=== PATIENT | female | born 1940 | race Caucasian/White ===

== ENCOUNTER 2017-09-21 16:11 | Emergency (ER) | payer MEDICARE, SELFPAY ==
[2017-09-21 16:11] VITALS: BP 158/78; PULSE 92; RESP 18; TEMP 36.8; O2SAT 98; BMI 28.3
[2017-09-21 16:16] VITALS: O2SAT 98
--- NOTE | 2017-09-21 16:16 | EKG12_ITS ---
Test Reason : CP Blood Pressure : / mmHG Vent. Rate : 092 BPM Atrial Rate : 092 BPM P-R Int : 152 ms QRS Dur : 082 ms QT Int : 372 ms P-R-T Axes : 067 071 074 degrees QTc Int : 460 ms Normal sinus rhythm Normal ECG Confirmed by GORDON EMANUEL, PAGE ([id number]), image editor ELYSSA HARDIN ([id number]) on 09/23/2017 3:12:43 PM Referred By: ORLANDO/MATHEUS Confirmed By:PAGE LEYVA MD
--- NOTE | 2017-09-21 16:25 | RAD_ITS ---
STUDY: X-RAY CHEST REASON FOR EXAM: Female, 76 years old. CHEST PAIN TECHNIQUE: Single frontal view of the chest. COMPARISON: September 26, 2016 FINDINGS: Chronic appearing increased interstitial lung markings. There is an elevated right hemidiaphragm. There is no demonstrated pleural abnormality. Normal heart size. Normal mediastinum and dayana. Normal visualized pulmonary arteries. There is atherosclerotic calcification of the aortic arch with tortuosity. There are diffuse degenerative changes of the visualized thoracic spine. There is degenerative osteoarthritis of the bilateral shoulders. There is no demonstrated abnormality of the visualized soft tissue structures of the upper abdomen. RAD/Chest 1 View (Portable) IMPRESSION: There are no acute findings. Electronically Signed: Jared Marina MD at 16:39 EDT , Service support ,
--- NOTE | 2017-09-21 16:46 | ED.VISSUMM ---
- ER Visit Summary Date of Service: 09/21/17 Chief Complaint: Chest pain, nausea, indigestion History of Present Illness: The patient is a 76 F with no significant medical history presents to the emergency department with chest pain for the past week. Patient states she has had constant pain in her midepigastric area. She states it is worse when she eats. She does get mildly nauseated. The patient states that she is in the midst of changing primary care physicians and her omeprazole was not renewed. She has been without it for month. She states that since she has been without it, her symptoms worsened. She states that she has a difficult time sleeping because she gets the pain worse when she lays flat. She denies any shortness of breath. The symptoms are not made worse with exertion. She has no history of coronary vascular disease. Physical Examination: Vital signs reviewed General: Well-nourished, well-developed Head: Normocephalic, atraumatic Eyes: Pupils equal and reactive, extraocular muscles intact Neck, supple, no lymphadenopathy Heart: Regular rate and rhythm Respiratory: No distress, clear bilaterally Abdomen: Soft, nontender, nondistended, no peritoneal signs Back: Nontender Extremities: Nontender, no edema, no cords Skin: Normal color no rash Neuro: Alert and oriented, no focal or lateralizing deficits Test Results: [] Emergency Department Course and Treatment: The patient presents with 1 week of constant burning pain in her mid chest that radiates up into her neck. It is made worse with eating, but has never fully resolved. EKG was obtained which showed no acute ischemic change. Cardiac enzymes are normal. The patient really has no risk factor for coronary vascular disease. With her normal EKG, negative cardiac enzymes, and relief of pain with GI cocktail I do feel that this is more likely GI in nature. Chest x-ray was unremarkable. Screening labs were also unremarkable. On reevaluation the patient is resting comfortably. I am going to resume her omeprazole as she had resolution of symptoms when she was on this before. The patient does have follow-up with primary care in place, but it did licensed professional counselor her that if anything changes, she should return immediately. The patient will be discharged home. Treatment Plan: [] Disposition: Discharge Impression: 1. Atypical chest pain This note was generated with [employer] software. It may contain incorrect words, spelling, and punctuation that were not noted in review of the chart prior to signing ED Disposition - Plan for ED Patient: Chief Complaint: Chest Pain Instructions: ED Chest Pain Atypical Unkn Cause Prescriptions: Omeprazole 40 mg PO DAILY #30 capsule. Referrals: Care Physician,No Primary [NON-STAFF] -
[2017-09-21 17:02] VITALS: BP 136/75; PULSE 79; RESP 14; O2SAT 98
[2017-09-21 17:03] LABS: Absolute Lymphocyte Count 1.35 X10^3/ul (0.83-4.51); Absolute Neutrophil Count 4.5 X10^3/uL (2.0-7.7); Basophil# 0.01 X10^3/uL; Basophil% 0.2 % (0-1); Eosinophil# 0.12 X10^3/uL; Eosinophils% 1.9 % (0-5); Hematocrit 36.7 % (37-47); Hemoglobin 12.6 g/dl (12.0-15.0); Lymphocyte # 1.35 X10^3/ul (4.0); Lymphocyte % 21.3 % (19-41); Mean Corp Hgb Conc 34.3 g/gl (32-36); Mean Corpuscular Hgb 29.5 pg (27.0-32.0); Mean Corpuscular Volume 85.9 fL (81-99); Mean Platelet Vol. 8.8 fl (6.2-12.0); Monocyte# 0.39 X10^3/uL; Monocyte% 6.2 % (0-10); Neutrophil # 4.45 X10^3/uL (2.7-7.7); Neutrophil % 70.2 % (47-70); Platelet Count 369 K/mm3 (150-450); RBC Distribution Width CV 13.1 % (11.6-14.6); RBC Distribution Width SD 40.4 fl (35.1-43.9); Red Blood Count 4.27 M/mm3 (4.2-5.4); White Blood Count 6.3 K/mm3 (4.4-11.0)
[2017-09-21 17:05] LABS: POSITIVE COUNT NO; POSITIVE DIFFERENTIAL NO; POSITIVE MORPHOLOGY NO
[2017-09-21 17:27] LABS: Anion Gap 9 (5-15); BUN 17 mg/dL (7-18); BUN/Creat Ratio 20.1 RATIO (10-20); Calcium,Total 9.2 mg/dL (8.5-10.1); Chloride 106 mmol/L (98-107); Creatinine, Serum 0.85 mg/dL (0.55-1.02); EST Glomerular Filtration Rate 69 mL/min (>60); Est Glom Filt Rate - Afr Amer 84 mL/min (>60); Estimated Creatinine Clearance 41.16 ml/min; Glucose 110 mg/dL (74-106); Lipase 140 U/L (73-393); Potassium 3.7 mmol/L (3.5-5.1); Sodium Level 142 mmol/L (136-145)
[2017-09-21] MEDS: Morphine 4 MG/ML Syringe IV (17:48)
[2017-09-21] MEDS: Ondansetron 4 MG/2 ML Vial IV (17:49)
[2017-09-21 18:30] VITALS: BP 110/89; PULSE 82; RESP 22; O2SAT 100
== END 2017-09-21 18:50 | disposition home or self-care (01) ==
PROVIDERS: Emergency Provider Emergency Medicine
DX: R07.89 Other chest pain (principal); R10.9 Unspecified abdominal pain; R11.0 Nausea; I10 Essential (primary) hypertension; K21.9 Gastro-esophageal reflux disease without esophagitis
CPT/HCPCS: 71045; 80048; 83690; 84484; 85025; 93005; 96374; 96375; 99285; A4216; J2405

== ENCOUNTER 2018-04-12 12:52 | Observation (INO) | payer MEDICARE, SELFPAY ==
[2018-04-12] VITALS (9 sets, daily range): BP systolic 94–148; BP diastolic 62–73; PULSE 70–94; RESP 13–18; TEMP 35.8–36.7; O2SAT 94–97; BMI 31.8; BMI 29.0
--- NOTE | 2018-04-12 13:12 | CT_ITS ---
STUDY: CT BRAIN WITHOUT CONTRAST REASON FOR EXAM: Female, 77 years old. Numbness tingling left face CVA RADIATION DOSAGE (If Supplied By Facility): CTDIvol = ( 44.99 ) mGy, DLP = ( 745.49 ) mGycm TECHNIQUE: Transaxial CT imaging of the brain was performed without administration of intravenous contrast material. Individualized dose optimization techniques were used for this CT. COMPARISON: None. FINDINGS: Normal soft tissue structures. Normal calvarium. There is mild cerebral atrophy with widening of the extra-axial spaces and ventricular dilatation. There are areas of decreased attenuation within the white matter tracts of the supratentorial brain, consistent with microvascular disease changes. Is a focus of low attenuation within the right-sided basal ganglia suggesting old lacunar infarct. Normal brainstem. There is mild cerebellar atrophy. There is no intracranial hemorrhage. There are no findings of an acute ischemic infarction. Normal visualized paranasal sinuses. CT/Brain/Head without Contrast IMPRESSION: Mild atrophy. No visualized evidence of acute hemorrhage infarct or edema. Recommend consideration for follow-up MRI if appropriate. Electronically Signed: Dana Hernandez MD at 14:36 EST Tel , Service support ,
--- NOTE | 2018-04-12 13:12 | EKG12_ITS ---
Test Reason : NUMBNESS Blood Pressure : / mmHG Vent. Rate : 081 BPM Atrial Rate : 081 BPM P-R Int : 162 ms QRS Dur : 084 ms QT Int : 394 ms P-R-T Axes : 058 049 077 degrees QTc Int : 457 ms Normal sinus rhythm Nonspecific ST and T wave abnormality Abnormal ECG Confirmed by GORDON EMANUEL, PAGE ([id number]), editorial manager ELYSSA HARDIN ([id number]) on 04/15/2018 2:35:28 PM Referred By: DOMINGO Confirmed By:PAGE LEYVA MD
--- NOTE | 2018-04-12 13:13 | ED.VISSUMM ---
- ER Visit Summary Date of Service: 04/12/18 Chief Complaint: Left-sided facial tingling History of Present Illness: The patient is a 77 F who has paresthesias on the left side of the face. It started yesterday. She describes paresthesias to the left side of the face. Her daughter noted that when she talked her on the phone that there may be a little bit of a slur. She denies a headache, nausea or vomiting. She also had some indigestion earlier today. She denies a history of stroke or TIA. She was told that she does have some coronary artery disease but has no stents in place. Physical Examination: Vital signs reviewed. HEENT exam unremarkable. Heart is regular rate and rhythm without murmurs. Lungs are clear to auscultation. Abdomen is soft and nontender. Extremities reveal no edema. Skin exam normal. Neurologic exam shows an NIH stroke scale of 2. She does have a slight dysarthria with certain raises. She does admit to paresthesias to the left side of the face. Test Results: EKG is normal sinus rhythm with no ST changes. Laboratory studies reveal nothing remarkable. CAT scan of the head reveals atrophy. Chest x-ray reveals mild vascular congestion. Emergency Department Course and Treatment: I am concerned about the patient's left facial paresthesias as well as her mild dysarthria. I am concerned that she may be having a slight stroke. I feel she requires an MRI. I spoke with hospitalist for admission. Treatment Plan: [] Disposition: Admit Impression: Left facial paresthesias, dysarthria This note was generated with [employer] dictation software. It may contain incorrect words, spelling, and punctuation that were not noted in review of the chart prior to signing ED Disposition - Plan for ED Patient: Chief Complaint: Numb/Ting Referrals: Jeovany Carver MD [Primary Care Provider] -
[2018-04-12 13:23] LABS: Bacteria 0 SEEN /hpf (None Seen); Mucous, Urine 0 SEEN /hpf (<or=2+); Red Blood Cells-Urine 0 SEEN /hpf (0-5)
[2018-04-12 13:29] LABS: Absolute Lymphocyte Count 1.22 X10^3/ul (0.83-4.51); Absolute Neutrophil Count 3.1 X10^3/uL (2.0-7.7); Basophil# 0.01 X10^3/uL; Basophil% 0.2 % (0-1); Eosinophil# 0.16 X10^3/uL; Eosinophils% 3.4 % (0-5); Hematocrit 40.6 % (37-47); Hemoglobin 13.4 g/dl (12.0-15.0); Lymphocyte # 1.22 X10^3/ul (4.0); Lymphocyte % 26.1 % (19-41); Mean Corpuscular Hgb 28.3 pg (27.0-32.0); Mean Corpuscular Volume 85.7 fL (81-99); Mean Platelet Vol. 8.5 fl (6.2-12.0); Monocyte# 0.21 X10^3/uL; Monocyte% 4.5 % (0-10); Neutrophil # 3.06 X10^3/uL (2.7-7.7); Neutrophil % 65.6 % (47-70); POSITIVE COUNT NO; POSITIVE DIFFERENTIAL NO; POSITIVE MORPHOLOGY NO; Platelet Count 303 K/mm3 (150-450); RBC Distribution Width CV 13.6 % (11.6-14.6); RBC Distribution Width SD 42.7 fl (35.1-43.9); Red Blood Count 4.74 M/mm3 (4.2-5.4); White Blood Count 4.7 K/mm3 (4.4-11.0)
[2018-04-12 13:29] LABS: Color, Urine Yellow (Yellow); Glucose, Dipstick Normal (Normal); Ketone-Dipstick Negative (Negative); Leukocyte Esterase-Dipstick 25 /ul (Negative); Nitrite-Dipstick Negative (Negative); Occult Blood-Urine Negative /ul (Negative); Protein-Dipstick Negative (Negative); Urine Bilirubin Dipstick Negative (Negative); Urine Clarity Clear (Clear); Urine Urobilinogen Normal (Normal); Urine pH 6.5 (5.0 - 8.0)
[2018-04-12 13:35] LABS: Squamous Epithelial Cells - UA 0-5 SEEN /hpf (5-10); White Blood Cells 0-5 SEEN /hpf (0-5)
[2018-04-12 13:36] LABS: Partial Thromboplast Time 27.7 Seconds (24.1-36.2); Prothrombin Time (Protime)PT. 13.6 SECONDS (11.7-14.9)
--- NOTE | 2018-04-12 13:37 | RAD_ITS ---
STUDY: X-RAY CHEST REASON FOR EXAM: Female, 77 years old. Neurological changes TECHNIQUE: A single frontal view of the chest was obtained. COMPARISON: September 21, 2017 FINDINGS: Lines and tubes: None. Lungs: Under aerated. No focal airspace opacities. Pleura: No demonstrated abnormality. Mediastinum/dayana: Unremarkable. Cardiovascular: Normal size cardiac silhouette. Indistinct central vessels. Thoracic aorta unremarkable. Soft tissues: Unremarkable. Bones: Mild degenerative changes in spine and shoulders. Upper abdomen: No demonstrated abnormality. RAD/Chest 1 View IMPRESSION: No acute cardiopulmonary abnormalities. Mild vascular congestion. Electronically Signed: Sola Giron MD at 14:44 EST , Service support ,
[2018-04-12 13:45] LABS: Anion Gap 10 (5-15); BUN 9 mg/dL (7-18); BUN/Creat Ratio 9.6 RATIO (10-20); Calcium,Total 8.9 mg/dL (8.5-10.1); Chloride 105 mmol/L (98-107); Creatinine, Serum 0.94 mg/dL (0.55-1.02); EST Glomerular Filtration Rate 61 mL/min (>60); Est Glom Filt Rate - Afr Amer 74 mL/min (>60); Estimated Creatinine Clearance 34.86 ml/min; Glucose 106 mg/dL (74-106); Potassium 3.7 mmol/L (3.5-5.1); Sodium Level 141 mmol/L (136-145)
--- NOTE | 2018-04-12 15:32 | NURSING ---
107 LEFT FACIAL PARENTHESIA, DYSARTHRIA, TIA ASHELFAH
--- NOTE | 2018-04-12 15:44 | HP.PCM_ITS ---
<Jamey Obrien - Last Filed: 04/12/18 15:44> Problem List (1) CVA (cerebral vascular accident) Status: Acute (2) CAD (coronary artery disease) Status: Chronic (3) GERD (gastroesophageal reflux disease) Status: Chronic (4) Herpes Status: Chronic (5) Breast cancer Status: Chronic (6) Fibromyalgia Status: Chronic (7) Depression Status: Chronic (8) HLD (hyperlipidemia) Status: Chronic History of Present Illness Date of Admission: 04/12/18 Chief Complaint: left sided facial numbness The patient is a 77 year old F with pmhx of CAD (no stent), HLD, HTN, GERD, fibromyalgia, breast cancer in remission, depression, who presents to the ER with left sided facial numbness that began yesterday. She was taking the garbage out at about 1330 and suddenly felt the left side of her face go numb, describing it as like novacaine, she felt it in her forehead, cheek, nose, and tongue. She ignored it and went to bed. She woke up and it was still there her boyfriend and daughter encouraged her to go to the ER. She states now it feels like it is somewhat better and that it feels like thick skin. Her daughter thinks that her left lip may be slightly drooping, and that she has developed a slight lisp in her speech. The patient denies weakness or numbness of the extremities, denies ROACH, ataxia. She did feel somewhat LH yesterday. She lives al one, no recent falls. She had a herpes flare up 2 weeks prior. She was also tearful during the interview stating she is just waiting to .[] Past Medical History Past Medical History (Chronic Problems): Chronic Problems CAD (coronary artery disease) (Chronic) GERD (gastroesophageal reflux disease) (Chronic) Herpes (Chronic) Breast cancer (Chronic) Fibromyalgia (Chronic) Depression (Chronic) HLD (hyperlipidemia) (Chronic) Allergies Penicillins [PCN] Adverse Reaction (Verified 04/12/18 12:56) Rash Home Medications: Ambulatory Orders Medication Instructions Recorded Omeprazole [Prilosec] 20 mg PO DAILY 09/26/16 Venlafaxine HCl [Effexor Xr] 37.5 mg PO DAILY 09/26/16 Acyclovir 800 mg PO BID 04/12/18 Atorvastatin Calcium [Lipitor] 20 mg PO QHS 04/12/18 Clopidogrel Bisulfate [Clopidogrel] 75 mg PO DAILY 04/12/18 Cyanocobalamin (Vitamin B-12) 1,000 mcg PO DAILY 04/12/18 [Vitamin B-12] Gluc/Chondr-MSM 7/C/[place] 1 each PO BID 04/12/18 [Eql Glucosam-Chondro Complx Tb] Metoprolol Succinate 12.5 mg PO DAILY 04/12/18 Turmeric 400 mg PO DAILY 04/12/18 Ubidecarenone [Co Q-10] 10 mg PO QHS 04/12/18 Vitamin B Complex [B Complex] 1 each PO QHS 04/12/18 Vitamin E 1 cap PO DAILY 04/12/18 Surgical History: adenoidectomy, tonsillectomy Psychiatric History: Depression 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 Lives: Alone Smoking Status: Never smoker Tobacco Use: Non-smoker Alcohol: None Drugs: None - *Family History Maternal History Items: Heart Disease Paternal History Items: Cancer - prostate Review of Systems Constitutional: Denies: Chills, Fever, Weight Change HEENT: Denies: Head Aches, Sinus Congestion, Sinus Drainage Cardiovascular: Denies: Chest Pain, Palpitations Respiratory: Denies: Cough, Shortness of breath at rest, Sputum production Gastrointestinal: Denies: Abdominal Pain, Nausea, Vomiting Genitourinary: Denies: Dysuria Musculoskeletal: Denies: Joint Pain, Joint Tenderness Skin: Denies: Rash, Wounds Neurological: Reports: Slurred speech, Numbness, Tingling. Denies: Balance problems, Focal weakness, Incoordination Psychiatric: Denies: Anxiety, Depression, Homicidal Ideations, Suicidal Ideations Hematologic/ Lymphatic: Denies: Easy Bruising, Easy Bleeding VTE Information - Inpt Only VTE Present on Admission: No VTE Mechan Device Prophylaxis: None VTE Pharm Prophylaxis ordered?: Yes Patient Problems: Active and Suspected Problems CVA (cerebral vascular accident) (Acute) - Physical Exam General: Alert, Oriented x3, Cooperative HEENT: Atraumatic, PERRLA, EOMI, Normocephalic Neck: Supple, No JVD, Negative Carotid Bruits Lungs: Clear to auscultation, Normal air movement Cardiovascular: Regular rate, No murmurs Abdomen: Bowel Sounds Present, Soft, Non Tender Extremities: No edema, Capillary Refill Less than 3 Seconds Skin: No rashes, No breakdown Musculoskeletal: No Tenderness to Palpation of Joints or Extremities Neurological: Facial Droop - left Psych/Mental Status: Depressed Vital Signs Temp Pulse Resp BP Pulse Ox 96.5 F L 74 13 94/62 97 04/12/18 12:52 04/12/18 15:08 04/12/18 15:08 04/12/18 12:52 04/12/18 15:08 Oxygen Flow Rate (L/min) 2 Oxygen Delivery Method Room Air Weight: 163 lb Body Mass Index (BMI) 31.8 Finger Stick Blood Glucose 106 Laboratory Tests Past 24 Hrs 04/12/18 04/12/18 04/12/18 13:05 13:20 13:20 WBC 4.7 RBC 4.74 Hgb 13.4 Hct 40.6 MCV 85.7 MCH 28.3 MCHC 33.0 RDW 13.6 RDW Differential 42.7 Plt Count 303 MPV 8.5 Immature Gran % (Auto) 0.200 Neut % (Auto) 65.6 Lymph % (Auto) 26.1 [place] % (Auto) 4.5 Eos % (Auto) 3.4 Baso % (Auto) 0.2 Absolute Neuts (auto) 3.1 Absolute Lymphs (auto) 1.22 Total Counted Not Reportable PT 13.6 INR 1.0 APTT 27.7 Sodium Potassium Chloride Carbon Dioxide Anion Gap BUN Creatinine Estim Creat Clear Calc Est GFR (MDRD) Af Amer Est GFR (MDRD) Non-Af BUN/Creatinine Ratio Glucose Calcium Troponin I Urine Color Yellow Urine Clarity Clear Urine pH 6.5 Ur Specific [place] 1.010 Urine Protein Negative Urine Glucose (UA) Normal Urine Ketones Negative Urine Occult Blood Negative Urine Nitrite Negative Urine Bilirubin Negative Urine Urobilinogen Normal Ur Leukocyte Esterase 25 H Urine RBC 0 SEEN Urine WBC 0-5 SEEN Ur Squamous Epith Cells 0-5 SEEN Urine Bacteria 0 SEEN Urine Mucus 0 SEEN 04/12/18 13:20 WBC RBC Hgb Hct MCV MCH MCHC RDW RDW Differential Plt Count MPV Immature Gran % (Auto) Neut % (Auto) Lymph % (Auto) [place] % (Auto) Eos % (Auto) Baso % (Auto) Absolute Neuts (auto) Absolute Lymphs (auto) Total Counted PT INR APTT Sodium 141 Potassium 3.7 Chloride 105 Carbon Dioxide 26.0 Anion Gap 10 BUN 9 Creatinine 0.94 Estim Creat Clear Calc 34.86 Est GFR (MDRD) Af Amer 74 Est GFR (MDRD) Non-Af 61 BUN/Creatinine Ratio 9.6 L Glucose 106 Calcium 8.9 Troponin I < 0.015 Urine Color Urine Clarity Urine pH Ur Specific [place] Urine Protein Urine Glucose (UA) Urine Ketones Urine Occult Blood Urine Nitrite Urine Bilirubin Urine Urobilinogen Ur Leukocyte Esterase Urine RBC Urine WBC Ur Squamous Epith Cells Urine Bacteria Urine Mucus Assessment/Plan All Active Problems CVA (cerebral vascular accident) (Acute) 1. Acute CVA - concern for stroke. CT brain negative. Symptoms marked by sudden onset of left facial numbness forehead to bottom of cheek, left lip droop, possibly slight speech change. No prior stroke. She is already on plavix and statin for CAD, does not take aspirin at all. Check echo, MRI brain, MRA head and neck. Speech, PTOT evals. start baby aspirin. Increase lipitor to 40. Neuro consult. BP low normal, labs unremarkable. 2. CAD - cath in 2017 with no stent placed, 30% blockage. Meds as above 3. HTN - running low, hold metoprolol for permissive htn 4. Depression - very tearful on interview, continue effexor. 5. Herpes - recent outbreak, continue acyclovir. 6. HLD - statin as above 7. GERD - PPI. DVT ppx: lovenox DC planning: PTOT, lives alone This patient was seen by Jamey Obrien PA-C under the supervision of Dr. Courtney. <Mindi Courtney E - Last Filed: 04/12/18 16:46> History of Present Illness The patient is a 77 year old F [] Past Medical History Allergies Penicillins [PCN] Adverse Reaction (Verified 04/12/18 12:56) Rash - Physical Exam Vital Signs Temp Pulse Resp BP Pulse Ox 97.8 F 71 15 128/73 H 95 04/12/18 16:31 04/12/18 16:31 04/12/18 16:31 04/12/18 16:31 04/12/18 16:31 Oxygen Flow Rate (L/min) 2 Oxygen Delivery Method Room Air Weight: 151 lb 3.794 oz Body Mass Index (BMI) 29.0 Finger Stick Blood Glucose 106 Laboratory Tests Past 24 Hrs 04/12/18 04/12/18 04/12/18 13:05 13:20 13:20 WBC 4.7 RBC 4.74 Hgb 13.4 Hct 40.6 MCV 85.7 MCH 28.3 MCHC 33.0 RDW 13.6 RDW Differential 42.7 Plt Count 303 MPV 8.5 Immature Gran % (Auto) 0.200 Neut % (Auto) 65.6 Lymph % (Auto) 26.1 [place] % (Auto) 4.5 Eos % (Auto) 3.4 Baso % (Auto) 0.2 Absolute Neuts (auto) 3.1 Absolute Lymphs (auto) 1.22 Total Counted Not Reportable PT 13.6 INR 1.0 APTT 27.7 Sodium Potassium Chloride Carbon Dioxide Anion Gap BUN Creatinine Estim Creat Clear Calc Est GFR (MDRD) Af Amer Est GFR (MDRD) Non-Af BUN/Creatinine Ratio Glucose Calcium Troponin I Urine Color Yellow Urine Clarity Clear Urine pH 6.5 Ur Specific [place] 1.010 Urine Protein Negative Urine Glucose (UA) Normal Urine Ketones Negative Urine Occult Blood Negative Urine Nitrite Negative Urine Bilirubin Negative Urine Urobilinogen Normal Ur Leukocyte Esterase 25 H Urine RBC 0 SEEN Urine WBC 0-5 SEEN Ur Squamous Epith Cells 0-5 SEEN Urine Bacteria 0 SEEN Urine Mucus 0 SEEN 04/12/18 13:20 WBC RBC Hgb Hct MCV MCH MCHC RDW RDW Differential Plt Count MPV Immature Gran % (Auto) Neut % (Auto) Lymph % (Auto) [place] % (Auto) Eos % (Auto) Baso % (Auto) Absolute Neuts (auto) Absolute Lymphs (auto) Total Counted PT INR APTT Sodium 141 Potassium 3.7 Chloride 105 Carbon Dioxide 26.0 Anion Gap 10 BUN 9 Creatinine 0.94 Estim Creat Clear Calc 34.86 Est GFR (MDRD) Af Amer 74 Est GFR (MDRD) Non-Af 61 BUN/Creatinine Ratio 9.6 L Glucose 106 Calcium 8.9 Troponin I < 0.015 Urine Color Urine Clarity Urine pH Ur Specific [place] Urine Protein Urine Glucose (UA) Urine Ketones Urine Occult Blood Urine Nitrite Urine Bilirubin Urine Urobilinogen Ur Leukocyte Esterase Urine RBC Urine WBC Ur Squamous Epith Cells Urine Bacteria Urine Mucus Assessment/Plan Hospitalist note: I am seeing this patient in conjunction with Jamey Obrien. I independently seen and examined the patient. History and physical, laboratory data and imaging studies reviewed and I agree with above admission workup plan. Patient presented to the ED because of left fascial numbness and tingling that started yesterday, it was involving the left forehead, cheek, nose and tongue. She said it was continuous since yesterday but she tried to ignore it and she went to bed but she woke up with the same symptoms today. Her daughter mentioned that she may be slightly having droop on her left side of her face and has slight lisp on her speech. She denied focal arm or leg weakness. Her vital signs are stable in the ED. Her routine blood work was unremarkable. CT scan brain showed no acute findings. Chest x-ray showed no acute findings. EKG revealed normal sinus rhythm without evidence of cardiac arrhythmias or acute ischemic changes. - Physical Exam General: Alert, Oriented x3, Cooperative, No apparent distress. HEENT: Atraumatic, PERRLA, EOMI. Neck: Supple, No JVD, Negative Carotid Bruits, Trachea Midline, Thyroid Normal. Lungs: Clear to auscultation, Normal air movement, No rhonchi, No wheeze, No rales. Cardiovascular: Regular rate, Regular Rhythm, Normal S1, Normal S2, PMI Normal. Abdomen: Bowel Sounds Present, Soft, Non Tender, Non-Distended, No Hepato- splenomegaly. Extremities: No clubbing, No cyanosis, No edema Skin: No rashes, No breakdown Neurological: Neuro grossly intact Vital Signs are stable. Assessment and plan: #1 left facial anesthesia/questionable facial droop and dysarthria: Concern for acute stroke versus TIA. Initial CT scan brain showed no acute findings. EKG reviewed as above. Plan: Admit to PCU for observation, cardiac monitoring, NIH stroke scale, MRI brain, MRA of the head and neck, 2D echocardiogram, fasting lipid profile, aspirin, Lipitor, continue Plavix, neurology consult. #2 other chronic medical problems: Stable, continue current medications as above. This note was generated with [employer] dictation software. It may contain incorrect words, spelling, and punctuation that were not noted in checking the note before signing. Code Visit OBSV E&M: 28053 Initial observation care L3
[2018-04-12] MEDS: 0.9% Normal Saline 1,000 ML 75 ML IV (17:59)
[2018-04-12] MEDS: Acetaminophen 325 MG Tablet 650 MG PO (21:15)
[2018-04-12] MEDS: Atorvastatin Calcium 80 MG Tablet PO (21:21)
[2018-04-12] MEDS: Acyclovir 800 MG Tablet PO (21:21)
[2018-04-12] MEDS: Venlafaxine XR 37.5 MG Capsule PO (21:27)
[2018-04-13] VITALS (8 sets, daily range): BP systolic 115–144; BP diastolic 52–67; PULSE 64–89; RESP 15–16; TEMP 36.4–37.2; O2SAT 93–95; BMI 29.0
[2018-04-13 06:18] LABS: Cholesterol 134 mg/dL (200); High Density Lipoprotein 37 mg/dL; Triglycerides 216 mg/dL; Very Low Density Lipoprotein 43 mg/dL (5-40)
[2018-04-13] MEDS: Aspirin 81 MG TAB.CHEW PO (08:30)
[2018-04-13] MEDS: Enoxaparin 40 MG/0.4 ML Syringe SC (08:30)
[2018-04-13] MEDS: Pantoprazole Sodium 20 MG Tablet PO (08:31)
[2018-04-13] MEDS: Clopidogrel Bisulfate 75 MG Tablet PO (08:31)
[2018-04-13] MEDS: Metoprolol(XL)Succ 25 MG Tablet 12.5 MG PO (08:31)
[2018-04-13] MEDS: Acyclovir 800 MG Tablet PO (08:31)
--- NOTE | 2018-04-13 11:39 | PCM.CONS.GEN ---
Reason for Consult Date of Consultation: 04/13/18 Reason for Consultation: left facial paresthesias History of Present Illness: saturday two days ago noted left facial paresthesias at about 1pm, describes pins and needs, now slowly improving. denies recent illness, however has had an outbreak of genital herpes recently, but no change in meds and takes acyclovir daily regardless. denies increased stress. admits to insomnia, takes tylenol pm. reports new insomnia, although daughters who are present note she has had ongoing trouble with sleep. Per admit note: The patient is a 77 year old F with pmhx of CAD (no stent), HLD, HTN, GERD, fibromyalgia, breast cancer in remission, depression, who presents to the ER with left sided facial numbness that began yesterday. She was taking the garbage out at about 1330 and suddenly felt the left side of her face go numb, describing it as like novacaine, she felt it in her forehead, cheek, nose, and tongue. She ignored it and went to bed. She woke up and it was still there her boyfriend and daughter encouraged her to go to the ER. She states now it feels like it is somewhat better and that it feels like thick skin. Her daughter thinks that her left lip may be slightly drooping, and that she has developed a slight lisp in her speech. The patient denies weakness or numbness of the extremities, denies ROACH, ataxia. She did feel somewhat LH yesterday. She lives alone, no recent falls. She had a herpes flare up 2 weeks prior. She was also tearful during the interview stating she is just waiting to Past Medical History Past Medical History (Chronic Problems): Chronic Problems CAD (coronary artery disease) (Chronic) GERD (gastroesophageal reflux disease) (Chronic) Herpes (Chronic) Breast cancer (Chronic) Fibromyalgia (Chronic) Depression (Chronic) HLD (hyperlipidemia) (Chronic) Allergies Penicillins [PCN] Adverse Reaction (Verified 04/12/18 12:56) Rash Home Medications: Ambulatory Orders Medication Instructions Recorded Omeprazole [Prilosec] 20 mg PO DAILY 09/26/16 Venlafaxine HCl [Effexor Xr] 37.5 mg PO DAILY 09/26/16 Acyclovir 800 mg PO BID 04/12/18 Atorvastatin Calcium [Lipitor] 20 mg PO QHS 04/12/18 Clopidogrel Bisulfate [Clopidogrel] 75 mg PO DAILY 04/12/18 Cyanocobalamin (Vitamin B-12) 1,000 mcg PO DAILY 04/12/18 [Vitamin B-12] Gluc/Chondr-MSM 7/C/[place] 1 each PO BID 04/12/18 [Eql Glucosam-Chondro Complx Tb] Metoprolol Succinate 12.5 mg PO DAILY 04/12/18 Turmeric 400 mg PO DAILY 04/12/18 Ubidecarenone [Co Q-10] 10 mg PO QHS 04/12/18 Vitamin B Complex [B Complex] 1 each PO QHS 04/12/18 Vitamin E 1 cap PO DAILY 04/12/18 Surgical History: adenoidectomy, tonsillectomy Psychiatric History: Depression 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 Lives: Alone Smoking Status: Never smoker Tobacco Use: Non-smoker Alcohol: None Drugs: None - *Family History Maternal History Items: Heart Disease Paternal History Items: Cancer - prostate Review of Systems Constitutional: Denies: Chills, Fever, Weight Change HEENT: Denies: Head Aches, Sinus Congestion, Sinus Drainage Cardiovascular: Denies: Chest Pain, Palpitations Respiratory: Denies: Cough, Shortness of breath at rest, Sputum production Gastrointestinal: Denies: Abdominal Pain, Nausea, Vomiting Genitourinary: Denies: Dysuria Musculoskeletal: Denies: Joint Pain, Joint Tenderness Skin: Denies: Rash, Wounds Neurological: Reports: Tingling. Denies: Focal weakness, Numbness Psychiatric: Reports: Anxiety, Depression. Denies: Homicidal Ideations, Suicidal Ideations Hematologic/ Lymphatic: Denies: Easy Bruising, Easy Bleeding Patient Problems: Active and Suspected Problems CVA (cerebral vascular accident) (Acute) - Physical Exam General: Alert, Oriented x3, Cooperative, No apparent distress HEENT: PERRLA, EOMI Neurological: Cranial nerves II-XII grossly intact, Deep Tendon Reflexes 2+/4 and Symmetrical, Neuro grossly intact, Motor Exam 5/5 strength throughout, Sensory exam intact to light touch and pain, - - sensory splitting Psych/Mental Status: Normal Affect, Alert and oriented to time, place, person, mood and affect Vital Signs Temp Pulse Resp BP Pulse Ox 37.2 C 87 15 144/52 H 95 04/13/18 08:26 04/13/18 08:31 04/13/18 08:26 04/13/18 08:31 04/13/18 08:26 Oxygen Flow Rate (L/min) 2 Oxygen Delivery Method Room Air Weight: 68.6 kg Body Mass Index (BMI) 29.0 Finger Stick Blood Glucose 106 Intake and Output for Last 24 Hours 04/11/18 04/12/18 04/13/18 23:59 23:59 23:59 Intake Total 973 / 973 676 / 676 Balance 973 / 973 676 / 676 Laboratory Tests Past 24 Hrs 04/12/18 04/12/18 04/12/18 13:05 13:20 13:20 WBC 4.7 RBC 4.74 Hgb 13.4 Hct 40.6 MCV 85.7 MCH 28.3 MCHC 33.0 RDW 13.6 RDW Differential 42.7 Plt Count 303 MPV 8.5 Immature Gran % (Auto) 0.200 Neut % (Auto) 65.6 Lymph % (Auto) 26.1 [place] % (Auto) 4.5 Eos % (Auto) 3.4 Baso % (Auto) 0.2 Absolute Neuts (auto) 3.1 Absolute Lymphs (auto) 1.22 Total Counted Not Reportable PT 13.6 INR 1.0 APTT 27.7 Sodium Potassium Chloride Carbon Dioxide Anion Gap BUN Creatinine Estim Creat Clear Calc Est GFR (MDRD) Af Amer Est GFR (MDRD) Non-Af BUN/Creatinine Ratio Glucose Calcium Troponin I Triglycerides Cholesterol LDL Cholesterol VLDL Cholesterol HDL Cholesterol Urine Color Yellow Urine Clarity Clear Urine pH 6.5 Ur Specific [place] 1.010 Urine Protein Negative Urine Glucose (UA) Normal Urine Ketones Negative Urine Occult Blood Negative Urine Nitrite Negative Urine Bilirubin Negative Urine Urobilinogen Normal Ur Leukocyte Esterase 25 H Urine RBC 0 SEEN Urine WBC 0-5 SEEN Ur Squamous Epith Cells 0-5 SEEN Urine Bacteria 0 SEEN Urine Mucus 0 SEEN 04/12/18 04/12/18 04/13/18 13:20 17:05 05:20 WBC RBC Hgb Hct MCV MCH MCHC RDW RDW Differential Plt Count MPV Immature Gran % (Auto) Neut % (Auto) Lymph % (Auto) [place] % (Auto) Eos % (Auto) Baso % (Auto) Absolute Neuts (auto) Absolute Lymphs (auto) Total Counted PT INR APTT Sodium 141 Potassium 3.7 Chloride 105 Carbon Dioxide 26.0 Anion Gap 10 BUN 9 Creatinine 0.94 Estim Creat Clear Calc 34.86 Est GFR (MDRD) Af Amer 74 Est GFR (MDRD) Non-Af 61 BUN/Creatinine Ratio 9.6 L Glucose 106 Calcium 8.9 Troponin I < 0.015 < 0.015 Triglycerides 216 H Cholesterol 134 LDL Cholesterol 54 VLDL Cholesterol 43 H HDL Cholesterol 37 L Urine Color Urine Clarity Urine pH Ur Specific [place] Urine Protein Urine Glucose (UA) Urine Ketones Urine Occult Blood Urine Nitrite Urine Bilirubin Urine Urobilinogen Ur Leukocyte Esterase Urine RBC Urine WBC Ur Squamous Epith Cells Urine Bacteria Urine Mucus MRI reviewed, no acute Assessment/Plan All Active Problems CVA (cerebral vascular accident) (Acute) normal exam and mri brain, conversion vs tia vs migraine vs viral syndrome continue acyclovir ok to dc rec op f/u with psych
--- NOTE | 2018-04-13 13:45 | DCINST_ITS ---
- Discharge Diagnoses Current Active Problems: Current Active and Chronic Problems CVA (cerebral vascular accident) (Acute) CAD (coronary artery disease) (Chronic) GERD (gastroesophageal reflux disease) (Chronic) Herpes (Chronic) Breast cancer (Chronic) Fibromyalgia (Chronic) Depression (Chronic) HLD (hyperlipidemia) (Chronic) You will use the following diet at home:: Cardiac Your food should be the consistency of: Regular Your liquids should be the consistency of: Regular/Thin Discharge Activity: Return to Normal Activity Allergies/Adverse Reactions: Allergies Penicillins [PCN] Adverse Reaction (Verified 04/12/18 12:56) Rash Medications to take at Discharge Omeprazole [Prilosec] 20 mg PO DAILY 09/26/16 Venlafaxine HCl [Effexor Xr] 37.5 mg PO DAILY 09/26/16 Acyclovir 800 mg PO BID 04/12/18 Clopidogrel Bisulfate [Clopidogrel] 75 mg PO DAILY 04/12/18 Cyanocobalamin (Vitamin B-12) [Vitamin B-12] 1,000 mcg PO DAILY 04/12/18 Gluc/Chondr-MSM 7/C/[place] [Eql Glucosam-Chondro Complx Tb] 1 each PO BID 04/12/18 Metoprolol Succinate 12.5 mg PO DAILY 04/12/18 Turmeric 400 mg PO DAILY 04/12/18 Ubidecarenone [Co Q-10] 10 mg PO QHS 04/12/18 Vitamin B Complex [B Complex] 1 each PO QHS 04/12/18 Vitamin E 1 cap PO DAILY 04/12/18 Aspirin [Aspirin, Baby] 81 mg PO DAILY@0800 tab.chew 04/13/18 Atorvastatin Calcium [Lipitor] 80 mg PO QHS #30 tablet 04/13/18 The following prescriptions were given: Atorvastatin Calcium [Lipitor] 80 mg PO QHS #30 tablet Orders to be completed after discharge: Echo Complete W/ Contrast [ECHO] Time Frame: 2 Days, Location: None Selected Primary Care Physician: Jeovany Carver MD [Primary Care Provider] - Please follow up with your Primary Care Physician in: 1-2 weeks Test Results: Test results from this visit will be discussed in further detail at your follow- up appointment, if applicable. Please Follow Up With: Neurology - Your own, keep prior appointment. When: 1 week Proposed Discharge Date: 04/13/18
--- NOTE | 2018-04-13 13:45 | PCM.DC.SUM ---
<Jamey Obrien - Last Filed: 04/13/18 13:45> Discharge Date and Diagnosis - Problem List Patient Problems: Active and Suspected Problems CVA (cerebral vascular accident) (Acute) Date of Admission: 04/12/18 Date of Discharge: 04/13/18 - Primary Discharge Diagnosis Active and Suspected Problems Transient left sided facial parasthesias, stroke ruled out Depression Herpes outbreak CAD GERD Fibromyalgia HLD HTN Hx Breast cancer - Secondary Discharge Diagnosis Chronic Problems CAD (coronary artery disease) (Chronic) GERD (gastroesophageal reflux disease) (Chronic) Herpes (Chronic) Breast cancer (Chronic) Fibromyalgia (Chronic) Depression (Chronic) HLD (hyperlipidemia) (Chronic) Hospital Course and Treatment Imaging Results: RAD/Chest 1 View IMPRESSION: No acute cardiopulmonary abnormalities. Mild vascular congestion. CT/Brain/Head without Contrast IMPRESSION: Mild atrophy. No visualized evidence of acute hemorrhage infarct or edema. Recommend consideration for follow-up MRI if appropriate. MRI/Brain without Contrast IMPRESSION: No acute intracranial abnormality. MRI/MRA Head ONLY without Contrast IMPRESSION: Unremarkable MRA of the head MRI/MRA Neck WITH and W/O Contrast IMPRESSION: Unremarkable bilateral cervical carotid and vertebral arteries. Consults: [facility] - neuro Operations: None Procedures: None Summary of Care Provided: Hospital course: The patient is a 77 year old F with pmhx of CAD, HTN, HLD, fibromyalgia, depression, GERD, breast cancer in remission, who presented to the ER with c/o left sided facial numbness that began the day prior to admission. She described it as feeling like novacaine in her face including the forehead, left side of nose, cheek, and tongue. Her daughter thought that she may have some slight facial droop and slurred speech. She had no ataxia or focal weakness. She had a recent herpes flare up, and also has been depressed stating she was waiting to . She came to the ER, and was admitted with concern for acute stroke. She was placed on baby aspirin in addition to the plavix she was already on, and statin therapy was maximized. CT brain was negative. Tele was negative overnight. She underwent an MRI brain, MRA head and neck the following day. These were negative for stroke. Neurology evaluated the patient and noted no neurologic symptoms, and that the possible etiologies included TIA, migraine, conversion, or a viral syndrome. Neurology cleared the patient for discharge. The patient has a follow up with her own neurologist in 1 week, which we advised her to keep. She will also need to see her PCP in 1-2 weeks. An outpatient echo was ordered, which will be done on saturday. She was discharged home in stable condition. This patient was seen by Jamey Obrien PA-C under the supervision of Doctor Brandy. [] Patient Problems: Active and Suspected Problems CVA (cerebral vascular accident) (Acute) - Physical Exam General: Alert, Oriented x3, Cooperative HEENT: Atraumatic, PERRLA, EOMI, Normocephalic Neck: Supple, No JVD, Negative Carotid Bruits Lungs: Clear to auscultation, Normal air movement Cardiovascular: Regular rate, No murmurs Abdomen: Bowel Sounds Present, Soft, Non Tender Extremities: No edema, Capillary Refill Less than 3 Seconds Skin: No rashes, No breakdown Musculoskeletal: No Tenderness to Palpation of Joints or Extremities Neurological: Cranial nerves II-XII grossly intact Psych/Mental Status: Normal Affect, Appropriate Vital Signs Temp Pulse Resp BP Pulse Ox 97.8 F 89 15 116/55 L 94 04/13/18 12:22 04/13/18 12:22 04/13/18 12:22 04/13/18 12:22 04/13/18 12:22 Oxygen Flow Rate (L/min) 2 Oxygen Delivery Method Room Air Weight: 151 lb 3.794 oz Body Mass Index (BMI) 29.0 Finger Stick Blood Glucose 106 Intake and Output for Last 24 Hours 04/11/18 04/12/18 04/13/18 23:59 23:59 23:59 Intake Total 973 / 973 1296 / 1296 Balance 973 / 973 1296 / 1296 Laboratory Tests Past 24 Hrs 04/12/18 04/12/18 04/13/18 13:20 17:05 05:20 Sodium 141 Potassium 3.7 Chloride 105 Carbon Dioxide 26.0 Anion Gap 10 BUN 9 Creatinine 0.94 Estim Creat Clear Calc 34.86 Est GFR (MDRD) Af Amer 74 Est GFR (MDRD) Non-Af 61 BUN/Creatinine Ratio 9.6 L Glucose 106 Calcium 8.9 Troponin I < 0.015 < 0.015 Triglycerides 216 H Cholesterol 134 LDL Cholesterol 54 VLDL Cholesterol 43 H HDL Cholesterol 37 L Discharge Diet: Low fat/ Low Cholesterol, 2000 mg Sodium Diet Discharge Activity: Return to Normal Activity Home Medications: Medications to take at Discharge Omeprazole [Prilosec] 20 mg PO DAILY 09/26/16 Venlafaxine HCl [Effexor Xr] 37.5 mg PO DAILY 09/26/16 Acyclovir 800 mg PO BID 04/12/18 Clopidogrel Bisulfate [Clopidogrel] 75 mg PO DAILY 04/12/18 Cyanocobalamin (Vitamin B-12) [Vitamin B-12] 1,000 mcg PO DAILY 04/12/18 Gluc/Chondr-MSM 7/C/[place] [Eql Glucosam-Chondro Complx Tb] 1 each PO BID 04/12/18 Metoprolol Succinate 12.5 mg PO DAILY 04/12/18 Turmeric 400 mg PO DAILY 04/12/18 Ubidecarenone [Co Q-10] 10 mg PO QHS 04/12/18 Vitamin B Complex [B Complex] 1 each PO QHS 04/12/18 Vitamin E 1 cap PO DAILY 04/12/18 Aspirin [Aspirin, Baby] 81 mg PO DAILY@0800 tab.chew 04/13/18 Atorvastatin Calcium [Lipitor] 80 mg PO QHS #30 tablet 04/13/18 Following Prescrptions Were Given to Patient: Atorvastatin Calcium [Lipitor] 80 mg PO QHS #30 tablet Other Amb Orders: Echo Complete W/ Contrast [ECHO] Time Frame: 2 Days, Location: None Selected Primary Care Physician: Jeovany Carver MD [Primary Care Provider] - Please follow up with your Primary Care Physician in: 1-2 weeks Please Follow Up With: Neurology - Your own, keep prior appointment. When: 1 week Disposition: Home Minutes spent on discharge:: 35 Patient Condition:: Stable Medical Necessity - Tobacco Use Smoking Status: Never smoker Tobacco Use: Non-smoker Meaningful Use Info Meaningful Use Diagnoses (Choose all that apply): None applicable <Marisela Nava - Last Filed: 04/13/18 15:41> Discharge Date and Diagnosis - Primary Discharge Diagnosis Active and Suspected Problems CVA (cerebral vascular accident) (Acute) - Secondary Discharge Diagnosis Chronic Problems CAD (coronary artery disease) (Chronic) GERD (gastroesophageal reflux disease) (Chronic) Herpes (Chronic) Breast cancer (Chronic) Fibromyalgia (Chronic) Depression (Chronic) HLD (hyperlipidemia) (Chronic) Hospital Course and Treatment Imaging Results: 04/13/18 16:08 Brain without Contrast [MRI] Urgent MRA Head ONLY without Contrast [MRI] Urgent MRA Neck WITH and W/O Contrast [MRI] Urgent Summary of Care Provided: The patient is a 77 year old F past medical history of CAD, hypertension, hyperlipidemia who comes in with complaints of left-sided facial numbness that started suddenly. She was admitted through the ED and admitted to telemetry bed. No acute events were seen overnight. MRI brain, MRA head and neck were negative for acute stroke. Neurology consulted for patient. Thought it was due to either TIA, migraine,, she all viral syndrome. She will follow up with her neurologist and see her primary care physician in 1-2 weeks. - Physical Exam Vital Signs Temp Pulse Resp BP Pulse Ox 97.8 F 80 15 115/58 L 95 04/13/18 15:12 04/13/18 15:12 04/13/18 15:12 04/13/18 15:12 04/13/18 15:12 Oxygen Flow Rate (L/min) 2 Oxygen Delivery Method Room Air Weight: 68.6 kg Body Mass Index (BMI) 29.0 Finger Stick Blood Glucose 106 Intake and Output for Last 24 Hours 04/11/18 04/12/18 04/13/18 23:59 23:59 23:59 Intake Total 973 / 973 1296 / 1296 Balance 973 / 973 1296 / 1296 Laboratory Tests Past 24 Hrs 04/12/18 04/13/18 17:05 05:20 Troponin I < 0.015 Triglycerides 216 H Cholesterol 134 LDL Cholesterol 54 VLDL Cholesterol 43 H HDL Cholesterol 37 L Code Visit Inpatient E&M: 52718 Subs Hosp L2
--- NOTE | 2018-04-13 13:54 | DS.PCM_ITS ---
<Jamey Obrien - Last Filed: 04/13/18 13:45> Discharge Date and Diagnosis - Problem List Patient Problems: Active and Suspected Problems CVA (cerebral vascular accident) (Acute) Date of Admission: 04/12/18 Date of Discharge: 04/13/18 - Primary Discharge Diagnosis Active and Suspected Problems Transient left sided facial parasthesias, stroke ruled out Depression Herpes outbreak CAD GERD Fibromyalgia HLD HTN Hx Breast cancer - Secondary Discharge Diagnosis Chronic Problems CAD (coronary artery disease) (Chronic) GERD (gastroesophageal reflux disease) (Chronic) Herpes (Chronic) Breast cancer (Chronic) Fibromyalgia (Chronic) Depression (Chronic) HLD (hyperlipidemia) (Chronic) Hospital Course and Treatment Imaging Results: RAD/Chest 1 View IMPRESSION: No acute cardiopulmonary abnormalities. Mild vascular congestion. CT/Brain/Head without Contrast IMPRESSION: Mild atrophy. No visualized evidence of acute hemorrhage infarct or edema. Recommend consideration for follow-up MRI if appropriate. MRI/Brain without Contrast IMPRESSION: No acute intracranial abnormality. MRI/MRA Head ONLY without Contrast IMPRESSION: Unremarkable MRA of the head MRI/MRA Neck WITH and W/O Contrast IMPRESSION: Unremarkable bilateral cervical carotid and vertebral arteries. Consults: [facility] - neuro Operations: None Procedures: None Summary of Care Provided: Hospital course: The patient is a 77 year old F with pmhx of CAD, HTN, HLD, fibromyalgia, depression, GERD, breast cancer in remission, who presented to the ER with c/o left sided facial numbness that began the day prior to admission. She described it as feeling like novacaine in her face including the forehead, left side of nose, cheek, and tongue. Her daughter thought that she may have some slight facial droop and slurred speech. She had no ataxia or focal weakness. She had a recent herpes flare up, and also has been depressed stating she was waiting to . She came to the ER, and was admitted with concern for acute stroke. She was placed on baby aspirin in addition to the plavix she was already on, and statin therapy was maximized. CT brain was negative. Tele was negative overnight. She underwent an MRI brain, MRA head and neck the following day. These were negative for stroke. Neurology evaluated the patient and noted no neurologic symptoms, and that the possible etiologies included TIA, migraine, conversion, or a viral syndrome. Neurology cleared the patient for discharge. The patient has a follow up with her own neurologist in 1 week, which we advised her to keep. She will also need to see her PCP in 1-2 weeks. An outpatient echo was ordered, which will be done on saturday. She was discharged home in stable condition. This patient was seen by Jamey Obrien PA-C under the supervision of Doctor Brandy. [] Patient Problems: Active and Suspected Problems CVA (cerebral vascular accident) (Acute) - Physical Exam General: Alert, Oriented x3, Cooperative HEENT: Atraumatic, PERRLA, EOMI, Normocephalic Neck: Supple, No JVD, Negative Carotid Bruits Lungs: Clear to auscultation, Normal air movement Cardiovascular: Regular rate, No murmurs Abdomen: Bowel Sounds Present, Soft, Non Tender Extremities: No edema, Capillary Refill Less than 3 Seconds Skin: No rashes, No breakdown Musculoskeletal: No Tenderness to Palpation of Joints or Extremities Neurological: Cranial nerves II-XII grossly intact Psych/Mental Status: Normal Affect, Appropriate Vital Signs Temp Pulse Resp BP Pulse Ox 97.8 F 89 15 116/55 L 94 04/13/18 12:22 04/13/18 12:22 04/13/18 12:22 04/13/18 12:22 04/13/18 12:22 Oxygen Flow Rate (L/min) 2 Oxygen Delivery Method Room Air Weight: 151 lb 3.794 oz Body Mass Index (BMI) 29.0 Finger Stick Blood Glucose 106 Intake and Output for Last 24 Hours 04/11/18 04/12/18 04/13/18 23:59 23:59 23:59 Intake Total 973 / 973 1296 / 1296 Balance 973 / 973 1296 / 1296 Laboratory Tests Past 24 Hrs 04/12/18 04/12/18 04/13/18 13:20 17:05 05:20 Sodium 141 Potassium 3.7 Chloride 105 Carbon Dioxide 26.0 Anion Gap 10 BUN 9 Creatinine 0.94 Estim Creat Clear Calc 34.86 Est GFR (MDRD) Af Amer 74 Est GFR (MDRD) Non-Af 61 BUN/Creatinine Ratio 9.6 L Glucose 106 Calcium 8.9 Troponin I < 0.015 < 0.015 Triglycerides 216 H Cholesterol 134 LDL Cholesterol 54 VLDL Cholesterol 43 H HDL Cholesterol 37 L Discharge Diet: Low fat/ Low Cholesterol, 2000 mg Sodium Diet Discharge Activity: Return to Normal Activity Home Medications: Medications to take at Discharge Omeprazole [Prilosec] 20 mg PO DAILY 09/26/16 Venlafaxine HCl [Effexor Xr] 37.5 mg PO DAILY 09/26/16 Acyclovir 800 mg PO BID 04/12/18 Clopidogrel Bisulfate [Clopidogrel] 75 mg PO DAILY 04/12/18 Cyanocobalamin (Vitamin B-12) [Vitamin B-12] 1,000 mcg PO DAILY 04/12/18 Gluc/Chondr-MSM 7/C/[place] [Eql Glucosam-Chondro Complx Tb] 1 each PO BID 04/12/18 Metoprolol Succinate 12.5 mg PO DAILY 04/12/18 Turmeric 400 mg PO DAILY 04/12/18 Ubidecarenone [Co Q-10] 10 mg PO QHS 04/12/18 Vitamin B Complex [B Complex] 1 each PO QHS 04/12/18 Vitamin E 1 cap PO DAILY 04/12/18 Aspirin [Aspirin, Baby] 81 mg PO DAILY@0800 tab.chew 04/13/18 Atorvastatin Calcium [Lipitor] 80 mg PO QHS #30 tablet 04/13/18 Following Prescrptions Were Given to Patient: Atorvastatin Calcium [Lipitor] 80 mg PO QHS #30 tablet Other Amb Orders: Echo Complete W/ Contrast [ECHO] Time Frame: 2 Days, Location: None Selected Primary Care Physician: Jeovany Carver MD [Primary Care Provider] - Please follow up with your Primary Care Physician in: 1-2 weeks Please Follow Up With: Neurology - Your own, keep prior appointment. When: 1 week Disposition: Home Minutes spent on discharge:: 35 Patient Condition:: Stable Medical Necessity - Tobacco Use Smoking Status: Never smoker Tobacco Use: Non-smoker Meaningful Use Info Meaningful Use Diagnoses (Choose all that apply): None applicable <Marisela Nava - Last Filed: 04/13/18 15:41> Discharge Date and Diagnosis - Primary Discharge Diagnosis Active and Suspected Problems CVA (cerebral vascular accident) (Acute) - Secondary Discharge Diagnosis Chronic Problems CAD (coronary artery disease) (Chronic) GERD (gastroesophageal reflux disease) (Chronic) Herpes (Chronic) Breast cancer (Chronic) Fibromyalgia (Chronic) Depression (Chronic) HLD (hyperlipidemia) (Chronic) Hospital Course and Treatment Imaging Results: 04/13/18 16:08 Brain without Contrast [MRI] Urgent MRA Head ONLY without Contrast [MRI] Urgent MRA Neck WITH and W/O Contrast [MRI] Urgent Summary of Care Provided: The patient is a 77 year old F past medical history of CAD, hypertension, hyperlipidemia who comes in with complaints of left-sided facial numbness that started suddenly. She was admitted through the ED and admitted to telemetry bed. No acute events were seen overnight. MRI brain, MRA head and neck were negative for acute stroke. Neurology consulted for patient. Thought it was due to either TIA, migraine,, she all viral syndrome. She will follow up with her neurologist and see her primary care physician in 1-2 weeks. - Physical Exam Vital Signs Temp Pulse Resp BP Pulse Ox 97.8 F 80 15 115/58 L 95 04/13/18 15:12 04/13/18 15:12 04/13/18 15:12 04/13/18 15:12 04/13/18 15:12 Oxygen Flow Rate (L/min) 2 Oxygen Delivery Method Room Air Weight: 68.6 kg Body Mass Index (BMI) 29.0 Finger Stick Blood Glucose 106 Intake and Output for Last 24 Hours 04/11/18 04/12/18 04/13/18 23:59 23:59 23:59 Intake Total 973 / 973 1296 / 1296 Balance 973 / 973 1296 / 1296 Laboratory Tests Past 24 Hrs 04/12/18 04/13/18 17:05 05:20 Troponin I < 0.015 Triglycerides 216 H Cholesterol 134 LDL Cholesterol 54 VLDL Cholesterol 43 H HDL Cholesterol 37 L Code Visit Inpatient E&M: 54631 Subs Hosp L2
--- NOTE | 2018-04-13 16:08 | MRI_ITS ---
STUDY: MRA OF THE HEAD WITHOUT CONTRAST REASON FOR EXAM: Female, 77 years old. LEFT facial numbness and tingling since Thrusday. TECHNIQUE: 3-D tlir-vc-qruyue (TOF) imaging was performed with MIPs. The study was performed unenhanced. COMPARISON: None. FINDINGS: Normal bilateral petrous carotid arteries. Normal right cavernous carotid artery with a normal supraclinoid bifurcation. Normal left cavernous carotid artery with a normal supraclinoid bifurcation. Normal right A1 segments of the anterior cerebral artery. Normal left A1 segments of the anterior cerebral artery. Normal intact anterior communicating artery (ACOM). Normal bilateral A2 segments of the anterior cerebral arteries. Normal right M1 and M2 segments of the middle cerebral arteries, with a normal M1 bifurcation. Normal left M1 and M2 segments of the middle cerebral arteries, with a normal M1 bifurcation. Normal right posterior communicating artery (PCOM). There is a persistent origin of the left posterior cerebral artery with absence of the P1 segment of the left posterior cerebral artery. Normal bilateral vertebral arteries. Normal basilar artery with a normal basilar bifurcation. The visualized bilateral superior cerebellar (SCA) arteries are normal. Normal bilateral posterior cerebral arteries. There is no demonstrated aneurysm of the [place]. There is no major vessel occlusion or hemodynamically significant stenosis. There is no demonstrated abnormality of the visualized brain. MRI/MRA Head ONLY without Contrast IMPRESSION: Unremarkable MRA of the head Electronically Signed: Beatriz Palacio MD at 12:46 EST Tel , Service support ,
--- NOTE | 2018-04-13 16:08 | MRI_ITS ---
STUDY: MRI BRAIN WITHOUT CONTRAST REASON FOR EXAM: Female, 77 years old. LEFT facial numbness and tingling since Thrusday TECHNIQUE: Standardized multiplanar fat and water weighted pulse sequences were obtained. COMPARISON: 04/12/2018 FINDINGS: There is mild cerebral atrophy with widening of the extra-axial spaces and ventricular dilatation. There are a limited number of small white matter hyperintensities, distributed throughout the deep white matter tracts of the cerebral hemispheres, consistent with mild chronic white matter ischemic changes. Normal bilateral basal ganglia. Normal thalami. There is no extra-axial fluid accumulation. Normal flow voids within the major intracranial circulation suggesting patency by spin echo criteria. Normal sella turcica, pituitary gland, infundibular stalk, optic chiasm and hypothalamus. Normal tectal plate and pineal gland. Normal midbrain, yuriy and medulla. Normal cerebellum. Normal basal cisterns. Normal bilateral temporal bones. Normal bilateral internal auditory canals. MRI/Brain without Contrast IMPRESSION: No acute intracranial abnormality. Electronically Signed: Beatriz Palacio MD at 11:31 EST Tel , Service support ,
--- NOTE | 2018-04-13 16:08 | MRI_ITS ---
STUDY: MRA NECK WITHOUT CONTRAST REASON FOR EXAM: Female, 77 years old. LEFT facial numbness and tingling since Thrusday. TECHNIQUE: Source images were obtained, MIPs were performed. The study was performed unenhanced. COMPARISON: None. FINDINGS: RIGHT CAROTID ARTERIES: Antegrade flow within the right common carotid artery (CCA). Antegrade flow within the right carotid bulb. Antegrade flow within the right internal carotid (ICA) artery. Antegrade flow within the visualized cervical portion of the right internal carotid artery. LEFT CAROTID ARTERIES: Antegrade flow within the left common carotid artery (CCA). Antegrade flow within the left common carotid bulb. Antegrade flow within the origin of the left internal carotid (ICA) artery. Antegrade flow within the visualized cervical portion of the left internal carotid artery. VERTEBRAL ARTERIES: There is antegrade flow within the bilateral vertebral arteries with a small left vertebral artery, and a dominant right vertebral artery. MRI/MRA Neck WITH and W/O Contrast IMPRESSION: Unremarkable bilateral cervical carotid and vertebral arteries. Electronically Signed: Beatriz Palacio MD at 12:48 EST Tel , Service support ,
== END 2018-04-13 13:45 | disposition home or self-care (01) ==
LOC: ED 13:26 → PCU 15:34
PROVIDERS: Admitting Provider Hospitalist; Emergency Provider Emergency Medicine; Family Provider Family Medicine; PCP Family Medicine; Visit Provider Internal Medicine
DX: R20.2 Paresthesia of skin (principal); Z79.899 Other long term (current) drug therapy; Z79.02 Long term (current) use of antithrombotics/antiplatelets; R29.702 NIHSS score 2; I25.10 Atherosclerotic heart disease of native coronary artery without angina pectoris; R47.1 Dysarthria and anarthria; K21.9 Gastro-esophageal reflux disease without esophagitis; F32.9 Major depressive disorder, single episode, unspecified; E78.5 Hyperlipidemia, unspecified; M79.7 Fibromyalgia; B00.9 Herpesviral infection, unspecified; Z85.3 Personal history of malignant neoplasm of breast; R29.810 Facial weakness
CPT/HCPCS: 36415; 70450; 70544; 70549; 70551; 71045; 80048; 80061; 81001; 84484; 85025; 85610; 85730; 93005; 96360; 96361; 96372; 99218; 99283; A9585; J7030; A4216; G0378

== ENCOUNTER 2018-12-13 15:01 | Emergency (ER) | payer MEDICARE, SELFPAY ==
[2018-04-13 01:07] VITALS: BMI 29.0
[2018-12-13 15:02] VITALS: BP 148/87; PULSE 79; RESP 16; TEMP 36.6; O2SAT 97; BMI 24.8
--- NOTE | 2018-12-13 15:31 | RAD_ITS ---
STUDY: X-RAY - LEFT WRIST REASON FOR EXAM: Female, 77 years old. Trauma TECHNIQUE: 3 view(s) of the wrist were obtained. COMPARISON: None. FINDINGS: Normal visualized distal radius and ulna. Normal radiocarpal articulation. Normal distal radioulnar articulation. Normal carpal bones. Normal carpal articulations. Normal carpometacarpal articulation of the thumb. Normal second through fifth carpometacarpal articulations. Normal visualized metacarpal bones. The soft tissue structures are unremarkable. RAD/Wrist min 3 Views IMPRESSION: Normal x-ray examination of the wrist. Electronically Signed: Chandan Grande MD at 16:59 EDT , Service support ,
--- NOTE | 2018-12-13 15:34 | ED.VIS.FALL ---
History of Present Illness Chief Complaint: Upper Extremity Injury Informant: Patient Occurred: Today Mechanism/Context: Same level fall Location: left wrist Quality of Pain: Aching Current Severity: Moderate Maximum Severity: Severe Worsened by: moving Relieved by: remaining still, ibuprofen 600mg Associated Symptoms: Loss of function. Negative for: Parasthesias, Weakness, Inability to ambulate, Loss of consciousness, Amnesia Narrative: Patient was shopping for outdoor furniture and she tripped on one, stumbling and eventually falling on the left outstretched hand. Immediate pain in her wrist. She does not think she injured anything else and has been ambulatory since then, drove home first before coming to the ER because of persistent pain after taking ibuprofen. Not hit her head or lose consciousness, no anticoagulation. RHD. - Past Medical History (1) CVA (cerebral vascular accident) Status: Chronic (2) Breast cancer Status: Chronic (3) CAD (coronary artery disease) Status: Chronic (4) Depression Status: Chronic (5) Fibromyalgia Status: Chronic (6) GERD (gastroesophageal reflux disease) Status: Chronic (7) HLD (hyperlipidemia) Status: Chronic Past Medical History - Allergies and Home Meds Allergies/Adverse Reactions: Allergies Penicillins [PCN] Adverse Reaction (Verified 12/13/18 15:10) Rash Primary Care Physician: Jeovany Carver MD [NON-STAFF] - Surgical History: adenoidectomy, tonsillectomy Lives: Alone Smoking Status: Never smoker - Family History Maternal Family History: Reports: Heart Disease Paternal Family History: Reports: Cancer - prostate Review of Systems Eyes: Denies: Visual changes - bilaterally, Diplopia Gastrointestinal: Denies: Nausea, Vomiting Musculoskeletal: Reports: Extremity Pain. Denies: Neck pain, Back pain Skin: Denies: Abrasions, Wounds Neurological: Denies: Headache, Weakness, Numbness Physical Exam Vital Signs/Narrative: Vital Signs Temp Pulse Resp BP Pulse Ox 12/13/18 15:02 97.8 F 79 16 148/87 H 97 Inital Vital Signs reviewed: Yes General: Well nourished, Well developed Head: Normocephalic, Atraumatic Eyes: Perrl, EOMI ENT: TM's clear, No hemotympanum or drainage, No trauma Neck: Nontender, Full ROM Extremeties: Tender in the left distal radius, in the snuffbox but no pain with axial loading of the thumb. No ulnar tenderness. No deformity. Mild distal radial swelling. Mild tenderness in the dorsal proximal left forearm extensor musculature, but no tenderness of the radial head, olecranon, or distal humerus. FROM left elbow and shoulder; limited of left wrist. FROM without pain throughout RUE and BLE. Skin: Normal color, No rash, No Trauma Neurological: Alert, Oriented x3, Cranial nerves II-XII grossly intact, Normal Strength, Normal Sensation, Normal Gait Psychological: Normal affect, Normal Mood Diagnostic/Tx/Re-eval Clinical Impression(s) from Imaging Studies Wrist X-Ray 12/13/18 15:31 IMPRESSION: Normal x-ray examination of the wrist. Electronically Signed: Chandan Grande MD at 16:59 EDT , Service support , Elbow X-Ray 12/13/18 16:30 IMPRESSION: Normal x-ray examination of the elbow. Electronically Signed: Chandan Grande MD at 16:57 EDT , Service support , - Medical Decision Making I met a high suspicion for nondisplaced distal radius fracture, and cannot rule out the possibility of an occult scaphoid fracture. I think there may be a small step-off of the bone at the joint on the lateral view and possibly a longitudinal split on the AP. I will place the patient in a thumb spica Velcro splint and advised that she follow-up with orthopedics for reevaluation after the weekend. She is requesting some if her pain but she is driving home, she will be given a [place] here to take at home when she gets there. ED Disposition - Plan for ED Patient: Disposition: Home or Assisted Living Diagnosis: Traumatic closed nondisplaced fracture of distal end of left radius Instructions: FRACTURE, Wrist [General], FRACTURE, Navicular (wrist), Suspected Referrals: Jeovany Carver MD [NON-STAFF] - Gennaro Segura MD [STAFF PHYSICIAN] - As soon as possible
--- NOTE | 2018-12-13 16:30 | RAD_ITS ---
STUDY: X-RAY - LEFT ELBOW REASON FOR EXAM: Female, 77 years old. Trauma TECHNIQUE: 3 view(s) of the elbow. COMPARISON: None. FINDINGS: Normal visualized humerus, radius and ulna. Normal radiocapitellar and ulnotrochlear articulations. The soft tissue structures are unremarkable. RAD/Elbow min 3 Views IMPRESSION: Normal x-ray examination of the elbow. Electronically Signed: Chandan Grande MD at 16:57 EDT , Service support ,
[2018-12-13] MEDS: Ibuprofen 200 MG Tablet 600 MG PO (17:19)
[2018-12-13 17:29] VITALS: PULSE 84; RESP 16; O2SAT 98
== END 2018-12-13 17:30 | disposition home or self-care (01) ==
PROVIDERS: Emergency Provider Emergency Medicine; Family Provider Internal Medicine; PCP Internal Medicine
DX: S52.502D Unspecified fracture of the lower end of left radius, subsequent encounter for closed fracture with routine healing (principal); W18.09XA Striking against other object with subsequent fall, initial encounter; Y93.89 Activity, other specified; Y92.89 Other specified places as the place of occurrence of the external cause; Y99.9 Unspecified external cause status; E78.5 Hyperlipidemia, unspecified; F32.9 Major depressive disorder, single episode, unspecified; I25.10 Atherosclerotic heart disease of native coronary artery without angina pectoris; K21.9 Gastro-esophageal reflux disease without esophagitis; M79.7 Fibromyalgia; Z85.3 Personal history of malignant neoplasm of breast; Z86.73 Personal history of transient ischemic attack (TIA), and cerebral infarction without residual deficits; Z88.0 Allergy status to penicillin; Z82.49 Family history of ischemic heart disease and other diseases of the circulatory system
CPT/HCPCS: 73080; 73110; 99283

== ENCOUNTER → 2018-12-22 10:50 | Outpatient (CLI) | payer MEDICARE, SELFPAY ==
[2018-12-22 10:46] VITALS: BMI 24.8
--- NOTE | 2018-12-22 10:52 | RAD_ITS ---
STUDY: X-RAY - LEFT WRIST REASON FOR EXAM: Female, 77 years old. Fracture. TECHNIQUE: 3 view(s) of the wrist were obtained. COMPARISON: 12/13/2018. FINDINGS: Normal visualized distal radius and ulna. Normal radiocarpal articulation. Normal distal radioulnar articulation. Normal carpal bones. Normal carpal articulations. Normal carpometacarpal articulation of the thumb. Normal second through fifth carpometacarpal articulations. Normal visualized metacarpal bones. The soft tissue structures are unremarkable. RAD/Wrist min 3 Views IMPRESSION: 1. No suspicious acute fracture or dislocation of the left wrist. 2. No significant interval change when compared to 12/13/2018. Electronically Signed: Bhaskar Bowen MD at 16:08 EDT , Service support ,
== END ==
LOC: HPRAD 10:52
PROVIDERS: Family Provider Internal Medicine; PCP Internal Medicine; Referring Provider Orthopaedic Surgery; Visit Provider Orthopaedic Surgery
DX: M25.532 Pain in left wrist (principal)
CPT/HCPCS: 73110

== ENCOUNTER → 2019-01-19 10:55 | Outpatient (CLI) | payer MEDICARE, SELFPAY ==
[2018-12-22 11:26] VITALS: BMI 24.8
--- NOTE | 2019-01-19 10:56 | RAD_ITS ---
STUDY: X-RAY - LEFT WRIST REASON FOR EXAM: Female, 78 years old. Trauma TECHNIQUE: 3 view(s) of the wrist were obtained. COMPARISON: Previous study of 12/22/2018 FINDINGS: There is presently demonstrated a sclerotic transverse band of the distal radial metaphysis not seen on the previous study and consistent with healing nondisplaced fracture. There mild arthritic changes of the radiocarpal articulation. Normal distal radioulnar articulation. Normal carpal bones. Normal carpal articulations. There are mild degenerative changes of the first metacarpal greater multangular joint. Normal second through fifth carpometacarpal articulations. Normal visualized metacarpal bones. The soft tissue structures are unremarkable. RAD/Wrist min 3 Views IMPRESSION: Transverse sclerotic band of the distal radial metaphysis not seen on the previous study and consistent with healing occult fracture. Degenerative changes as detailed above. Electronically Signed: Chandna Grande MD at 19:52 EST , Service support ,
== END ==
PROVIDERS: Family Provider Internal Medicine; PCP Internal Medicine; Referring Provider Orthopaedic Surgery; Visit Provider Orthopaedic Surgery
DX: S52.502A Unspecified fracture of the lower end of left radius, initial encounter for closed fracture (principal)
CPT/HCPCS: 73110

== ENCOUNTER 2019-01-26 09:25 | Outpatient (RCR) | payer MEDICARE, SELFPAY ==
[2019-01-19 11:00] VITALS: BMI 24.8
--- NOTE | 2019-01-26 14:45 | HP.OTEVAL_ITS ---
Patient's Visit Information ROLANDO FIGUEREDO is a 78 year old F, referred to Occupational Therapy by Teddy Salamanca DO, with a diagnosis of left radial styloid fx. Date of Evaluation: 01/26/19 Occupational Therapist: Angelita Joseph, JANE/Lillian, CHT - Subjective Subjective: This 78 year old female was seen for OT eval following a left wrist fx. Pt is unsure when she fell but reports about 6 weeks ago. Pt states she fell while looking at outdoor furniture- she states she went home and iced her wrist but decided to go to the ER. - ADLs Dressing: Pants, Socks, Shoes Fasteners: Snaps, [place] Eating: Cut food Comments: pt lives alone and mtg her home and meal tasks- currently pt is compensating for limited use of left UE with tasks. - Pain left wrist 4 Pain Intensity Range: 2, 6 - ROM Wrist: right 65/60 left 30/25 Opposition: right 10 left 9 - Strength Developmental Mathematics Professor: right 40# left 20# Lateral Pinch: right 6# left 3# Tripod Pinch: right 8# left 3# - Sensation Sensation Comments: states thumb has pins and needles sensation - Quick DASH-Disab of Arm,Shoulder& Hand Quick DASH Score: 50.0000 - Goals Goal:: Pt will demo a increase in left edi programmer strength by 15# to increase pts ind. with ADLs and IADLS by d/c Goal:: Pt will demo left wrist ROM equal to unaffected allowing pt to return to her ADLS and IADLS at IND. level by d/c Goal:: pt will report pain no greater than 1/10 with use of left UE for ADLS and IADLS by d/c - Rehabilitation General Assessment: Pt arrives 5 weeks post left radial styloid fx demo with limited ROM/strength and pain with [place] of left UE with ADLs and IADLs. Pt would benefit from skilled OT services 1-2x week for 4 weeks to return pt to PLOF. Today pt was ed. in AROM wrist and digit ex to improve pts ROM. pt demo understanding of ex and was given handout. pt agree to POC. Rehabilitation Potential: Good - Anticipated Interventions Anticipated Interventions: A/AAROM/PROM, Strengthening, Triggerpoint Release, Modalities, Orthoses, Joint Protection/Energy Conservation - Visit Plan Frequency: 2-3x /Week Duration: 4 Weeks TEXT: Thank you for the opportunity to evaluate your patient. For Medicare and Medicare HMO plans, please review the plan of care and approve it. It will need to be FAXED BACK to us at [phone] for Medicare purposes. Please let me know if there are questions or concerns regarding this plan of care. Physician Signature: Date:
== END 2019-01-26 19:00 | disposition home or self-care (01) ==
LOC: OT 09:25
PROVIDERS: Family Provider Internal Medicine; PCP Internal Medicine; Referring Provider Orthopaedic Surgery; Visit Provider Orthopaedic Surgery
DX: S52.512D Displaced fracture of left radial styloid process, subsequent encounter for closed fracture with routine healing (principal)
CPT/HCPCS: 97110; 97166

== ENCOUNTER 2020-08-08 12:09 | Emergency (ER) | payer MEDICARE, SELFPAY ==
[2019-01-19 11:00] VITALS: BMI 24.8
[2020-08-08 12:10] VITALS: BP 156/77; PULSE 116; RESP 16; TEMP 36.4; O2SAT 99; BMI 29.7
--- NOTE | 2020-08-08 12:25 | EKG12_ITS ---
Test Reason : DIZZINESS Blood Pressure : / mmHG Vent. Rate : 102 BPM Atrial Rate : 102 BPM P-R Int : 156 ms QRS Dur : 084 ms QT Int : 338 ms P-R-T Axes : 047 070 048 degrees QTc Int : 440 ms Sinus tachycardia Nonspecific T wave abnormality Abnormal ECG Confirmed by YARELI EMANUEL, JERAD ([id number]), photographic editor ASHLEIGH JJ ([id number]) on 08/10/2020 9:38:56 AM Referred By: DOMINGO Confirmed By:JERAD DOWNS MD
--- NOTE | 2020-08-08 12:25 | CT_ITS ---
STUDY: CT BRAIN WITHOUT CONTRAST REASON FOR EXAM: Female, 79 years old. Dizziness RADIATION DOSAGE (If Supplied By Facility): CTDIvol = ( 38.43 ) mGy, DLP = ( 741.51 ) mGycm TECHNIQUE: Transaxial CT imaging of the brain was performed without administration of intravenous contrast material. Individualized dose optimization techniques were used for this CT. COMPARISON: No relevant priors. FINDINGS: Normal soft tissue structures. Normal calvarium. There is mild cerebral atrophy with widening of the extra-axial spaces and ventricular dilatation. Normal white matter tracts of the cerebral hemispheres. Normal basal ganglia and thalami. Normal brainstem. There is mild cerebellar atrophy. There is no intracranial hemorrhage. There are no findings of an acute ischemic infarction. Normal visualized paranasal sinuses. CT/Brain/Head without Contrast IMPRESSION: Chronic involutional changes of the brain. Electronically Signed: Sam Licona MD at 13:50 EDT , Service support ,
--- NOTE | 2020-08-08 12:26 | EX.ED.DYSGE1 ---
HPI History of Present Illness Chief Complaint: Dizziness Informant: patient Narrative Narrative: Patient presents with dizziness. She has had this for 2 weeks. She states that it is not positional in nature. She has had no vomiting or diarrhea. She denies any chest pain or shortness of breath. She states that when it first started she took a extra dose of blood pressure medications in the morning. She has not missed any other doses or taken any extra doses since then but still feels this dizziness. When I tried to describe it further she describes it more of a wobbly. She denies room spinning sensation. She has not had a headache. She denies any falls or trauma. [facility] Medical History (Updated 08/08/20 @ 14:[address] Romulo Drummond MD) CPAP (continuous positive airway pressure) dependence Depression Fibromyalgia GERD (gastroesophageal reflux disease) Herpes Hypertension Migraines Sleep apnea Home Medications omeprazole 20 mg PO DAILY 09/26/16 [History Last Taken 04/12/18 12:00] venlafaxine [Effexor XR] 37.5 mg PO DAILY 09/26/16 [History Last Taken 04/11/18 22:00] acyclovir 800 mg PO BID 04/12/18 [History Last Taken 04/12/18 12:00] clopidogrel 75 mg PO DAILY 04/12/18 [History Last Taken Unknown] coenzyme Q10 [Co Q-10] 10 mg PO QHS 04/12/18 [History Last Taken 04/11/18 22:00] cyanocobalamin (vitamin B-12) 1,000 mcg PO DAILY 04/12/18 [History Last Taken 04/11/18 22:00] grke-wkafoy-fdx#5-N-yvwc-boron [Glucosamine-Chondr (boswellia)] 1 ea PO BID 04/12/18 [History Last Taken 04/12/18 12:00] metoprolol succinate 12.5 mg PO DAILY 04/12/18 [History Last Taken Unknown] turmeric 400 mg PO DAILY 04/12/18 [History Last Taken 04/12/18 12:00] vitamin B complex 1 ea PO QHS 04/12/18 [History Last Taken 04/11/18 22:00] vitamin E 1 cap PO DAILY 04/12/18 [History Last Taken 04/12/18 12:00] aspirin 81 mg PO DAILY@0800 tab.chew 04/13/18 [Rx Last Taken Unknown] atorvastatin 80 mg PO QHS #30 tablet 04/13/18 [Rx Last Taken Unknown] meclizine 25 mg PO 4X/DAY PRN PRN #20 tab 08/08/20 [Rx Last Taken Unknown] Allergy/AdvReac Type Severity Reaction Status Date / Time Penicillins [PCN] AdvReac Rash Verified 08/08/20 12:13 Social History Smoking Status: Never smoker ROS ROS ED Constitutional Constitutional ED: Denies chills or fever(s) Eyes Eyes: Denies blurry vision, change in vision, diplopia or loss of vision ENT ENT ED: Reports other; Denies ear pain, rhinorrhea or sore throat Cardiovascular Cardiovascular: Denies chest pain, palpitations or racing heartbeat Respiratory/Chest Respiratory/Chest: Denies cough, dyspnea, dyspnea on exertion or sputum Gastrointestinal Gastrointestinal: Denies abdominal pain, diarrhea, nausea or vomiting Genitourinary Genitourinary ED: Denies dysuria, hematuria or urinary frequency Musculoskeletal Musculoskeletal: Denies back pain, myalgias or neck pain Integumentary Denies abscess or rash Neurologic Neurologic: Reports other Details: Dizziness Psychiatric Psychiatric: Denies anxiety or depression Endocrine Endocrinology: Denies polydipsia or polyuria Hematologic/Lymphatic Hematologic/Lymphatic: Denies easy bleeding or easy bruising Allergic/Immunologic Allergic/Immunologic ED: Denies urticaria EXAM Physical Exam Const Vital Signs: 08/08/20 12:10 08/08/20 12:35 Temperature 97.6 F L Temperature Source Temporal Pulse Rate 116 H Respiratory Rate 16 Respiratory Effort Normal Non-Labored Respiratory Pattern Normal Blood Pressure 156/77 H Blood Pressure Mean 103 Pulse Ox 99 Oxygen Delivery Method Room Air Positive well nourished and well developed General Appearance ED: well developed and NAD HEENT Reports normocephalic, head/scalp atraumatic and TM's clear normocephalic and atraumatic; Negative for tenderness Tympanic Membrane ED: Yes TM's clear Eyes PERRL and EOMs intact bilaterally General Eye ED: Negative for scleral icterus Neck supple and no JVD Chest Wall palpation of chest normal Chest: Negative for tenderness Resp normal respiratory effort and clear to auscultation bilaterally Effort and Inspection: Negative for respiratory distress Cardio regular rate and regular rhythm; Negative for no murmurs GI soft to palpation, non-tender and non-distended Palpation: soft Back/Spine no CVA tenderness and no thoracic nor lumbar tenderness Cervical Spine: Negative for cervical spine tenderness Extremity normal to inspection General Extremety ED: Negative for tenderness Neuro oriented x3, CN's II-XII intact bilaterally and no sensory deficits noted Neuro Narrative: Her NIH stroke scale equals 0. Sensorium / Orientation: awake and alert Motor Exam: strength 5/5 throughout Psych mental status grossly normal Skin no rashes or lesions noted MDM MDM MDM Narrative Medical decision making narrative: Patient was given IV fluids and meclizine. Laboratory studies show a creatinine of 1.15 but otherwise is unremarkable. CAT scan of the head reveals chronic changes. Upon reevaluation at 1435 the patient is feeling much better. She does not feel dizzy at this time. Patient will be discharged home with Antivert to take. She will increase her hydration and she is when to call her PCP for follow-up Lab Data Labs: Laboratory Results - last 24 hr 08/08/20 08/08/20 13:00 13:00 WBC 5.2 RBC 4.70 Hgb 13.4 Hct 42.0 MCV 89.4 MCH 28.5 MCHC 31.9 L RDW Std Deviation 45.9 H RDW Coeff of Kyree 14.2 Plt Count 415 MPV 9.1 Immature Gran % (Auto) 0.600 Neut % (Auto) 75.7 H Lymph % (Auto) 16.5 L [place] % (Auto) 4.1 Eos % (Auto) 2.5 Baso % (Auto) 0.6 Absolute Neuts (auto) 3.9 Absolute Lymphs (auto) 0.85 Nucleated RBC % 0 Sodium 138 Potassium 4.1 Chloride 105 Carbon Dioxide 28.0 Anion Gap 5 BUN 13 Creatinine 1.15 H Estim Creat Clear Calc 27.56 Est GFR (MDRD) Af Amer 58 L Est GFR (MDRD) Non-Af 48 L BUN/Creatinine Ratio 11.3 Glucose 156 H Calcium 9.6 Radiography Diagnostic Testing: Radiology Impression Brain CT 08/08/20 12:25 IMPRESSION: Chronic involutional changes of the brain. Electronically Signed: Sam Licona MD at 13:50 EDT , Service support , EKG Initial EKG: Comments: Sinus rhythm with rate of 102. No ischemic changes noted. QTc 440, LA 156 Discharge Plan Triage Chief Complaint: Dizziness ED Provider: Romulo Drummond Dx/Rx/DC Orders Clinical Impression: Dizziness Instructions: ED Dizziness, Uncertain Cause Prescriptions: New meclizine [meclizine] 25 MG tablet 25 mg PO 4X/DAY PRN PRN (Reason: Dizziness) Qty: 20 RF: 0 No Action venlafaxine [Effexor XR] 75 MG capsule,extended release 24hr 37.5 mg PO DAILY RF: 0 omeprazole 20 MG capsule 20 mg PO DAILY RF: 0 clopidogrel 75 MG tablet 75 mg PO DAILY RF: 0 acyclovir 800 MG tablet 800 mg PO BID RF: 0 metoprolol succinate 25 MG tablet extended release 24 hr 12.5 mg PO DAILY RF: 0 vitamin E 1,000 UNIT capsule 1 cap PO DAILY RF: 0 coenzyme Q10 [Co Q-10] 10 MG capsule 10 mg PO QHS RF: 0 vitamin B complex 1 EACH tablet 1 ea PO QHS RF: 0 adwf-mkwgak-hdt#9-U-ucyq-boron [Glucosamine-Chondr (boswellia)] 1 EACH tablet 1 ea PO BID RF: 0 cyanocobalamin (vitamin B-12) 1,000 MCG capsule 1,000 mcg PO DAILY RF: 0 turmeric 400 MG capsule 400 mg PO DAILY RF: 0 atorvastatin 80 MG tablet 80 mg PO QHS Qty: 30 RF: 0 aspirin 81 MG tablet,chewable 81 mg PO DAILY@0800 RF: 0 Referrals: Benson,Aristeo [Other] Disposition Disposition: Home, self care
--- NOTE | 2020-08-08 12:26 | ED.RN ---
UPON ARRIVAL TO ER ENTRANCE PT APPEARED AGITATED. ONCE THE PT STATED SHE HAD TAKEN TOO MANY OF HER MEDICATIONS THIS NURSE ASKED QUESTIONS TO FIND OUT WHEN THIS OCCURRED AND PT WAS INITIALLY UNCLEAR AND THEN BECAME MUCH MORE AGITATED AND AGGRESSIVE IN HER ANSWERS BY TALKING VERY LOUDLY AND CLAPPING HER HANDS. THEN PT STATED SHE HAS BEEN DIZZY SINCE SHE TOOK TOO MANY PILLS. AT THIS POINT THIS NURSE STOPPED INQUIRING ABOUT THE SITUATION. ONLY QUESTIONS ASKED WERE THE BASIC TRIAGE QUESTIONS WHICH THE PT RESPONDED STILL YELLING AND AGITATED. DAUGHTER THEN ARRIVED AND PT SIDE AND ASKED PT WHY SHE WAS YELLING. PT DIDN'T RESPOND. DAUGHTER INTERACTED WITH THIS NURSE REGARDING BP AND INFO WAS GIVEN AND EXPLAINED IT WOULD PROBABLY IMPROVE ONCE SHE WAS SETTLED INTO A ROOM. WHILE ASKING PT HER HEIGHT AND WEIGHT PT CONTINUED TO BE SNAPPY AND CUT THIS NURSE OFF. DAUGHTER LOOKED PUZZLED BY THIS BEHAVIOR WELL. I EXPLAINED THAT I FELT PT WAS ANNOYED WITH MY ASKING QUESTIONS. AT THIS TIME THE4 PT STATES THIS NURSE NEEDS A LESSON IN BEDSIDE MANNERS AND DEALING WITH THE GERIATRIC PEOPLE. ATTEMPTED TO APOLOGIZE IF SOMETHING WRONG WAS SAID BUT PT AGAIN CUT THIS NURSE OFF. THE WRISTBAND WAS BEING PLACED PT STATED SHE WANTED THE [employer] AND THIS NURSES NAME. CHARGE NURSE ARRIVED TO TAKE PT BACK TO A ROOM SO IT WAS EXPLAINED THIS WAS THE CHARGE NURSE AND GAVE THEM MY NAME THE PT AMBULATED FROM TRIAGE ROOM SHE STATED THAT THIS NURSE SHOULD GO BACK TO LUNCH. DAUGHTER WAVED HER OFF TO THIS NURSE.
[2020-08-08] MEDS: Meclizine HCl 25 MG Tablet PO (12:37)
[2020-08-08 13:05] LABS: Absolute Lymphocyte Count 0.85 X10^3/uL (0.83-4.51); Absolute Neutrophil Count 3.9 X10^3/uL (2.0-7.7); Basophil# 0.03 X10^3/uL; Basophil% 0.6 % (0-1); Eosinophil# 0.13 X10^3/uL; Eosinophils% 2.5 % (0-5); Hemoglobin 13.4 g/dL (12.0-15.0); Lymphocyte # 0.85 X10^3/ul (0.83-4.51); Lymphocyte % 16.5 % (19-41); Mean Corp Hgb Conc 31.9 g/dL (32-36); Mean Corpuscular Hgb 28.5 pg (27.0-32.0); Mean Corpuscular Volume 89.4 fL (81-99); Mean Platelet Vol. 9.1 fl (6.2-12.0); Monocyte# 0.21 X10^3/uL; Monocyte% 4.1 % (0-10); NRBC Flagged by Analyzer 0 % (0-5); Neutrophil % 75.7 % (47-70); Platelet Count 415 K/mm3 (150-450); RBC Distribution Width CV 14.2 % (11.6-14.6); RBC Distribution Width SD 45.9 fl (35.1-43.9); White Blood Count 5.2 K/mm3 (4.4-11.0)
[2020-08-08 14:15] LABS: Anion Gap 5 (5-15); BUN 13 mg/dL (7-18); BUN/Creat Ratio 11.3 RATIO (10-20); Calcium,Total 9.6 mg/dL (8.5-10.1); Chloride 105 mmol/L (98-107); Creatinine, Serum 1.15 mg/dL (0.55-1.02); EST Glomerular Filtration Rate 48 mL/min (>60); Est Glom Filt Rate - Afr Amer 58 mL/min (>60); Estimated Creatinine Clearance 27.56 ml/min; Glucose 156 mg/dL (74-106); Potassium 4.1 mmol/L (3.5-5.1); Sodium Level 138 mmol/L (136-145)
[2020-08-08 15:03] VITALS: BP 142/81; PULSE 81; RESP 18; O2SAT 98
== END 2020-08-08 15:03 | disposition home or self-care (01) ==
PROVIDERS: Emergency Provider Emergency Medicine
DX: R42 Dizziness and giddiness (principal); F32.9 Major depressive disorder, single episode, unspecified; K21.9 Gastro-esophageal reflux disease without esophagitis; I10 Essential (primary) hypertension
CPT/HCPCS: 70450; 80048; 85025; 93005; 99284

== ENCOUNTER 2022-05-12 02:32 | Emergency (ER) | payer MEDICARE, SELFPAY ==
[2022-05-12 02:33] VITALS: BP 134/74; PULSE 78; RESP 14; TEMP 36.8; O2SAT 99; BMI 28.4
--- NOTE | 2022-05-12 03:33 | EDS_ITS ---
HPI History of Present Illness Chief Complaint: Eye Problem Detail of Chief Complaint: Left eye pain. No visual change. No trauma. Informant: patient and family Onset/Context/Timing Location: Left Eye Onset: Hours Context: Sudden Onset Timing: Intermittent Current Severity: Mild Maximum Severity: Moderate Associated Symptoms Associated Symptoms - Eyes: Pain and Redness; Negative for Burning, Crusting, Drainage, Eyelid swelling, Foreign body sensation, Itching, Matting or Photop hobia History of injury: No Visual correction: None Narrative Narrative: 81-year-old female was sitting at home tonight watching TV when she developed sharp stabbing pain and intermittent to her left eye. This occurred around 8 PM. No trauma. No visual change. No discharge. No prior history. No history of glaucoma. She has had cataract surgery with lens implants bilaterally. She has a history of macular degeneration. She does not wear any type of corrective lenses or glasses. Prior similar symptoms: No Recent Illness/Hospitalization: No PFSH PFSH Medical History CPAP (continuous positive airway pressure) dependence Depression Fibromyalgia GERD (gastroesophageal reflux disease) Herpes Hypertension Migraines Sleep apnea Home Medications omeprazole 20 mg capsule,delayed release 20 mg PO DAILY gerd 09/26/16 [History Last Taken 04/12/18 12:00] venlafaxine 75 mg capsule,extended release 24 hr (Effexor XR) 37.5 mg PO DAILY antidepressant 09/26/16 [History Last Taken 04/11/18 22:00] acyclovir 800 mg tablet 800 mg PO BID herpes 04/12/18 [History Last Taken 04/12/18 12:00] clopidogrel 75 mg tablet 75 mg PO DAILY 04/12/18 [History Last Taken Unknown] coenzyme Q10 10 mg capsule (Co Q-10) 10 mg PO QHS heart 04/12/18 [History Last Taken 04/11/18 22:00] cyanocobalamin (vitamin B-12) 1,000 mcg capsule 1,000 mcg PO DAILY suppliment 04/12/18 [History Last Taken 04/11/18 22:00] glucosamine 750 og-xvvkaxtkl-spi no.7 644 mg-vit B-zrsmrs-oiqpj tablet (Glucosamine-Chondr Cmplx (boswellia)) 1 ea PO BID suppliment 04/12/18 [History Last Taken 04/12/18 12:00] metoprolol succinate 25 mg tablet,extended release 24 hr 12.5 mg PO DAILY blood pressure 04/12/18 [History Last Taken Unknown] turmeric 400 mg capsule 400 mg PO DAILY suppliment 04/12/18 [History Last Taken 04/12/18 12:00] vitamin B complex 1 ea PO QHS suppliment 04/12/18 [History Last Taken 04/11/18 22:00] vitamin E 670 mg (1,000 unit) capsule 1 cap PO DAILY 04/12/18 [History Last Taken 04/12/18 12:00] aspirin 81 mg chewable tablet 81 mg PO DAILY@0800 04/13/18 [Rx Last Taken Unknown] atorvastatin 80 mg tablet 80 mg PO QHS ##30 04/13/18 [Rx Last Taken Unknown] meclizine 25 mg tablet 25 mg PO 4X/DAY PRN PRN Dizziness #20 tabs 08/08/20 [Rx Last Taken Unknown] hydrocodone-acetaminophen 5-325mg 5mg-325mg 1 tab PO Q4H PRN PRN Pain 5 days #14 TABLETS 05/12/22 [Rx Last Taken Unknown] Allergy/AdvReac Type Severity Reaction Status Date / Time Penicillins [PCN] AdvReac Rash Verified 05/12/22 02:36 Social History Smoking Status: Never smoker ROS ROS ED ROS Narrative Denies recent illness. She denies any headache or head pain. Review of Systems ROS Unobtainable: Denies due to encephalopathy Constitutional Constitutional ED: Denies chills or fever(s) Eyes Eyes: Denies blurry vision ENT ENT ED: Denies ear pain, rhinorrhea or sore throat Cardiovascular Cardiovascular: Denies chest pain or palpitations Respiratory/Chest Respiratory/Chest: Denies cough or dyspnea Gastrointestinal Gastrointestinal: Denies abdominal pain Genitourinary Genitourinary ED: Denies dysuria Musculoskeletal Musculoskeletal: Denies arthralgias Integumentary Denies abscess Neurologic Neurologic: Denies headache(s) or paresthesias Psychiatric Psychiatric: Denies anxiety or depression Endocrine Endocrinology: Denies polydipsia Hematologic/Lymphatic Hematologic/Lymphatic: Denies easy bleeding Allergic/Immunologic Allergic/Immunologic ED: Denies mouth swelling or tongue swelling EXAM Physical Exam Narrative Exam Narrative: Well-appearing 81-year-old female. Vital signs are stable afebrile. Blood pressure is 134/74. She does not look septic nor toxic or in distress. She does state intermittently she has shooting pain in her left thigh. HEENT exam pupils round reactive light extra motions are intact. There is no swelling of either the upper or lower lid. There is no periorbital swelling. Left eye is slightly injected. Minimally watering. No discharge. There is no preauricular lymphadenopathy. No facial swelling. No facial droop. No rash. Neck nontender no lymphadenopathy. Lungs clear. Heart regular rhythm. Abdomen soft nontender. Moving all 4 extremities. Neurologically she is awake and alert with no focal motor deficits. Const Vital Signs: 05/12/22 02:33 Temperature 98.2 F Temperature Source Temporal Pulse Rate 78 Respiratory Rate 14 Blood Pressure 134/74 H Blood Pressure Mean 94 Pulse Ox 99 Oxygen Delivery Method Room Air Positive well nourished, well developed and obese; Negative for cachectic, contractures or unkempt General Appearance ED: well developed and NAD; Negative for unkempt, cachectic or contractures Nutritional Appearance: obese; Negative for cachectic HEENT atraumatic; Negative for trauma or tenderness Nose: external nose normal and nares normal Eyes Eyes Narrative: Left eye mildly injected. Mildly watering. No discharge. No swelling. Extraocular motions are intact. Pupils 2 mm and reactive. No facial or periorbital swelling. No lymphadenopathy. Neck no lymphadenopathy, supple and no JVD General: Negative for tenderness Resp normal respiratory effort, no retractions, no use of accessory muscles and clear to auscultation bilaterally Cardio regular rate, regular rhythm, S1 normal heart sound, S2 normal heart sound and no murmurs GI non-tender, non-distended and no masses Auscultation: normoactive bowel sounds Back/Spine no CVA tenderness General Back: Negative for CVA tenderness Extremity normal to inspection General Extremety ED: Negative for edema General Extremity: Negative for edema Neuro oriented x3, CN's II-XII intact bilaterally, moves all extremities and no sensory deficits noted Sensorium / Orientation: alert, oriented to person, oriented to place and oriented to time; Negative for orientation impaired Motor Exam: strength 5/5 throughout Psych Appearance: Negative for unkempt Attitude: No agitated Mood & Affect: Negative for depressed, anxious or tearful Skin no wounds Lesions: no lesions Rashes: no rashes Trauma: Negative for abrasion or laceration MDM MDM MDM Narrative Medical decision making narrative: 81-year-old with left eye pain. Exam grossly is unremarkable other than slightly injected mildly watering. Pupil and extraocular motions are intact. Tetracaine will be applied, slit-lamp exam and Dewey-Pen for intraocular pressure will be obtained. Nurses will get a visual acuity. Clinically at this time I do not see an obvious foreign body or abrasion. I do not see any signs of an obvious infection. Applied tetracaine to her left eye. Did not give her any relief. Her left eye with fluorescein stain. I did a slit-lamp exam. I do not see any signs of a corneal abrasion or foreign body. There is no ulceration. Limited funduscopic exam was done on her nondilated pupil and evidence any obvious abnormalities but it was very limited to what I could see of the retina. Her pain comes and goes its like lightning strikes. Clinically this appears to be trigeminal neuralgia. We did do visual acuity. 20/30 in the right eye. 20/40 in the left eye which is the affected eye. 20/30 bilaterally. I also did a Dewey-Pen exam on the patient and the pressure was only 6 and 10 done twice. No signs of glaucoma. Repeat exam no change. Again no signs of infection, nor foreign body nor abrasion. She will be given [place] for pain. Follow-up with ophthalmology to further evaluate her eye. Clinically I think this is trigeminal neuralgia. She be placed on [place] for pain. An outpatient follow-up with her primary care physician. Discharge Plan Triage Chief Complaint: Eye Problem ED Provider: Toi Hernandez Dx/Rx/DC Orders Clinical Impression: Trigeminal neuralgia Instructions: ED Trigeminal Neuralgia Prescriptions: New hydrocodone-acetaminophen 5-325 mg tablet 1 tab PO Q4H PRN PRN (Reason: Pain) 5 Days Qty: 14 0RF No Action venlafaxine [Effexor XR] 75 MG capsule,extended release 24hr 37.5 mg PO DAILY omeprazole 20 MG capsule 20 mg PO DAILY clopidogrel 75 MG tablet 75 mg PO DAILY acyclovir 800 MG tablet 800 mg PO BID metoprolol succinate 25 MG tablet extended release 24 hr 12.5 mg PO DAILY vitamin E 1,000 UNIT capsule 1 cap PO DAILY coenzyme Q10 [Co Q-10] 10 MG capsule 10 mg PO QHS vitamin B complex 1 EACH tablet 1 ea PO QHS zmhh-wbbkni-pvg#8-X-ghch-boron [Glucosamine-Chondr (boswellia)] 1 EACH tablet 1 ea PO BID cyanocobalamin (vitamin B-12) 1,000 MCG capsule 1,000 mcg PO DAILY turmeric 400 MG capsule 400 mg PO DAILY atorvastatin 80 MG tablet 80 mg PO QHS Qty: 30 0RF aspirin 81 MG tablet,chewable 81 mg PO DAILY@0800 0RF meclizine [meclizine] 25 MG tablet 25 mg PO 4X/DAY PRN PRN (Reason: Dizziness) Qty: 20 0RF Primary Care Provider: Aristeo Knowles Referrals: Aristeo Knowles [Other] Liu Michaels MD [Med Staff - Active Staff] - As soon as possible (Call their office on Saturday. To be seen this week.) Activity Restrictions/Additional Instructions: I believe this is trigeminal neuralgia which is a nerve pain. I do not see an thing obviously wrong with your eye. Your visual acuity is okay. There is no foreign body or abrasion. There is no signs of infection. There is no signs of glaucoma at this time. [place] for pain. Follow-up with the eye doctor on Saturday. Follow-up with your primary care physician this week. Disposition Disposition: Home, Self Care
[2022-05-12] MEDS: Fluorescein 1 MG STRIP 1 STRIP LEFT EYE (03:53)
[2022-05-12] MEDS: Tetracaine 0.5% Ophthalmic Bottle 5 DRP LEFT EYE (03:54)
[2022-05-12 04:33] VITALS: PULSE 81; RESP 15; O2SAT 95
[2022-05-12] MEDS: HYDROcodone Bitartrate/Apap 5/325 Tablet PO (04:37)
[2022-05-12 05:17] VITALS: BP 134/74; PULSE 81; RESP 15; O2SAT 95
== END 2022-05-12 05:17 | disposition home or self-care (01) ==
LOC: ED 04:42
PROVIDERS: Emergency Provider Emergency Medicine; PCP Internal Medicine; Visit Provider Emergency Medicine
DX: G50.0 Trigeminal neuralgia (principal); I10 Essential (primary) hypertension; E66.9 Obesity, unspecified
CPT/HCPCS: 99285

== ENCOUNTER 2022-11-16 09:04 | Inpatient (IN) | payer MEDICARE, SELFPAY ==
[2022-11-16] VITALS (15 sets, daily range): BP systolic 89–134; BP diastolic 50–72; PULSE 83–125; RESP 16–20; TEMP 35.5–37.2; O2SAT 83–98; BMI 27.5; BMI 26.7
--- NOTE | 2022-11-16 | APP_PTH ---
PATIENT: ROLANDO FIGUEREDO LOC: [facility] U#:[id number] AGE/SX: 81/F ROOM: [facility] RE11/17/[address]: Dr. Jay Solares DO : 1940 BED: 1 DIS: 11/20/2022 SPEC #: [id number] RECD: 11/16/22 21:37 STATUS: [facility] #: [id number] VÍCTOR: 11/16/22 00:[address]: Baltazar Gray DEPT: SURGICAL PATHOLOGY RECD BY: Jared Lopez ENTERED: 11/20/22 09:54 SP TYPE: APPENDIX OTHR DR: MD Dr. Jay Ortega DO Dr. Nicholas F Kotsonis, MD Dr. Victor Velasquez, MD Tissues: Appendix, NOS Procedures: Surgery Specimen Level III Comments: @ Ordering doctor for SUIII edited from to @ by JUAN RAMON at 11/20/22 1445 @ Submitting doctor edited from to @ by KORINAOD at 11/20/22 1445 HEADER OPERATION: Laparoscopic appendectomy PRE-OP DIAGNOSIS: Acute appendicitis TISSUE SUBMITTED: Appendix MICROSCOPIC DIAGNOSIS Appendix, appendectomy: Acute necrotizing appendicitis with acute serositis. AM:inga 11/21/2022 MICROSCOPIC DESCRIPTION Slides are reviewed. GROSS DESCRIPTION Received in fixative is one container labeled with the patient's name and designated appendix. The specimen consists of an appendix measuring 5.0 cm in length and up to 0.6 cm in diameter. The attached periappendiceal adipose tissue measures up to 1.3 cm in width. The serosa is congested and hemorrhagic. No obvious perforation is identified. No fecalith is identified. Director Of [employer]atering Sales sections are submitted in one cassette. / SJ:inga 11/20/2022 TC:2 CPT: 28324
--- NOTE | 2022-11-16 09:37 | CT_ITS ---
STUDY: CT ABDOMEN AND PELVIS WITH CONTRAST REASON FOR EXAM: Female, 81 years old. Abdominal pain RADIATION DOSAGE (If Supplied By Facility): CTDIvol = ( 16.11 ) mGy, DLP = ( 1004.42 ) mGycm TECHNIQUE: Transaxial images were obtained from the dome of the diaphragm to the symphysis pubis without oral contrast. IV 100mL Isovue-300 was administered. Sagittal and coronal images were reconstructed. Individualized dose optimization techniques were used for this CT. COMPARISON: None. FINDINGS: The patient is status post left mastectomy. Increased markings in the posterior medial segment of the right lower lobe suggestive of atelectasis and/or possible early infiltrate. Coronary artery calcification. Normal liver. Normal gallbladder. There is dilatation of the common bile duct measuring 9.9 mm in its distal portion as it enters the ampulla of Vater. Normal spleen. Normal pancreas. Normal bilateral adrenal glands. Mild degree of bilateral hydronephrosis slightly more prominent on the right side. There is a moderate-sized hiatal hernia. Normal small intestine. There are multiple colonic diverticula consistent with diverticulosis. There is a tubular, thick-walled appendix (>7mm), consistent with acute appendicitis. A small appendicolith is seen in the proximal portion of the appendix. Inflammatory changes are seen in the right lower quadrant. There is diffuse atherosclerotic calcification of the abdominal aorta and its major visceral branches, without a demonstrated aneurysm. Normal inferior vena cava. Normal retroperitoneum. Normal urinary bladder. There is absence of the uterus consistent with a prior hysterectomy. There is a right-sided inguinal hernia containing adipose tissue. There are diffuse degenerative changes of the visualized lumbar spine. Mild anterior listhesis of L4 on L5. CT/Abdomen/Pelvis W IV Cont ONLY IMPRESSION: Findings in keeping with acute appendicitis with inflammatory changes in the right lower quadrant. Moderate size hiatal hernia. Bilateral hydronephrosis slightly more prominent on the right side. Increased markings at the right lung base suggestive of atelectasis and/or infiltrate. Electronically Signed: Sam Licona MD at 11:15 EDT ,
[2022-11-16] MEDS: 0.9% Normal Saline 1,000 ML 1000 ML IV (09:44)
[2022-11-16 09:53] LABS: Absolute Lymphocyte Count 0.61 X10^3/uL (0.83-4.51); Absolute Neutrophil Count 7.5 X10^3/uL (2.0-7.7); Basophil# 0.01 X10^3/uL; Basophil% 0.1 % (0-1); Eosinophil# 0.01 X10^3/uL; Eosinophils% 0.1 % (0-5); Hematocrit 35.4 % (37-47); Hemoglobin 11.9 g/dL (12.0-15.0); Lymphocyte # 0.61 X10^3/ul (0.83-4.51); Lymphocyte % 7.3 % (19-41); Mean Corp Hgb Conc 33.6 g/dL (32-36); Mean Corpuscular Hgb 29.9 pg (27.0-32.0); Mean Corpuscular Volume 88.9 fL (81-99); Mean Platelet Vol. 9.2 fl (6.2-12.0); Monocyte# 0.21 X10^3/uL; Monocyte% 2.5 % (0-10); NRBC Flagged by Analyzer 0 % (0-5); Neutrophil # 7.48 X10^3/uL (2.7-7.7); Neutrophil % 89.2 % (47-70); Platelet Count 263 K/mm3 (150-450); RBC Distribution Width CV 14.6 % (11.6-14.6); RBC Distribution Width SD 46.9 fl (35.1-43.9); Red Blood Count 3.98 M/mm3 (4.2-5.4); White Blood Count 8.4 K/mm3 (4.4-11.0)
[2022-11-16 10:11] LABS: ALB/GLOB Ratio 0.9 RATIO (0.9-2.4); AST(SGOT) 158 U/L (15-37); Alanine Aminotransfer ALT/SGPT 145 U/L (13-56); Albumin, Serum 3.6 g/dL (3.2-5.0); Alkaline Phosphatase 61 U/L (45-117); Anion Gap 9 (5-15); BUN 12 mg/dL (7-18); BUN/Creat Ratio 13.8 RATIO (10-20); Calcium,Total 9.2 mg/dL (8.5-10.1); Chloride 98 mmol/L (98-107); Creatinine, Serum 0.87 mg/dL (0.55-1.02); EST Glomerular Filtration Rate 66 mL/min (>60); Est Glom Filt Rate - Afr Amer 80 mL/min (>60); Estimated Creatinine Clearance 35.19 ml/min; Globulin 3.9 g/dL (2.2-4.2); Glucose 128 mg/dL (74-106); Potassium 4.3 mmol/L (3.5-5.1); Protein, Total 7.5 g/dL (6.4-8.2); Sodium Level 131 mmol/L (136-145)
[2022-11-16 11:03] LABS: Bacteria 0 SEEN /hpf (None Seen); Mucous, Urine 0 SEEN /hpf (<or=2+); Red Blood Cells-Urine 0 SEEN /hpf (0-5); Squamous Epithelial Cells - UA 0 SEEN /hpf (5-10); White Blood Cells 0 SEEN /hpf (0-5)
--- NOTE | 2022-11-16 11:12 | EDS_ITS ---
HPI History of Present Illness Chief Complaint: Weakness Informant: patient and family Narrative Narrative: 81-year-old female presenting to the emergency room with a chief complaint of possible dehydration. Patient lives alone has been having memory issues that is progressively worse over the past month. She has chronically been dizzy over this time period. Last night she reportedly either fell because of the dizziness slipped in water, or if she states I was asleep. She states she really was not injured in the fall. She has had some diarrhea earlier in the week and has not really had much to eat or drink over the past several days. She had blood work obtained yesterday through the [facility] which was reviewed through the [facility] [facility] by the family. She has developed right lower quadrant abdominal pain. No fever. She takes Plavix but no anticoagulant. [facility] Medical History CPAP (continuous positive airway pressure) dependence Depression Fibromyalgia GERD (gastroesophageal reflux disease) Herpes Hypertension Migraines Sleep apnea Home Medications omeprazole 20 mg capsule,delayed release 20 mg PO DAILY gerd 09/26/16 [History Last Taken 04/12/18 12:00] venlafaxine 75 mg capsule,extended release 24 hr (Effexor XR) 37.5 mg PO DAILY antidepressant 09/26/16 [History Last Taken 04/11/18 22:00] acyclovir 800 mg tablet 800 mg PO BID herpes 04/12/18 [History Last Taken 04/12/18 12:00] clopidogrel 75 mg tablet 75 mg PO DAILY 04/12/18 [History Last Taken Unknown] coenzyme Q10 10 mg capsule (Co Q-10) 10 mg PO QHS heart 04/12/18 [History Last Taken 04/11/18 22:00] cyanocobalamin (vitamin B-12) 1,000 mcg capsule 1,000 mcg PO DAILY suppliment 04/12/18 [History Last Taken 04/11/18 22:00] glucosamine 750 [id number] no.7 644 mg-vit U-emuwky-wnmag tablet (Glucosamine-Chondr Cmplx (boswellia)) 1 ea PO BID suppliment 04/12/18 [History Last Taken 04/12/18 12:00] metoprolol succinate 25 mg tablet,extended release 24 hr 12.5 mg PO DAILY blood pressure 04/12/18 [History Last Taken Unknown] turmeric 400 mg capsule 400 mg PO DAILY suppliment 04/12/18 [History Last Taken 04/12/18 12:00] vitamin B complex 1 ea PO QHS suppliment 04/12/18 [History Last Taken 04/11/18 22:00] vitamin E 670 mg (1,000 unit) capsule 1 cap PO DAILY 04/12/18 [History Last Taken 04/12/18 12:00] aspirin 81 mg chewable tablet 81 mg PO DAILY@0800 04/13/18 [Rx Last Taken Unknown] atorvastatin 80 mg tablet 80 mg PO QHS ##30 04/13/18 [Rx Last Taken Unknown] meclizine 25 mg tablet 25 mg PO 4X/DAY PRN PRN Dizziness #20 tabs 08/08/20 [Rx Last Taken Unknown] hydrocodone-acetaminophen 5-325mg 5mg-325mg 1 tab PO Q4H PRN PRN Pain 5 days #14 TABLETS 05/12/22 [Rx Last Taken Unknown] Allergy/AdvReac Type Severity Reaction Status Date / Time Penicillins [PCN] AdvReac Rash Verified 05/12/22 02:36 Social History Smoking Status: Never smoker ROS ROS ED Constitutional Constitutional ED: Reports other Details: Generalized weakness ; Denies chills, fever(s) or weight loss Eyes Eyes: Denies change in vision or diplopia ENT ENT ED: Denies ear pain, rhinorrhea or sore throat Cardiovascular Cardiovascular: Denies chest pain, orthopnea, palpitations or racing heartbeat Respiratory/Chest Respiratory/Chest: Denies cough, dyspnea or orthopnea Gastrointestinal Gastrointestinal: Reports abdominal pain, diarrhea and nausea; Denies vomiting Genitourinary Genitourinary ED: Denies dysuria, hematuria or urinary frequency Musculoskeletal Musculoskeletal: Denies arthralgias or myalgias Integumentary Denies abscess or rash Neurologic Neurologic: Reports other Details: Chronic dizziness ; Denies headache(s) or weakness Psychiatric Psychiatric: Denies anxiety, depression, suicidal ideation or suicidal thoughts Endocrine Endocrinology: Denies polydipsia, polyphagia or polyuria Allergic/Immunologic Allergic/Immunologic ED: Denies mouth swelling, tongue swelling or urticaria EXAM Physical Exam Const Vital Signs: 11/16/22 09:04 Temperature 95.9 F L Temperature Source Temporal Pulse Rate 125 H Respiratory Rate 18 Blood Pressure 117/59 L Blood Pressure Mean 78 Pulse Ox 93 Oxygen Delivery Method Room Air Positive well nourished and well developed General Appearance ED: well developed HEENT Reports normocephalic, head/scalp atraumatic and moist mucous membranes Eyes PERRL and EOMs intact bilaterally Neck no lymphadenopathy, supple and no JVD Resp normal respiratory effort and clear to auscultation bilaterally Cardio regular rate, regular rhythm and no murmurs Rate: tachycardic GI Auscultation: normoactive bowel sounds Palpation: soft, tender RLQ, guarding and rebound tenderness present Back/Spine no CVA tenderness and normal ROM Extremity normal to inspection General Extremety ED: Negative for edema General Extremity: Negative for edema Neuro oriented x3 and CN's II-XII intact bilaterally Sensorium / Orientation: alert Motor Exam: strength 5/5 throughout Psych mental status grossly normal Mood & Affect: Negative for depressed or tearful Skin no rashes or lesions noted and no wounds MDM MDM MDM Narrative Medical decision making narrative: Patient's white count returns at 8.4. BMP shows sodium of 131 glucose of 128. Slight elevation in her transaminases with a bilirubin of 1.1. Unsure of significance. Urinalysis is negative. CT of the abdomen pelvis was obtained due to the unexplained tachycardia and the right lower quadrant pain. This is consistent with acute appendicitis with appendicolith. Patient has an allergy to penicillin received Cipro and Flagyl. I consulted surgery Dr. Gray. He will be up to evaluate the patient. Family was updated. Socially the patient has been having memory issues and increased dizziness with falls over the past month. Family is concerned about her ability to continue to live at home. I advised them that we should reassess her after her surgery and see how she is doing. They are comfortable with this but she may end up needing to go to retirement for rehabilitation or possibly assisted living. History & Record Review Discussion w/independent historian: Patient and Family Lab Data Attestation: I reviewed the patient's lab results. Labs: Laboratory Results - last 24 hr 11/16/22 11/16/22 09:30 10:55 WBC 8.4 RBC 3.98 L Hgb 11.9 L Hct 35.4 L MCV 88.9 MCH 29.9 MCHC 33.6 RDW Std Deviation 46.9 H RDW Coeff of Kyree 14.6 Plt Count 263 MPV 9.2 Immature Gran % (Auto) 0.800 Neut % (Auto) 89.2 H Lymph % (Auto) 7.3 L Crow[place] % (Auto) 2.5 Eos % (Auto) 0.1 Baso % (Auto) 0.1 Absolute Neuts (auto) 7.5 Absolute Lymphs (auto) 0.61 L Nucleated RBC % 0 Sodium 131 L Potassium 4.3 Chloride 98 Carbon Dioxide 24.0 Anion Gap 9 BUN 12 Creatinine 0.87 Estim Creat Clear Calc 35.19 Est GFR (MDRD) Af Amer 80 Est GFR (MDRD) Non-Af 66 BUN/Creatinine Ratio 13.8 Glucose 128 H Calcium 9.2 Total Bilirubin 1.10 H AST 158 H ALT 145 H Alkaline Phosphatase 61 Total Protein 7.5 Albumin 3.6 Globulin 3.9 Albumin/Globulin Ratio 0.9 Urine Color Yellow Urine Clarity Clear Urine pH 6.5 Ur Specific [place] 1.005 Urine Protein 15 H Urine Glucose (UA) Normal Urine Ketones 15 H Urine Occult Blood 10 H Urine Nitrite Negative Urine Bilirubin Negative Urine Urobilinogen Normal Ur Leukocyte Esterase Negative Radiography Diagnostic Testing: Clinical Impression(s) from Imaging Studies Abdomen/Pelvis CT 11/16/22 09:37 IMPRESSION: Findings in keeping with acute appendicitis with inflammatory changes in the right lower quadrant. Moderate size hiatal hernia. Bilateral hydronephrosis slightly more prominent on the right side. Increased markings at the right lung base suggestive of atelectasis and/or infiltrate. Electronically Signed: Sam Licona MD at 11:15 EDT , Management Discussion w/another healthcare provider: putty and patch worker/Case management and Other (Surgery-Dr. Gray) Discharge Plan Dx/Rx/DC Orders Clinical Impression: Acute appendicitis Disposition Disposition: Acute Care [facility]
[2022-11-16 11:14] LABS: Color, Urine Yellow (Yellow); Glucose, Dipstick Normal (Normal); Ketone-Dipstick 15 mg/dl (Negative); Leukocyte Esterase-Dipstick Negative /ul (Negative); Nitrite-Dipstick Negative (Negative); Occult Blood-Urine 10 /ul (Negative); Protein-Dipstick 15 mg/dl (Negative); Specific Gravity, Urine 1.005 (1.002-1.030); Urine Bilirubin Dipstick Negative (Negative); Urine Clarity Clear (Clear); Urine Urobilinogen Normal (Normal); Urine pH 6.5 (5.0 - 8.0)
[2022-11-16] MEDS: Ciprofloxacin 400 MG/200 ML BAG 200 MG IV (11:29)
[2022-11-16] MEDS: metroNIDAZOLE 500 MG/100 ML BAG 100 MG IV ×2 (12:48→23:14)
--- NOTE | 2022-11-16 13:55 | HP.PCM_ITS ---
HPI - General General Date of Admission: 11/16/22 Chief Complaint: Acute onset abdominal pain and associated weakness HPI Narrative ROLANDO FIGUEREDO, is a 81 F who presents to [facility] with complaints of lightheadedness, dizziness, and weakness for the last week as well as acute onset abdominal pain beginning 2 days ago. Her daughter is present with her in the room and provides clarification on some of the history. Patient states that she has had right-sided abdominal discomfort with some associated nausea but no vomiting for the past 48 hours. Her daughter states that she was told that her mother felt like this was the flu and decided not to present immediately, but when it persisted she decided to seek evaluation. ER work-up notable for CBC without leukocytosis but with presence of left shift. CT imaging of the abdomen and pelvis was obtained that showed evidence of acute appendicitis with appendicolith. Patient has a history of CPAP dependence, but she is unsure if this is related to history of obstructive sleep apnea. She is unfortunately unclear how much of her history, but does confirm that she has had regular colonoscopic evaluations and that there is no history of polyps. She does report a history of breast can cer and is status postmastectomy. She also notes a history of more remote hysterectomy related to a desire to avoid medications lifelong. [facility] Medical History CPAP (continuous positive airway pressure) dependence Depression Fibromyalgia GERD (gastroesophageal reflux disease) Herpes Hypertension Migraines Sleep apnea Home Medications omeprazole 20 mg capsule,delayed release 20 mg PO DAILY gerd 09/26/16 [History Last Taken 11/15/22] venlafaxine 75 mg capsule,extended release 24 hr (Effexor XR) 75 mg PO DAILY antidepressant 09/26/16 [History Last Taken 11/15/22] acyclovir 800 mg tablet 800 mg PO BID herpes 04/12/18 [History Last Taken 11/15/22] coenzyme Q10 10 mg capsule (Co Q-10) 10 mg PO QHS heart 04/12/18 [History Last Taken 11/15/22] glucosamine 750 [id number] no.7 644 mg-vit [id number]-kfikix-nsccv tablet (Glucosamine-Chondr Cmplx (boswellia)) 1 ea PO BID suppliment 04/12/18 [History Last Taken 11/15/22] metoprolol succinate 25 mg tablet,extended release 24 hr 25 mg PO DAILY blood pressure 04/12/18 [History Last Taken 11/15/22] vitamin B complex 1 ea PO QHS suppliment 04/12/18 [History Last Taken 11/15/22] vitamin E 670 mg (1,000 unit) capsule 1 cap PO DAILY 04/12/18 [History Last Taken 11/15/22] atorvastatin 80 mg tablet 80 mg PO QHS ##30 04/13/18 [Rx Last Taken 11/15/22] anastrozole 1 mg tablet 1 mg PO DAILY 11/16/22 [History Last Taken 11/15/22] calcium citrate 500 mg (2,376 mg) effervescent tablet 500 mg PO DAILY 11/16/22 [History Last Taken 11/15/22] carbamazepine 200 mg tablet,extended release,12 hr 200 mg PO Q12H 11/16/22 [History Last Taken 11/15/22] Allergy/AdvReac Type Severity Reaction Status Date / Time Penicillins [PCN] AdvReac Rash Verified 05/12/22 02:36 Social History Smoking Status: Never smoker ROS Constitutional Constitutional: Reports weakness; Denies fever(s) Gastrointestinal Gastrointestinal: Reports abdominal pain, diarrhea and nausea; Denies constipation or vomiting Vital Signs Vital Signs Vital Signs: 11/16/22 09:04 11/16/22 11:32 11/16/22 12:08 Temperature 95.9 F L 95.9 F L Temperature Source Temporal Oral Pulse Rate 125 H 104 H 104 H Respiratory Rate 18 20 H 16 Blood Pressure 117/59 L 100/56 L 100/56 L Blood Pressure Mean 78 70 70 Blood Pressure Source Blood Pressure Position Blood Pressure Location Pulse Ox 93 93 93 Oxygen Delivery Method Room Air Room Air Room Air 11/16/22 12:40 Temperature 98.2 F Temperature Source Temporal Pulse Rate 83 Respiratory Rate 18 Blood Pressure 105/50 L Blood Pressure Mean 68 Blood Pressure Source Monitor Blood Pressure Position Semi-Fowlers Blood Pressure Location Right Arm Pulse Ox 94 Oxygen Delivery Method Room Air Weight Weight: 136 lb 14.513 oz Body Mass Index (BMI) 26.7 Physical Exam Const alert Constitutional Narrative: Patient is oriented to person, place, and situation, however, she is quite forgetful and looks to her daughter for clarification of details in her history Resp normal respiratory effort GI GI Narrative: Lower midline scar well-healed, soft, exquisitely tender to palpation over McBurney's point with voluntary guarding. Positive Rovsing, positive obturator Results Lab / Micro Data 11/16/22 09:30 11/16/22 09:30 Labs: Laboratory Results - last 24 hr 11/16/22 09:30: WBC 8.4, RBC 3.98 L, Hgb 11.9 L, Hct 35.4 L, MCV 88.9, MCH 29.9, MCHC 33.6, RDW Std Deviation 46.9 H, RDW Coeff of Kyree 14.6, Plt Count 263, MPV 9.2, Immature Gran % (Auto) 0.800, Neut % (Auto) 89.2 H, Lymph % (Auto) 7.3 L, [place] % (Auto) 2.5, Eos % (Auto) 0.1, Baso % (Auto) 0.1, Absolute Neuts (auto) 7.5, Absolute Lymphs (auto) 0.61 L, Nucleated RBC % 0, Sodium 131 L, Potassium 4.3, Chloride 98, Carbon Dioxide 24.0, Anion Gap 9, BUN 12, Creatinine 0.87, Estim Creat Clear Calc 35.19, Est GFR (MDRD) Af Amer 80, Est GFR (MDRD) Non-Af 66, BUN/Creatinine Ratio 13.8, Glucose 128 H, Calcium 9.2, Total Bilirubin 1.10 H, AST 158 H, ALT 145 H, Alkaline Phosphatase 61, Total Protein 7.5, Albumin 3.6, Globulin 3.9, Albumin/Globulin Ratio 0.9 11/16/22 10:55: Urine Color Yellow, Urine Clarity Clear, Urine pH 6.5, Ur Spec ific [place] 1.005, Urine Protein 15 H, Urine Glucose (UA) Normal, Urine Ketones 15 H, Urine Occult Blood 10 H, Urine Nitrite Negative, Urine Bilirubin Negative, Urine Urobilinogen Normal, Ur Leukocyte Esterase Negative, Urine RBC 0 SEEN, Urine WBC 0 SEEN, Ur Squamous Epith Cells 0 SEEN, Urine Bacteria 0 SEEN, Urine Mucus 0 SEEN Radiology Impression Abdomen/Pelvis CT 11/16/22 09:37 IMPRESSION: Findings in keeping with acute appendicitis with inflammatory changes in the right lower quadrant. Moderate size hiatal hernia. Bilateral hydronephrosis slightly more prominent on the right side. Increased markings at the right lung base suggestive of atelectasis and/or infiltrate. Electronically Signed: Sam Licona MD at 11:15 EDT , Assessment & Plan Assessment/Plan (1) Acute appendicitis: PLAN: This is an 81-year-old female, with a number of comorbidities (of which she is not able to elaborate or necessarily confirm because the daughter that has this information is not immediately present) who presents with signs and symptoms of acute appendicitis. This diagnosis was confirmed with CT imaging. Radiology does note the presence of an appendicolith. Patient has evidence of peritoneal irritation with exam. Therefore, I recommend we proceed with laparoscopic appendectomy as soon as the OR is able to accommodate. Patient has already been started on IV ciprofloxacin and Flagyl per my request. Consents to be obtained by the floor. Charges/Coding Visit Charges Inpatient E&M: 88757 Init Hosp L2
--- NOTE | 2022-11-16 14:08 | CASEMGMT ---
Discharge Planning Asst. A list of home health and SNF providers including quality and resource use data and consistent with the patient?s preferred geographic region, medical needs, and insurance network was created in [employer] Guide. This list was provided to the RN CM. Colleen Jimenez, Discharge Planning Asst.
--- NOTE | 2022-11-16 14:15 | CASEMGMT ---
RN CM Face to Face with patient for initial transition planning/care coordination assessment. RN CM introduced self and role at [facility]. Patient lying in bed, alert and oriented, daughter at bedside. Patient willing to participate in assessment and is able to answer all questions appropriately. Care providers, pharmacy, and demographics verified. Patient wishes to discharge home but is willing to go to SNF, will monitor progress with therapy. A list of HHC and SNF providers including quality and resource use data and consistent with the patient?s preferred geographical region, medical needs, and insurance network were provided from the [employer] Guide. Family and patient to review and provide preferences. Patient states she has no further needs or concerns at this time. CM to follow for discharge planning needs that may arise. PCP: [facility] Specialists: [facility] maker hand and neurologist; Gurmeet oncologist Preferred Pharmacy: [facility] Insurance: [facility] Prescription Benefit: yes Living Will/HPOA: yes, daecho Macias Cleverly LNOK: daughters Living Arrangements: Patient lives at [facility] independent living in a first floor apartment. Patient states she is independent at home. Transportation: daughter DME/HHC: Patient has shower chair, cane, walker, grab bars, and cpap at home. No previous HHC or SNF. Disposition Plan: TBD, anticipate HHC vs SNF pending progress with therapy. Roxy INGRAM, RN, CM
--- NOTE | 2022-11-16 15:14 | PCM.PN.HOSP ---
Subjective Subjective 81-year-old female presents from home with abdominal pain. CT scan was obtained that demonstrated appendicitis and plan is for appendectomy this afternoon. Medicine was consulted secondary to generalized weakness. Family states that she started getting weak prior around Saturday or Saturday but has not noticed any focal weakness. Her daughter states that her face is symmetrical and the patient denies any numbness or tingling. She says that she has some shoulder pain in her left shoulder which is limiting her from moving her left arm but there does not appear to be any signs of stroke. Objective Data Objective Data Vital Signs: Vital Signs Temp Pulse Resp BP Pulse Ox O2 Del Method 98.2 F 83 18 105/50 L 94 Room Air 11/16/22 12:40 11/16/22 12:40 11/16/22 12:40 11/16/22 12:40 11/16/22 12:40 11/16/22 15:05 Oxygen Delivery Method Room Air Weight: 136 lb 14.513 oz Body Mass Index (BMI) 26.7 Intake & Output: Intake and Output for Last 24 Hours 11/15/22 11/16/22 11/17/22 03:59 03:59 03:59 Intake Total 1200 / 1200 Balance 1200 / 1200 Lab / Micro Data 11/16/22 09:30 11/16/22 09:30 Labs: Laboratory Results - last 24 hr 11/16/22 09:30: WBC 8.4, RBC 3.98 L, Hgb 11.9 L, Hct 35.4 L, MCV 88.9, MCH 29.9, MCHC 33.6, RDW Std Deviation 46.9 H, RDW Coeff of Kyree 14.6, Plt Count 263, MPV 9.2, Immature Gran % (Auto) 0.800, Neut % (Auto) 89.2 H, Lymph % (Auto) 7.3 L, [place] % (Auto) 2.5, Eos % (Auto) 0.1, Baso % (Auto) 0.1, Absolute Neuts (auto) 7.5, Absolute Lymphs (auto) 0.61 L, Nucleated RBC % 0, Sodium 131 L, Potassium 4.3, Chloride 98, Carbon Dioxide 24.0, Anion Gap 9, BUN 12, Creatinine 0.87, Estim Creat Clear Calc 35.19, Est GFR (MDRD) Af Amer 80, Est GFR (MDRD) Non-Af 66, BUN/Creatinine Ratio 13.8, Glucose 128 H, Calcium 9.2, Total Bilirubin 1.10 H, AST 158 H, ALT 145 H, Alkaline Phosphatase 61, Total Protein 7.5, Albumin 3.6, Globulin 3.9, Albumin/Globulin Ratio 0.9 11/16/22 10:55: Urine Color Yellow, Urine Clarity Clear, Urine pH 6.5, Ur Specific [place] 1.005, Urine Protein 15 H, Urine Glucose (UA) Normal, Urine Ketones 15 H, Urine Occult Blood 10 H, Urine Nitrite Negative, Urine Bilirubin Negative, Urine Urobilinogen Normal, Ur Leukocyte Esterase Negative, Urine RBC 0 SEEN, Urine WBC 0 SEEN, Ur Squamous Epith Cells 0 SEEN, Urine Bacteria 0 SEEN, Urine Mucus 0 SEEN Radiography Diagnostic Testing: Radiology Impression Abdomen/Pelvis CT 11/16/22 09:37 IMPRESSION: Findings in keeping with acute appendicitis with inflammatory changes in the right lower quadrant. Moderate size hiatal hernia. Bilateral hydronephrosis slightly more prominent on the right side. Increased markings at the right lung base suggestive of atelectasis and/or infiltrate. Electronically Signed: Sam Licona MD at 11:15 EDT , Physical Exam Narrative General: Alert, Oriented x2, Cooperative, No apparent distress, slightly confused more so from baseline HEENT: Atraumatic, PERRLA, EOMI, Normocephalic Oral: Dry mucosa Neck: Supple, No JVD Lungs: Clear to auscultation, Normal air movement, No rhonchi, No wheeze, No rales Cardiovascular: Regular rate, Regular Rhythm, Normal S1, Normal S2, No murmurs Abdomen: Soft, mild tender RLQ, Non-Distended, No Hepato-splenomegaly Extremities: No edema, Capillary Refill Less than 3 Seconds Skin: No rashes, No breakdown Musculoskeletal: No Tenderness to Palpation of Joints or Extremities Neurological: Cranial nerves II-XII grossly intact, Motor Exam 5/5 strength throughout, Sensory exam intact to light touch and pain, NIH is 0 Psych/Mental Status: Normal Affect, Appropriate Assessment & Plan Assessment/Plan (1) Acute appendicitis: PLAN: Plan 1. Acute appendicitis/generalized weakness ? Plan for appendectomy by surgery ? Pain management per primary ? DVT prophylaxis per primary ? We are consulted for weakness however this is more of a generalized weakness versus a focal weakness I do not think that it has stroke component to it. She is behaving as an elderly woman with a localized infection would recommend PT/OT for evaluation and possible place 2. HTN/HLD/history of CVA ? Blood pressure is stable, will continue with her home medication when she is able to take p.o. ? Can continue with her home Lipitor when able to take p.o. 3. GERD ? Stable ? Continue with PPI 4. Anxiety/depression ? Stable ? Continue with Effexor Charges/Coding Visit Charges Office Visits / Consults: [id number] OV L3 New
[2022-11-16] MEDS: 0.9% Normal Saline 1,000 ML 125 ML IV (16:25)
[2022-11-16 18:09] LABS: Troponin-I HS < 3 pg/mL (3.0-54.0)
[2022-11-16] MEDS: Clindamycin 900 MG/50 ML BAG 75 MG IV (20:15)
[2022-11-16] MEDS: Bupivacaine 0.5% PF 10 ML VIAL ×2 (21:00)
--- NOTE | 2022-11-16 21:19 | OP.PCM_ITS ---
Report of Operation Date of Procedure: 11/16/22 Pre-Operative Diagnosis: Acute appendicitis with appendicolith Post-Operative Diagnosis: Acute perforated appendicitis with appendicolith Surgery/Procedure Performed:: Laparoscopic appendectomy with drain placement Surgeon: Baltazar Gray sleeve setter safety stitch: Katja Jon Type of Anesthesia: General/Supplemental Anesthesiologist: Abraham Sosa Specimen's removed: 1. Peritoneal fluid 2. Appendix Drains: 15 Swedish round Jigar Estimated Blood Loss (mL): 10 Description of Procedure: After appropriate identification in the preoperative holding area, the patient was brought to the operating room and placed supine on the operating room table. Patient was then induced with general endotracheal anesthetic. Antibiotics had been preoperatively administered. The abdomen was prepped and draped in usual sterile fashion. Formal timeout was conducted to confirm both the patient and the procedure. A supraumbilical incision was made and carried down to the level of the fascia which was sharply opened. After opening the peritoneum in like fashion a finger sweep was made to confirm position, and a balloon trocar was placed and pneumoperitoneum was established to 15 mmHg. Patient was positioned in Trendelenburg with the left side down. 2 additional 5 mm trocars were placed in the left lower quadrant and suprapubic positions. The peritoneum was inspected and there are no signs of inadvertent injury from this Love entry. The appendix was visualized with [degree of inflammation]. Using blunt laparoscopic dissection, a window was made in the mesoappendix adjacent to the appendiceal base. The mesoappendix was divided with application of a laparoscopic harmonic. Then the base of the appendix was sealed and amputated with the use of an Endo DURAN stapler. The appendix was placed in an Endo Catch bag. The staple line was inspected for hemostasis. After hemostasis was confirmed the appendix was removed from the umbilical port site. [Purulent fluid in the right paracolic gutter in the pelvis was suctioned free of the peritoneum.] Pneumoperitoneum was then evacuated and the supraumbilical port site fascia was closed with #1 Vicryl in a [id number] fashion. The port sites were infiltrated with [number] mL local anesthetic. The skin of each port site was closed with 4-0 Monocryl in a subcuticular fashion. Steri-Strips and OpSite dressings were applied. Patient tolerated procedure well without any ap parent complications. They were awoken from general anesthetic without issue and transferred to post anesthesia care unit for ongoing recovery.
--- NOTE | 2022-11-16 21:19 | PCM.OPRPT ---
Report of Operation Date of Procedure: 11/16/22 Pre-Operative Diagnosis: Acute appendicitis with appendicolith Post-Operative Diagnosis: Acute perforated appendicitis with appendicolith Surgery/Procedure Performed:: Laparoscopic appendectomy with drain placement Surgeon: Baltazar Gray actuary clerk: Katja Jon Type of Anesthesia: General/Supplemental Anesthesiologist: Abraham Sosa Specimen's removed: 1. Peritoneal fluid 2. Appendix Drains: 15 [place] round Jigar Estimated Blood Loss (mL): 10 Description of Procedure: After obtaining cardiac clearance and appropriate identification in the preoperative holding area, the patient was brought to the operating room and placed supine on the operating room table. Patient was then induced with general endotracheal anesthetic. Antibiotics were then administered. Given that patient complained of an urge to urinate, I requested a Patino catheter be placed and this was done with sterile technique. The abdomen was prepped and draped in usual sterile fashion. Formal timeout was conducted to confirm both the patient and the procedure. A supraumbilical incision was made and carried down to the level of the fascia which was sharply opened. After opening the peritoneum in like fashion a finger sweep was made to confirm position, and a balloon trocar was placed and pneumoperitoneum was established to 15 mmHg. Patient was positioned in Trendelenburg with the left side down. Two additional 5 mm trocars were placed in the left lower quadrant and suprapubic positions. The peritoneum was inspected and there were no signs of inadvertent injury from this Love entry. The appendix was visualized with severe inflammation. I bluntly tried to sweep the cecum away from the appendix to better visualize it and this immediately resulted in interruption of purulent drainage towards the pelvis. A suction environmental services attendant was used to contain this eruption and a sample was collected using a Luken's trap for micro specimen. However, with the colon reflected I was able to visualize that the appendix did display evidence of gangrenous inflammation and a probable perforation towards the tip. Using blunt laparoscopic dissection, a window was made in the mesoappendix adjacent to the appendiceal base. Then the base of the appendix was sealed and amputated with the use of an Endo DURAN stapler. The mesoappendix was divided with application of a laparoscopic harmonic. The appendix was placed in an Endo Catch bag. The staple line was inspected for hemostasis. After hemostasis was confirmed a 15 [place] round Jigar drain was fed into the peritoneum and withdrawn through the suprapubic port site. There the drain was tied into the abdominal wall using 3-0 nylon suture. Internally the drain was positioned along the right paracolic gutter and into the pelvis. The appendix was removed from the umbilical port site. Pneumoperitoneum was then evacuated and the supraumbilical port site fascia was closed with #1 Vicryl in a [id number] fashion. The port sites were infiltrated with 30 mL local anesthetic. The patient's drain was connected to bulb suction. The skin of each port site was closed with 4-0 Monocryl in a subcuticular fashion. Steri-Strips and OpSite dressings were applied. Patient tolerated procedure well without any apparent complications. They were awoken from general anesthetic without issue and transferred to post anesthesia care unit for ongoing recovery. Complications None Procedures Digestive [id number]: [id number] Laparoscopy appendectomy
--- NOTE | 2022-11-16 21:37 | EKG12_ITS ---
Test Reason : POST OP Blood Pressure : / mmHG Vent. Rate : 099 BPM Atrial Rate : 099 BPM P-R Int : 184 ms QRS Dur : 086 ms QT Int : 356 ms P-R-T Axes : 060 065 068 degrees QTc Int : 456 ms Normal sinus rhythm Nonspecific ST and T wave abnormality Abnormal ECG When compared with ECG of 16-NOV-2022 15:13, MANUAL COMPARISON REQUIRED, DATA IS UNCONFIRMED Confirmed by SHALOM EMANUEL, NOAH ([id number]), editor managing newspaper MIKE BABB ([id number]) on 12/24/2022 12:15:20 PM Referred By: [place] Confirmed By:CHITO RAUSCH MD
[2022-11-16 22:24] LABS: Troponin-I HS 3 pg/mL (3.0-54.0)
[2022-11-16] MEDS: Metoprolol Tartrate 5 MG/5 ML Vial IV (23:42)
[2022-11-17] VITALS (13 sets, daily range): BP systolic 106–118; BP diastolic 51–64; PULSE 84–116; RESP 18; TEMP 36.3–38.2; O2SAT 92–98; BMI 26.7
[2022-11-17] MEDS: Ciprofloxacin 400 MG/200 ML BAG 200 MG IV ×2 (01:01→08:46)
[2022-11-17] MEDS: HYDROmorphone 0.5 MG/0.5 ML SYRINGE IV ×3 (01:07→20:27)
[2022-11-17] MEDS: 0.9% Normal Saline 1,000 ML 125 ML IV ×2 (02:57→13:29)
[2022-11-17] MEDS: Acetaminophen 650 MG Suppository RC (04:26)
[2022-11-17] MEDS: metroNIDAZOLE 500 MG/100 ML BAG 100 MG IV ×3 (05:15→21:27)
[2022-11-17] MEDS: Metoprolol Tartrate 5 MG/5 ML Vial IV ×3 (05:26→17:28)
--- NOTE | 2022-11-17 07:44 | PCM.PN.SRG ---
Subjective Subjective Patient seen and examined during AM rounds. She is found sitting on the commode urinating. Nursing reports that patient had difficulty urinating overnight and they question whether this retention may be contributing to her reports of some abdominal discomfort. Patient reports persistent right lower quadrant pain. She also complains of significant thirst. Objective Data Objective Data Vital Signs: Vital Signs Temp Pulse Resp BP Pulse Ox O2 Del Method O2 Flow Rate 98.6 F 98 18 106/59 L 95 Nasal Cannula 1 11/17/22 05:24 11/17/22 06:10 11/17/22 06:10 11/17/22 06:10 11/17/22 06:10 11/17/22 06:10 11/17/22 06:10 Oxygen Flow Rate (L/min) 1 Oxygen Delivery Method Nasal Cannula Weight: 136 lb 14.513 oz Body Mass Index (BMI) 26.7 Intake & Output: Intake and Output for Last 24 Hours 11/15/22 11/16/22 11/17/22 23:59 23:59 23:59 Intake Total 2202.08 / 2202.08 835.42 / 835.42 Output Total 160 / 160 80 / 80 Balance 2042.08 / 2042.08 755.42 / 755.42 Lab / Micro Data 11/17/22 07:41 11/17/22 07:41 Labs: Laboratory Results - last 24 hr 11/16/22 09:30: WBC 8.4, RBC 3.98 L, Hgb 11.9 L, Hct 35.4 L, MCV 88.9, MCH 29.9, MCHC 33.6, RDW Std Deviation 46.9 H, RDW Coeff of Kyree 14.6, Plt Count 263, MPV 9.2, Immature Gran % (Auto) 0.800, Neut % (Auto) 89.2 H, Lymph % (Auto) 7.3 L, [place] % (Auto) 2.5, Eos % (Auto) 0.1, Baso % (Auto) 0.1, Absolute Neuts (auto) 7.5, Absolute Lymphs (auto) 0.61 L, Nucleated RBC % 0, Sodium 131 L, Potassium 4.3, Chloride 98, Carbon Dioxide 24.0, Anion Gap 9, BUN 12, Creatinine 0.87, Estim Creat Clear Calc 35.19, Est GFR (MDRD) Af Amer 80, Est GFR (MDRD) Non-Af 66, BUN/Creatinine Ratio 13.8, Glucose 128 H, Calcium 9.2, Total Bilirubin 1.10 H, AST 158 H, ALT 145 H, Alkaline Phosphatase 61, Troponin I High Sens < 3 L, Total Protein 7.5, Albumin 3.6, Globulin 3.9, Albumin/Globulin Ratio 0.9 11/16/22 10:55: Urine Color Yellow, Urine Clarity Clear, Urine pH 6.5, Ur Specific [place] 1.005, Urine Protein 15 H, Urine Glucose (UA) Normal, Urine Ketones 15 H, Urine Occult Blood 10 H, Urine Nitrite Negative, Urine Bilirubin Negative, Urine Urobilinogen Normal, Ur Leukocyte Esterase Negative, Urine RBC 0 SEEN, Urine WBC 0 SEEN, Ur Squamous Epith Cells 0 SEEN, Urine Bacteria 0 SEEN, Urine Mucus 0 SEEN 11/16/22 21:40: Troponin I High Sens 3 Radiography Diagnostic Testing: Radiology Impression Abdomen/Pelvis CT 11/16/22 09:37 IMPRESSION: Findings in keeping with acute appendicitis with inflammatory changes in the right lower quadrant. Moderate size hiatal hernia. Bilateral hydronephrosis slightly more prominent on the right side. Increased markings at the right lung base suggestive of atelectasis and/or infiltrate. Electronically Signed: Sam Licona MD at 11:15 EDT , Physical Exam Const Constitutional Narrative: Oriented, mild distress from abdominal discomfort Resp normal respiratory effort GI GI Narrative: Minimally distended, operative dressings in place without drainage strikethrough, appropriately tender to palpation. Suprapubic drain with overall straw?colored serous fluid and some small clots in the drain tubing. Assessment & Plan Assessment/Plan (1) Acute perforated appendicitis: PLAN: Is an 81-year-old female postoperative day 1 from laparoscopic appendectomy with drain placement given intraoperative findings of acute perforated appendicitis. This morning patient has persistent abdominal discomfort, but nursing is also reporting some urinary retention overnight. No bladder scans were performed, but they report that patient has now had significant spontaneous micturition. They are encouraged to continue to monitor the situation closely. I suspect this is related to patient's nearby infection with the appendix as well as her recent catheterization preoperatively. Her exam is otherwise as expected. She expresses some thirst so we will start some clear liquids today. If she tolerates this we will advance her diet accordingly. We will continue IV antibiotics and drain monitoring today. ? Advance to clear liquid diet ? Monitor abdominal exam and drain output ? Monitor urinary output ? Follow-up medicine recommendations Charges/Coding Visit Charges Inpatient E&M: 61133 Subs Hosp L2
[2022-11-17 09:00] LABS: Absolute Lymphocyte Count 0.33 X10^3/uL (0.83-4.51); Absolute Neutrophil Count 4.4 X10^3/uL (2.0-7.7); Basophil# 0.01 X10^3/uL; Basophil% 0.2 % (0-1); Hematocrit 31.2 % (37-47); Lymphocyte # 0.33 X10^3/ul (0.83-4.51); Lymphocyte % 6.7 % (19-41); Mean Corp Hgb Conc 32.1 g/dL (32-36); Mean Corpuscular Hgb 29.5 pg (27.0-32.0); Mean Platelet Vol. 9.4 fl (6.2-12.0); Monocyte# 0.23 X10^3/uL; Monocyte% 4.7 % (0-10); NRBC Flagged by Analyzer 0 % (0-5); Neutrophil # 4.35 X10^3/uL (2.7-7.7); POSITIVE DIFFERENTIAL YES; Platelet Count 255 K/mm3 (150-450); RBC Distribution Width CV 14.9 % (11.6-14.6); RBC Distribution Width SD 50.6 fl (35.1-43.9); Red Blood Count 3.39 M/mm3 (4.2-5.4); White Blood Count 4.9 K/mm3 (4.4-11.0)
[2022-11-17 09:14] LABS: Differential Indicated SCAN CRITERIA MET
[2022-11-17 09:20] LABS: Anion Gap 9 (5-15); BUN 9 mg/dL (7-18); BUN/Creat Ratio 11.1 RATIO (10-20); Calcium,Total 7.9 mg/dL (8.5-10.1); Chloride 106 mmol/L (98-107); Creatinine, Serum 0.81 mg/dL (0.55-1.02); EST Glomerular Filtration Rate 72 mL/min (>60); Est Glom Filt Rate - Afr Amer 87 mL/min (>60); Glucose 132 mg/dL (74-106); Magnesium 1.8 mg/dL (1.6-2.6); Phosphorus 2.8 mg/dL (2.5-4.9); Potassium 4.1 mmol/L (3.5-5.1); Sodium Level 139 mmol/L (136-145)
[2022-11-17 10:08] LABS: Differential Comment SCANNED
--- NOTE | 2022-11-17 13:28 | CASEMGMT ---
Social Work SW introduced self and role to patient. Patient had been given a SNF list. PT/OT is recommending additional therapy. Pt reports her daughters marked all over the paper. SW reviewed list with numbered selections for SNF, [facility] is number one choice and [facility] is number two. SW sent message to [facility] regarding referral. Karol Muro HOTHOUSE WORKER, COMPUTER ENGINEERING PROFESSOR
[2022-11-17] MEDS: 0.9% Saline Lock 10 ML Syringe IV (16:13)
--- NOTE | 2022-11-17 19:11 | PN.HOSP_ITS ---
Reason for Visit Reason for Visit: Diagnoses Acute appendicitis with perforation, localized peritonitis, and gangrene, witho ut abscess (11/17/22) Unspecified acute appendicitis (11/17/22) Subjective Subjective Patient was seen and examined today, I talked with both of her daughters who are in the room at the time my examination. Plan is for the patient to go to an extended care facility for inpatient rehab services after she is released from the hospital. Patient's white blood cell count today was normal at 4.9, hemoglobin was 10 Objective Data Objective Data Vital Signs: Vital Signs Temp Pulse Resp BP Pulse Ox O2 Del Method O2 Flow Rate 98.1 F 87 18 112/52 L 92 Room Air 1 11/17/22 16:15 11/17/22 17:28 11/17/22 16:15 11/17/22 17:28 11/17/22 16:15 11/17/22 16:15 11/17/22 08:36 Oxygen Flow Rate (L/min) 1 Oxygen Delivery Method Room Air Weight: 62.1 kg Body Mass Index (BMI) 26.7 Intake & Output: Intake and Output for Last 24 Hours 11/15/22 11/16/22 11/17/22 23:59 23:59 23:59 Intake Total 2202.08 / 2202.08 2193.33 / 2193.33 Output Total 160 / 160 530 / 530 Balance 2042.08 / 2042.08 1663.33 / 1663.33 Lab / Micro Data 11/17/22 07:41 11/17/22 07:41 Labs: Laboratory Results - last 24 hr 11/16/22 21:40: Troponin I High Sens 3 11/17/22 07:41: WBC 4.9, RBC 3.39 L, Hgb 10.0 L, Hct 31.2 L, MCV 92.0, MCH 29.5, MCHC 32.1, RDW Std Deviation 50.6 H, RDW Coeff of Kyree 14.9 H, Plt Count 255, MPV 9.4, Immature Gran % (Auto) 0.400, Neut % (Auto) 88.0 H, Lymph % (Auto) 6.7 L, [place] % (Auto) 4.7, Eos % (Auto) 0.0, Baso % (Auto) 0.2, Absolute Neuts (auto) 4.4, Absolute Lymphs (auto) 0.33 L, Nucleated RBC % 0, Differential Comment SCANNED, Sodium 139, Potassium 4.1, Chloride 106, Carbon Dioxide 24.0, Anion Gap 9, BUN 9, Creatinine 0.81, Estim Creat Clear Calc 37.80, Est GFR (MDRD) Af Amer 87, Est GFR (MDRD) Non-Af 72, BUN/Creatinine Ratio 11.1, Glucose 132 H, Calcium 7.9 L, Phosphorus 2.8, Magnesium 1.8 Micro: Microbiology 11/16/22 21:00 Aspirate - Abdominal Gram Stain - Final 11/16/22 21:00 Aspirate - Abdominal Wound Culture - 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 Mixed Culture Physical Exam Const alert and no apparent distress General Appearance: cooperative, well kempt and well developed Orientation / Consciousness: awake, oriented to person and oriented to place HEENT normocephalic, head/scalp atraumatic and moist oral mucous membranes Eyes PERRL, EOMs intact bilaterally and conjunctivae normal Neck supple, no JVD, thyroid normal and no carotid bruits General: trachea midline Resp normal respiratory effort, no retractions, no use of accessory muscles and clear to auscultation bilaterally Auscultation: Negative for rales, rhonchi or wheezes Cardio regular rate, regular rhythm, S1 normal heart sound, S2 normal heart sound, no murmurs, no rub and no gallops GI normal to inspection, nondistended, normoactive bowel sounds, soft to palpation, non-tender and non-distended Extremity no clubbing, cyanosis or edema Skin no rashes or lesions noted General Skin Exam: no breakdown Neuro CN's II-XII intact bilaterally, moves all extremities, no focal motor deficits and no sensory deficits noted Sensorium / Orientation: awake, alert, oriented to person and oriented to place Speech: speech normal Psych Psych Narrative: Patient exhibits some mild cognitive impairment Assessment & Plan Assessment/Plan (1) Acute perforated appendicitis: PLAN: Plan 1. Essential hypertension-patient will continue to take her home medications, blood pressure will be monitored and medicine will be adjusted #2 hyperlipidemia-patient is on Lipitor, monitor, evaluate, assess, and treat #3 anxiety/depression-patient is on Effexor, monitor, evaluate, assess, and treat #4 acute appendicitis-postop day 1 laparoscopic appendectomy with drain placement-surgery is participating in her care #5 acute debility-patient is seeing PT and OT, she will undergo placement in a long term facility for short-term rehab services #6 coronary artery disease-this appears to be stable at this time #7 mild cognitive impairment-complicates care, medical course, recovery, and prognosis Total clinical time spent by myself addressing patient's medical issues, reviewing all of her data, and collaborating with patient's care team: 25 minutes Charges/Coding Visit Charges Inpatient E&M: 17719 Subs Hosp L1
[2022-11-17] MEDS: Atorvastatin Calcium 80 MG Tablet PO (21:58)
[2022-11-18] VITALS (11 sets, daily range): BP systolic 93–126; BP diastolic 45–82; PULSE 67–93; RESP 16–18; TEMP 36.3–36.9; O2SAT 93–96; BMI 26.7
[2022-11-18] MEDS: Ciprofloxacin 400 MG/200 ML BAG 200 MG IV ×3 (00:25→20:58)
[2022-11-18] MEDS: Metoprolol Tartrate 5 MG/5 ML Vial IV ×4 (00:37→17:57)
[2022-11-18] MEDS: 0.9% Saline Lock 10 ML Syringe IV (00:37)
[2022-11-18] MEDS: 0.9% Normal Saline 1,000 ML 125 ML IV ×2 (00:46→12:31)
[2022-11-18] MEDS: metroNIDAZOLE 500 MG/100 ML BAG 100 MG IV ×3 (05:36→22:25)
--- NOTE | 2022-11-18 08:42 | PCM.PN.SRG ---
Subjective Subjective Patient seen and examined during AM rounds. She is found sitting out of bed in a chair. She complains of persistent abdominal discomfort. She denies any intolerance of her liquid diet. Objective Data Objective Data Vital Signs: Vital Signs Temp Pulse Resp BP Pulse Ox O2 Del Method O2 Flow Rate 98.4 F 93 18 114/59 L 96 Room Air 1 11/18/22 03:56 11/18/22 05:39 11/18/22 03:56 11/18/22 05:39 11/18/22 03:56 11/18/22 08:20 11/17/22 08:36 Oxygen Flow Rate (L/min) 1 Oxygen Delivery Method Room Air Weight: 136 lb 14.513 oz Body Mass Index (BMI) 26.7 Intake & Output: Intake and Output for Last 24 Hours 11/16/22 11/17/22 11/18/22 23:59 23:59 23:59 Intake Total 2202.08 / 2202.08 3049.58 / 3049.58 1729.16 / 1729.16 Output Total 160 / 160 580 / 580 350 / 350 Balance 2042.08 / 2042.08 2469.58 / 2469.58 1379.16 / 1379.16 Lab / Micro Data 11/18/22 09:57 11/18/22 09:57 Labs: Laboratory Results - last 24 hr 11/17/22 07:41: WBC 4.9, RBC 3.39 L, Hgb 10.0 L, Hct 31.2 L, MCV 92.0, MCH 29.5, MCHC 32.1, RDW Std Deviation 50.6 H, RDW Coeff of Kyree 14.9 H, Plt Count 255, MPV 9.4, Immature Gran % (Auto) 0.400, Neut % (Auto) 88.0 H, Lymph % (Auto) 6.7 L, [place] % (Auto) 4.7, Eos % (Auto) 0.0, Baso % (Auto) 0.2, Absolute Neuts (auto) 4.4, Absolute Lymphs (auto) 0.33 L, Nucleated RBC % 0, Differential Comment SCANNED, Sodium 139, Potassium 4.1, Chloride 106, Carbon Dioxide 24.0, Anion Gap 9, BUN 9, Creatinine 0.81, Estim Creat Clear Calc 37.80, Est GFR (MDRD) Af Amer 87, Est GFR (MDRD) Non-Af 72, BUN/Creatinine Ratio 11.1, Glucose 132 H, Calcium 7.9 L, Phosphorus 2.8, Magnesium 1.8 Micro: Microbiology 11/16/22 21:00 Aspirate - Abdominal Gram Stain - Final 11/16/22 21:00 Aspirate - Abdominal Wound Culture - 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 Resp normal respiratory effort GI GI Narrative: Minimally distended, operative dressings intact?but when removed Steri-Strips remain intact without drainage from wounds. Patient's suprapubic drain with some slight cloudiness to it yet primarily serous in character. Diffusely tender to palpation and patient seems to react even prior to exam. Assessment & Plan Assessment/Plan (1) Acute perforated appendicitis: PLAN: Is an 81-year-old female postoperative day 2 from laparoscopic appendectomy with drain placement given intraoperative findings of acute perforated appendicitis. This morning patient has persistent abdominal discomfort, but nursing is also reporting patient has only IV Dilaudid or rectal acetaminophen. I have transitioned patient to oral pain medications today. Her abdominal exam really is rather reassuring. I am hopeful we can get her more comfortable with these medications. Laboratories are reviewed and she has some hypophosphatemia and hypokalemia, but her white count remains normal. Gram stain's have resulted but cultures from operation remain pending. Patient tolerating clear liquid diet so we will advance to full liquid diet and monitor for tolerance again. We will continue IV antibiotics and drain monitoring today. ? P.o. acetaminophen, p.o. ibuprofen, p.o. oxycodone all ordered as needed ? Replete potassium and phosphorus with K-Phos ? Advance to full liquid diet ? Monitor abdominal exam and drain output ? Follow-up medicine recommendations Charges/Coding Visit Charges Inpatient E&M: 26310 Subs Hosp L2
[2022-11-18 10:12] LABS: Absolute Lymphocyte Count 0.34 X10^3/uL (0.83-4.51); Absolute Neutrophil Count 4.7 X10^3/uL (2.0-7.7); Basophil# 0.01 X10^3/uL; Basophil% 0.2 % (0-1); Eosinophil# 0.06 X10^3/uL; Eosinophils% 1.1 % (0-5); Hematocrit 30.6 % (37-47); Hemoglobin 9.7 g/dL (12.0-15.0); Lymphocyte # 0.34 X10^3/ul (0.83-4.51); Lymphocyte % 6.4 % (19-41); Mean Corp Hgb Conc 31.7 g/dL (32-36); Mean Corpuscular Hgb 29.6 pg (27.0-32.0); Mean Corpuscular Volume 93.3 fL (81-99); Monocyte% 3.8 % (0-10); NRBC Flagged by Analyzer 0 % (0-5); Neutrophil # 4.65 X10^3/uL (2.7-7.7); Neutrophil % 87.7 % (47-70); POSITIVE DIFFERENTIAL YES; Platelet Count 303 K/mm3 (150-450); RBC Distribution Width CV 14.9 % (11.6-14.6); RBC Distribution Width SD 51.6 fl (35.1-43.9); Red Blood Count 3.28 M/mm3 (4.2-5.4); White Blood Count 5.3 K/mm3 (4.4-11.0)
[2022-11-18 10:16] LABS: Differential Indicated SCAN CRITERIA MET
[2022-11-18 10:43] LABS: Anion Gap 8 (5-15); BUN 7 mg/dL (7-18); BUN/Creat Ratio 8.2 RATIO (10-20); Calcium,Total 7.8 mg/dL (8.5-10.1); Chloride 107 mmol/L (98-107); Creatinine, Serum 0.86 mg/dL (0.55-1.02); EST Glomerular Filtration Rate 67 mL/min (>60); Est Glom Filt Rate - Afr Amer 81 mL/min (>60); Glucose 196 mg/dL (74-106); Magnesium 1.9 mg/dL (1.6-2.6); Phosphorus 1.2 mg/dL (2.5-4.9); Potassium 3.2 mmol/L (3.5-5.1); Sodium Level 137 mmol/L (136-145)
[2022-11-18 11:12] LABS: Differential Comment SCANNED
[2022-11-18] MEDS: Acetaminophen 500 MG Tablet PO (11:15)
[2022-11-18] MEDS: Ibuprofen 400 MG Tablet PO ×2 (11:23→18:01)
--- NOTE | 2022-11-18 12:59 | PCM.PN.BLA ---
Progress Note Patient presented with acute appendicitis. Cardiology opinion was requested for preoperative cardiovascular evaluation. Patient's EKG was reviewed. Patient's symptoms were reviewed with her over the phone. Patient was felt to be at low risk for perioperative cardiac complications during appendicectomy. No further cardiac work-up is indicated. This was discussed with the patient, patient's daughter, Dr. Gray and Dr. Sosa.
--- NOTE | 2022-11-18 15:47 | PN.HOSP_ITS ---
Reason for Visit Reason for Visit: Diagnoses Acute appendicitis with perforation, localized peritonitis, and gangrene, witho ut abscess (11/17/22) Unspecified acute appendicitis (11/17/22) Subjective Subjective Seen and examined today, her white count is normal and her hemoglobin has not dropped significantly since yesterday. Patient states she has had a bowel movement and is passing gas. Objective Data Objective Data Vital Signs: Vital Signs Temp Pulse Resp BP Pulse Ox O2 Del Method O2 Flow Rate 98.2 F 76 18 93/82 H 96 Room Air 1 11/18/22 15:25 11/18/22 15:25 11/18/22 15:25 11/18/22 15:25 11/18/22 15:25 11/18/22 15:25 11/17/22 08:36 Oxygen Flow Rate (L/min) 1 Oxygen Delivery Method Room Air Weight: 62.1 kg Body Mass Index (BMI) 26.7 Intake & Output: Intake and Output for Last 24 Hours 11/16/22 11/17/22 11/18/22 23:59 23:59 23:59 Intake Total 2202.08 / 2202.08 3049.58 / 3049.58 2778.75 / 2778.75 Output Total 160 / 160 580 / 580 420 / 420 Balance 2042.08 / 2042.08 2469.58 / 2469.58 2358.75 / 2358.75 Lab / Micro Data 11/18/22 09:57 11/18/22 09:57 Labs: Laboratory Results - last 24 hr 11/18/22 09:57: WBC 5.3, RBC 3.28 L, Hgb 9.7 L, Hct 30.6 L, MCV 93.3, MCH 29.6, MCHC 31.7 L, RDW Std Deviation 51.6 H, RDW Coeff of Kyree 14.9 H, Plt Count 303, MPV 9.0, Immature Gran % (Auto) 0.800, Neut % (Auto) 87.7 H, Lymph % (Auto) 6.4 L, [place] % (Auto) 3.8, Eos % (Auto) 1.1, Baso % (Auto) 0.2, Absolute Neuts (auto) 4.7, Absolute Lymphs (auto) 0.34 L, Nucleated RBC % 0, Differential Comment SCANNED, Sodium 137, Potassium 3.2 L, Chloride 107, Carbon Dioxide 22.0, Anion Gap 8, BUN 7, Creatinine 0.86, Estim Creat Clear Calc 35.60, Est GFR (MDRD) Af Amer 81, Est GFR (MDRD) Non-Af 67, BUN/Creatinine Ratio 8.2 L, Glucose 196 H, Calcium 7.8 L, Phosphorus 1.2 L, Magnesium 1.9 Micro: Microbiology 11/16/22 21:00 Aspirate - Abdominal Gram Stain - Final 11/16/22 21:00 Aspirate - Abdominal Wound Culture - Preliminary 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 Gram positive organism Physical Exam Narrative alert and no apparent distress General Appearance: cooperative, well kempt and well developed Orientation / Consciousness: awake, oriented to person and oriented to place HEENT normocephalic, head/scalp atraumatic and moist oral mucous membranes Eyes PERRL, EOMs intact bilaterally and conjunctivae normal Neck supple, no JVD, thyroid normal and no carotid bruits General: trachea midline Resp normal respiratory effort, no retractions, no use of accessory muscles and clear to auscultation bilaterally Auscultation: Negative for rales, rhonchi or wheezes Cardio regular rate, regular rhythm, S1 normal heart sound, S2 normal heart sound, no murmurs, no rub and no gallops GI normal to inspection, nondistended, normoactive bowel sounds, soft to palpation, non-tender and non-distended Extremity no clubbing, cyanosis or edema Skin no rashes or lesions noted General Skin Exam: no breakdown Neuro CN's II-XII intact bilaterally, moves all extremities, no focal motor deficits and no sensory deficits noted Sensorium / Orientation: awake, alert, oriented to person and oriented to place Speech: speech normal Psych Psych Narrative: Patient exhibits some mild cognitive impairment Assessment & Plan Assessment/Plan (1) Acute perforated appendicitis: PLAN: Plan 1. Essential hypertension-patient will continue to take her home medications, blood pressure will be monitored and medicine will be adjusted #2 hyperlipidemia-patient is on Lipitor, monitor, evaluate, assess, and treat #3 anxiety/depression-patient is on Effexor, monitor, evaluate, assess, and treat #4 acute appendicitis-postop day 1 laparoscopic appendectomy with drain placement-surgery is participating in her care #5 acute debility-patient is seeing PT and OT, she will undergo placement in a [facility] for short-term rehab services #6 coronary artery disease-this appears to be stable at this time #7 mild cognitive impairment-complicates care, medical course, recovery, and p rognosis Total clinical time spent by myself addressing patient's medical issues, reviewing all of her data, and collaborating with patient's care team: 25 minutes Charges/Coding Visit Charges Inpatient E&M: 69799 Subs Hosp L1
[2022-11-18] MEDS: Atorvastatin Calcium 80 MG Tablet PO (20:58)
[2022-11-19] VITALS (11 sets, daily range): BP systolic 120–129; BP diastolic 47–64; PULSE 71–80; RESP 16; TEMP 36.5–36.8; O2SAT 95–100
[2022-11-19] MEDS: Ibuprofen 400 MG Tablet PO ×4 (00:13→18:26)
[2022-11-19] MEDS: 0.9% Normal Saline 1,000 ML 125 ML IV ×2 (00:33→09:53)
[2022-11-19] MEDS: Metoprolol Tartrate 5 MG/5 ML Vial IV ×4 (00:42→18:26)
[2022-11-19 05:16] LABS: Absolute Lymphocyte Count 0.29 X10^3/uL (0.83-4.51); Basophil# 0.01 X10^3/uL; Basophil% 0.3 % (0-1); Eosinophil# 0.08 X10^3/uL; Eosinophils% 2.2 % (0-5); Hematocrit 26.8 % (37-47); Hemoglobin 8.6 g/dL (12.0-15.0); Lymphocyte # 0.29 X10^3/ul (0.83-4.51); Lymphocyte % 8.1 % (19-41); Mean Corp Hgb Conc 32.1 g/dL (32-36); Mean Corpuscular Hgb 29.6 pg (27.0-32.0); Mean Corpuscular Volume 92.1 fL (81-99); Mean Platelet Vol. 8.9 fl (6.2-12.0); Monocyte# 0.18 X10^3/uL; NRBC Flagged by Analyzer 0 % (0-5); Neutrophil # 3.01 X10^3/uL (2.7-7.7); Neutrophil % 83.8 % (47-70); POSITIVE DIFFERENTIAL YES; Platelet Count 242 K/mm3 (150-450); RBC Distribution Width CV 14.6 % (11.6-14.6); RBC Distribution Width SD 49.4 fl (35.1-43.9); Red Blood Count 2.91 M/mm3 (4.2-5.4); White Blood Count 3.6 K/mm3 (4.4-11.0)
[2022-11-19 05:28] LABS: Differential Indicated SCAN CRITERIA MET
[2022-11-19 05:55] LABS: Anion Gap 6 (5-15); BUN 5 mg/dL (7-18); BUN/Creat Ratio 9.3 RATIO (10-20); Calcium,Total 7.9 mg/dL (8.5-10.1); Chloride 116 mmol/L (98-107); Creatinine, Serum 0.54 mg/dL (0.55-1.02); EST Glomerular Filtration Rate 116 mL/min (>60); Est Glom Filt Rate - Afr Amer 140 mL/min (>60); Estimated Creatinine Clearance 30.62 ml/min; Glucose 114 mg/dL (74-106); Potassium 3.5 mmol/L (3.5-5.1); Sodium Level 145 mmol/L (136-145)
[2022-11-19 06:15] LABS: Differential Comment SCANNED
[2022-11-19] MEDS: metroNIDAZOLE 500 MG/100 ML BAG 100 MG IV ×3 (06:21→22:42)
--- NOTE | 2022-11-19 08:09 | PN.SURG_ITS ---
Subjective Subjective Patient seen and examined during AM rounds. She is found resting in bed. She states that she had a bit of a difficult overnight course with hard time sleeping, but states that she feels better today. She confirms that this means she has less abdominal discomfort. She also confirms that she is having diarrhea. She remarks that she had some nausea with dinner last night. Objective Data Objective Data Vital Signs: Vital Signs Temp Pulse Resp BP Pulse Ox O2 Del Method O2 Flow Rate 97.7 F L 72 16 128/53 H 95 Room Air 1 11/19/22 06:11/19/22 06:11/19/22 06:11/19/22 06:11/19/22 06:11/19/22 06:11/17/22 08:36 Oxygen Flow Rate (L/min) 1 Oxygen Delivery Method Room Air Weight: 136 lb 14.513 oz Body Mass Index (BMI) 26.7 Intake & Output: Intake and Output for Last 24 Hours 11/17/22 11/18/22 11/19/22 23:59 23:59 23:59 Intake Total 3049.58 / 3049.58 3675.75 / 3675.75 927.08 / 927.08 Output Total 580 / 580 470 / 470 50 / 50 Balance 2469.58 / 2469.58 3205.75 / 3205.75 877.08 / 877.08 Lab / Micro Data 11/19/22 05:08 11/19/22 05:08 Labs: Laboratory Results - last 24 hr 11/18/22 09:57: WBC 5.3, RBC 3.28 L, Hgb 9.7 L, Hct 30.6 L, MCV 93.3, MCH 29.6, MCHC 31.7 L, RDW Std Deviation 51.6 H, RDW Coeff of Kyree 14.9 H, Plt Count 303, MPV 9.0, Immature Gran % (Auto) 0.800, Neut % (Auto) 87.7 H, Lymph % (Auto) 6.4 L, [place] % (Auto) 3.8, Eos % (Auto) 1.1, Baso % (Auto) 0.2, Absolute Neuts (auto) 4.7, Absolute Lymphs (auto) 0.34 L, Nucleated RBC % 0, Differential Comment SCANNED, Sodium 137, Potassium 3.2 L, Chloride 107, Carbon Dioxide 22.0, Anion Gap 8, BUN 7, Creatinine 0.86, Estim Creat Clear Calc 35.60, Est GFR (MDRD) Af Amer 81, Est GFR (MDRD) Non-Af 67, BUN/Creatinine Ratio 8.2 L, Glucose 196 H, Ca lcium 7.8 L, Phosphorus 1.2 L, Magnesium 1.9 11/19/22 05:08: WBC 3.6 L, RBC 2.91 L, Hgb 8.6 L, Hct 26.8 L, MCV 92.1, MCH 29.6, MCHC 32.1, RDW Std Deviation 49.4 H, RDW Coeff of Kyree 14.6, Plt Count 242, MPV 8.9, Immature Gran % (Auto) 0.600, Neut % (Auto) 83.8 H, Lymph % (Auto) 8.1 L, [place] % (Auto) 5.0, Eos % (Auto) 2.2, Baso % (Auto) 0.3, Absolute Neuts (auto) 3.0, Absolute Lymphs (auto) 0.29 L, Nucleated RBC % 0, Differential Comment SCANNED, Diff Path Review July, Sodium 145, Potassium 3.5, Chloride 116 H, Carbon Dioxide 23.0, Anion Gap 6, BUN 5 L, Creatinine 0.54 L, Estim Creat Clear Calc 30.62, Est GFR (MDRD) Af Amer 140, Est GFR (MDRD) Non-Af 116, BUN/Creatinin e Ratio 9.3 L, Glucose 114 H, Calcium 7.9 L, Phosphorus 2.0 L, Magnesium 2.0 Micro: Microbiology 11/16/22 21:00 Aspirate - Abdominal Gram Stain - Final 11/16/22 21:00 Aspirate - Abdominal Wound 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 There is significant drainage to patient's suprapubic drain site dressing, however, the drainage from this drain appears clear. Patient remains persistently tender with palpation, but I suspect some of this is anticipation to the exam as she exhibits voluntary guarding prior to pa lpation. Assessment & Plan Assessment/Plan (1) Acute perforated appendicitis: PLAN: This is an 81-year-old female postoperative day 3 from laparoscopic appendectomy with drain placement given intraoperative findings of acute perforated appendicitis. This morning patient has some improvement of her abdominal pain. I transitioned patient to oral pain medications yesterday. Her abdominal exam shows some distention today and despite reports of diarrhea, I am concerned for underlying ileus. I find her drop of WBC slightly ominous as well. I have reiterated the need to mobilize as tolerated and be out of bed as much as possible. Gram stain's have resulted but cultures from operation remain preliminary. We will continue IV antibiotics and drain monitoring today. ? P.o. acetaminophen, p.o. ibuprofen, p.o. oxycodone all ordered as needed ? Replete phosphorus with K-Phos ? Continue full liquid diet given abdominal distention and reassess this afternoon ? Monitor abdominal exam and drain output ? Follow-up medicine recommendations Charges/Coding Visit Charges Inpatient E&M: 91991 Subs Hosp L2
[2022-11-19] MEDS: Ciprofloxacin 400 MG/200 ML BAG 200 MG IV ×2 (09:58→21:00)
--- NOTE | 2022-11-19 18:12 | PN.HOSP_ITS ---
Reason for Visit Reason for Visit: Diagnoses Acute appendicitis with perforation, localized peritonitis, and gangrene, witho ut abscess (11/17/22) Unspecified acute appendicitis (11/17/22) Subjective Subjective Patient was seen and examined today, patient remains mildly confused, she answers some questions appropriately but has a very poor memory. I talked with the daughter who was in the room at the time my examination. I briefly talked with general surgery today about her care. The daughter who was in the room at the time my examination does not know why the patient takes certain medications, she told me to contact the patient's other daughter(Shelby), I tried to call her but she did not answer the phone. Objective Data Objective Data Vital Signs: Vital Signs Temp Pulse Resp BP Pulse Ox O2 Del Method O2 Flow Rate 97.7 F L 71 16 129/58 H 100 Room Air 1 11/19/22 17:30 11/19/22 17:30 11/19/22 17:30 11/19/22 17:30 11/19/22 17:30 11/19/22 17:30 11/17/22 08:36 Oxygen Flow Rate (L/min) 1 Oxygen Delivery Method Room Air Weight: 62.1 kg Body Mass Index (BMI) 26.7 Intake & Output: Intake and Output for Last 24 Hours 11/17/22 11/18/22 11/19/22 23:59 23:59 23:59 Intake Total 3049.58 / 3049.58 3675.75 / 3675.75 2584.16 / 2584.16 Output Total 580 / 580 470 / 470 120 / 120 Balance 2469.58 / 2469.58 3205.75 / 3205.75 2464.16 / 2464.16 Lab / Micro Data 11/19/22 05:08 11/19/22 05:08 Labs: Laboratory Results - last 24 hr 11/19/22 05:08: WBC 3.6 L, RBC 2.91 L, Hgb 8.6 L, Hct 26.8 L, MCV 92.1, MCH 29.6, MCHC 32.1, RDW Std Deviation 49.4 H, RDW Coeff of Kyree 14.6, Plt Count 242, MPV 8.9, Immature Gran % (Auto) 0.600, Neut % (Auto) 83.8 H, Lymph % (Auto) 8.1 L, [place] % (Auto) 5.0, Eos % (Auto) 2.2, Baso % (Auto) 0.3, Absolute Neuts (auto) 3.0, Absolute Lymphs (auto) 0.29 L, Nucleated RBC % 0, Differential Comment SCANNED, Diff Path Review July foll, Sodium 145, Potassium 3.5, Chloride 116 H, Carbon Dioxide 23.0, Anion Gap 6, BUN 5 L, Creatinine 0.54 L, Estim Creat Clear Calc 30.62, Est GFR (MDRD) Af Amer 140, Est GFR (MDRD) Non-Af 116, BUN/Creatinine Ratio 9.3 L, Glucose 114 H, Calcium 7.9 L, Phosphorus 2.0 L, Magnesium 2.0 Micro: Microbiology 11/16/22 21:00 Aspirate - Abdominal Gram Stain - Final 11/16/22 21:00 Aspirate - Abdominal Wound Culture - Preliminary Klebsiella pneumoniae sp pneum GPC Poss Enterococcus sp 11/16/22 21:00 Aspirate - Abdominal Anaerobic Culture - Preliminary Checking for anaerobes, further studies to follow. Physical Exam Narrative alert and no apparent distress General Appearance: cooperative, well kempt and well developed Orientation / Consciousness: awake, oriented to person and oriented to place HEENT normocephalic, head/scalp atraumatic and moist oral mucous membranes Eyes PERRL, EOMs intact bilaterally and conjunctivae normal Neck supple, no JVD, thyroid normal and no carotid bruits General: trachea midline Resp normal respiratory effort, no retractions, no use of accessory muscles and clear to auscultation bilaterally Auscultation: Negative for rales, rhonchi or wheezes Cardio regular rate, regular rhythm, S1 normal heart sound, S2 normal heart sound, no murmurs, no rub and no gallops GI normal to inspection, nondistended, normoactive bowel sounds, soft to palpation, non-tender and non-distended Extremity no clubbing, cyanosis or edema Skin no rashes or lesions noted General Skin Exam: no breakdown Neuro CN's II-XII intact bilaterally, moves all extremities, no focal motor deficits and no sensory deficits noted Sensorium / Orientation: awake, alert, oriented to person and oriented to place Speech: speech normal Psych Psych Narrative: Patient exhibits some mild cognitive impairment Assessment & Plan Assessment/Plan (1) Acute perforated appendicitis: PLAN: Plan 1. Essential hypertension-patient will continue to take her home medications, blood pressure will be monitored and medicine will be adjusted #2 hyperlipidemia-patient is on Lipitor, monitor, evaluate, assess, and treat #3 anxiety/depression-patient is on Effexor, monitor, evaluate, assess, and treat #4 acute appendicitis-postop day 1 laparoscopic appendectomy with drain placement-surgery is participating in her care #5 acute debility-patient is seeing PT and OT, she will undergo placement in a [place] [facility] facility for short-term rehab services #6 coronary artery disease-this appears to be stable at this time #7 mild cognitive impairment-complicates care, medical course, recovery, and prognosis Patient is currently 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 Patient also has a history of breast cancer and she takes Arimidex, I will hold this medication for now and restart it when she goes to the skilled care facility Total clinical time spent by myself addressing patient's medical issues, reviewing all of her data, and collaborating with patient's care team: 35 minutes Charges/Coding Visit Charges Inpatient E&M: 08219 Subs Hosp L2
[2022-11-19] MEDS: Acyclovir 800 MG Tablet PO (22:41)
[2022-11-19] MEDS: Atorvastatin Calcium 80 MG Tablet PO (22:41)
[2022-11-19] MEDS: carBAMazepine 200 MG Tablet PO (22:41)
[2022-11-20] VITALS (10 sets, daily range): BP systolic 122–134; BP diastolic 47–61; PULSE 70–76; RESP 18; TEMP 36.1–36.7; O2SAT 95–98
[2022-11-20] MEDS: Ibuprofen 400 MG Tablet PO ×4 (00:42→17:52)
[2022-11-20] MEDS: Metoprolol Tartrate 5 MG/5 ML Vial IV ×3 (00:53→12:05)
[2022-11-20] MEDS: 0.9% Normal Saline 1,000 ML 75 ML IV (04:48)
[2022-11-20] MEDS: metroNIDAZOLE 500 MG/100 ML BAG 100 MG IV (06:32)
[2022-11-20 07:07] LABS: Absolute Lymphocyte Count 0.52 X10^3/uL (0.83-4.51); Absolute Neutrophil Count 2.1 X10^3/uL (2.0-7.7); Basophil# 0.01 X10^3/uL; Basophil% 0.3 % (0-1); Eosinophil# 0.11 X10^3/uL; Eosinophils% 3.8 % (0-5); Hematocrit 25.6 % (37-47); Hemoglobin 8.3 g/dL (12.0-15.0); Lymphocyte # 0.52 X10^3/ul (0.83-4.51); Mean Corp Hgb Conc 32.4 g/dL (32-36); Mean Corpuscular Hgb 29.7 pg (27.0-32.0); Mean Corpuscular Volume 91.8 fL (81-99); Monocyte# 0.19 X10^3/uL; Monocyte% 6.6 % (0-10); NRBC Flagged by Analyzer 0 % (0-5); Neutrophil # 2.05 X10^3/uL (2.7-7.7); POSITIVE DIFFERENTIAL YES; POSITIVE MORPHOLOGY YES; Platelet Count 242 K/mm3 (150-450); RBC Distribution Width CV 14.6 % (11.6-14.6); RBC Distribution Width SD 49.6 fl (35.1-43.9); Red Blood Count 2.79 M/mm3 (4.2-5.4); White Blood Count 2.9 K/mm3 (4.4-11.0)
[2022-11-20 07:15] LABS: Differential Indicated SCAN CRITERIA MET
[2022-11-20 07:42] LABS: Anion Gap 4 (5-15); BUN 4 mg/dL (7-18); BUN/Creat Ratio 6.3 RATIO (10-20); Calcium,Total 7.9 mg/dL (8.5-10.1); Chloride 114 mmol/L (98-107); Creatinine, Serum 0.64 mg/dL (0.55-1.02); EST Glomerular Filtration Rate 95 mL/min (>60); Est Glom Filt Rate - Afr Amer 114 mL/min (>60); Estimated Creatinine Clearance 30.62 ml/min; Glucose 105 mg/dL (74-106); Potassium 3.2 mmol/L (3.5-5.1); Sodium Level 143 mmol/L (136-145)
[2022-11-20] MEDS: Venlafaxine XR 75 MG Capsule PO (08:54)
[2022-11-20] MEDS: carBAMazepine 200 MG Tablet PO (08:54)
[2022-11-20] MEDS: Acyclovir 800 MG Tablet PO (08:55)
[2022-11-20] MEDS: Cephalexin 250 MG Capsule PO ×3 (09:00→17:52)
[2022-11-20] MEDS: Vancomycin IV 1,000 MG/200 ML BAG 200 MG IV (09:00)
--- NOTE | 2022-11-20 09:28 | PCM.PN.SRG ---
Subjective Subjective Patient is an 81 y/o F I am following in conjunction with Dr. Gray s/p laparoscopic appendectomy for perforated appendicitis. Patient notes pain/discomfort in the right lower quadrant. She denies nausea, vomiting with her diet. She states she has a history of fibromyalgia which may be flared up secondary to the surgery. Objective Data Objective Data Vital Signs: Vital Signs Temp Pulse Resp BP Pulse Ox O2 Del Method O2 Flow Rate 97.8 F 76 18 127/61 H 95 Room Air 1 11/20/22 06:50 11/20/22 06:50 11/20/22 06:50 11/20/22 06:50 11/20/22 06:50 11/20/22 06:50 11/17/22 08:36 Oxygen Flow Rate (L/min) 1 Oxygen Delivery Method Room Air Weight: 136 lb 14.513 oz Body Mass Index (BMI) 26.7 Intake & Output: Intake and Output for Last 24 Hours 11/18/22 11/19/22 11/20/22 23:59 23:59 23:59 Intake Total 3675.75 / 3675.75 3882.08 / 3882.08 100 / 100 Output Total 470 / 470 160 / 160 20 / 20 Balance 3205.75 / 3205.75 3722.08 / 3722.08 80 / 80 Lab / Micro Data 11/20/22 06:44 11/20/22 06:44 Labs: Laboratory Results - last 24 hr 11/20/22 06:44: WBC 2.9 L, RBC 2.79 L, Hgb 8.3 L, Hct 25.6 L, MCV 91.8, MCH 29.7, MCHC 32.4, RDW Std Deviation 49.6 H, RDW Coeff of Kyree 14.6, Plt Count 242, MPV 9.0, Immature Gran % (Auto) 0.300, Neut % (Auto) 71.0 H, Lymph % (Auto) 18.0 L, [place] % (Auto) 6.6, Eos % (Auto) 3.8, Baso % (Auto) 0.3, Absolute Neuts (auto) 2.1, Absolute Lymphs (auto) 0.52 L, Nucleated RBC % 0, Differential Comment COMMENT, Diff Path Review July, Sodium 143, Potassium 3.2 L, Chloride 114 H, Carbon Dioxide 25.0, Anion Gap 4 L, BUN 4 L, Creatinine 0.64, Estim Creat Clear Calc 30.62, Est GFR (MDRD) Af Amer 114, Est GFR (MDRD) Non-Af 95, BUN/Creatinine Ratio 6.3 L, Glucose 105, Calcium 7.9 L Micro: Microbiology 11/16/22 21:00 Aspirate - Abdominal Gram Stain - Final 11/16/22 21:00 Aspirate - Abdominal Wound Culture - Final Klebsiella pneumoniae sp pneum Enterococcus faecium Raoultella planticola Escherichia coli 11/16/22 21:00 Aspirate - Abdominal Anaerobic Culture - Preliminary Checking for anaerobes, further studies to follow. Physical Exam Const alert, oriented x3 and no apparent distress HEENT normocephalic GI GI Narrative: Abdomen- soft, tenderness in the right lower quadrant with guarding. Incisions c/d/i. TIGIST drain was removed this morning. Assessment & Plan Assessment/Plan (1) Acute perforated appendicitis: PLAN: Patient's progress seems to steady Labs were reviewed with Dr. Gray Culture from surgery has returned as Klebsiella, enterococcus faecium, raoultella planticola, and E Coli. Following discussion with pharmacy including patient's allergy to PCN, we have changed the patient's antibiotics to Keflex and Vancomycin. We will continue IV antibiotics Plan for patient to potentially be discharged tomorrow pending re-evaluation Charges/Coding Visit Charges Inpatient E&M: 19275 Subs Hosp L1 (post-op; no charge)
--- NOTE | 2022-11-20 10:06 | PCM.RX.CS ---
Consult Antibiotic Management Pharmacy has been consulted to manage selected antiobiotic: Vancomycin Type of Intervention Type of Consult: New start Suspected Infection Suspected Infection: Other (PERITONEAL/ENTEROCOCCUS) Prior Doses of Antibiotics Prior Doses of Antibiotics Received/Current Regimen: Started cephalexin 250 mg Q6H today Vancomycin 1000 mg IV x 1 given 11/20/22 @ 0900 Labs Labs: Sodium 143 mmol/L (136-145) 11/20/22 06:44 Potassium 3.2 mmol/L (3.5-5.1) L 11/20/22 06:44 Chloride 114 mmol/L (98-107) H 11/20/22 06:44 Carbon Dioxide 25.0 mmol/L (21.0-32.0) 11/20/22 06:44 Anion Gap 4 (5-15) L 11/20/22 06:44 BUN 4 mg/dL (7-18) L 11/20/22 06:44 Creatinine 0.64 mg/dL (0.55-1.02) 11/20/22 06:44 Est GFR (MDRD) Af Amer 114 mL/min (>60) 11/20/22 06:44 Est GFR (MDRD) Non-Af 95 mL/min (>60) 11/20/22 06:44 BUN/Creatinine Ratio 6.3 RATIO (10-20) L 11/20/22 06:44 Glucose 105 mg/dL (74-106) 11/20/22 06:44 Microbiology Microbiology: Microbiology 11/16/22 21:00 Aspirate - Abdominal Gram Stain - Final 11/16/22 21:00 Aspirate - Abdominal Wound Culture - Final Klebsiella pneumoniae sp pneum Enterococcus faecium Raoultella planticola Escherichia coli 11/16/22 21:00 Aspirate - Abdominal Anaerobic Culture - Preliminary Checking for anaerobes, further studies to follow. Dosing Weight Weight used for dosin.1 kg Estimated Creatinine Clearance Estimated Creatinine Clearance: 30 Goal Trough Goal Trough: 15-20 mcg/mL Pharmacy Plan for Drug Dosing Pharmacy Plan for Drug Dosing: Vancomycin 750 mg Q24H, trough prior to 4th dose Pharmacy Service will continue to monitor and adjust dosing as required. Follow-Up Labs Follow-Up Labs: Trough: Vancomycin Date/Time Labs Ordered Labs to be done on [date and time ordered]: 11/22/22 @ 0830
--- NOTE | 2022-11-20 11:12 | CASEMGMT ---
Social Work Discharge Planning - update Spoke with Rosa Elena from [facility]. Patient can be accepted pending approval from the insurance, and precert is being started today. To patient's room to update, but no one in the room. Will try again as time allows later today to update the patient. Plan: [facility] pending precert. -MURPHY Horton
--- NOTE | 2022-11-20 14:29 | PCM.TXEXTCAR ---
Diet Diet Order/Speech Therapy: 11/19/22 17:18 Diet: Regular - General Is pt able to select menu?: No Diet Comments: no carbonation Routine Orders/Code Status Routine Lab Work: CBC (on 11/22/22) Code Status: Full Code Wound(s) ABD: Wound Type: Surgical Incision LOWER ABD: Wound Type: Surgical Incision Therapies Weight Bearing: Full weight bearing Physical Therapy: Eval and Treat Occupational Therapy: Eval and Treat Problem/Diagnosis (1) Acute perforated appendicitis: Status: Acute Code(s): K35.32 - Acute appendicitis with perforation, localized peritonitis, and gangrene, without abscess Plan 1. Essential hypertension-patient will continue to take her home medications, blood pressure will be monitored and medicine will be adjusted #2 hyperlipidemia-patient is on Lipitor, monitor, evaluate, assess, and treat #3 anxiety/depression-patient is on Effexor, monitor, evaluate, assess, and treat #4 acute appendicitis-postop day 4 laparoscopic appendectomy with drain placement-surgery is participating in her care #5 acute debility-patient is seeing PT and OT, she will undergo placement in a senior care facility for short-term rehab services #6 coronary artery disease-this appears to be stable at this time #7 mild cognitive impairment-complicates care, medical course, recovery, and prognosis Patient is currently 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 Patient also has a history of breast cancer and she takes Arimidex, I will hold this medication for now and restart it when she goes to the skilled care facility Total clinical time spent by myself addressing patient's medical issues, reviewing all of her data, and collaborating with patient's care team: 35 minutes Allergies/Procedures Done in Hospital Allergies Penicillins [PCN] Adverse Reaction (Verified 05/12/22 02:36) Rash Procedures: - (laparoscopic appendectomy) Type of Care/Length of Stay Estimated LOS: Convalescent Care Less Than 30 days Type of Care Needed: Skilled Rehab Potential: Good Prognosis: Good Additional Orders/Day of Discharge H&P will serve as current which was dated: 11/16/22 Day of Discharge: 11/20/22 Discharge Plan Admission Admit Date/Time: 11/17/22 15:35 Primary Reason for Your Visit: perforated appendix Attending Provider: Jay Solares Primary Care Provider: Trent Cain Consulting Providers: Lucas Johnson Mark Discharge Orders/Prescriptions Prescriptions: New cephalexin 500 mg capsule 500 mg PO TID Qty: 21 0RF Rx Instructions: one three times a day for 21 doses starting today linezolid [Zyvox] 600 mg tablet 600 mg PO Q12H 14 Days Qty: 28 0RF Rx Instructions: one twice a day for 28 doses Continued venlafaxine [Effexor XR] 75 MG capsule,extended release 24hr 75 mg PO DAILY omeprazole 20 MG capsule 20 mg PO DAILY acyclovir 800 MG tablet 800 mg PO BID metoprolol succinate 25 MG tablet extended release 24 hr 25 mg PO DAILY vitamin B complex 1 EACH tablet 1 ea PO QHS Glucosamine-Chondr (boswellia) 1 EACH tablet 1 ea PO BID atorvastatin 80 MG tablet 80 mg PO QHS Qty: 30 0RF anastrozole 1 mg tablet 1 mg PO DAILY carbamazepine 200 mg tablet extended release 12 hr 200 mg PO Q12H calcium citrate 500 mg tablet, effervescent 500 mg PO DAILY Discontinued vitamin E 1,000 UNIT capsule 1 cap PO DAILY coenzyme Q10 [Co Q-10] 10 MG capsule 10 mg PO QHS Referrals / Follow Up: Baltazar Gray MD [Med Staff - Active Staff] - In 1 Week Trent Cain MD [Primary Care Provider] - Disposition Disposition (needs filled in before D/C Order can be placed): Group Home Facility
--- NOTE | 2022-11-20 14:48 | DS.PCM_ITS ---
Providers Date of Admission: 11/17/22 Date of Discharge: 11/20/22 Primary Care Physician: Dr. Trent Cain MD Consultations 11/16/22 14:06 Consult: Hospitalist Routine Consulting Provider: Lucas Johnson Reason for Consult: Acute appy with prior onset of weakness. EMERGENT Consult: No MD Notified: Yes Date Notified: 11/16/22 Time Notified: 14:06 Method of Notification: Text Reason For Visit: APENDICITIS Diagnosis Discharge Diagnosis (1) Acute perforated appendicitis: Status: Acute Code(s): K35.32 - Acute appendicitis with perforation, localized peritonitis, and gangrene, without abscess Plan 1. Essential hypertension-patient will continue to take her home medications, blood pressure will be monitored and medicine will be adjusted #2 hyperlipidemia-patient is on Lipitor, monitor, evaluate, assess, and treat #3 anxiety/depression-patient is on Effexor, monitor, evaluate, assess, and treat #4 acute appendicitis-postop day 4 laparoscopic appendectomy with drain placement-surgery is participating in her care #5 acute debility-patient is seeing PT and OT, she will undergo placement in a longterm facility for short-term rehab services #6 coronary artery disease-this appears to be stable at this time #7 mild cognitive impairment-complicates care, medical course, recovery, and prognosis Patient is currently 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 Patient also has a history of breast cancer and she takes Arimidex, I will hold this medication for now and restart it when she goes to the skilled care facility Total clinical time spent by myself addressing patient's medical issues, reviewing all of her data, and collaborating with patient's care team: 35 minutes Medications at Discharge Home Medications omeprazole 20 mg capsule,delayed release 20 mg PO DAILY gerd 09/26/16 venlafaxine 75 mg capsule,extended release 24 hr (Effexor XR) 75 mg PO DAILY antidepressant 09/26/16 acyclovir 800 mg tablet 800 mg PO BID herpes 04/12/18 glucosamine 750 qk-ibzwhywdb-pab no.7 644 mg-vit R-zzhmqs-bwmrq tablet (Glucosamine-Chondr Cmplx (boswellia)) 1 ea PO BID suppliment 04/12/18 metoprolol succinate 25 mg tablet,extended release 24 hr 25 mg PO DAILY blood pressure 04/12/18 vitamin B complex 1 ea PO QHS suppliment 04/12/18 atorvastatin 80 mg tablet 80 mg PO QHS ##30 04/13/18 anastrozole 1 mg tablet 1 mg PO DAILY 11/16/22 calcium citrate 500 mg (2,376 mg) effervescent tablet 500 mg PO DAILY 11/16/22 carbamazepine 200 mg tablet,extended release,12 hr 200 mg PO Q12H 11/16/22 cephalexin 500 mg capsule 500 mg PO TID #21 caps 11/20/22 linezolid 600 mg tablet (Zyvox) 600 mg PO Q12H 14 days #28 tabs 11/20/22 Weight / BMI Weight Weight: 62.1 kg Body Mass Index (BMI) 26.7 ABG / Lab / Microbiology Data 11/20/22 06:44 11/20/22 06:44 Laboratory: Laboratory Results - last 24 hr 11/20/22 06:44: WBC 2.9 L, RBC 2.79 L, Hgb 8.3 L, Hct 25.6 L, MCV 91.8, MCH 29.7, MCHC 32.4, RDW Std Deviation 49.6 H, RDW Coeff of Kyree 14.6, Plt Count 242, MPV 9.0, Immature Gran % (Auto) 0.300, Neut % (Auto) 71.0 H, Lymph % (Auto) 18.0 L, Dickson % (Auto) 6.6, Eos % (Auto) 3.8, Baso % (Auto) 0.3, Absolute Neuts (auto) 2.1, Absolute Lymphs (auto) 0.52 L, Nucleated RBC % 0, Differential Comment COMMENT, Diff Path Review July, Sodium 143, Potassium 3.2 L, Chloride 114 H, Carbon Dioxide 25.0, Anion Gap 4 L, BUN 4 L, Creatinine 0.64, Estim Creat Clear Calc 30.62, Est GFR (MDRD) Af Amer 114, Est GFR (MDRD) Non-Af 95, BUN/Creatinine Ratio 6.3 L, Glucose 105, Calcium 7.9 L Microbiology: Microbiology 11/16/22 21:00 Aspirate - Abdominal Gram Stain - Final 11/16/22 21:00 Aspirate - Abdominal Wound Culture - Final Klebsiella pneumoniae sp pneum Enterococcus faecium Raoultella planticola Escherichia coli 11/16/22 21:00 Aspirate - Abdominal Anaerobic Culture - Preliminary Checking for anaerobes, further studies to follow. Discharge Plan Admission Admit Date/Time: 11/17/22 15:35 Primary Reason for Your Visit: perforated appendix Attending Provider: Jay Solares Primary Care Provider: Trent Cain Consulting Providers: Lucas Johnson Mark Discharge Orders/Prescriptions Prescriptions: New cephalexin 500 mg capsule 500 mg PO TID Qty: 21 0RF Rx Instructions: one three times a day for 21 doses starting today linezolid [Zyvox] 600 mg tablet 600 mg PO Q12H 14 Days Qty: 28 0RF Rx Instructions: one twice a day for 28 doses Continued venlafaxine [Effexor XR] 75 MG capsule,extended release 24hr 75 mg PO DAILY omeprazole 20 MG capsule 20 mg PO DAILY acyclovir 800 MG tablet 800 mg PO BID metoprolol succinate 25 MG tablet extended release 24 hr 25 mg PO DAILY vitamin B complex 1 EACH tablet 1 ea PO QHS Glucosamine-Chondr (boswellia) 1 EACH tablet 1 ea PO BID atorvastatin 80 MG tablet 80 mg PO QHS Qty: 30 0RF anastrozole 1 mg tablet 1 mg PO DAILY carbamazepine 200 mg tablet extended release 12 hr 200 mg PO Q12H calcium citrate 500 mg tablet, effervescent 500 mg PO DAILY Discontinued vitamin E 1,000 UNIT capsule 1 cap PO DAILY coenzyme Q10 [Co Q-10] 10 MG capsule 10 mg PO QHS Referrals / Follow Up: Baltazar Gray MD [Med Staff - Active Staff] - In 1 Week Trent Cain MD [Primary Care Provider] - Disposition Disposition (needs filled in before D/C Order can be placed): [facility]
--- NOTE | 2022-11-20 15:00 | CASEMGMT ---
Social Work Per Rosa Elena in [facility], precert is back for admission to TCU today. Presented back to patient's room and met with patient and daughter Colleen. Updated both to status update and plan for TCU today. Collaborated with Discharge Special Education Director Colleen who will work on faxing transfer summary to TCU when ready. No other services requested or indicated. PLAN: Short term skilled stay at [facility]. -MURPHY Horton
--- NOTE | 2022-11-20 15:28 | CHAPLAIN ---
Type of Pastoral Visit _x__ Initial Visit ___ Follow-up Visit ___ On-call Visit ___ General Patient Visit ___ Spiritual Assessment ___ Family Conference ___ Bereavement ___ Rapid Response ___ Code Blue ___ Other (describe below) Pastoral Care Referral From _x__ Patient ___ Family ___ Nurse ___ Physician ___ Public Relations Assistant ___ Hide Selector ___ Other (describe below) Sacrament/Intervention _x__ Active listening ___ Anointing ___ Holiness ___ Bereavement ___ Communion ___ Martha exploration ___ ___ Life review ___ Prayer ___ Reconciliation ___ Sacrament of Sick _x__ Supportive presence ___ Wedding ___ Other (describe below) Pastoral Comments patient is resting in bed but opens her eyes and interacts with this inside channel account manager; daughter of pt is in the room and also gives information about pt and status; pt will be moving soon to TCU in this hospital; offer of support for today and the future in TCU
[2022-11-20] MEDS: Potassium Chloride Oral Tablet 20 MEQ PO (15:40)
--- NOTE | 2022-11-20 15:55 | PN.HOSP_ITS ---
Reason for Visit Reason for Visit: Diagnoses Acute appendicitis with perforation, localized peritonitis, and gangrene, witho ut abscess (11/17/22) Unspecified acute appendicitis (11/17/22) Subjective Subjective Patient was seen and examined today, patient's white blood cell count remains low today at 2.9, patient appears well and is ambulating in the isabel with minimal assistance. Patient is alert and appears nontoxic. I attempted to get a hold of surgery not realizing that this was actually a surgical admission, we received permission for the patient to be transferred to TCU and I made the decision to transfer the patient, later on I talked with general surgery and in the and it was okay with general surgery that the patient go over to TCU with repeat blood counts to be performed tomorrow (and 11/22/2022). Objective Data Objective Data Vital Signs: Vital Signs Temp Pulse Resp BP Pulse Ox O2 Del Method O2 Flow Rate 97.8 F 70 18 127/51 H 98 Room Air 1 11/20/22 06:50 11/20/22 12:05 11/20/22 06:50 11/20/22 12:05 11/20/22 10:09 11/20/22 06:50 11/17/22 08:36 Oxygen Flow Rate (L/min) 1 Oxygen Delivery Method Room Air Weight: 62.1 kg Body Mass Index (BMI) 26.7 Intake & Output: Intake and Output for Last 24 Hours 11/18/22 11/19/22 11/20/22 23:59 23:59 23:59 Intake Total 3675.75 / 3675.75 3882.08 / 3882.08 300 / 300 Output Total 470 / 470 160 / 160 20 / 20 Balance 3205.75 / 3205.75 3722.08 / 3722.08 280 / 280 Lab / Micro Data 11/20/22 06:44 11/20/22 06:44 Labs: Laboratory Results - last 24 hr 11/20/22 06:44: WBC 2.9 L, RBC 2.79 L, Hgb 8.3 L, Hct 25.6 L, MCV 91.8, MCH 29.7, MCHC 32.4, RDW Std Deviation 49.6 H, RDW Coeff of Kyree 14.6, Plt Count 242, MPV 9.0, Immature Gran % (Auto) 0.300, Neut % (Auto) 71.0 H, Lymph % (Auto) 18.0 L, Caroline % (Auto) 6.6, Eos % (Auto) 3.8, Baso % (Auto) 0.3, Absolute Neuts (auto) 2.1, Absolute Lymphs (auto) 0.52 L, Nucleated RBC % 0, Differential Comment COMMENT, Diff Path Review May foll, Sodium 143, Potassium 3.2 L, Chloride 114 H, Carbon Dioxide 25.0, Anion Gap 4 L, BUN 4 L, Creatinine 0.64, Estim Creat Clear Calc 30.62, Est GFR (MDRD) Af Amer 114, Est GFR (MDRD) Non-Af 95, BUN/Creatinine Ratio 6.3 L, Glucose 105, Calcium 7.9 L Micro: Microbiology 11/16/22 21:00 Aspirate - Abdominal Gram Stain - Final 11/16/22 21:00 Aspirate - Abdominal Wound Culture - Final Klebsiella pneumoniae sp pneum Enterococcus faecium Raoultella planticola Escherichia coli 11/16/22 21:00 Aspirate - Abdominal Anaerobic Culture - Preliminary Checking for anaerobes, further studies to follow. Physical Exam Narrative alert and no apparent distress General Appearance: cooperative, well kempt and well developed Orientation / Consciousness: awake, oriented to person and oriented to place HEENT normocephalic, head/scalp atraumatic and moist oral mucous membranes Eyes PERRL, EOMs intact bilaterally and conjunctivae normal Neck supple, no JVD, thyroid normal and no carotid bruits General: trachea midline Resp normal respiratory effort, no retractions, no use of accessory muscles and clear to auscultation bilaterally Auscultation: Negative for rales, rhonchi or wheezes Cardio regular rate, regular rhythm, S1 normal heart sound, S2 normal heart sound, no murmurs, no rub and no gallops GI normal to inspection, nondistended, normoactive bowel sounds, soft to palpation, non-tender and non-distended Extremity no clubbing, cyanosis or edema Skin no rashes or lesions noted General Skin Exam: no breakdown Neuro CN's II-XII intact bilaterally, moves all extremities, no focal motor deficits and no sensory deficits noted Sensorium / Orientation: awake, alert, oriented to person and oriented to place Speech: speech normal Psych Psych Narrative: Patient exhibits some mild cognitive impairment Assessment & Plan Assessment/Plan (1) Acute perforated appendicitis: PLAN: Plan 1. Essential hypertension-patient will continue to take her home medications, blood pressure will be monitored and medicine will be adjusted #2 hyperlipidemia-patient is on Lipitor, monitor, evaluate, assess, and treat #3 anxiety/depression-patient is on Effexor, monitor, evaluate, assess, and treat #4 acute appendicitis-postop day 4 laparoscopic appendectomy with drain placement-surgery is participating in her care #5 acute debility-patient is seeing PT and OT, she will undergo placement in a [place] [facility] facility for short-term rehab services #6 coronary artery disease-this appears to be stable at this time #7 mild cognitive impairment-complicates care, medical course, recovery, and prognosis #8 positive peritoneal cultures for Klebsiella, Enterococcus, Raoultella, and E. coli-I reviewed the sensitivities for these organisms, I elected to place the patient on Keflex and Zyvox for 7 days, I discussed this with general surgery and general surgery was okay with the antibiotic coverage and felt that the patient could be transferred to TCU if her CBC was monitored there. Total clinical time spent by myself addressing the patient's medical issues, reviewing all the data, and collaborating with patient's care team: 35 minutes Charges/Coding Visit Charges Inpatient E&M: 31986 Subs Hosp L2
[2022-11-21 13:05] LABS: Pathologist Review Reviewed
[2022-11-22 09:48] LABS: Pathologist Review Reviewed
--- NOTE | 2022-11-22 12:52 | DS.PCM_ITS ---
Providers Date of Admission: 11/17/22 Primary Care Physician: Dr. Trent Cain MD Consultations 11/16/22 14:06 Consult: Hospitalist Routine Consulting Provider: Lucas Johnson Reason for Consult: Acute appy with prior onset of weakness. EMERGENT Consult: No MD Notified: Yes Date Notified: 11/16/22 Time Notified: 14:06 Method of Notification: Text Reason For Visit: APENDICITIS Diagnosis Discharge Diagnosis (1) Acute perforated appendicitis: Status: Acute Code(s): K35.32 - Acute appendicitis with perforation, localized peritonitis, and gangrene, without abscess Plan: This is an 81-year-old female postoperative day 3 from laparoscopic appendectomy with drain placement given intraoperative findings of acute perforated appendicitis. This morning patient has some improvement of her abdominal pain. I transitioned patient to oral pain medications yesterday. Her abdominal exam shows some distention today and despite reports of diarrhea, I am concerned for underlying ileus. I find her drop of WBC slightly ominous as well. I have reiterated the need to mobilize as tolerated and be out of bed as much as possible. Gram stain's have resulted but cultures from operation remain preliminary. We will continue IV antibiotics and drain monitoring today. ? P.o. acetaminophen, p.o. ibuprofen, p.o. oxycodone all ordered as needed ? Replete phosphorus with K-Phos ? Continue full liquid diet given abdominal distention and reassess this afternoon ? Monitor abdominal exam and drain output ? Follow-up medicine recommendations Medications at Discharge Home Medications omeprazole 20 mg capsule,delayed release 20 mg PO DAILY gerd 09/26/16 venlafaxine 75 mg capsule,extended release 24 hr (Effexor XR) 75 mg PO DAILY antidepressant 09/26/16 acyclovir 800 mg tablet 800 mg PO BID herpes 04/12/18 glucosamine 750 [id number] no.7 644 mg-vit [id number]-aksdcu-[id number] tablet (Glucosamine-Chondr Cmplx (boswellia)) 1 ea PO BID suppliment 04/12/18 metoprolol succinate 25 mg tablet,extended release 24 hr 25 mg PO DAILY blood pressure 04/12/18 vitamin B complex 1 ea PO QHS suppliment 04/12/18 atorvastatin 80 mg tablet 80 mg PO QHS cholesterol #30 TABLETS 04/13/18 anastrozole 1 mg tablet 1 mg PO DAILY breast cancer 11/16/22 calcium citrate 500 mg (2,376 mg) effervescent tablet 500 mg PO DAILY calcium 11/16/22 carbamazepine 200 mg tablet,extended release,12 hr 200 mg PO Q12H seizure 11/16/22 cephalexin 500 mg capsule 500 mg PO TID Antibiotic #21 caps 11/20/22 linezolid 600 mg tablet (Zyvox) 600 mg PO Q12H antibiotic 14 days #28 tabs 11/20/22 Hospital Course Operations appendectomy Procedures EKG Summary of Care Provided Hospital Course: Patient is an 81-year-old female who was admitted to the general surgery service via the ER on 11/16/2022 after presenting with her family due to complaints of weakness and right-sided abdominal pain. Her work-up was consistent with diagnosis of acute appendicitis and associated appendicoliths?seen on CT imaging. After visiting with patient on the floor collecting her history and performing exam I recommended proceeding for emergent appendectomy, but also requested a hospitalist consult given that patient had a number of diagnoses as part of her past medical history that required further investigation. Patient was ultimately deemed appropriate for surgical intervention and she was posted to the OR. However, patient's case was initially delayed by anesthesia after reviewing EKGs that showed nonspecific ST changes in the precordial leads. Cardiology was consulted and initially stated they would be unable to evaluate the patient to the following day, but then arrange for a virtual visit with the patient and after collecting her history determined that there is low suspicion for anginal discomfort. After submission of this impression to anesthesia, patient was taken for laparoscopic appendectomy 11/16/2022. Intraoperatively she was confirmed to have perforated appendicitis, but the procedure otherwise proceeded in uncomplicated fashion and a drain was placed for postoperative monitoring/evacuation of remaining irrigation. Postoperatively the patient was returned to the progressive care unit where she was monitored with daily labs and twice daily exams. Her diet was gradually advanced as she demonstrated tolerance with each step. Ultimately on postoperative day 4, patient was clinically improved and her operative drain was discontinued at bedside. With these clinical improvements she was deemed fit for discharge to the transitional care unit and her empiric antibiotic coverage was tailored specifically to the operative cultures that had been collected. Physical Exam Const alert Constitutional Narrative: Confused Resp normal respiratory effort GI GI Narrative: Operative dressings removed and Steri-Strips intact. No donna-incisional erythema or drainage. Dressing in place over suprapubic drain site. Nondistended. Soft and mildly tender to palpation. Weight / BMI Weight Weight: 136 lb 14.513 oz Body Mass Index (BMI) 26.7 ABG / Lab / Microbiology Data 11/20/22 06:44 11/20/22 06:44 Laboratory: Laboratory Results - last 24 hr 11/19/22 05:08: Diff Path Review Reviewed 11/20/22 06:44: Diff Path Review Reviewed Microbiology: Microbiology 11/16/22 21:00 Aspirate - Abdominal Gram Stain - Final 11/16/22 21:00 Aspirate - Abdominal Wound Culture - Final Klebsiella pneumoniae sp pneum Enterococcus faecium Raoultella planticola Escherichia coli 11/16/22 21:00 Aspirate - Abdominal Anaerobic Culture - Final No anaerobic bacteria isolated. Meaningful Use Info Meaningful Use Diagnoses (Choose all that apply): None applicable Discharge Plan Admission Admit Date/Time: 11/17/22 15:35 Primary Reason for Your Visit: perforated appendix Attending Provider: Jay Solares Primary Care Provider: Trent Cain Consulting Providers: Lucas Johnson; Jay Solares Discharge Orders/Prescriptions Prescriptions: New cephalexin 500 mg capsule 500 mg PO TID Qty: 21 0RF Rx Instructions: one three times a day for 21 doses starting today linezolid [Zyvox] 600 mg tablet 600 mg PO Q12H 14 Days Qty: 28 0RF Rx Instructions: one twice a day for 28 doses Continued venlafaxine [Effexor XR] 75 MG capsule,extended release 24hr 75 mg PO DAILY omeprazole 20 MG capsule 20 mg PO DAILY acyclovir 800 MG tablet 800 mg PO BID metoprolol succinate 25 MG tablet extended release 24 hr 25 mg PO DAILY vitamin B complex 1 EACH tablet 1 ea PO QHS Glucosamine-Chondr (boswellia) 1 EACH tablet 1 ea PO BID atorvastatin 80 MG tablet 80 mg PO QHS Qty: 30 0RF anastrozole 1 mg tablet 1 mg PO DAILY carbamazepine 200 mg tablet extended release 12 hr 200 mg PO Q12H calcium citrate 500 mg tablet, effervescent 500 mg PO DAILY Discontinued vitamin E 1,000 UNIT capsule 1 cap PO DAILY coenzyme Q10 [Co Q-10] 10 MG capsule 10 mg PO QHS Referrals / Follow Up: Baltazar Gray MD [Med Staff - Active Staff] - In 1 Week Trent Cain MD [Primary Care Provider] - Disposition Disposition (needs filled in before D/C Order can be placed): Group Home Facility Charges/Coding Visit Charges Inpatient E&M: 72799 Disch Hosp
== END 2022-11-20 18:03 | disposition skilled nursing facility (03) | DRG 340 ==
LOC: ED 11:42 → PCU 13:59
PROVIDERS: Anesthesiology; Admitting Provider Surgery; Emergency Provider Emergency Medicine; PCP Internal Medicine; Visit Provider Internal Medicine
PROC: 0DTJ4ZZ Resection of Appendix, Percutaneous Endoscopic Approach (ICD-10-PCS; CPT 44970; principal; 2022-11-16 20:00)
DX: K35.32 Acute appendicitis with perforation, localized peritonitis, and gangrene, without abscess (principal); B96.1 Klebsiella pneumoniae [K. pneumoniae] as the cause of diseases classified elsewhere; I10 Essential (primary) hypertension; F32.A Depression, unspecified; E78.5 Hyperlipidemia, unspecified; M79.7 Fibromyalgia; E87.6 Hypokalemia; K21.9 Gastro-esophageal reflux disease without esophagitis; I25.10 Atherosclerotic heart disease of native coronary artery without angina pectoris; H57.12 Ocular pain, left eye; Z86.73 Personal history of transient ischemic attack (TIA), and cerebral infarction without residual deficits; Z79.811 Long term (current) use of aromatase inhibitors; B95.2 Enterococcus as the cause of diseases classified elsewhere; B96.20 Unspecified Escherichia coli [E. coli] as the cause of diseases classified elsewhere
CPT/HCPCS: 36415; 74177; 80048; 80053; 81001; 83735; 84100; 84484; 85025; 87070; 87075; 87077; 87186; 87205; 88304; 93005; 94668; 97110; 97162; 97166; 97530; 97535; 99285; J7030; J7050; Q9967; A4216; J0744; J2405

== ENCOUNTER 2022-11-20 18:08 | Inpatient (IN) | payer MEDICARE, SELFPAY ==
[2022-11-20 19:49] VITALS: BMI 28.8
[2022-11-20 19:58] VITALS: BP 112/61; PULSE 72; RESP 16; TEMP 36.1; O2SAT 98
--- NOTE | 2022-11-20 20:24 | NURSING ---
Patient complains of stomach upset/gas requests prn tums at this time, Dr.Kwok yung, received order for Tums 500mg once daily at breakfast as currently ordered and add order for Tums 500mg PRN BID for gi upset/gas, give one dose now. Order repeated back.
[2022-11-20 20:29] VITALS: PULSE 76; RESP 16; O2SAT 97
[2022-11-20] MEDS: carBAMazepine 200 MG Tablet PO (21:12)
[2022-11-20] MEDS: Cephalexin 500 MG Capsule PO (21:13)
[2022-11-20] MEDS: Calcium Carbonate 500 MG Tablet PO (21:13)
[2022-11-20] MEDS: Atorvastatin Calcium 80 MG Tablet PO (21:13)
[2022-11-20] MEDS: Vitamin B Comp W-C Capsule 1 CAP PO (21:14)
[2022-11-20] MEDS: Acyclovir 800 MG Tablet PO (21:14)
--- NOTE | 2022-11-20 22:01 | PCM.HP.STD ---
HPI - General General Date of Admission: 11/20/22 Date of Service: 11/21/22 Chief Complaint: Here for rehabilitation. HPI Narrative 11/16/2022 ROLANDO FIGUEREDO, is a 81 Female who presents to [facility] Emergency Department with weakness. Possible dehydration, lives alone, worsening memory issues for 1 month. Chronic dizziness, fall, no injury. Diarrhea, decreased appetite. Right lower quadrant abdominal pain, WBC 8.4, Sodium 131, UA negative. CT abdomen/pelvis showed acute appendicitis, appendicolith, Cipro, Flagyl given. Consult Dr. Gray. 11/16/2022 Admit to Hospital. 11/16/2022 Dr. Gray performed laparoscopic appendectomy with drain placement. PT/OT for Debility. 11/17/2022 WBC 4.9, Hemoglobin 10. Plan SNF. 11/18/2022 Had bowel movement, passing gas. 11/19/2022 Mildly confused, poor memory. Adjust blood pressure medications. PT/OT for SNF. Acyclovir for Herpes Zoster Suppression. Carbamazepine for Trigeminal neuralgia. 11/20/2022 Peritoneal cultures grew Klebsiella, Enterococcus, Raoultella, E. Coli. 11/20/2022 Admit to TCU with debility, here for rehabilitation, strengthening, prior to disposition determination. [facility] Medical History (Updated 11/20/22 @ 22:[address] Elvis Glass MD) CPAP (continuous positive airway pressure) dependence Depression Fibromyalgia GERD (gastroesophageal reflux disease) Herpes Hypertension Migraines Sleep apnea Home Medications omeprazole 20 mg capsule,delayed release 20 mg PO DAILY gerd 09/26/16 [History Last Taken 11/15/22] venlafaxine 75 mg capsule,extended release 24 hr (Effexor XR) 75 mg PO DAILY antidepressant 09/26/16 [History Last Taken 11/15/22] acyclovir 800 mg tablet 800 mg PO BID herpes 04/12/18 [History Last Taken 11/15/22] glucosamine 750 nx-ptaizkpqr-hfv no.7 644 mg-vit P-obrglk-obhel tablet (Glucosamine-Chondr Cmplx (boswellia)) 1 ea PO BID suppliment 04/12/18 [History Last Taken 11/15/22] metoprolol succinate 25 mg tablet,extended release 24 hr 25 mg PO DAILY blood pressure 04/12/18 [History Last Taken 11/15/22] vitamin B complex 1 ea PO QHS suppliment 04/12/18 [History Last Taken 11/15/22] atorvastatin 80 mg tablet 80 mg PO QHS cholesterol #30 TABLETS 04/13/18 [Rx Last Taken 11/15/22] anastrozole 1 mg tablet 1 mg PO DAILY breast cancer 11/16/22 [History Last Taken 11/15/22] calcium citrate 500 mg (2,376 mg) effervescent tablet 500 mg PO DAILY calcium 11/16/22 [History Last Taken 11/15/22] carbamazepine 200 mg tablet,extended release,12 hr 200 mg PO Q12H seizure 11/16/22 [History Last Taken 11/15/22] cephalexin 500 mg capsule 500 mg PO TID Antibiotic #21 caps 11/20/22 [Rx Last Taken Unknown] linezolid 600 mg tablet (Zyvox) 600 mg PO Q12H antibiotic 14 days #28 tabs 11/20/22 [Rx Last Taken 11/20/22] Allergy/AdvReac Type Severity Reaction Status Date / Time Penicillins [PCN] AdvReac Rash Verified 05/12/22 02:36 Surgical History (Updated 11/20/22 @ 22:[address] Elvis Glass MD) History of appendectomy Social History (Updated 11/20/22 @ 22:[address] Elvis Glass MD) household members: none Smoking Status: Never smoker alcohol intake: never substance use type: does not use ROS Constitutional Constitutional: Denies chills, fever(s) or weight gain ENT HEENT: Denies headache(s), nasal congestion or nasal discharge Cardiovascular Cardiovascular: Denies chest pain or palpitations Respiratory/Chest Respiratory/Chest: Denies cough, excessive phlegm production or shortness of breath with exertion Gastrointestinal Gastrointestinal: Denies abdominal pain, nausea or vomiting Genitourinary Genitourinary: Denies dysuria Musculoskeletal Musculoskeletal: Denies joint pain or joint swelling Integumentary Integumentary: Denies rash or wounds Neurologic Neurologic: Denies focal weakness, numbness or tingling Psychiatric Psychiatric: Denies anxiety, auditory hallucinations, depression, homicidal ideation or suicidal ideation Vital Signs Vital Signs Vital Signs: Weight Weight: 66.905 kg Body Mass Index (BMI) 28.8 Physical Exam Const alert General Appearance: cooperative HEENT normocephalic Eyes PERRL and EOMs intact bilaterally Neck supple, no JVD and no carotid bruits Resp normal respiratory effort, normal air movement and clear to auscultation bilaterally Cardio regular rate and regular rhythm GI normal to inspection, nondistended, normoactive bowel sounds, non-tender and non-distended Extremity normal capillary refill General Extremity: Negative for edema Skin no rashes or lesions noted General Skin Exam: no breakdown Psych affect normal Appearance: appropriate Results Lab / Micro Data 11/21/22 05:37 11/21/22 05:37 Assessment & Plan Assessment/Plan (1) Debility: (2) Acute appendicitis: (3) Acute peritonitis: (4) Acute encephalopathy: (5) Sleep apnea: (6) GERD (gastroesophageal reflux disease): (7) Depression: (8) HLD (hyperlipidemia): (9) CVA (cerebral vascular accident): PLAN: Plan 81 year old female with below past medical history hospitalized for acute perforated appendicitis, complicated by acute peritonitis, encephalopathy, admitted to TCU with debility, here for rehabilitation, strengthening, intravenous antibiotics, prior to disposition determination. Debility - PT/OT. Pain - Tylenol 1000mg q6h prn pain (1-10). Bowel - senna/colace 1 tablet bid. Adult immunization - Administer pneumonia vaccine, covid19 vaccine, flu vaccine as appropriate. DVT prophylaxis - Lovenox 40mg sc daily. Herpes - Acyclovir 800mg bid suppression. Breast cancer - Anastrozole 1mg daily. Hyperlipidemia - Atorvastatin 80mg qhs. Indigestion - TUMS 500mg qam, bid prn. Trigeminal neuralgia - Carbamazepine 200mg q12h. Peritonitis - multiple organism, Keflex 500mg tid thru 11/27/2022, Vancomycin 750mg IV Q24H thru 12/05/2022. Hypertension - Metoprolol succinate 25mg daily. GERD - Pantoprazole 20mg daily. Depression - Venlafaxine XR 75mg daily, stable chronic terminal carman use, GDR not recommended. Leg cramps - Vitamin B complex daily.
[2022-11-21] MEDS: Cephalexin 500 MG Capsule PO ×3 (05:44→22:05)
--- NOTE | 2022-11-21 05:50 | NURSING ---
Patient declined Lovenox shot offered 3 times, despite education re: surgery and blood clots, still refused. Stated my real doctor did not prescribe this and I wont take any shots, I've never had blood clots before
[2022-11-21 05:57] LABS: Absolute Lymphocyte Count 0.62 X10^3/uL (0.83-4.51); Absolute Neutrophil Count 1.8 X10^3/uL (2.0-7.7); Basophil# 0.03 X10^3/uL; Basophil% 1.1 % (0-1); Eosinophil# 0.11 X10^3/uL; Eosinophils% 3.9 % (0-5); Hemoglobin 9.1 g/dL (12.0-15.0); Lymphocyte # 0.62 X10^3/ul (0.83-4.51); Lymphocyte % 22.1 % (19-41); Mean Corp Hgb Conc 32.5 g/dL (32-36); Mean Corpuscular Hgb 29.1 pg (27.0-32.0); Mean Corpuscular Volume 89.5 fL (81-99); Mean Platelet Vol. 9.2 fl (6.2-12.0); Monocyte% 7.1 % (0-10); NRBC Flagged by Analyzer 0 % (0-5); Neutrophil # 1.82 X10^3/uL (2.7-7.7); Neutrophil % 64.7 % (47-70); POSITIVE MORPHOLOGY YES; Platelet Count 279 K/mm3 (150-450); RBC Distribution Width CV 14.3 % (11.6-14.6); RBC Distribution Width SD 46.4 fl (35.1-43.9); Red Blood Count 3.13 M/mm3 (4.2-5.4); White Blood Count 2.8 K/mm3 (4.4-11.0)
[2022-11-21 06:16] LABS: Differential Indicated SCAN CRITERIA MET
[2022-11-21 06:27] LABS: Anion Gap 6 (5-15); BUN 8 mg/dL (7-18); BUN/Creat Ratio 13.5 RATIO (10-20); Calcium,Total 8.4 mg/dL (8.5-10.1); Chloride 112 mmol/L (98-107); Creatinine, Serum 0.59 mg/dL (0.55-1.02); EST Glomerular Filtration Rate 103 mL/min (>60); Est Glom Filt Rate - Afr Amer 124 mL/min (>60); Estimated Creatinine Clearance 30.62 ml/min; Glucose 106 mg/dL (74-106); Potassium 3.8 mmol/L (3.5-5.1); Sodium Level 143 mmol/L (136-145)
--- NOTE | 2022-11-21 06:30 | NURSING ---
Attempt to start IV for IV vanco, patient refuses x3 attempts despite education. Patient repeating I'm not a guinea pig, they told me I wouldn't need any IVs over here. Attempt to educate on current order and purpose of IV medication, patient continues to refuse. Written communication left for Dr. Glass regarding patient refusal of IV placement or any IV medications.
--- NOTE | 2022-11-21 07:31 | NURSING ---
Written communication left for Dr. Glass regarding patient refusal of Lovenox despite education.
[2022-11-21 09:47] VITALS: BP 125/57; PULSE 82
[2022-11-21] MEDS: Acyclovir 800 MG Tablet PO ×2 (09:47→22:05)
[2022-11-21] MEDS: Anastrozole 1 MG TABLET PO (09:47)
[2022-11-21] MEDS: Venlafaxine XR 75 MG Capsule PO (09:47)
[2022-11-21] MEDS: Metoprolol(XL)Succ 25 MG Tablet PO (09:47)
[2022-11-21] MEDS: carBAMazepine 200 MG Tablet PO ×2 (09:47→22:05)
[2022-11-21] MEDS: Pantoprazole Sodium 20 MG Tablet PO (09:47)
[2022-11-21] MEDS: Senna/Docusate Sodium 1 Tablet PO ×2 (09:47→22:05)
[2022-11-21] MEDS: Calcium Carbonate 500 MG Tablet PO (09:47)
--- NOTE | 2022-11-21 10:33 | NURSING ---
Went into speak with patient about PICC line to have her sign consents. She said she wasn't sure she wanted it. Explained importance of PICC for IV antibiotics. She had multiple questions that RN answered. She then said she needs to know its safe to get it placed, says because of her heart she isn't sure she should have it. Adamant that she needs her PCP to approve. This RN called Dr. Cain's office, per his staff he said he wants her to have it. She then said she needs clearance from cardiology. Messaged packing floor worker Magalei who provided clearance before her surgery. He gave approval for her to have placed. Patient updated on approval from both MDs. Patient now refusing, says per her intuition she doesn't want it. Daughter Colleen had called and left her number for call back. This RN called and spoke with Colleen, told her about all events documented above. Colleen said she would come talk to patient and try to re-assure her about PICC placement.
--- NOTE | 2022-11-21 11:50 | NURSING ---
Barber Apprentice Note; Activity Asset Complete Kristie is independent in her choice of daily activities. At this time she prefers independent activities over group. She will watch TV, read and visit w/family and friends. She did state she welcomes visit from the headend technician and therapy dog when available. Family will bring her items she may need or want. Staff will remind her of daily activities and respect her right to say no.
--- NOTE | 2022-11-21 11:55 | NURSING ---
Insertion site continues to bleed. Dry sterile gauze and sterile tegaderm applied over the site. Please change this dressing to CHG tegaderm on 11/22.
[2022-11-21] MEDS: Tuberculin,Purif.prot.deriv. 50 TU/ML Vial 0.1 ML ID (13:23)
--- NOTE | 2022-11-21 13:55 | CASEMGMT ---
Social Work SW met with pt for initial assessment. Pt and dgt present and willing to speak with SW. Contact information validated. SW explained [employer] coverage of SNF and that continued stay is not guaranteed. Pt lives at home alone in an independent living unit at [facility]. One daughter lives locally and a second dgt lives near [place] but does assist as able. Pt plans to return home at time of discharge. SW to follow for d/c planning. RUTHIE Duenas
[2022-11-21 15:18] VITALS: BP 151/73; PULSE 74; RESP 16; TEMP 37.1; O2SAT 97
--- NOTE | 2022-11-21 17:42 | PN.SURG_ITS ---
Subjective Subjective Patient seen and examined during afternoon rounds. She is found resting comfortably in bed. She states that she continues to tolerate a regular diet without difficulty, but does state that some foods have lost their appeal for her. She denies any specific abdominal pains and reports that sometimes she forgets that her [abdomen] is even there. Objective Data Objective Data Vital Signs: Vital Signs Temp Pulse Resp BP Pulse Ox O2 Del Method 98.8 F 74 16 151/73 H 97 Room Air 11/21/22 15:18 11/21/22 15:18 11/21/22 15:18 11/21/22 15:18 11/21/22 15:18 11/21/22 15:18 Oxygen Delivery Method Room Air Weight: 147 lb 8 oz Body Mass Index (BMI) 28.8 Intake & Output: Intake and Output for Last 24 Hours 11/19/22 11/20/22 11/21/22 23:59 23:59 23:59 Intake Total 1134.75 / 1134.75 Balance 1134.75 / 1134.75 Lab / Micro Data 11/21/22 05:37 11/21/22 05:37 Labs: Laboratory Results - last 24 hr 11/21/22 05:37: WBC 2.8 L, RBC 3.13 L, Hgb 9.1 L, Hct 28.0 L, MCV 89.5, MCH 29.1, MCHC 32.5, RDW Std Deviation 46.4 H, RDW Coeff of Kyree 14.3, Plt Count 279, MPV 9.2, Immature Gran % (Auto) 1.100 H, Neut % (Auto) 64.7, Lymph % (Auto) 22.1, Erath % (Auto) 7.1, Eos % (Auto) 3.9, Baso % (Auto) 1.1 H, Absolute Neuts (auto) 1.8 L, Absolute Lymphs (auto) 0.62 L, Nucleated RBC % 0, Sodium 143, Potassium 3.8, Chloride 112 H, Carbon Dioxide 25.0, Anion Gap 6, BUN 8, Creatinine 0.59, Estim Creat Clear Calc 30.62, Est GFR (MDRD) Af Amer 124, Est GFR (MDRD) Non-Af 103, BUN/Creatinine Ratio 13.5, Glucose 106, Calcium 8.4 L Physical Exam Const oriented x3 and no apparent distress Resp normal respiratory effort GI GI Narrative: Nondistended, operative dressing still intact, soft, tender to palpation about port sites Assessment & Plan Assessment/Plan (1) Acute perforated appendicitis: PLAN: Culture from surgery has returned as Klebsiella, enterococcus faecium, raoultella planticola, and E Coli. Following discussion with pharmacy including patient's allergy to PCN, patient's antibiotics were changed to Keflex and Vancomycin. Then yesterday hospitalist service discussed case with infectious disease and there was a preliminary decision for transition to Zyvox. Yet an additional conversation ensued about how patient's Zyvox would be contraindicated with her home Effexor medication so it was ultimately resolved to proceed with vancomycin. Patient did undergo PICC line placement to the left upper extremity earlier today. Pharmacy reports that they are actively monitoring patient's vancomycin levels and dosing only once every 24 hours given patient's kidney function. In addition to the above issues of patient's antimicrobial selection, it is suspected patient now has neutropenia as a consequence of ciprofloxacin therapy. This was discontinued yesterday 11/20/2022, we will continue to monitor for resolution of neutropenia. It is my hope this is a satisfactory explanation and patient is not showing signs of developing infection. ? Continue IV antibiotics based on cultures ? Continue to monitor patient's abdominal exam and plan for discontinuation of dressings tomorrow ? Follow-up CBC tomorrow to assess white blood cell count in particular Charges/Coding Visit Charges Inpatient E&M: 91479 SNF Subs L2
[2022-11-21] MEDS: Atorvastatin Calcium 80 MG Tablet PO (22:05)
[2022-11-21] MEDS: Vitamin B Comp W-C Capsule 1 CAP PO (22:05)
[2022-11-22] MEDS: Cephalexin 500 MG Capsule PO ×3 (05:55→21:10)
--- NOTE | 2022-11-22 07:52 | NURSING ---
Lab updated regarding dr pepe new order ok to draw blood peripherally from upper extremities d/t picc keeps clotting with lab draws.
[2022-11-22 08:34] LABS: Absolute Lymphocyte Count 1.01 X10^3/uL (0.83-4.51); Absolute Neutrophil Count 4.3 X10^3/uL (2.0-7.7); Basophil# 0.02 X10^3/uL; Basophil% 0.3 % (0-1); Eosinophil# 0.11 X10^3/uL; Eosinophils% 1.9 % (0-5); Hematocrit 34.3 % (37-47); Hemoglobin 11.1 g/dL (12.0-15.0); Lymphocyte # 1.01 X10^3/ul (0.83-4.51); Lymphocyte % 17.5 % (19-41); Mean Corp Hgb Conc 32.4 g/dL (32-36); Mean Corpuscular Volume 89.6 fL (81-99); Monocyte# 0.32 X10^3/uL; Monocyte% 5.5 % (0-10); NRBC Flagged by Analyzer 0 % (0-5); Neutrophil # 4.25 X10^3/uL (2.7-7.7); Neutrophil % 73.6 % (47-70); POSITIVE MORPHOLOGY YES; Platelet Count 390 K/mm3 (150-450); RBC Distribution Width CV 14.3 % (11.6-14.6); RBC Distribution Width SD 46.9 fl (35.1-43.9); Red Blood Count 3.83 M/mm3 (4.2-5.4); White Blood Count 5.8 K/mm3 (4.4-11.0)
[2022-11-22 08:35] LABS: Differential Indicated SCAN CRITERIA MET
[2022-11-22 08:57] LABS: Differential Comment SCANNED; Reactive Lymphocyte 1+
--- NOTE | 2022-11-22 08:58 | PN.SURG_ITS ---
Subjective Subjective Patient seen and examined during AM rounds. She is sitting out of bed in chair. She states that she feels well today. Objective Data Objective Data Vital Signs: Vital Signs Temp Pulse Resp BP Pulse Ox O2 Del Method 98.8 F 74 16 151/73 H 97 Room Air 11/21/22 15:18 11/21/22 15:18 11/21/22 15:18 11/21/22 15:18 11/21/22 15:18 11/21/22 22:00 Oxygen Delivery Method Room Air Weight: 147 lb 8 oz Body Mass Index (BMI) 28.8 Intake & Output: Intake and Output for Last 24 Hours 11/20/22 11/21/22 11/22/22 23:59 23:59 23:59 Intake Total 1374.75 / 1374.75 Balance 1374.75 / 1374.75 Lab / Micro Data 11/22/22 08:22 11/21/22 05:37 Labs: Laboratory Results - last 24 hr 11/22/22 05:50: WBC Cancelled, Corrected WBC Cancelled, RBC Cancelled, Hgb Can celled, Hct Cancelled, MCV Cancelled, MCH Cancelled, MCHC Cancelled, RDW Std Deviation Cancelled, RDW Coeff of Kyree Cancelled, Plt Count Cancelled, MPV Cancelled, Immature Gran % (Auto) Cancelled, Neut % (Auto) Cancelled, Lymph % (Auto) Cancelled, Ritchie % (Auto) Cancelled, Eos % (Auto) Cancelled, Baso % (Auto) Cancelled, Absolute Neuts (auto) Cancelled, Absolute Lymphs (auto) Cancelled, Total Counted Cancelled, Neutrophils % (Manual) Cancelled, Band Neutrophils % Cancelled, Lymphocytes % (Manual) Cancelled, Monocytes % (Manual) Cancelled, Eosinophils % (Manual) Cancelled, Basophils % (Manual) Cancelled, Metamyelocytes % Cancelled, Myelocytes % Cancelled, Promyelocytes % Cancelled, Blast Cells % Cancelled, Plasma Cell % (Manual) Cancelled, Other Cells % Cancelled, Nucleated RBC % Cancelled, Nucleated RBCs/100 WBC Cancelled, Differential Comment Cancelled, Diff Path Review Cancelled, Hypersegmented Neuts Cancelled, Atypical Lymphocytes Cancelled, Reactive Lymphocytes Cancelled, Smudge Cells Cancelled, Toxic Granulation Cancelled, Toxic Vacuolation Cancelled, Dohle Bodies Cancelled, Saskia Rods Cancelled, Platelet Estimate Cancelled, Plt Morphology Comment Cancelled, RBC Morphology Cancelled 11/22/22 05:50: RBC Morphology Cancelled, Polychromasia Cancelled, Hypochromasia Cancelled, Poikilocytosis Cancelled, Basophilic Stippling Cancelled, Anisocytosis Cancelled, Microcytosis Cancelled, Macrocytosis Cancelled, Spherocytes Cancelled, Sickle Cells Cancelled, Target Cells Cancelled, Tear Drop Cells Cancelled, Ovalocytes Cancelled, Stomatocytes Cancelled, Tolliver-Cataula Bodies Cancelled, Kensett Cells Cancelled, Bite Cells Cancelled, Crenated Cell Cancelled, Acanthocytes (Spur) Cancelled, Rouleaux Cancelled, Schistocytes Cancelled 11/22/22 08:22: WBC 5.8, RBC 3.83 L, Hgb 11.1 L, Hct 34.3 L, MCV 89.6, MCH 29.0, MCHC 32.4, RDW Std Deviation 46.9 H, RDW Coeff of Kyree 14.3, Plt Count 390, MPV 9.0, Immature Gran % (Auto) 1.200 H, Neut % (Auto) 73.6 H, Lymph % (Auto) 17.5 L , Ritchie % (Auto) 5.5, Eos % (Auto) 1.9, Baso % (Auto) 0.3, Absolute Neuts (auto) 4.3, Absolute Lymphs (auto) 1.01, Nucleated RBC % 0, Differential Comment SCANNED, Reactive Lymphocytes 1+ Physical Exam Const oriented x3 and no apparent distress Resp normal respiratory effort GI GI Narrative: Nondistended, port site still covered with Steri-Strips and drain site covered with clean gauze?this was removed and the drain site appears sealed. Patient abdomen is soft and she has no tenderness with palpation today. Assessment & Plan Assessment/Plan (1) Acute perforated appendicitis: PLAN: Culture from surgery has returned as Klebsiella, enterococcus faecium, raoultella planticola, and E Coli. Following discussion with pharmacy including patient's allergy to PCN, patient's antibiotics were changed to Keflex and Vancomycin. Neutropenia, discussed yesterday, appears resolved with a normal white count today. Patient does have evidence of mild neutrophilia and immature granulocytes, but clinically no evidence of infection as she is afebrile and her abdominal exam is benign. Therefore, I believe we are okay to proceed without further serial CBCs at this time. ? Continue IV antibiotics based on cultures ? Patient okay to shower today, would leave Steri-Strips in place until they begin to fall off spontaneously?approval given to bedside nursing Charges/Coding Visit Charges Inpatient E&M: 68838 Subs Hosp L2
[2022-11-22 11:00] VITALS: BP 119/59; PULSE 77
[2022-11-22] MEDS: Metoprolol(XL)Succ 25 MG Tablet PO (11:00)
[2022-11-22] MEDS: Pantoprazole Sodium 20 MG Tablet PO (11:00)
[2022-11-22] MEDS: carBAMazepine 200 MG Tablet PO ×2 (11:00→21:10)
[2022-11-22] MEDS: Venlafaxine XR 75 MG Capsule PO (11:00)
[2022-11-22] MEDS: Calcium Carbonate 500 MG Tablet PO (11:00)
[2022-11-22] MEDS: Anastrozole 1 MG TABLET PO (11:01)
[2022-11-22] MEDS: Acyclovir 800 MG Tablet PO ×2 (11:01→21:10)
[2022-11-22] MEDS: Acetaminophen 500 MG Tablet 1000 MG PO ×2 (11:04→20:33)
[2022-11-22 11:10] VITALS: BP 119/59; PULSE 77; RESP 16; TEMP 36.2; O2SAT 98
[2022-11-22 13:12] LABS: Vancomycin, Trough Level 3.6 ug/mL (5.0-15.0)
[2022-11-22] MEDS: 0.9% Saline Lock 10 ML Syringe IV (13:36)
--- NOTE | 2022-11-22 13:37 | PCM.RX.CS ---
Consult Antibiotic Management Pharmacy has been consulted to manage selected antiobiotic: Vancomycin Type of Intervention Type of Consult: Follow-up Prior Doses of Antibiotics Prior Doses of Antibiotics Received/Current Regimen: Currently on 750mg iv q24h. Labs Labs: Sodium 143 mmol/L (136-145) 11/21/22 05:37 Potassium 3.8 mmol/L (3.5-5.1) 11/21/22 05:37 Chloride 112 mmol/L (98-107) H 11/21/22 05:37 Carbon Dioxide 25.0 mmol/L (21.0-32.0) 11/21/22 05:37 Anion Gap 6 (5-15) 11/21/22 05:37 BUN 8 mg/dL (7-18) 11/21/22 05:37 Creatinine 0.59 mg/dL (0.55-1.02) 11/21/22 05:37 Est GFR (MDRD) Af Amer 124 mL/min (>60) 11/21/22 05:37 Est GFR (MDRD) Non-Af 103 mL/min (>60) 11/21/22 05:37 BUN/Creatinine Ratio 13.5 RATIO (10-20) 11/21/22 05:37 Glucose 106 mg/dL (74-106) 11/21/22 05:37 Vancomycin Trough 3.6 ug/mL (5.0-15.0) L 11/22/22 12:35 Dosing Weight Weight used for dosin.9 kg Estimated Creatinine Clearance Estimated Creatinine Clearance: 54ml/min Goal Trough Goal Trough: 15-20 mcg/mL Pharmacy Plan for Drug Dosing Pharmacy Plan for Drug Dosing: Trough today was 3.6 ~23 hrs post dose and below desired level of 15-20 mcg/ml. Will increase dose to 750mg iv q12h. New trough ordered for before 4th dose of new regimen. Pharmacy Service will continue to monitor and adjust dosing as required. Follow-Up Labs Follow-Up Labs: Trough: Vancomycin (9.9.23 @0130 before 0200 dose)
[2022-11-22 13:45] VITALS: PULSE 77; RESP 16; O2SAT 98
[2022-11-22] MEDS: Vitamin B Comp W-C Capsule 1 CAP PO (21:10)
[2022-11-22] MEDS: Atorvastatin Calcium 80 MG Tablet PO (21:10)
[2022-11-23] MEDS: 0.9% Saline Lock 10 ML Syringe IV ×3 (01:44→14:18)
[2022-11-23] MEDS: Acetaminophen 500 MG Tablet 1000 MG PO ×3 (03:18→21:45)
[2022-11-23] MEDS: Cephalexin 500 MG Capsule PO ×3 (05:31→21:45)
[2022-11-23] MEDS: traMADol 50 MG Tablet PO (08:21)
[2022-11-23] MEDS: Calcium Carbonate 500 MG Tablet PO (08:21)
[2022-11-23 09:18] VITALS: BP 141/77; PULSE 108
[2022-11-23] MEDS: carBAMazepine 200 MG Tablet PO ×2 (09:18→21:45)
[2022-11-23] MEDS: Metoprolol(XL)Succ 25 MG Tablet PO (09:18)
[2022-11-23] MEDS: Pantoprazole Sodium 20 MG Tablet PO (09:18)
[2022-11-23] MEDS: Anastrozole 1 MG TABLET PO ×2 (09:18)
[2022-11-23] MEDS: Venlafaxine XR 75 MG Capsule PO (09:18)
[2022-11-23] MEDS: Acyclovir 800 MG Tablet PO ×2 (09:19→21:45)
[2022-11-23 14:31] VITALS: BP 121/59; PULSE 69; RESP 14; TEMP 36.2; O2SAT 95
--- NOTE | 2022-11-23 16:09 | CHAPLAIN ---
Type of Pastoral Visit ___ Initial Visit _x__ Follow-up Visit ___ On-call Visit ___ General Patient Visit ___ Spiritual Assessment ___ Family Conference ___ Bereavement ___ Rapid Response ___ Code Blue ___ Other (describe below) Pastoral Care Referral From _x__ Patient ___ Family ___ Nurse ___ Physician ___ Ingredient Scaler Helper ___ Heavy Media Operator ___ Other (describe below) Sacrament/Intervention _x__ Active listening ___ Anointing ___ Episcopal ___ Bereavement ___ Communion ___ Martha exploration ___ _x__ Life review _x__ Prayer ___ Reconciliation ___ Sacrament of Sick ___ Supportive presence ___ Wedding ___ Other (describe below) Pastoral Comments
[2022-11-23] MEDS: Atorvastatin Calcium 80 MG Tablet PO (21:45)
[2022-11-23] MEDS: Vitamin B Comp W-C Capsule 1 CAP PO (21:45)
[2022-11-24] MEDS: 0.9% Saline Lock 10 ML Syringe IV ×3 (02:23→13:53)
[2022-11-24 02:35] LABS: Vancomycin, Trough Level 13.1 ug/mL (5.0-15.0)
[2022-11-24] MEDS: Cephalexin 500 MG Capsule PO ×3 (05:04→20:22)
[2022-11-24] MEDS: Acetaminophen 500 MG Tablet 1000 MG PO ×3 (05:05→20:23)
[2022-11-24 05:10] VITALS: PULSE 107; RESP 14; O2SAT 95
--- NOTE | 2022-11-24 05:39 | PCM.RX.CS ---
Consult Antibiotic Management Pharmacy has been consulted to manage selected antiobiotic: Vancomycin Type of Intervention Type of Consult: Follow-up Labs Labs: Sodium 143 mmol/L (136-145) 11/21/22 05:37 Potassium 3.8 mmol/L (3.5-5.1) 11/21/22 05:37 Chloride 112 mmol/L (98-107) H 11/21/22 05:37 Carbon Dioxide 25.0 mmol/L (21.0-32.0) 11/21/22 05:37 Anion Gap 6 (5-15) 11/21/22 05:37 BUN 8 mg/dL (7-18) 11/21/22 05:37 Creatinine 0.59 mg/dL (0.55-1.02) 11/21/22 05:37 Est GFR (MDRD) Af Amer 124 mL/min (>60) 11/21/22 05:37 Est GFR (MDRD) Non-Af 103 mL/min (>60) 11/21/22 05:37 BUN/Creatinine Ratio 13.5 RATIO (10-20) 11/21/22 05:37 Glucose 106 mg/dL (74-106) 11/21/22 05:37 Vancomycin Trough 13.1 ug/mL (5.0-15.0) 11/24/22 01:36 Pharmacy Plan for Drug Dosing Pharmacy Plan for Drug Dosing: Pharmacy Service will continue to monitor and adjust dosing as required. TROUGH 13.1 @ 11 HOURS. INCREASE TO 1G Q12H AND FOLLOW UP TROUGH PRIOR TO 4TH DOSE Follow-Up Labs Follow-Up Labs: Trough: Vancomycin Date/Time Labs Ordered Labs to be done on [date and time ordered]: 11/26 @ 6760
[2022-11-24 10:12] VITALS: BP 131/64; PULSE 99; RESP 16; TEMP 36.1; O2SAT 97
[2022-11-24 10:18] VITALS: PULSE 99
[2022-11-24] MEDS: Metoprolol(XL)Succ 25 MG Tablet PO (10:18)
[2022-11-24] MEDS: Venlafaxine XR 75 MG Capsule PO (10:18)
[2022-11-24] MEDS: Calcium Carbonate 500 MG Tablet PO (10:18)
[2022-11-24] MEDS: Pantoprazole Sodium 20 MG Tablet PO (10:18)
[2022-11-24] MEDS: carBAMazepine 200 MG Tablet PO ×2 (10:18→20:23)
[2022-11-24] MEDS: Acyclovir 800 MG Tablet PO ×2 (10:18→20:24)
[2022-11-24] MEDS: traMADol 50 MG Tablet PO (13:52)
[2022-11-24] MEDS: Vancomycin IV 1,000 MG/200 ML BAG 200 MG IV (13:53)
[2022-11-24] MEDS: Vitamin B Comp W-C Capsule 1 CAP PO (20:21)
[2022-11-24] MEDS: Atorvastatin Calcium 80 MG Tablet PO (20:22)
[2022-11-25] MEDS: Vancomycin IV 1,000 MG/200 ML BAG 200 MG IV ×2 (01:28→13:02)
[2022-11-25] MEDS: 0.9% Saline Lock 10 ML Syringe IV ×2 (01:29→13:03)
[2022-11-25] MEDS: Acetaminophen 500 MG Tablet 1000 MG PO ×3 (05:29→20:49)
[2022-11-25] MEDS: Cephalexin 500 MG Capsule PO ×3 (05:29→20:52)
[2022-11-25 08:32] VITALS: BP 135/83; PULSE 97; RESP 17; TEMP 36.4; O2SAT 96
[2022-11-25] MEDS: carBAMazepine 200 MG Tablet PO ×2 (08:37→20:49)
[2022-11-25] MEDS: Anastrozole 1 MG TABLET PO (08:37)
[2022-11-25] MEDS: Venlafaxine XR 75 MG Capsule PO (08:37)
[2022-11-25] MEDS: Pantoprazole Sodium 20 MG Tablet PO (08:37)
[2022-11-25] MEDS: Calcium Carbonate 500 MG Tablet PO (08:37)
[2022-11-25 08:38] VITALS: PULSE 97
[2022-11-25] MEDS: Metoprolol(XL)Succ 25 MG Tablet PO (08:38)
[2022-11-25] MEDS: Acyclovir 800 MG Tablet PO ×2 (08:38→20:47)
[2022-11-25] MEDS: traMADol 50 MG Tablet PO (12:58)
[2022-11-25] MEDS: Atorvastatin Calcium 80 MG Tablet PO (20:51)
[2022-11-25] MEDS: Vitamin B Comp W-C Capsule 1 CAP PO (20:51)
[2022-11-26 02:16] LABS: Vancomycin, Trough Level 18.7 ug/mL (5.0-15.0)
--- NOTE | 2022-11-26 02:44 | PCM.RX.CS ---
Consult Antibiotic Management Pharmacy has been consulted to manage selected antiobiotic: Vancomycin Type of Intervention Type of Consult: Follow-up Labs Labs: Sodium 143 mmol/L (136-145) 11/21/22 05:37 Potassium 3.8 mmol/L (3.5-5.1) 11/21/22 05:37 Chloride 112 mmol/L (98-107) H 11/21/22 05:37 Carbon Dioxide 25.0 mmol/L (21.0-32.0) 11/21/22 05:37 Anion Gap 6 (5-15) 11/21/22 05:37 BUN 8 mg/dL (7-18) 11/21/22 05:37 Creatinine 0.59 mg/dL (0.55-1.02) 11/21/22 05:37 Est GFR (MDRD) Af Amer 124 mL/min (>60) 11/21/22 05:37 Est GFR (MDRD) Non-Af 103 mL/min (>60) 11/21/22 05:37 BUN/Creatinine Ratio 13.5 RATIO (10-20) 11/21/22 05:37 Glucose 106 mg/dL (74-106) 11/21/22 05:37 Vancomycin Trough 18.7 ug/mL (5.0-15.0) H 11/26/22 01:40 Pharmacy Plan for Drug Dosing Pharmacy Plan for Drug Dosing: Pharmacy Service will continue to monitor and adjust dosing as required. TROUGH 18.7 @ 12.5 HOURS. NO CHANGES, FOLLOW UP TROUGH IN 2 DAYS Follow-Up Labs Follow-Up Labs: Trough: Vancomycin Date/Time Labs Ordered Labs to be done on [date and time ordered]: 11/28 @ 0131
[2022-11-26] MEDS: 0.9% Saline Lock 10 ML Syringe IV ×2 (02:48→13:15)
[2022-11-26] MEDS: Vancomycin IV 1,000 MG/200 ML BAG 200 MG IV ×2 (02:48→13:10)
[2022-11-26] MEDS: Cephalexin 500 MG Capsule PO ×3 (05:53→21:35)
[2022-11-26] MEDS: Acetaminophen 500 MG Tablet 1000 MG PO ×3 (05:53→21:34)
[2022-11-26 06:35] VITALS: PULSE 82; RESP 16; O2SAT 96
[2022-11-26 09:17] VITALS: BP 130/43; PULSE 92
[2022-11-26] MEDS: carBAMazepine 200 MG Tablet PO ×2 (09:17→21:35)
[2022-11-26] MEDS: Metoprolol(XL)Succ 25 MG Tablet PO (09:17)
[2022-11-26] MEDS: Acyclovir 800 MG Tablet PO ×2 (09:17→21:35)
[2022-11-26] MEDS: Pantoprazole Sodium 20 MG Tablet PO (09:18)
[2022-11-26] MEDS: Venlafaxine XR 75 MG Capsule PO (09:18)
[2022-11-26] MEDS: Anastrozole 1 MG TABLET PO (09:18)
[2022-11-26] MEDS: Calcium Carbonate 500 MG Tablet PO ×2 (09:18→21:32)
[2022-11-26] MEDS: traMADol 50 MG Tablet PO ×2 (09:18→21:32)
[2022-11-26 11:38] VITALS: BP 114/55; PULSE 83; RESP 16; TEMP 36.3; O2SAT 96
--- NOTE | 2022-11-26 13:24 | PHA.CONS_ITS ---
Documented by User: Jordan Garcia 11/26/22 13:52 TCU RX Drug Regimen Review Subjective/Objective Subjective/Objective: Subjective: 81 year old female with below past medical history hospitalized for acute perforated appendicitis, complicated by acute peritonitis, encephalopathy, admitted to TCU with debility, here for rehabilitation, strengthening, intravenous antibiotics, prior to disposition determination. Objective: Allergies Penicillins [PCN] Adverse Reaction (Verified 05/12/22 02:36) Rash Current Medications Generic Name Dose Route Start Last Admin Trade Name Freq PRN Reason Stop Dose Admin Acetaminophen 1,000 mg 11/23/22 14:00 11/26/22 13:13 Acetaminophen 500 Mg Tablet PO 1,000 mg Q8 NICHO Administration Acyclovir 800 mg 11/20/22 22:00 11/26/22 09:17 Acyclovir 800 Mg Tablet PO 800 mg BID NICHO Administration Anastrozole 1 mg 11/21/22 10:00 11/26/22 09:18 Anastrozole 1 Mg Tablet PO 1 mg DAILY NICHO Administration Atorvastatin Calcium 80 mg 11/20/22 22:00 11/25/22 20:51 Atorvastatin Calcium 80 Mg Tablet PO 80 mg QHS NICHO Administration Calcium Carbonate 500 mg 11/21/22 08:00 11/26/22 09:18 Calcium Carbonate 500 Mg Tablet PO 500 mg BREAKFAST NICHO Administration Calcium Carbonate 500 mg 11/20/22 20:20 Calcium Carbonate 500 Mg Tablet PO BID PRN PRN GI UPSET Carbamazepine 200 mg 11/20/22 22:00 11/26/22 09:17 Carbamazepine 200 Mg Tablet PO 200 mg Q12 NICHO Administration Cephalexin 500 mg 11/20/22 22:00 11/26/22 13:10 Cephalexin 500 Mg Capsule PO 11/27/22 14:01 500 mg TID NICHO Administration Sodium Chloride 250 mls @ 15 mls/hr 11/21/22 13:07 11/25/22 14:35 IV 0 mls/hr .[id number] PRN Infusion Additional IVPB Infusion Sodium Chloride 250 mls @ 15 mls/hr 11/21/22 13:07 IV .[id number] PRN Saline Flush Vancomycin HCl 1,000 mg in 200 mls @ 200 mls/hr 11/24/22 14:00 11/26/22 13:10 Vancomycin IV 200 mls/hr Q12H NICHO Administration Metoprolol Succinate 25 mg 11/21/22 10:00 11/26/22 09:17 Metoprolol(Xl)Succ 25 Mg Tablet PO 25 mg DAILY NICHO Administration Multivitamins 1 cap 11/20/22 22:00 11/25/22 20:51 Vitamin B Comp W-C Capsule PO 1 cap QHS NICHO Administration Pantoprazole Sodium 20 mg 11/21/22 10:00 11/26/22 09:18 Pantoprazole Sodium 20 Mg Tablet PO 20 mg DAILY NICHO Administration Senna/Docusate Sodium 1 tablet 11/25/22 22:24 Senna/Docusate Sodium 1 Tablet PO DAILY PRN PRN CONSTIPATION Sodium Chloride 10 - 40 ml 11/20/22 23:03 11/26/22 13:15 0.9% Saline Lock 10 Ml Syringe IV 20 ml UD PRN Administration SALINE FLUSH Tramadol HCl 50 mg 11/23/22 07:58 11/26/22 09:18 Tramadol 50 Mg Tablet PO 50 mg Q6H PRN PRN Administration Pain Score 1-10 Tuberculin PPD 0.1 ml 11/28/22 10:00 Tuberculin,Purif.Prot.Deriv. 50 Tu/Ml Vial ID 11/28/22 10:01 X1 ONE Venlafaxine HCl 75 mg 11/21/22 10:00 11/26/22 09:18 Venlafaxine Xr 75 Mg Capsule PO 75 mg DAILY NICHO Administration Problem List (Updated 11/20/22 @ 22:[address] Elvis Glass MD) Sleep apnea (Acute) Acute encephalopathy (Acute) Acute peritonitis (Acute) Debility (Acute) Acute perforated appendicitis (Acute) Acute appendicitis (Acute) CVA (cerebral vascular accident) (Chronic) GERD (gastroesophageal reflux disease) (Chronic) Depression (Chronic) HLD (hyperlipidemia) (Chronic) Vital Signs Temp Pulse Resp BP Pulse Ox O2 Del Method 97.3 F L 83 16 114/55 L 96 Room Air 11/26/22 11:38 11/26/22 11:38 11/26/22 11:38 11/26/22 11:38 11/26/22 11:38 11/26/22 11:38 Oxygen Delivery Method Room Air Weight: 66.905 kg Body Mass Index (BMI) 28.8 Sodium 143 mmol/L (136-145) 11/21/22 05:37 Potassium 3.8 mmol/L (3.5-5.1) 11/21/22 05:37 Chloride 112 mmol/L (98-107) H 11/21/22 05:37 Carbon Dioxide 25.0 mmol/L (21.0-32.0) 11/21/22 05:37 Anion Gap 6 (5-15) 11/21/22 05:37 BUN 8 mg/dL (7-18) 11/21/22 05:37 Creatinine 0.59 mg/dL (0.55-1.02) 11/21/22 05:37 Est GFR (MDRD) Af Amer 124 mL/min (>60) 11/21/22 05:37 Est GFR (MDRD) Non-Af 103 mL/min (>60) 11/21/22 05:37 BUN/Creatinine Ratio 13.5 RATIO (10-20) 11/21/22 05:37 Glucose 106 mg/dL (74-106) 11/21/22 05:37 Vancomycin Trough 18.7 ug/mL (5.0-15.0) H 11/26/22 01:40 Assessment/Plan: 1. Pain: acetaminophen 1000 mg PO Q8H, tramadol 50 mg Q6H PRN pain (1-10). Patient has received 4 doses of PRN tramadol so far in the last 3 days, all for pain score 9/10. Please continue to monitor pain level, and PRN usage as well as LFTs (AST/ALT = 158/145 on 11/16/22), and ataxia/syncope (tramadol Beer's criteria). 2. Bowel: senna/docusate 1 tablet PO BID PRN constipation. Patient has not used any PRN doses yet. Last documented bowel movement on 11/20/22. Please continue to monitor PRN usage as well as for diarrhea/constipation. 3. Herpes suppression: acyclovir 800 mg PO BID. Please continue to monitor for s/s of active herpes infection, as well as renal function (last Scr 0.59, creatinine clearance ~ 31). 4. Peritonitis: vancomycin 1000 mg IV Q12H, cephalexin 500 mg PO TID through 11/27/22. Please continue to monitor for resolution of infection, WBC count (last 5.8 on 11/22), fever (last temp 37.3 today), as well as for vancomycin related infusion syndrome, renal function (see #3 regarding current renal function), and diarrhea. Please consider adding a stop date to vancomycin to indicate total duration of therapy. 5. History of breast cancer: anastrozole 1 mg PO daily. Please continue to monitor for hot flashes, and vaginal bleeding. 6. Hyperlipidemia: atorvastatin 80 mg PO QHS. Please continue to monitor LFTs (see #1 above for most recent LFTs), for s/s of muscle pain, and lipid panel (last lipid panel 04/13/18). Please consider ordering a lipid panel as patient has not had one for > 1 year. 7. Indigestion: calcium carbonate 500 mg PO with breakfast, 500 mg PO BID PRN indigestion. Patient has not used any PRN doses of calcium carbonate to this point. Please continue to monitor for indigestion and calcium level (last 8.4 on 11/21). 8. Hypertension: metoprolol succinate 25 mg PO daily. Please continue to monitor HR (recently 83-107) and blood pressure (recently 112-151/43-83). 9. GERD: pantoprazole 20 mg PO daily. Please continue to monitor for s/s of GERD, as well as for s/s of clostridium difficile infection (Beer's criteria) as well as for s/s of bone loss/fractures (Beer's criteria). 10. Leg cramps: Vitamin B complex PO daily. Please continue to monitor for leg cramps. Assessment/Plan for indications treated with psychotropic medications: 1. Trigeminal neuralgia: carbamazepine 200 mg PO Q12H. Please continue to monitor neuropathic pain, ataxia/syncope (Beer's criteria), blood counts (labs from 11/22: Hgb 11.1, WBC 5.8, PLT 390), LFTs (see #1 above for most recent LFTs), sodium level (last sodium 143 on 11/21) and for SI. 2. Depression: venlafaxine XR 75 mg PO daily. Please see provider note regarding stable retirement use, GDR not recommended. Please continue to monitor for SI, s yncope/ataxia (Beer's criteria), and sodium level (last sodium 143 from 11/21). Medical chart and medication regimen reviewed. The following medication irregularities or issues were identified: 1. Peritonitis: vancomycin 1000 mg IV Q12H, cephalexin 500 mg PO TID through 11/27/22. Please continue to monitor for resolution of infection, WBC count (last 5.8 on 11/22), fever (last temp 37.3 today), as well as for vancomycin related infusion syndrome, renal function (see #3 regarding current renal function), and diarrhea. Please consider adding a stop date to vancomycin to indicate total duration of therapy. 2. Hyperlipidemia: atorvastatin 80 mg PO QHS. Please continue to monitor LFTs (see #1 above for most recent LFTs), for s/s of muscle pain, and lipid panel (last lipid panel 04/13/18). Please consider ordering a lipid panel as patient has not had one for > 1 year. Date Date of Note:: 11/26/22 Documented by User: Dr. Elvis Glass MD 11/26/22 17:55 TCU RX Drug Regimen Review Provider Comments Provider responsibility Provider Comments to Recommendations by Pharmacy: Agree
--- NOTE | 2022-11-26 18:20 | RAD_ITS ---
STUDY: X-RAY - LEFT SHOULDER REASON FOR EXAM: Female, 81 years old. Pain. TECHNIQUE: 4 view(s) of the shoulder. COMPARISON: Chest x-ray April 12, 2018 FINDINGS: There is mild degenerative arthrosis of the glenohumeral articulation. There is degenerative arthrosis of the acromioclavicular joint without inferior osseous spur formation. Normal acromion. Normal humeral head and visualized proximal humerus. There is visualized degenerative change in the cervical and thoracic spine. The visualized postoperative change projected over the left axilla /chest. Normal visualized pulmonary apex. RAD/Shoulder min 2 Views IMPRESSION: Mild degenerative change. No visualized acute fracture. Electronically Signed: Dana Hernnadez MD at 19:46 EDT ,
[2022-11-26] MEDS: Senna/Docusate Sodium 1 Tablet PO (18:33)
[2022-11-26] MEDS: Vitamin B Comp W-C Capsule 1 CAP PO (21:35)
[2022-11-26] MEDS: MethylPREDNISolone DosePak 4 MG BOX PO (21:35)
[2022-11-26] MEDS: Atorvastatin Calcium 80 MG Tablet PO (21:35)
[2022-11-27] MEDS: 0.9% Saline Lock 10 ML Syringe IV ×2 (02:09→13:43)
[2022-11-27] MEDS: Vancomycin IV 1,000 MG/200 ML BAG 200 MG IV ×2 (02:09→13:43)
[2022-11-27 04:40] VITALS: PULSE 80; RESP 16; O2SAT 96
[2022-11-27] MEDS: Cephalexin 500 MG Capsule PO ×2 (06:16→13:45)
[2022-11-27] MEDS: Acetaminophen 500 MG Tablet 1000 MG PO ×3 (06:16→21:37)
[2022-11-27] MEDS: traMADol 50 MG Tablet PO (09:18)
[2022-11-27] MEDS: MethylPREDNISolone DosePak 4 MG BOX PO ×4 (09:24→21:38)
[2022-11-27] MEDS: Calcium Carbonate 500 MG Tablet PO ×2 (09:25→21:36)
[2022-11-27] MEDS: Anastrozole 1 MG TABLET PO (09:25)
[2022-11-27 09:26] VITALS: BP 130/70; PULSE 106
[2022-11-27] MEDS: Metoprolol(XL)Succ 25 MG Tablet PO (09:26)
[2022-11-27] MEDS: Venlafaxine XR 75 MG Capsule PO (09:26)
[2022-11-27] MEDS: carBAMazepine 200 MG Tablet PO ×2 (09:26→21:39)
[2022-11-27] MEDS: Pantoprazole Sodium 20 MG Tablet PO (09:26)
[2022-11-27] MEDS: Acyclovir 800 MG Tablet PO ×2 (09:27→21:37)
--- NOTE | 2022-11-27 13:50 | PN.SURG_ITS ---
Subjective Subjective Patient seen and evaluated during rounds. She is found resting in bed but startles and states that she had a difficult overnight course due to frequent awakenings for medication administration. She denies any abdominal discomfort at this time and states she does not remember ever hurting. She denies any difficulty with tolerating diet. Objective Data Objective Data Vital Signs: Vital Signs Temp Pulse Resp BP Pulse Ox O2 Del Method 97.3 F L 106 H 16 130/70 H 96 Room Air 11/26/22 11:38 11/27/22 09:26 11/27/22 04:40 11/27/22 09:26 11/27/22 04:40 11/27/22 04:40 Oxygen Delivery Method Room Air Weight: 147 lb 8 oz Body Mass Index (BMI) 28.8 Intake & Output: Intake and Output for Last 24 Hours 11/25/22 11/26/22 11/27/22 23:59 23:59 23:59 Intake Total 1608.25 / 1608.25 1600 / 1600 1160 / 1160 Balance 1608.25 / 1608.25 1600 / 1600 1160 / 1160 Lab / Micro Data 11/22/22 08:22 11/21/22 05:37 Radiography Diagnostic Testing: Radiology Impression Shoulder X-Ray 11/26/22 18:20 IMPRESSION: Mild degenerative change. No visualized acute fracture. Electronically Signed: Dana Hernandez MD at 19:46 EDT Reading Location ID and State: formerly [facility] [place] Tel , Service support , Physical Exam Const Constitutional Narrative: Patient appears confused, but is able to be reoriented Resp normal respiratory effort GI GI Narrative: Nondistended, soft, operative port sites with Steri-Strips still intact?when these are removed the wounds are well approximated and well-healing. Persistent nylon suture at drain exit site Assessment & Plan Assessment/Plan (1) Acute perforated appendicitis: PLAN: Culture from surgery has returned as Klebsiella, enterococcus faecium, raoultella planticola, and E Coli. Following discussion with pharmacy including patient's allergy to PCN, pt currently receiving Keflex and Vancomycin. Clinically patient does not have any signs of infection from an abdominal standpoint, but I have stressed to her the importance of trying to maintain her sleep hygiene as she does appear to be somewhat disoriented today. ? Continue IV antibiotic therapy as above ? We will plan to remove patient's remaining nylon suture sometime later this week (please notify prior to patient's discharge if imminent) Charges/Coding Visit Charges Inpatient E&M: 23535 SNF Subs L1
[2022-11-27 15:03] VITALS: BP 130/70; PULSE 106; RESP 16; TEMP 36; O2SAT 98
[2022-11-27 15:04] VITALS: BMI 28.0
--- NOTE | 2022-11-27 16:27 | CASEMGMT ---
Social Work BIMS () and PHQ-9 (08/11) completed for MDS assessment. Shy Perez MSW SECURITY SOFTWARE ENGINEER
--- NOTE | 2022-11-27 19:55 | NURSING ---
Voicemail left with daughter, Colleen, updating that a patient tested positive for COVID on unit.
[2022-11-27] MEDS: Atorvastatin Calcium 80 MG Tablet PO (21:36)
[2022-11-27] MEDS: Vitamin B Comp W-C Capsule 1 CAP PO (21:37)
[2022-11-28] MEDS: Acetaminophen 500 MG Tablet 1000 MG PO ×3 (05:31→20:19)
[2022-11-28] MEDS: 0.9% Saline Lock 10 ML Syringe IV ×2 (05:32→17:12)
[2022-11-28 05:43] VITALS: PULSE 76; RESP 14; O2SAT 98
[2022-11-28 05:54] LABS: Hematocrit 34.9 % (37-47); Hemoglobin 10.7 g/dL (12.0-15.0); Mean Corp Hgb Conc 30.7 g/dL (32-36); Mean Corpuscular Hgb 29.7 pg (27.0-32.0); Mean Corpuscular Volume 96.9 fL (81-99); Mean Platelet Vol. 10.4 fl (6.2-12.0); POSITIVE COUNT YES; POSITIVE MORPHOLOGY YES; Platelet Count 288 K/mm3 (150-450); RBC Distribution Width CV 14.8 % (11.6-14.6); RBC Distribution Width SD 52.5 fl (35.1-43.9); White Blood Count 4.6 K/mm3 (4.4-11.0)
[2022-11-28 06:42] LABS: Differential Indicated MANUAL DIFF
[2022-11-28 06:45] LABS: Anion Gap 6 (5-15); BUN 18 mg/dL (7-18); BUN/Creat Ratio 25.1 RATIO (10-20); Chloride 99 mmol/L (98-107); Creatinine, Serum 0.72 mg/dL (0.55-1.02); EST Glomerular Filtration Rate 82 mL/min (>60); Est Glom Filt Rate - Afr Amer 100 mL/min (>60); Estimated Creatinine Clearance 30.62 ml/min; Glucose 96 mg/dL (74-106); Potassium 4.4 mmol/L (3.5-5.1); Sodium Level 134 mmol/L (136-145)
[2022-11-28 07:12] LABS: Basophil 2 % (0-1); Lymphocyte 17 % (19-41); Metamyelocyte 2 % (0-1); Monocyte 8 % (0-10); Myelocyte 2 % (0-0); Neutrophil-Band 2 % (0-5); Neutrophil-Segmented 67 % (47-70); Platelet Estimate ADEQUATE (ADEQ); Total Cells Counted 100 (MANUAL DIFF)
[2022-11-28 07:13] LABS: Absolute Lymphocyte Count 0.78 X10^3/uL (0.83-4.51); Absolute Neutrophil Count 3.2 X10^3/uL (2.0-7.7); Anisocytosis 1+; Lymphocyte # 0.78 X10^3/ul (0.83-4.51); Neutrophil # 3.16 X10^3/uL (2.7-7.7); Ovalocyte RARE
[2022-11-28] MEDS: carBAMazepine 200 MG Tablet PO ×2 (09:47→20:21)
[2022-11-28] MEDS: Acyclovir 800 MG Tablet PO ×2 (09:47→20:20)
[2022-11-28] MEDS: Calcium Carbonate 500 MG Tablet PO ×2 (09:47→20:18)
[2022-11-28] MEDS: MethylPREDNISolone DosePak 4 MG BOX PO ×4 (09:48→20:18)
[2022-11-28] MEDS: Venlafaxine XR 75 MG Capsule PO (09:48)
[2022-11-28] MEDS: Anastrozole 1 MG TABLET PO (09:48)
[2022-11-28] MEDS: Pantoprazole Sodium 20 MG Tablet PO (09:48)
[2022-11-28 09:49] VITALS: BP 131/87; PULSE 86
[2022-11-28] MEDS: Metoprolol(XL)Succ 25 MG Tablet PO (09:49)
[2022-11-28] MEDS: Tuberculin,Purif.prot.deriv. 50 TU/ML Vial 0.1 ML ID (09:53)
--- NOTE | 2022-11-28 10:42 | CASEMGMT ---
Addendum entered by Shy Perez 11/29/22 08:27: Error to below note: Dr. Gray removed suture but PICC and dressing remain. Addendum entered by Shy Perez 11/28/22 16:20: Dtr provided preferences with first choice [facility]. SW [facility]oned [facility] Addendum entered by Shy Perez 11/28/22 14:23: SW spoke with Dr. Gray, who removed the PICC and dressing. Dr. Gray approves DC at anytime. SW spoke with pt's dtr via phone and dtr's discussed having pt DC home 12/02. IDT agreeable. Dtr requesting HHC. SW sent skilled HHC agency list with quality and resource data via [employer] link to dtr to select choices. No DME needs. Plan: DC home 12/02, HHC PT/OT/ST. FIONA Adams Original Note: Social Work IDT met with patient and dtr then dtr via conference call for care plan meeting. Discussed patient's progress in PT/OT/ST/SN. Educated to [employer] insurance with [employer] 12/03, EDC 12/06. stopped IV ATB as of this morning and Dr. Gray will visit pt this week to remove dressing. Offered to set DC date. Dtr's to discuss and notify this worker. SW requested to bring in copy of advanced directives. Dtr stated she brought a copy on acute. Dtr, Colleen, is primary and dtr, Shelby, is secondary. Offered HHC vs OP at [place]. Family prefers HHC and pt has FWW at home. SW to coordinate needs at DC. Will continue to follow. FIONA Adams
--- NOTE | 2022-11-28 11:33 | PN_ITS ---
Progress Note Patient seen and examined briefly during AM rounds. Her daughter accompanies her in the room. Overall, once again, they confirm no issues from an abdominal standpoint. Several questions were raised related to patient's ongoing shoulder work-up, anemia, EKG changes, and carbamazepine use. Where able I tried to give some answers and generally deferred the rest of these questions to her PCP. I did review view patient's laboratories and there are no signs of acute infection with her CBC this morning. Further, her abdominal exam remains benign and her remaining drain stitch was removed during today's visit. From a surgical standpoint, there is no clinical indication for ongoing IV antibiotics or other therapies. Since I have been able to evaluate patient postoperatively, we will not require a postoperative follow-up as an outpatient, but patient is to be provided with our contact numbers in case an issue arises in the future. Thank you for the privilege in assisting Ms. Kristie Vasquez's care. Visit Charges Inpatient E&M: [address] [facility] Subs L1
--- NOTE | 2022-11-28 11:56 | NURSING ---
Hazardous Material Technician Note; MDS for 11/27/2022 Complete
[2022-11-28 15:32] VITALS: BP 124/66; PULSE 81; RESP 17; TEMP 36.1; O2SAT 93
--- NOTE | 2022-11-28 15:38 | NURSING ---
IN TO SEE PT AND REMOVED THE 1 SUTURE FROM ABDOMINAL.
[2022-11-28] MEDS: Ensure Plus High Protein 120 ML LIQUID PO (17:10)
[2022-11-28] MEDS: Senna/Docusate Sodium 1 Tablet PO (20:17)
[2022-11-28] MEDS: Vitamin B Comp W-C Capsule 1 CAP PO (20:19)
[2022-11-28] MEDS: Atorvastatin Calcium 80 MG Tablet PO (20:20)
[2022-11-29] MEDS: Acetaminophen 500 MG Tablet 1000 MG PO ×3 (06:03→21:06)
[2022-11-29 06:20] LABS: Anion Gap 6 (5-15); BUN 15 mg/dL (7-18); BUN/Creat Ratio 20.3 RATIO (10-20); Chloride 98 mmol/L (98-107); Creatinine, Serum 0.74 mg/dL (0.55-1.02); EST Glomerular Filtration Rate 80 mL/min (>60); Est Glom Filt Rate - Afr Amer 96 mL/min (>60); Estimated Creatinine Clearance 30.62 ml/min; Glucose 95 mg/dL (74-106); Potassium 4.3 mmol/L (3.5-5.1); Sodium Level 132 mmol/L (136-145)
[2022-11-29] MEDS: Ensure Plus High Protein 120 ML LIQUID PO ×3 (08:26→17:55)
--- NOTE | 2022-11-29 08:41 | CASEMGMT ---
Social Work Nursing reported to this worker that pt is agitated this morning, verbally upset with staff and Dr, and stating she wants to go home today no matter what we say. Nursing reported pt stating to hearing a woman yelling in the hallway, but after staff investigation, that was not accurate. SHAW phoned dtr, Shelby, to update. Shelby requesting u/a as she does this when she has a UTI. Shelby stated she will have her sister, Colleen, call pt as she listens to her. SHAW updated nursing. Shy Perez, INSTITUTE SCIENTIST SHANK BURNISHER
[2022-11-29] MEDS: MethylPREDNISolone DosePak 4 MG BOX PO ×2 (10:01→13:22)
[2022-11-29] MEDS: carBAMazepine 200 MG Tablet PO ×2 (10:01→21:07)
[2022-11-29 10:02] VITALS: PULSE 76
[2022-11-29] MEDS: Anastrozole 1 MG TABLET PO (10:02)
[2022-11-29] MEDS: Calcium Carbonate 500 MG Tablet PO ×2 (10:02→19:42)
[2022-11-29] MEDS: Metoprolol(XL)Succ 25 MG Tablet PO (10:02)
[2022-11-29] MEDS: Venlafaxine XR 75 MG Capsule PO (10:03)
[2022-11-29] MEDS: Acyclovir 800 MG Tablet PO ×2 (10:03→21:08)
[2022-11-29] MEDS: Pantoprazole Sodium 20 MG Tablet PO (10:03)
[2022-11-29 10:31] LABS: Pathologist Review Reviewed
[2022-11-29 10:40] LABS: Hematocrit 32.3 % (37-47); Hemoglobin 10.6 g/dL (12.0-15.0); Mean Corp Hgb Conc 32.8 g/dL (32-36); Mean Corpuscular Hgb 29.2 pg (27.0-32.0); POSITIVE COUNT YES; POSITIVE MORPHOLOGY YES; Platelet Count 449 K/mm3 (150-450); RBC Distribution Width CV 14.6 % (11.6-14.6); RBC Distribution Width SD 46.9 fl (35.1-43.9); Red Blood Count 3.63 M/mm3 (4.2-5.4); White Blood Count 4.6 K/mm3 (4.4-11.0)
[2022-11-29 10:41] LABS: Differential Indicated MANUAL DIFF
--- NOTE | 2022-11-29 11:06 | MDS.RN ---
Information for the mds was obtained from review of the clinical record, interview of resident, staff, and direct observation of resident's care.
[2022-11-29 11:47] LABS: Basophil 1 % (0-1); Eosinophil 2 % (0-5); Lymphocyte 21 % (19-41); Metamyelocyte 1 % (0-1); Monocyte 9 % (0-10); Neutrophil-Segmented 65 % (47-70); Platelet Estimate ADEQUATE (ADEQ); Promyelocyte 1 % (0-0); Red Cell Morphology NORM C+C NORMAL (NORM C&C); Total Cells Counted 100 (MANUAL DIFF)
[2022-11-29 15:35] VITALS: BP 129/51; PULSE 85; RESP 16; TEMP 36.6; O2SAT 96
--- NOTE | 2022-11-29 16:43 | NURSING ---
Updated family (Shelby) that staff members have tested positive for covid. She had called asking about a possible UTI and if steroids could be causing her behaviors. Told her there is an order to check a UA, and a message would be left for Dr. Glass to see if he feels steroids need stopped.
[2022-11-29] MEDS: Vitamin B Comp W-C Capsule 1 CAP PO (21:07)
[2022-11-29] MEDS: Atorvastatin Calcium 80 MG Tablet PO (21:08)
[2022-11-29 21:15] VITALS: O2SAT 98
[2022-11-29 21:28] LABS: Mucous, Urine 0 SEEN /hpf (<or=2+); Red Blood Cells-Urine 0 SEEN /hpf (0-5); Squamous Epithelial Cells - UA 0 SEEN /hpf (5-10); White Blood Cells 0 SEEN /hpf (0-5)
--- NOTE | 2022-11-29 22:56 | NURSING ---
PICC line removal orders read/verified by this RN. Supplies gathered and PICC site prepared for sterile field. RN washed hands for 2 minutes with soap and water, hands dried and clean gloves applied. Mask applied to both RN and patient. Patient placed in supine position and chucks placed under rt arm. Procedure explained to pt and questions answered. PICC site cleansed, 2x2 square gauze folded and held onto PICC site. Pt advised to hold breath and bear down while removing line. Line removed and tip intact. Pressure applied for 2 minutes for haemostasis to be achieved. Site observed by RN. Tegaderm applied over gauze pad. RN observed pt for 10 minutes while pt stayed in supine position for any change in site condition. Site remained dry and intact. Pt informed to watch for signs of infection. Bed returned to lowest position. Call light within reach. Pt denies further needs at this time.
--- NOTE | 2022-11-30 05:32 | NURSING ---
Per wood preserving plant laborer, patient refused lab draw this AM, written communication left for Dr. Glass. Contacted lab regarding no urinalysis results recieved at this time, per [facility] urinalysis to be completed at this time
[2022-11-30 05:35] LABS: Color, Urine Yellow (Yellow); Glucose, Dipstick Normal (Normal); Ketone-Dipstick Negative (Negative); Leukocyte Esterase-Dipstick Negative /ul (Negative); Nitrite-Dipstick Negative (Negative); Occult Blood-Urine Negative /ul (Negative); Protein-Dipstick 15 mg/dl (Negative); Urine Bilirubin Dipstick Negative (Negative); Urine Clarity Clear (Clear); Urine Urobilinogen Normal (Normal); Urine pH 6.5 (5.0 - 8.0)
[2022-11-30] MEDS: Acetaminophen 500 MG Tablet 1000 MG PO ×3 (05:38→22:16)
[2022-11-30 05:40] LABS: Bacteria RARE /hpf (None Seen)
--- NOTE | 2022-11-30 06:59 | NURSING ---
Pt requesting to be discharged today. Written communication left for Dr. Glass.
[2022-11-30] MEDS: carBAMazepine 200 MG Tablet PO ×2 (09:20→22:17)
[2022-11-30] MEDS: Ensure Plus High Protein 120 ML LIQUID PO ×3 (09:20→17:23)
[2022-11-30] MEDS: Calcium Carbonate 500 MG Tablet PO (09:20)
[2022-11-30] MEDS: Pantoprazole Sodium 20 MG Tablet PO (09:20)
[2022-11-30] MEDS: Anastrozole 1 MG TABLET PO (09:20)
[2022-11-30 09:21] VITALS: BP 117/51; PULSE 101
[2022-11-30] MEDS: Metoprolol(XL)Succ 25 MG Tablet PO (09:21)
[2022-11-30] MEDS: Acyclovir 800 MG Tablet PO ×2 (09:21→22:18)
[2022-11-30] MEDS: Venlafaxine XR 75 MG Capsule PO (09:21)
[2022-11-30 10:00] VITALS: RESP 16
--- NOTE | 2022-11-30 13:29 | PCM.DC.SUM ---
Providers Date of Admission: 11/20/22 Primary Care Physician: Dr. Trent Cain MD Consultations 11/21/22 19:35 Consult: General Surgery Routine Consulting Provider: Baltazar Gray Reason for Consult: Perforated Appendicitis EMERGENT Consult: No MD Notified: Yes Date Notified: 11/21/22 Time Notified: 19:35 Method of Notification: Verbal Reason For Visit: PERFORATED APPENDICITIS Diagnosis Discharge Diagnosis (1) Acute perforated appendicitis: Status: Resolved Code(s): K35.32 - Acute appendicitis with perforation, localized peritonitis, and gangrene, without abscess Plan 81 year old female with below past medical history hospitalized for acute perforated appendicitis, complicated by acute peritonitis, encephalopathy, admitted to TCU with debility, here for rehabilitation, strengthening, intravenous antibiotics, prior to disposition determination. Debility - PT/OT. Pain - Tylenol 1000mg q6h prn pain (1-10). Bowel - senna/colace 1 tablet bid. Adult immunization - Administer pneumonia vaccine, covid19 vaccine, flu vaccine as appropriate. DVT prophylaxis - Lovenox 40mg sc daily. Herpes - Acyclovir 800mg bid suppression. Breast cancer - Anastrozole 1mg daily. Hyperlipidemia - Atorvastatin 80mg qhs. Indigestion - TUMS 500mg qam, bid prn. Trigeminal neuralgia - Carbamazepine 200mg q12h. Peritonitis - multiple organism, Keflex 500mg tid thru 11/27/2022, Vancomycin 750mg IV Q24H thru 12/05/2022. Hypertension - Metoprolol succinate 25mg daily. GERD - Pantoprazole 20mg daily. 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 Leg cramps - Vitamin B complex daily. Medications at Discharge Home Medications omeprazole 20 mg capsule,delayed release 20 mg PO DAILY gerd 09/26/16 venlafaxine 75 mg capsule,extended release 24 hr (Effexor XR) 75 mg PO DAILY antidepressant 09/26/16 acyclovir 800 mg tablet 800 mg PO BID herpes 04/12/18 metoprolol succinate 25 mg tablet,extended release 24 hr 25 mg PO DAILY blood pressure 04/12/18 vitamin B complex 1 ea PO QHS suppliment 04/12/18 atorvastatin 80 mg tablet 80 mg PO QHS cholesterol #30 TABLETS 04/13/18 anastrozole 1 mg tablet 1 mg PO DAILY breast cancer 11/16/22 calcium citrate 500 mg (2,376 mg) effervescent tablet 500 mg PO DAILY calcium 11/16/22 carbamazepine 200 mg tablet,extended release,12 hr 200 mg PO Q12H seizure 11/16/22 Hospital Course Operations - (See below.) Procedures None Summary of Care Provided Minutes Spent on Discharge: 35 Hospital Course: 81 year old female with below past medical history hospitalized for acute perforated appendicitis, complicated by acute peritonitis, encephalopathy, admitted to TCU with debility, here for rehabilitation, strengthening, intravenous antibiotics, prior to disposition determination. Resident c/o left shoulder pain, X-ray shows arthritis, Medrol dose pack prescribed, not helpful, caused steroid psychosis, try Baclofen bedtime, Meloxicam. Discharge home alone 12/02/2022, [facility] PT/OT/ST, no durable medical equipment. Physical Exam Const alert General Appearance: cooperative HEENT normocephalic Eyes PERRL and EOMs intact bilaterally Neck supple, no JVD and no carotid bruits Resp normal respiratory effort, normal air movement and clear to auscultation bilaterally Cardio regular rate and regular rhythm GI normal to inspection, nondistended, normoactive bowel sounds, non-tender and non-distended Extremity normal capillary refill General Extremity: Negative for edema Skin no rashes or lesions noted General Skin Exam: no breakdown Psych affect normal Appearance: appropriate Weight / BMI Weight Weight: 64.864 kg Body Mass Index (BMI) 28.0 ABG / Lab / Microbiology Data 11/29/22 05:37 11/29/22 05:37 Laboratory: Laboratory Results - last 24 hr 11/29/22 21:15: Urine Color Yellow, Urine Clarity Clear, Urine pH 6.5, Ur Specific [place] 1.010, Urine Protein 15 H, Urine Glucose (UA) Normal, Urine Ketones Negative, Urine Occult Blood Negative, Urine Nitrite Negative, Urine Bilirubin Negative, Urine Urobilinogen Normal, Ur Leukocyte Esterase Negative, Urine RBC 0 SEEN, Urine WBC 0 SEEN, Ur Squamous Epith Cells 0 SEEN, Urine Bacteria RARE, Urine Mucus 0 SEEN Microbiology: Microbiology 11/29/22 21:15 Urine, Clean Catch Urine Culture - Preliminary GNR lactose 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 teacher 11/30/22 05:35 Nasal Secretion SARS-CoV-2 Antigen (Rapid) - Final 11/27/22 22:25 Nasal Secretion SARS-CoV-2 Antigen (Rapid) - Final D/C Instructions Discharge Diet: No restrictions Discharge Activity: Return to Normal Activity, May Shower and Use Walker Weight Bearing Status: Weight bearing as tolerated Call your doctor if your incision/area has: Continuous Slow Oozing, Sudden Increased Bleeding, Increased Pain/ Swelling, Increased Redness, Foul Smelling Discharge and Swelling at the incision site Call your doctor if you observe: Fever of 101 or Higher, Inability to urinate, Inability to have a bowel movement, Shortness of breath, Dizziness, Fainting spells, Swelling in the ankles, Chest pain and Uncontrolled pain Additional Instructions: Discharge home alone 12/02/2022, [facility] PT/OT/ST, no durable medical equipment. Please Follow Up With: Baltazar Gray MD When: As needed. Meaningful Use Info Meaningful Use Diagnoses (Choose all that apply): None applicable Discharge Plan Admission Admit Date/Time: 11/20/22 18:08 Primary Reason for Your Visit: Debility. Attending Provider: Elvis Glass Chi Primary Care Provider: Trent Cain Consulting Providers: Baltazar Gray Instructions Additional Instructions / Restrictions: Discharge home alone 12/02/2022, [facility] PT/OT/ST, no durable medical equipment. Discharge Orders/Prescriptions Prescriptions: Continued venlafaxine [Effexor XR] 75 MG capsule,extended release 24hr 75 mg PO DAILY omeprazole 20 MG capsule 20 mg PO DAILY acyclovir 800 MG tablet 800 mg PO BID metoprolol succinate 25 MG tablet extended release 24 hr 25 mg PO DAILY vitamin B complex 1 EACH tablet 1 ea PO QHS atorvastatin 80 MG tablet 80 mg PO QHS Qty: 30 0RF anastrozole 1 mg tablet 1 mg PO DAILY carbamazepine 200 mg tablet extended release 12 hr 200 mg PO Q12H calcium citrate 500 mg tablet, effervescent 500 mg PO DAILY Discontinued Glucosamine-Chondr (boswellia) 1 EACH tablet 1 ea PO BID cephalexin 500 mg capsule 500 mg PO TID Qty: 21 0RF Rx Instructions: one three times a day for 21 doses starting today linezolid [Zyvox] 600 mg tablet 600 mg PO Q12H 14 Days Qty: 28 0RF Rx Instructions: one twice a day for 28 doses Referrals / Follow Up: Trent Cain MD [Primary Care Provider] - Disposition Disposition (needs filled in before D/C Order can be placed): Home Health Service
[2022-11-30] MEDS: Meloxicam 7.5 MG Tablet PO (14:24)
--- NOTE | 2022-11-30 15:57 | NURSING ---
Updated family that staff members and patients tested covid positive.
[2022-11-30 16:00] VITALS: BP 101/59; PULSE 97; RESP 18; TEMP 36.6; O2SAT 94
[2022-11-30] MEDS: Vitamin B Comp W-C Capsule 1 CAP PO (22:16)
[2022-11-30] MEDS: Atorvastatin Calcium 80 MG Tablet PO (22:17)
[2022-11-30] MEDS: Baclofen 10 MG Tablet PO (22:19)
[2022-12-01] MEDS: Acetaminophen 500 MG Tablet 1000 MG PO ×3 (05:50→21:27)
[2022-12-01] MEDS: Ensure Plus High Protein 120 ML LIQUID PO ×3 (08:44→17:32)
[2022-12-01] MEDS: Acyclovir 800 MG Tablet PO ×2 (08:47→21:28)
[2022-12-01] MEDS: Pantoprazole Sodium 20 MG Tablet PO (08:47)
[2022-12-01] MEDS: Meloxicam 7.5 MG Tablet PO (08:47)
[2022-12-01] MEDS: Anastrozole 1 MG TABLET PO (08:47)
[2022-12-01] MEDS: Venlafaxine XR 75 MG Capsule PO (08:47)
[2022-12-01] MEDS: carBAMazepine 200 MG Tablet PO ×2 (08:47→21:28)
[2022-12-01 08:48] VITALS: BP 114/54; PULSE 91
[2022-12-01] MEDS: Metoprolol(XL)Succ 25 MG Tablet PO (08:48)
[2022-12-01] MEDS: Calcium Carbonate 500 MG Tablet PO (08:48)
--- NOTE | 2022-12-01 10:58 | NURSING ---
PT REFUSED LAB DRAW THIS AM, PICC WAS REMOVED YESTERDAY. DR GUZMAN UPDATED, OK TO DC ORDER.
[2022-12-01 16:00] VITALS: BP 114/54; PULSE 91; RESP 16; TEMP 36.3; O2SAT 97
--- NOTE | 2022-12-01 20:25 | NURSING ---
Dr. Glass aware of urine culture results. No new orders
[2022-12-01] MEDS: Baclofen 10 MG Tablet PO (21:29)
[2022-12-01] MEDS: Vitamin B Comp W-C Capsule 1 CAP PO (21:29)
[2022-12-01] MEDS: Atorvastatin Calcium 80 MG Tablet PO (21:29)
[2022-12-01 22:00] VITALS: PULSE 81; RESP 16; O2SAT 99
[2022-12-02] MEDS: Acetaminophen 500 MG Tablet 1000 MG PO (05:50)
[2022-12-02 05:56] VITALS: PULSE 87; RESP 14; O2SAT 98
[2022-12-02] MEDS: Ensure Plus High Protein 120 ML LIQUID PO (09:23)
[2022-12-02 09:26] VITALS: BP 126/46; PULSE 87
[2022-12-02] MEDS: Metoprolol(XL)Succ 25 MG Tablet PO (09:26)
[2022-12-02] MEDS: carBAMazepine 200 MG Tablet PO (09:26)
[2022-12-02] MEDS: Acyclovir 800 MG Tablet PO (09:26)
[2022-12-02] MEDS: Meloxicam 7.5 MG Tablet PO (09:27)
[2022-12-02] MEDS: Anastrozole 1 MG TABLET PO (09:27)
[2022-12-02] MEDS: Venlafaxine XR 75 MG Capsule PO (09:27)
[2022-12-02] MEDS: Pantoprazole Sodium 20 MG Tablet PO (09:27)
[2022-12-02] MEDS: Calcium Carbonate 500 MG Tablet PO (09:27)
[2022-12-03 09:41] LABS: Pathologist Review Reviewed
== END 2022-12-02 11:53 | disposition home health service (06) | DRG 949 ==
PROVIDERS: Surgery; Admitting Provider Family Medicine Geriatric Medicine; PCP Internal Medicine; Visit Provider Family Medicine Geriatric Medicine
DX: Z48.815 Encounter for surgical aftercare following surgery on the digestive system (principal); K35.32 Acute appendicitis with perforation, localized peritonitis, and gangrene, without abscess; C50.919 Malignant neoplasm of unspecified site of unspecified female breast; B96.1 Klebsiella pneumoniae [K. pneumoniae] as the cause of diseases classified elsewhere; B95.2 Enterococcus as the cause of diseases classified elsewhere; B00.9 Herpesviral infection, unspecified; I10 Essential (primary) hypertension; F32.A Depression, unspecified; E78.5 Hyperlipidemia, unspecified; G50.0 Trigeminal neuralgia; G47.30 Sleep apnea, unspecified; K21.9 Gastro-esophageal reflux disease without esophagitis; M79.7 Fibromyalgia; Z79.811 Long term (current) use of aromatase inhibitors; Z79.899 Other long term (current) drug therapy
CPT/HCPCS: 36415; 36569; 73030; 80048; 80202; 81001; 85025; 87077; 87086; 87088; 87186; 87811; 92507; 92523; 97110; 97116; 97129; 97130; 97162; 97166; 97530; 97535; 97802; J7050; A4216

== ENCOUNTER 2023-01-31 09:49 | Observation (INO) | payer MEDICARE, SELFPAY ==
[2023-01-31] VITALS (10 sets, daily range): BP systolic 107–186; BP diastolic 51–105; PULSE 87–99; RESP 11–22; TEMP 36.2–37; O2SAT 93–100; BMI 28.7
--- NOTE | 2023-01-31 10:08 | CT_ITS ---
STUDY: CT BRAIN WITHOUT CONTRAST REASON FOR EXAM: Female, 82 years old. Head injury. RADIATION DOSAGE (If Supplied By Facility): CTDIvol = ( 44.99 ) mGy, DLP = ( 863.60 ) mGycm TECHNIQUE: Transaxial CT imaging of the brain was performed without administration of intravenous contrast material. Individualized dose optimization techniques were used for this CT. COMPARISON: Comparison is made with prior study of August 08, 2020. FINDINGS: Normal soft tissue structures. Normal calvarium. There is mild cerebral atrophy with widening of the extra-axial spaces and ventricular dilatation. There are areas of decreased attenuation within the white matter tracts of the supratentorial brain, consistent with microvascular disease changes. Normal basal ganglia and thalami. Normal brainstem. There is mild cerebellar atrophy. There is no intracranial hemorrhage. There are no findings of an acute ischemic infarction. Atherosclerotic plaque formation of the cavernous portions of the internal carotid arteries bilaterally. Normal visualized paranasal sinuses. CT/Brain/Head without Contrast IMPRESSION: Chronic involutional changes of the brain. Electronically Signed: Sam Licona MD at 10:48 EST ,
--- NOTE | 2023-01-31 10:08 | CT_ITS ---
STUDY: CT CERVICAL SPINE WITHOUT CONTRAST REASON FOR EXAM: Female, 82 years old. Polytrauma due to a fall. RADIATION DOSAGE (If Supplied By Facility): CTDIvol = ( 25.72 ) mGy, DLP = ( 528.23 ) mGycm TECHNIQUE: High resolution transaxial imaging was performed without contrast material. Sagittal and coronal images were reconstructed. Individualized dose optimization techniques were used for this CT. COMPARISON: None FINDINGS: Normal craniovertebral junction. There are degenerative changes of the anterior atlantoaxial articulation. Normal odontoid process. There is straightening of the normal cervical lordosis. Normal vertebral bodies and posterior osseous elements. C2-3: Mild degree of disc space narrowing. Facet joint osteoarthritis and hypertrophy worse on the right side. Uncovertebral arthrosis. Mild bilateral neural foraminal stenosis. C3-4: Moderate degree of disc space narrowing. Spondylosis. Facet joint osteoarthritis and hypertrophy with uncovertebral arthrosis. Moderate degree of bilateral neural foraminal stenosis. C4-5: Mild degree of disc space narrowing. Uncovertebral arthrosis worse on the left side. Moderate to marked degree of left neural foraminal stenosis. C5-6: Marked degree of disc space narrowing and spondylosis. Uncovertebral arthrosis. Mild degree of bilateral neural foraminal stenosis. C6-7: Moderate degree of disc space narrowing. Spondylosis. C7-T1: Normal endplates. Normal disc height and morphology. Normal central canal and intervertebral neuroforamina. Atherosclerotic plaque formation of the carotid bifurcations. CT/Spine Cervical without Contras IMPRESSION: Multilevel degenerative changes, as described above. Electronically Signed: Sam Licona MD at 10:50 EST ,
--- NOTE | 2023-01-31 10:10 | ED.VIS.FALL ---
HPI HPI - Fall History of Present Illness Chief Complaint: Fall Informant: patient and EMS Narrative Narrative: Presents by EMS from home daughter currently present. Patient lives alone. Mechanical fall inside the home. She states would let the dogs out when she tripped over her recliner onto her right side. She hit her head she did not lose consciousness. She denies anticoagulation medicines. Typically ambulates with a walker. Reports significant pain in her right upper extremity. Status post medications by EMS. However states still in pain. She is to penicillin. Denies any lower extremity pain. Denies chest wall or abdominal pain. Denies back pain. PFSH [facility] Medical History CPAP (continuous positive airway pressure) dependence Depression Fibromyalgia GERD (gastroesophageal reflux disease) Herpes Hypertension Migraines Non-smoker Sleep apnea Home Medications omeprazole 20 mg capsule,delayed release 20 mg PO DAILY gerd 09/26/16 [History Last Taken 01/30/23] venlafaxine 75 mg capsule,extended release 24 hr (Effexor XR) 75 mg PO DAILY antidepressant 09/26/16 [History Last Taken 01/30/23] acyclovir 800 mg tablet 800 mg PO BID herpes 04/12/18 [History Last Taken 01/30/23] metoprolol succinate 25 mg tablet,extended release 24 hr 25 mg PO DAILY blood pressure 04/12/18 [History Last Taken 01/30/23] vitamin B complex 1 ea PO QHS suppliment 04/12/18 [History Last Taken 01/30/23] atorvastatin 80 mg tablet 80 mg PO QHS cholesterol #30 TABLETS 04/13/18 [Rx Last Taken 01/30/23] anastrozole 1 mg tablet 1 mg PO DAILY breast cancer 11/16/22 [History Last Taken 01/30/23] calcium citrate 500 mg (2,376 mg) effervescent tablet 500 mg PO DAILY calcium 11/16/22 [History Last Taken 01/30/23] carbamazepine 200 mg tablet,extended release,12 hr 200 mg PO Q12H seizure 11/16/22 [History Last Taken 01/30/23] Allergy/AdvReac Type Severity Reaction Status Date / Time Penicillins [PCN] AdvReac Rash Verified 01/31/23 10:01 Surgical History History of appendectomy Social History household members: none Smoking Status: Never smoker alcohol intake: never substance use type: does not use ROS ROS ED Constitutional Constitutional ED: Denies chills, fever(s) or sweats Eyes Eyes: Denies change in vision ENT ENT ED: Denies dysphagia or sore throat Cardiovascular Cardiovascular: Denies chest pain, leg edema, palpitations or racing heartbeat Respiratory/Chest Respiratory/Chest: Denies cough, dyspnea or dyspnea on exertion Gastrointestinal Gastrointestinal: Denies abdominal pain, diarrhea, nausea or vomiting Genitourinary Genitourinary ED: Denies dysuria, hematuria or urinary frequency Musculoskeletal Musculoskeletal: Reports extremity pain; Denies back pain or neck pain Integumentary Denies rash or wounds Neurologic Neurologic: Denies headache(s), paresthesias or weakness EXAM Physical Exam Const Vital Signs: 01/31/23 09:50 01/31/23 09:59 01/31/23 11:32 Temperature 97.4 F L 97.1 F L Temperature Source Temporal Pulse Rate 95 87 Pulse Rate [1] Pulse Rate [3] Pulse Rate [4] Pulse Rate [6] Pulse Rate [7] Respiratory Rate 16 11 L Respiratory Rate [1] Respiratory Rate [3] Respiratory Rate [4] Respiratory Rate [6] Respiratory Rate [7] Respiratory Effort Normal Non-Labored Respiratory Depth Normal Respiratory Pattern Normal Blood Pressure 148/90 H 129/69 H Blood Pressure [1] Blood Pressure [3] Blood Pressure [4] Blood Pressure [6] Blood Pressure [7] Blood Pressure Mean 109 Pulse Ox 96 96 94 Oxygen Delivery Method Room Air Room Air Room Air Oxygen Delivery Method [1] Oxygen Delivery Method [3] Oxygen Delivery Method [4] Oxygen Delivery Method [6] Oxygen Delivery Method [7] Oxygen Flow Rate (L/min) Oxygen Flow Rate (L/min) [1] Oxygen Flow Rate (L/min) [3] Oxygen Flow Rate (L/min) [4] Oxygen Flow Rate (L/min) [6] Oxygen Flow Rate (L/min) [7] 01/31/23 11:56 01/31/23 12:23 01/31/23 12:28 Temperature Temperature Source Pulse Rate Pulse Rate [1] 93 Pulse Rate [3] 93 Pulse Rate [4] 93 Pulse Rate [6] 87 Pulse Rate [7] 91 Respiratory Rate Respiratory Rate [1] 13 Respiratory Rate [3] 22 H Respiratory Rate [4] 17 Respiratory Rate [6] 17 Respiratory Rate [7] 15 Respiratory Effort Respiratory Depth Respiratory Pattern Blood Pressure Blood Pressure [1] 146/72 H Blood Pressure [3] 123/105 H Blood Pressure [4] 157/100 H Blood Pressure [6] 186/51 H Blood Pressure [7] 161/65 H Blood Pressure Mean Pulse Ox Oxygen Delivery Method Nasal Cannula Nasal Cannula Oxygen Delivery Method [1] Nasal Cannula Oxygen Delivery Method [3] Nasal Cannula Oxygen Delivery Method [4] Nasal Cannula Oxygen Delivery Method [6] Nasal Cannula Oxygen Delivery Method [7] Nasal Cannula Oxygen Flow Rate (L/min) 99 100 Oxygen Flow Rate (L/min) [1] 5 Oxygen Flow Rate (L/min) [3] 5 Oxygen Flow Rate (L/min) [4] 5 Oxygen Flow Rate (L/min) [6] 5 Oxygen Flow Rate (L/min) [7] 5 01/31/23 12:33 Temperature Temperature Source Pulse Rate Pulse Rate [1] Pulse Rate [3] Pulse Rate [4] Pulse Rate [6] Pulse Rate [7] Respiratory Rate Respiratory Rate [1] Respiratory Rate [3] Respiratory Rate [4] Respiratory Rate [6] Respiratory Rate [7] Respiratory Effort Respiratory Depth Respiratory Pattern Blood Pressure Blood Pressure [1] Blood Pressure [3] Blood Pressure [4] Blood Pressure [6] Blood Pressure [7] Blood Pressure Mean Pulse Ox Oxygen Delivery Method Room Air Oxygen Delivery Method [1] Oxygen Delivery Method [3] Oxygen Delivery Method [4] Oxygen Delivery Method [6] Oxygen Delivery Method [7] Oxygen Flow Rate (L/min) 99 Oxygen Flow Rate (L/min) [1] Oxygen Flow Rate (L/min) [3] Oxygen Flow Rate (L/min) [4] Oxygen Flow Rate (L/min) [6] Oxygen Flow Rate (L/min) [7] Positive well nourished and well developed Constitutional Narrative: Nontoxic however distressed during exam of the upper extremity. GCS 15 General Appearance ED: well developed HEENT Reports normocephalic, TM's normal bilaterally and moist mucous membranes HEENT Narrative: no hemotympanums normocephalic and atraumatic Eyes PERRL, EOMs intact bilaterally and conjunctivae normal General Eye ED: Yes normal appearance of both eyes Neck full ROM, no lymphadenopathy and supple Neck Narrative: No midline tenderness or step-offs. General: Negative for tenderness Chest Wall inspection of chest normal and palpation of chest normal Chest: Negative for tenderness Resp normal respiratory effort and normal air movement Resp Narrative: Symmetric breath sounds Effort and Inspection: symmetric chest movement; Negative for respiratory distress Cardio regular rate, regular rhythm and no murmurs Peripheral Pulses: pulses 2+ throughout GI normal to inspection, nondistended, normoactive bowel sounds and non-tender Palpation: Negative for guarding or rebound tenderness present Back/Spine no CVA tenderness and no thoracic nor lumbar tenderness Extremity Extremity Narrative: Lower extremities: Negative logroll no deformities no pain. Left upper extremity: Nontender with full range of motion. Right upper extremity tender to the mid clavicle proximal humerus mid humerus elbow and distal forearm with no clear deformities. Soft compartments. Pulses intact distally. General Extremety ED: Negative for edema or tenderness General Extremity: Negative for edema Neuro oriented x3, CN's II-XII intact bilaterally and no sensory deficits noted Sensorium / Orientation: awake and alert Skin no rashes or lesions noted and no wounds MDM MDM MDM Narrative Medical decision making narrative: Interventions / MDM: Differential diagnosis: Fractures Diagnosis considered but do not suspect: Intracranial hemorrhage however CT negative. My EKG interpretation: N/A Imaging independently reviewed and interpreted by myself: CT brain: No intracranial hemorrhage. CT cervical spine: Degenerative changes of cervical spine mainly at C5-C6. No fractures noted. 1 view chest x-ray: No acute process. Right humerus 2 views displaced mid humerus fracture. 2 views right forearm no fracture noted. External documents reviewed: N/A Test considered but not ordered:N/A ED course: Patient significant pain during evaluation. Patient stabs IV additional morphine given. Head injury from the fall no anticoagulants. Trauma scans head and neck ordered. X-ray chest humerus forearm ordered for further evaluation. Trauma scans were negative head and neck. X-rays upper extremity and chest noting a displaced humeral fracture with shortening. Patient wrist extensors intact on reevaluation. I discussed with on-call orthopedist Dr. Espinoza recommending splinting for stabilization, radial nerve intact, possible nonsurgical treatment. d/w not able care for self at home and will need admission. He will see as consult. D/w Dr. Camarillo for admission. Re-evaluation: stable Disposition discussed with patient/family/significant other: Case discussed with consulting clinician: N/A This note was generated with [employer] dictation software. It may contain incorrect words, spelling, and punctuation that were not noted in checking the note before signing. Lab Data Labs: Laboratory Results - last 24 hr 01/31/23 10:15 WBC 5.7 RBC 3.95 L Hgb 11.6 L Hct 35.9 L MCV 90.9 MCH 29.4 MCHC 32.3 RDW Std Deviation 46.7 H RDW Coeff of Kyree 14.0 Plt Count 399 MPV 8.5 Immature Gran % (Auto) 0.700 Neut % (Auto) 75.9 H Lymph % (Auto) 15.8 L [place] % (Auto) 4.8 Eos % (Auto) 2.3 Baso % (Auto) 0.5 Absolute Neuts (auto) 4.3 Absolute Lymphs (auto) 0.89 Nucleated RBC % 0 PT 14.5 INR 1.1 APTT 24.1 Sodium 140 Potassium 4.1 Chloride 104 Carbon Dioxide 27.0 Anion Gap 9 BUN 17 Creatinine 0.96 Est GFR (MDRD) Af Amer 71 Est GFR (MDRD) Non-Af 59 L BUN/Creatinine Ratio 17.7 Glucose 133 H Calcium 9.2 Radiography Diagnostic Testing: Clinical Impression(s) from Imaging Studies Brain CT 01/31/23 10:08 IMPRESSION: Chronic involutional changes of the brain. Electronically Signed: Sam Licona MD at 10:48 EST , Cervical Spine CT 01/31/23 10:08 IMPRESSION: Multilevel degenerative changes, as described above. Electronically Signed: Sam Licona MD at 10:50 EST , Chest X-Ray 01/31/23 10:30 IMPRESSION: Mild increased markings at the lung apices suggestive of scarring. Electronically Signed: Sam Licona MD at 10:58 EST , Forearm X-Ray 01/31/23 10:30 IMPRESSION: Normal x-ray examination of the radius and ulna. Electronically Signed: Sam Licona MD at 10:58 EST , Humerus X-Ray 01/31/23 10:30 IMPRESSION: Comminuted fracture of the midshaft of the right humerus with overlapping of the fracture fragments as well as an avulsion fracture of the greater tuberosity of the proximal humerus. Electronically Signed: aSm Licona MD at 10:59 EST , Procedures Procedural Sedation 1 (Initial Baseline): Consent Signed: Yes Any Problems With Anesthesia: No You/Your family experience fever (hyperthermia) w/anesthesia: No Relationship: daughter Sedation medication: Ketamine Dose: 130 Route: IV Maliampati Score: Class II ASA Classification: II Comment:: timeout performed. manager monitoring, O2, capnography, IVF. Ketamine given. Nursing assist for splint. Nylon sleep up arm to shouler, curlex padding whole arm with extra padding to mid humerous. 4inch plaster used for coap splint medial to lateral upper arm. 5in plaster long arm splint stopping at wrist. additional 3in plaster horseshoe splint over deltoid, Jaswant wrap to secure. Sling to hanging elbow. NV intact post splint. Sedation time 2 minutes. normal sinus rhythm on monitor. No complications. Discharge Plan Dx/Rx/DC Orders Clinical Impression: Right humeral fracture, Debility, Fall Disposition Disposition: Acute Care Hospital [facility] Discharge Date/Time: 01/31/23 14:20
[2023-01-31] MEDS: Morphine 4 MG/ML Syringe IV ×2 (10:15→14:07)
[2023-01-31 10:25] LABS: Absolute Lymphocyte Count 0.89 X10^3/uL (0.83-4.51); Absolute Neutrophil Count 4.3 X10^3/uL (2.0-7.7); Basophil# 0.03 X10^3/uL; Basophil% 0.5 % (0-1); Eosinophil# 0.13 X10^3/uL; Eosinophils% 2.3 % (0-5); Hematocrit 35.9 % (37-47); Hemoglobin 11.6 g/dL (12.0-15.0); Lymphocyte # 0.89 X10^3/ul (0.83-4.51); Lymphocyte % 15.8 % (19-41); Mean Corp Hgb Conc 32.3 g/dL (32-36); Mean Corpuscular Hgb 29.4 pg (27.0-32.0); Mean Corpuscular Volume 90.9 fL (81-99); Mean Platelet Vol. 8.5 fl (6.2-12.0); Monocyte# 0.27 X10^3/uL; Monocyte% 4.8 % (0-10); NRBC Flagged by Analyzer 0 % (0-5); Neutrophil # 4.29 X10^3/uL (2.7-7.7); Neutrophil % 75.9 % (47-70); Platelet Count 399 K/mm3 (150-450); RBC Distribution Width SD 46.7 fl (35.1-43.9); Red Blood Count 3.95 M/mm3 (4.2-5.4); White Blood Count 5.7 K/mm3 (4.4-11.0)
--- NOTE | 2023-01-31 10:30 | RAD_ITS ---
STUDY: X-RAY - RIGHT RADIUS AND ULNA REASON FOR EXAM: Female, 82 years old. Trauma TECHNIQUE: 2 view(s) of the forearm. COMPARISON: None. FINDINGS: There is no demonstrated soft tissue swelling. Normal visualized radius. Normal visualized ulna. RAD/Forearm 2 Views IMPRESSION: Normal x-ray examination of the radius and ulna. Electronically Signed: Sam Licona MD at 10:58 EST ,
--- NOTE | 2023-01-31 10:30 | RAD_ITS ---
STUDY: X-RAY CHEST REASON FOR EXAM: Female, 82 years old. Trauma TECHNIQUE: Single AP portable view of the chest. COMPARISON: Comparison is made with prior study dated April 12, 2018. FINDINGS: Surgical clips are seen in the left axilla and prior left mastectomy. Mild increased markings at the lung apices suggestive of scarring. There is no demonstrated pleural abnormality. Normal size heart. Normal mediastinum and dayana. Normal visualized pulmonary arteries. There is atherosclerotic tortuosity of the aortic arch and descending thoracic aorta. There are degenerative changes of the visualized thoracic spine. Normal visualized ribs, clavicles, and shoulders. There is no demonstrated abnormality of the visualized soft tissue structures of the upper abdomen. RAD/Chest 1 View (Portable) IMPRESSION: Mild increased markings at the lung apices suggestive of scarring. Electronically Signed: Sam Licona MD at 10:58 EST ,
--- NOTE | 2023-01-31 10:30 | RAD_ITS ---
STUDY: X-RAY - RIGHT HUMERUS REASON FOR EXAM: Female, 82 years old. Trauma TECHNIQUE: 2 view(s) of the humerus. COMPARISON: None. FINDINGS: Comminuted fracture with overlapping of the fracture fragments in the mid humerus. There is also evidence of an avulsion fracture of the proximal right humerus. Degenerative changes of the acromioclavicular joint. Soft tissue swelling. RAD/Humerus min 2 Views IMPRESSION: Comminuted fracture of the midshaft of the right humerus with overlapping of the fracture fragments as well as an avulsion fracture of the greater tuberosity of the proximal humerus. Electronically Signed: Sam Licona MD at 10:59 EST ,
[2023-01-31 10:40] LABS: Anion Gap 9 (5-15); BUN 17 mg/dL (7-18); BUN/Creat Ratio 17.7 RATIO (10-20); Calcium,Total 9.2 mg/dL (8.5-10.1); Chloride 104 mmol/L (98-107); Creatinine, Serum 0.96 mg/dL (0.55-1.02); EST Glomerular Filtration Rate 59 mL/min (>60); Est Glom Filt Rate - Afr Amer 71 mL/min (>60); Glucose 133 mg/dL (74-106); Potassium 4.1 mmol/L (3.5-5.1); Sodium Level 140 mmol/L (136-145)
[2023-01-31 10:58] LABS: International Normalized Ratio 1.1; Prothrombin Time (Protime)PT. 14.5 SECONDS (11.7-14.9)
[2023-01-31 11:00] LABS: Partial Thromboplast Time 24.1 Seconds (24.1-36.2)
--- NOTE | 2023-01-31 11:38 | ED.RN ---
BED IN PT ROOM DOES NOT WT.
[2023-01-31] MEDS: 0.9% Normal Saline (1000mL) 1,000 ML 30 ML IV (11:53)
[2023-01-31] MEDS: Ondansetron 4 MG/2 ML Vial IV (11:54)
[2023-01-31] MEDS: Ketamine HCl 500 MG/5 ML Vial 130 MG IV (11:54)
--- NOTE | 2023-01-31 15:08 | HP.PCM.HOS_ITS ---
HPI - General General Date of Admission: 01/31/23 Date of Service: 01/31/23 Chief Complaint: fall HPI Narrative ROLANDO FIGUEREDO, is a 82 F who presents for fall. Patient was taking her dogs out when she tripped over recliner and landed on her right side. Patient presented to the emergency room and was found to have an acute displaced right humerus fracture. It was splinted and put in a sling in the emergency room. They reached out to orthopedics who did see the patient in consultation determine if conservative measures or surgery be indicated. [facility] Medical History CPAP (continuous positive airway pressure) dependence Depression Fibromyalgia GERD (gastroesophageal reflux disease) Herpes Hypertension Migraines Non-smoker Sleep apnea Home Medications omeprazole 20 mg capsule,delayed release 20 mg PO DAILY gerd 09/26/16 [History Last Taken 01/30/23] venlafaxine 75 mg capsule,extended release 24 hr (Effexor XR) 75 mg PO DAILY antidepressant 09/26/16 [History Last Taken 01/30/23] acyclovir 800 mg tablet 800 mg PO BID herpes 04/12/18 [History Last Taken 01/30/23] metoprolol succinate 25 mg tablet,extended release 24 hr 25 mg PO DAILY blood pressure 04/12/18 [History Last Taken 01/30/23] vitamin B complex 1 ea PO QHS suppliment 04/12/18 [History Last Taken 01/30/23] atorvastatin 80 mg tablet 80 mg PO QHS cholesterol #30 TABLETS 04/13/18 [Rx Last Taken 01/30/23] anastrozole 1 mg tablet 1 mg PO DAILY breast cancer 11/16/22 [History Last Taken 01/30/23] calcium citrate 500 mg (2,376 mg) effervescent tablet 500 mg PO DAILY calcium 11/16/22 [History Last Taken 01/30/23] carbamazepine 200 mg tablet,extended release,12 hr 200 mg PO Q12H seizure 11/16/22 [History Last Taken 01/30/23] Allergy/AdvReac Type Severity Reaction Status Date / Time Penicillins [PCN] AdvReac Rash Verified 01/31/23 10:01 Surgical History History of appendectomy Social History household members: none Smoking Status: Never smoker alcohol intake: never substance use type: does not use ROS ROS Narrative All review of systems were negative except as mentioned above in the history of present illness and the other review of systems. Vital Signs Vital Signs Vital Signs: 01/31/23 09:50 01/31/23 09:59 01/31/23 11:32 Temperature 36.3 C L 36.2 C L Temperature Source Temporal Pulse Rate 95 87 Pulse Rate [1] Pulse Rate [3] Pulse Rate [4] Pulse Rate [6] Pulse Rate [7] Respiratory Rate 16 11 L Respiratory Rate [1] Respiratory Rate [3] Respiratory Rate [4] Respiratory Rate [6] Respiratory Rate [7] Respiratory Effort Normal Non-Labored Respiratory Depth Normal Respiratory Pattern Normal Blood Pressure 148/90 H 129/69 H Blood Pressure [1] Blood Pressure [3] Blood Pressure [4] Blood Pressure [6] Blood Pressure [7] Blood Pressure Mean 109 Blood Pressure Source Blood Pressure Position Blood Pressure Location Pulse Ox 96 96 94 Oxygen Delivery Method Room Air Room Air Room Air Oxygen Delivery Method [1] Oxygen Delivery Method [3] Oxygen Delivery Method [4] Oxygen Delivery Method [6] Oxygen Delivery Method [7] Oxygen Flow Rate (L/min) Oxygen Flow Rate (L/min) [1] Oxygen Flow Rate (L/min) [3] Oxygen Flow Rate (L/min) [4] Oxygen Flow Rate (L/min) [6] Oxygen Flow Rate (L/min) [7] 01/31/23 11:56 01/31/23 12:23 01/31/23 12:28 Temperature Temperature Source Pulse Rate Pulse Rate [1] 93 Pulse Rate [3] 93 Pulse Rate [4] 93 Pulse Rate [6] 87 Pulse Rate [7] 91 Respiratory Rate Respiratory Rate [1] 13 Respiratory Rate [3] 22 H Respiratory Rate [4] 17 Respiratory Rate [6] 17 Respiratory Rate [7] 15 Respiratory Effort Respiratory Depth Respiratory Pattern Blood Pressure Blood Pressure [1] 146/72 H Blood Pressure [3] 123/105 H Blood Pressure [4] 157/100 H Blood Pressure [6] 186/51 H Blood Pressure [7] 161/65 H Blood Pressure Mean Blood Pressure Source Blood Pressure Position Blood Pressure Location Pulse Ox Oxygen Delivery Method Nasal Cannula Nasal Cannula Oxygen Delivery Method [1] Nasal Cannula Oxygen Delivery Method [3] Nasal Cannula Oxygen Delivery Method [4] Nasal Cannula Oxygen Delivery Method [6] Nasal Cannula Oxygen Delivery Method [7] Nasal Cannula Oxygen Flow Rate (L/min) 99 100 Oxygen Flow Rate (L/min) [1] 5 Oxygen Flow Rate (L/min) [3] 5 Oxygen Flow Rate (L/min) [4] 5 Oxygen Flow Rate (L/min) [6] 5 Oxygen Flow Rate (L/min) [7] 5 01/31/23 12:33 01/31/23 13:23 01/31/23 14:18 Temperature 37.0 C Temperature Source Oral Pulse Rate 99 95 Pulse Rate [1] Pulse Rate [3] Pulse Rate [4] Pulse Rate [6] Pulse Rate [7] Respiratory Rate 14 15 Respiratory Rate [1] Respiratory Rate [3] Respiratory Rate [4] Respiratory Rate [6] Respiratory Rate [7] Respiratory Effort Respiratory Depth Respiratory Pattern Blood Pressure 133/63 H 121/78 H Blood Pressure [1] Blood Pressure [3] Blood Pressure [4] Blood Pressure [6] Blood Pressure [7] Blood Pressure Mean 86 92 Blood Pressure Source Monitor Blood Pressure Position Semi-Fowlers Blood Pressure Location Left Arm Pulse Ox 93 98 Oxygen Delivery Method Room Air Nasal Cannula Oxygen Delivery Method [1] Oxygen Delivery Method [3] Oxygen Delivery Method [4] Oxygen Delivery Method [6] Oxygen Delivery Method [7] Oxygen Flow Rate (L/min) 99 2 Oxygen Flow Rate (L/min) [1] Oxygen Flow Rate (L/min) [3] Oxygen Flow Rate (L/min) [4] Oxygen Flow Rate (L/min) [6] Oxygen Flow Rate (L/min) [7] Weight Weight: 67.8 kg Body Mass Index (BMI) 28.7 Physical Exam Const alert and no apparent distress HEENT normocephalic Neck no lymphadenopathy Resp normal respiratory effort, no retractions, no use of accessory muscles and clear to auscultation bilaterally Cardio regular rate, regular rhythm, S1 normal heart sound and S2 normal heart sound GI normal to inspection, nondistended, normoactive bowel sounds, soft to palpation, non-tender and non-distended Extremity Extremity Narrative: Right arm in a cast. Neuro moves all extremities Sensorium / Orientation: awake and alert Results Lab / Micro Data Attestation: I reviewed the patient's lab results. 01/31/23 10:15 01/31/23 10:15 Labs: Laboratory Results - last 24 hr 01/31/23 10:15: WBC 5.7, RBC 3.95 L, Hgb 11.6 L, Hct 35.9 L, MCV 90.9, MCH 29.4, MCHC 32.3, RDW Std Deviation 46.7 H, RDW Coeff of Kyree 14.0, Plt Count 399, MPV 8.5, Immature Gran % (Auto) 0.700, Neut % (Auto) 75.9 H, Lymph % (Auto) 15.8 L, [place] % (Auto) 4.8, Eos % (Auto) 2.3, Baso % (Auto) 0.5, Absolute Neuts (auto) 4.3, Absolute Lymphs (auto) 0.89, Nucleated RBC % 0, PT 14.5, INR 1.1, APTT 24.1, Sodium 140, Potassium 4.1, Chloride 104, Carbon Dioxide 27.0, Anion Gap 9, BUN 17, Creatinine 0.96, Est GFR (MDRD) Af Amer 71, Est GFR (MDRD) Non-Af 59 L, BUN/Creatinine Ratio 17.7, Glucose 133 H, Calcium 9.[address] 01/31/23 10:08 IMPRESSION: Chronic involutional changes of the brain. Electronically Signed: Sam Licona MD at 10:48 EST , Cervical Spine CT 01/31/23 10:08 IMPRESSION: Multilevel degenerative changes, as described above. Electronically Signed: Sam Licona MD at 10:50 EST , Chest X-Ray 01/31/23 10:30 IMPRESSION: Mild increased markings at the lung apices suggestive of scarring. Electronically Signed: Sam Licona MD at 10:58 EST , Forearm X-Ray 01/31/23 10:30 IMPRESSION: Normal x-ray examination of the radius and ulna. Electronically Signed: Sam Licona MD at 10:58 EST , Humerus X-Ray 01/31/23 10:30 IMPRESSION: Comminuted fracture of the midshaft of the right humerus with overlapping of the fracture fragments as well as an avulsion fracture of the greater tuberosity of the proximal humerus. Electronically Signed: Sam Licona MD at 10:59 EST , Assessment & Plan Assessment/Plan (1) Right humeral fracture: QUALIFIERS: Encounter type: initial encounter Humerus Location: shaft Fracture type: closed Fracture morphology: comminuted Fracture alignment: displaced Qualified Code(s): S42.351A - Displaced comminuted fracture of shaft of humerus, right arm, initial encounter for closed fracture PLAN: Status post mechanical fall. Casted in sling from the emergency room per orthopedic recommendations. Orthopedics will be on consult. Patient peers to be pretty comfortable at this time but patient will have pain medication available as needed. We will check a 25-hydroxy vitamin D level. Given her fall which was more mechanical tripping, will still have physical and occupational therapy see her to determine if she may be a candidate for longterm facility. Patient seems more inclined to returning home. Patient states that she uses her walker only when she has to take her dog out otherwise does not use a walker. PLAN: Plan Chronic conditions * Breast cancer, hyperlipidemia, coronary artery disease, history of stroke, hypertension, PETER: Stable. Home medications reviewed and reconciled. VTE prophylaxis: Not indicated given current observation status. CODE STATUS: Addressed with the patient. Patient is to be DNR Comfort Care arrest Disposition: To be determined. Patient seems more inclined to going home. We will wait on therapy evaluations to be home versus longterm facility. Case discussed with the patient's granddaughter at bedside Charges/Coding Visit Charges Inpatient E&M: 21395 Init Hosp L2
[2023-01-31] MEDS: Acetaminophen 325 MG Tablet 650 MG PO (15:25)
[2023-01-31] MEDS: oxyCODONE 5 MG Tablet PO ×2 (15:26→20:38)
--- NOTE | 2023-01-31 16:59 | CONS.ORTHO ---
HPI Consult Data Date of Consult: 01/31/23 HPI Narrative HPI Narrative: ROLANDO FIGUEREDO, is a 82 F who presents after a fall. She was trying to take her dogs for a walk and tripped and fell. She denies any other injuries. She denies hitting her head. She mentions that she is able to walk without any ambulatory aid but uses a rollator walker so that she can sit after she gets tired when she is walking her dog. [facility] Medical History CPAP (continuous positive airway pressure) dependence Depression Fibromyalgia GERD (gastroesophageal reflux disease) Herpes Hypertension Migraines Non-smoker Sleep apnea Home Medications omeprazole 20 mg capsule,delayed release 20 mg PO DAILY gerd 09/26/16 [History Last Taken 01/30/23] venlafaxine 75 mg capsule,extended release 24 hr (Effexor XR) 75 mg PO DAILY antidepressant 09/26/16 [History Last Taken 01/30/23] acyclovir 800 mg tablet 800 mg PO BID herpes 04/12/18 [History Last Taken 01/30/23] metoprolol succinate 25 mg tablet,extended release 24 hr 25 mg PO DAILY blood pressure 04/12/18 [History Last Taken 01/30/23] vitamin B complex 1 ea PO QHS suppliment 04/12/18 [History Last Taken 01/30/23] atorvastatin 80 mg tablet 80 mg PO QHS cholesterol #30 TABLETS 04/13/18 [Rx Last Taken 01/30/23] anastrozole 1 mg tablet 1 mg PO DAILY breast cancer 11/16/22 [History Last Taken 01/30/23] calcium citrate 500 mg (2,376 mg) effervescent tablet 500 mg PO DAILY calcium 11/16/22 [History Last Taken 01/30/23] carbamazepine 200 mg tablet,extended release,12 hr 200 mg PO Q12H seizure 11/16/22 [History Last Taken 01/30/23] Allergy/AdvReac Type Severity Reaction Status Date / Time Penicillins [PCN] AdvReac Rash Verified 01/31/23 10:01 Surgical History History of appendectomy Social History household members: none Smoking Status: Never smoker alcohol intake: never substance use type: does not use Vital Signs Vital Signs Vital Signs: 01/31/23 09:50 01/31/23 09:59 01/31/23 11:32 Temperature 97.4 F L 97.1 F L Temperature Source Temporal Pulse Rate 95 87 Pulse Rate [1] Pulse Rate [3] Pulse Rate [4] Pulse Rate [6] Pulse Rate [7] Respiratory Rate 16 11 L Respiratory Rate [1] Respiratory Rate [3] Respiratory Rate [4] Respiratory Rate [6] Respiratory Rate [7] Respiratory Effort Normal Non-Labored Respiratory Depth Normal Respiratory Pattern Normal Blood Pressure 148/90 H 129/69 H Blood Pressure [1] Blood Pressure [3] Blood Pressure [4] Blood Pressure [6] Blood Pressure [7] Blood Pressure Mean 109 Blood Pressure Source Blood Pressure Position Blood Pressure Location Pulse Ox 96 96 94 Oxygen Delivery Method Room Air Room Air Room Air Oxygen Delivery Method [1] Oxygen Delivery Method [3] Oxygen Delivery Method [4] Oxygen Delivery Method [6] Oxygen Delivery Method [7] Oxygen Flow Rate (L/min) Oxygen Flow Rate (L/min) [1] Oxygen Flow Rate (L/min) [3] Oxygen Flow Rate (L/min) [4] Oxygen Flow Rate (L/min) [6] Oxygen Flow Rate (L/min) [7] 01/31/23 11:56 01/31/23 12:23 01/31/23 12:28 Temperature Temperature Source Pulse Rate Pulse Rate [1] 93 Pulse Rate [3] 93 Pulse Rate [4] 93 Pulse Rate [6] 87 Pulse Rate [7] 91 Respiratory Rate Respiratory Rate [1] 13 Respiratory Rate [3] 22 H Respiratory Rate [4] 17 Respiratory Rate [6] 17 Respiratory Rate [7] 15 Respiratory Effort Respiratory Depth Respiratory Pattern Blood Pressure Blood Pressure [1] 146/72 H Blood Pressure [3] 123/105 H Blood Pressure [4] 157/100 H Blood Pressure [6] 186/51 H Blood Pressure [7] 161/65 H Blood Pressure Mean Blood Pressure Source Blood Pressure Position Blood Pressure Location Pulse Ox Oxygen Delivery Method Nasal Cannula Nasal Cannula Oxygen Delivery Method [1] Nasal Cannula Oxygen Delivery Method [3] Nasal Cannula Oxygen Delivery Method [4] Nasal Cannula Oxygen Delivery Method [6] Nasal Cannula Oxygen Delivery Method [7] Nasal Cannula Oxygen Flow Rate (L/min) 99 100 Oxygen Flow Rate (L/min) [1] 5 Oxygen Flow Rate (L/min) [3] 5 Oxygen Flow Rate (L/min) [4] 5 Oxygen Flow Rate (L/min) [6] 5 Oxygen Flow Rate (L/min) [7] 5 01/31/23 12:33 01/31/23 13:23 01/31/23 14:18 Temperature 98.6 F Temperature Source Oral Pulse Rate 99 95 Pulse Rate [1] Pulse Rate [3] Pulse Rate [4] Pulse Rate [6] Pulse Rate [7] Respiratory Rate 14 15 Respiratory Rate [1] Respiratory Rate [3] Respiratory Rate [4] Respiratory Rate [6] Respiratory Rate [7] Respiratory Effort Respiratory Depth Respiratory Pattern Blood Pressure 133/63 H 121/78 H Blood Pressure [1] Blood Pressure [3] Blood Pressure [4] Blood Pressure [6] Blood Pressure [7] Blood Pressure Mean 86 92 Blood Pressure Source Monitor Blood Pressure Position Semi-Fowlers Blood Pressure Location Left Arm Pulse Ox 93 98 Oxygen Delivery Method Room Air Nasal Cannula Oxygen Delivery Method [1] Oxygen Delivery Method [3] Oxygen Delivery Method [4] Oxygen Delivery Method [6] Oxygen Delivery Method [7] Oxygen Flow Rate (L/min) 99 2 Oxygen Flow Rate (L/min) [1] Oxygen Flow Rate (L/min) [3] Oxygen Flow Rate (L/min) [4] Oxygen Flow Rate (L/min) [6] Oxygen Flow Rate (L/min) [7] 01/31/23 14:38 Temperature Temperature Source Pulse Rate Pulse Rate [1] Pulse Rate [3] Pulse Rate [4] Pulse Rate [6] Pulse Rate [7] Respiratory Rate Respiratory Rate [1] Respiratory Rate [3] Respiratory Rate [4] Respiratory Rate [6] Respiratory Rate [7] Respiratory Effort Normal Non-Labored Respiratory Depth Normal Respiratory Pattern Normal Blood Pressure Blood Pressure [1] Blood Pressure [3] Blood Pressure [4] Blood Pressure [6] Blood Pressure [7] Blood Pressure Mean Blood Pressure Source Blood Pressure Position Blood Pressure Location Pulse Ox Oxygen Delivery Method Nasal Cannula Oxygen Delivery Method [1] Oxygen Delivery Method [3] Oxygen Delivery Method [4] Oxygen Delivery Method [6] Oxygen Delivery Method [7] Oxygen Flow Rate (L/min) 2 Oxygen Flow Rate (L/min) [1] Oxygen Flow Rate (L/min) [3] Oxygen Flow Rate (L/min) [4] Oxygen Flow Rate (L/min) [6] Oxygen Flow Rate (L/min) [7] Weight Weight: 149 lb 7.574 oz Body Mass Index (BMI) 28.7 Physical Exam Narrative I performed a second skeletal survey. She has full range of motion without pain of left upper and bilateral lower extremities. She denies any pain neck movements. All of her pain seems to be in the right arm. Her right arm is in a coaptation splint. She has been placed in a sling. The sling seems to be going around the elbow and not a cuff and collar. Examination of the right hand shows good active wrist dorsiflexion as well as MCP extension. Distal neurovascular exam is intact. Lab / Micro Data 01/31/23 10:15 01/31/23 10:15 Labs: Laboratory Results - last 24 hr 01/31/23 10:15: WBC 5.7, RBC 3.95 L, Hgb 11.6 L, Hct 35.9 L, MCV 90.9, MCH 29.4, MCHC 32.3, RDW Std Deviation 46.7 H, RDW Coeff of Kyree 14.0, Plt Count 399, MPV 8.5, Immature Gran % (Auto) 0.700, Neut % (Auto) 75.9 H, Lymph % (Auto) 15.8 L, [place] % (Auto) 4.8, Eos % (Auto) 2.3, Baso % (Auto) 0.5, Absolute Neuts (auto) 4.3, Absolute Lymphs (auto) 0.89, Nucleated RBC % 0, PT 14.5, INR 1.1, APTT 24.1, Sodium 140, Potassium 4.1, Chloride 104, Carbon Dioxide 27.0, Anion Gap 9, BUN 17, Creatinine 0.96, Est GFR (MDRD) Af Amer 71, Est GFR (MDRD) Non-Af 59 L, BUN/Creatinine Ratio 17.7, Glucose 133 H, Calcium 9.[address] 01/31/23 10:08 IMPRESSION: Chronic involutional changes of the brain. Electronically Signed: Sam Licona MD at 10:48 EST , Cervical Spine CT 01/31/23 10:08 IMPRESSION: Multilevel degenerative changes, as described above. Electronically Signed: Sam Licona MD at 10:50 EST , Chest X-Ray 01/31/23 10:30 IMPRESSION: Mild increased markings at the lung apices suggestive of scarring. Electronically Signed: Sam Licona MD at 10:58 EST Reading Location ID and State: [facility] / ID , Service support , Forearm X-Ray 01/31/23 10:30 IMPRESSION: Normal x-ray examination of the radius and ulna. Electronically Signed: Sam Licona MD at 10:58 EST Reading Location ID and State: [facility] / ID , Service support , Humerus X-Ray 01/31/23 10:30 IMPRESSION: Comminuted fracture of the midshaft of the right humerus with overlapping of the fracture fragments as well as an avulsion fracture of the greater tuberosity of the proximal humerus. Electronically Signed: Sam Licona MD at 10:59 EST , Assessment & Plan Assessment/Plan (1) Right humeral fracture: QUALIFIERS: Encounter type: initial encounter Humerus Location: shaft Fracture type: closed Fracture morphology: comminuted Fracture alignment: displaced Qualified Code(s): S42.351A - Displaced comminuted fracture of shaft of humerus, right arm, initial encounter for closed fracture PLAN: Plan I reviewed her x-rays. She has comminuted midshaft right humerus fracture. She also has an avulsion fracture of the greater tuberosity. She says that she does not have any open wounds inside the cast. I would like to obtain x-rays of her right arm in the cast to look at her alignment. Her radial nerve function seems intact. For her age, osteoporosis, it would be reasonable to treat this fracture nonoperatively if her alignment is well-maintained. She will likely need 6 weeks of treatment in the coaptation splint/cast followed by possible use of functional bracing for a few more weeks after. I requested that she use a cuff and collar sling and not a normal sling going around the elbow. This would allow hanging mechanism of the coaptation splint to maintain good alignment of the humerus. Patient was in agreement. I requested nursing to obtain a cuff and collar sling if possible. I will review the x-rays once completed. Patient will at least follow-up with me in clinic in a week or 2 after discharge from the hospital. Charges/Coding Procedures Musculoskeletal [id number]: Other Procedure See Report (27155 closed treatment of humeral shaft fracture)
--- NOTE | 2023-01-31 17:30 | RAD_ITS ---
STUDY: X-RAY - RIGHT HUMERUS REASON FOR EXAM: Female, 82 years old. post reduction xray TECHNIQUE: 2 view(s) of the humerus. COMPARISON: None. FINDINGS: No change in the acute spiral fracture of the midshaft of the humerus. There is no demonstrated fracture or osseous destructive process. Plaster cast obscures soft tissue and bony detail. RAD/Humerus min 2 Views IMPRESSION: No change in acute spiral fracture of the midshaft of the humerus. Electronically Signed: Tobin Fang MD at 18:33 EST ,
[2023-01-31 17:42] LABS: Vitamin D,25 Hydroxy 68.6 ng/mL
[2023-01-31] MEDS: Atorvastatin Calcium 80 MG Tablet PO (20:32)
[2023-01-31] MEDS: carBAMazepine 200 MG TAB.SR.12H PO (20:32)
[2023-01-31] MEDS: Acyclovir 800 MG Tablet PO (20:32)
[2023-01-31] MEDS: Vitamin B Comp W-C Capsule 1 CAP PO (20:40)
[2023-02-01] MEDS: oxyCODONE 5 MG Tablet PO ×4 (00:29→21:07)
[2023-02-01] MEDS: Acetaminophen 325 MG Tablet 650 MG PO ×4 (00:30→21:06)
[2023-02-01 00:32] VITALS: BP 143/63; PULSE 87; RESP 18; TEMP 36.6; O2SAT 94
[2023-02-01 04:41] VITALS: BP 138/66; PULSE 95; RESP 18; TEMP 36.6; O2SAT 94
--- NOTE | 2023-02-01 07:51 | PCM.PN.HOSP ---
Reason for Visit Reason for Visit: Diagnoses Displaced comminuted fracture of shaft of humerus, right arm, initial encounter for closed fracture (01/31/23) Subjective Subjective No new events. Right arm is since been put in a sling. Objective Data Objective Data Vital Signs: Vital Signs Temp Pulse Resp BP Pulse Ox O2 Del Method O2 Flow Rate 36.6 C 95 18 138/66 H 94 Room Air 2 02/01/23 04:41 02/01/23 04:41 02/01/23 04:41 02/01/23 04:41 02/01/23 04:41 02/01/23 04:41 01/31/23 20:30 Oxygen Flow Rate (L/min) [1] 5 Oxygen Flow Rate (L/min) [7] 5 Oxygen Flow Rate (L/min) [6] 5 Oxygen Flow Rate (L/min) [4] 5 Oxygen Flow Rate (L/min) [3] 5 Oxygen Flow Rate (L/min) 2 Oxygen Delivery Method [1] Nasal Cannula Oxygen Delivery Method [7] Nasal Cannula Oxygen Delivery Method [6] Nasal Cannula Oxygen Delivery Method [4] Nasal Cannula Oxygen Delivery Method [3] Nasal Cannula Oxygen Delivery Method Room Air Weight: 68.096 kg Body Mass Index (BMI) 28.7 Intake & Output: Intake and Output for Last 24 Hours 01/30/23 01/31/23 02/01/23 23:59 23:59 23:59 Intake Total 117 / 117 Balance 117 / 117 Lab / Micro Data 01/31/23 10:15 01/31/23 10:15 Labs: Laboratory Results - last 24 hr 01/31/23 10:15: WBC 5.7, RBC 3.95 L, Hgb 11.6 L, Hct 35.9 L, MCV 90.9, MCH 29.4, MCHC 32.3, RDW Std Deviation 46.7 H, RDW Coeff of Kyree 14.0, Plt Count 399, MPV 8.5, Immature Gran % (Auto) 0.700, Neut % (Auto) 75.9 H, Lymph % (Auto) 15.8 L, Ada % (Auto) 4.8, Eos % (Auto) 2.3, Baso % (Auto) 0.5, Absolute Neuts (auto) 4.3, Absolute Lymphs (auto) 0.89, Nucleated RBC % 0, PT 14.5, INR 1.1, APTT 24.1, Sodium 140, Potassium 4.1, Chloride 104, Carbon Dioxide 27.0, Anion Gap 9, BUN 17, Creatinine 0.96, Est GFR (MDRD) Af Amer 71, Est GFR (MDRD) Non-Af 59 L, BUN/Creatinine Ratio 17.7, Glucose 133 H, Calcium 9.2 01/31/23 16:40: Vitamin D 25-Hydroxy 68.6 Radiography Diagnostic Testing: Radiology Impression Brain CT 01/31/23 10:08 IMPRESSION: Chronic involutional changes of the brain. Electronically Signed: Sam Licona MD at 10:48 EST , Cervical Spine CT 01/31/23 10:08 IMPRESSION: Multilevel degenerative changes, as described above. Electronically Signed: Sam Licona MD at 10:50 EST , Chest X-Ray 01/31/23 10:30 IMPRESSION: Mild increased markings at the lung apices suggestive of scarring. Electronically Signed: Sam Licona MD at 10:58 EST , Forearm X-Ray 01/31/23 10:30 IMPRESSION: Normal x-ray examination of the radius and ulna. Electronically Signed: Sam Licona MD at 10:58 EST , Humerus X-Ray 01/31/23 10:30 IMPRESSION: Comminuted fracture of the midshaft of the right humerus with overlapping of the fracture fragments as well as an avulsion fracture of the greater tuberosity of the proximal humerus. Electronically Signed: Sam Licona MD at 10:59 EST , Humerus X-Ray 01/31/23 17:30 IMPRESSION: No change in acute spiral fracture of the midshaft of the humerus. Electronically Signed: Tobin Fang MD at 18:33 EST , Physical Exam Const alert and no apparent distress Resp normal respiratory effort, no retractions, no use of accessory muscles and clear to auscultation bilaterally Cardio regular rate, regular rhythm, S1 normal heart sound and S2 normal heart sound Extremity Extremity Narrative: Right arm casted in sling. Neuro Sensorium / Orientation: awake and alert Psych affect normal Assessment & Plan Assessment/Plan (1) Right humeral fracture: QUALIFIERS: Encounter type: initial encounter Fracture alignment: displaced Fracture morphology: comminuted Fracture type: closed Humerus Location: shaft Qualified Code(s): S42.351A - Displaced comminuted fracture of shaft of humerus, right arm, initial encounter for closed fracture PLAN: Status post mechanical fall. Casted in sling from the emergency room per orthopedic recommendations. Orthopedics will be on consult. Patient peers to be pretty comfortable at this time but patient will have pain medication available as needed. Given her fall which was more mechanical tripping, will still have physical and occupational therapy see her to determine if she may be a candidate for snf facility. Patient seems more inclined to returning home. Patient states that she uses her walker only when she has to take her dog out otherwise does not use a walker. Seen by orthopaedics: recommending nonoperative mgmt. 6 weeks in coaptation splint/case followed by possible use of functional bracing few weeks later. Vitamin D 25 level 68.6. No replacement needed. PLAN: Plan Chronic conditions Breast cancer, hyperlipidemia, coronary artery disease, history of stroke, hypertension, PETER: Stable. Home medications reviewed and reconciled. VTE prophylaxis: Not indicated given current observation status. CODE STATUS: Addressed with the patient. Patient is to be DNR Comfort Care arrest Disposition: To be determined. Patient seems more inclined to going home. We will wait on therapy evaluations to be home versus snf facility. Charges/Coding Visit Charges Inpatient E&M: 77580 Subs Hosp L2
[2023-02-01 08:20] VITALS: BP 138/66; PULSE 90; RESP 16; TEMP 36.6; O2SAT 98
[2023-02-01] MEDS: Calcium Carbonate 500 MG Tablet PO (08:24)
[2023-02-01 08:25] VITALS: PULSE 90
[2023-02-01] MEDS: Pantoprazole Sodium 20 MG Tablet PO (08:25)
[2023-02-01] MEDS: Metoprolol(XL)Succ 25 MG Tablet PO (08:25)
[2023-02-01] MEDS: Acyclovir 800 MG Tablet PO ×2 (08:25→21:06)
[2023-02-01] MEDS: Venlafaxine XR 75 MG Capsule PO (08:25)
[2023-02-01] MEDS: carBAMazepine 200 MG TAB.SR.12H PO ×2 (08:26→21:07)
[2023-02-01] MEDS: Anastrozole 1 MG TABLET PO (08:26)
--- NOTE | 2023-02-01 11:15 | CASEMGMT ---
CONSTANTINO THOMAS Assessment: Face to Face with pt for initial transition planning/care coordination assessment. CONSTANTINO THOMAS introduced self and role at [facility], pt voices understanding and consents to assessment. Pt is A&O x4 and answers all questions appropriately at this time. Care providers, pharmacy, and demographics verified/updated. Admitting Dx: Debility, Right Humerous Fracture PCP: Joe Specialists: Urologist (pt. unsure who), Chief Deputy Court Clerk (pt. unsure who), Neurologist (pt. unsure who) [facility]: [facility] Prescription Benefit: yes LNOK: Shelby Solitario (Daughter) Living Will/HCPOA: Pt. states she is unsure if she has either a LW or HCPOA Living Arrangements: Pt lives alone in a 1 story home that is [facility]. 1 step no railing to enter. Prior to this admission pt. states she had no problems ambulating. Pt. states she is I in all ADls and does some cooking, her daughter also brings her meals, and pt. does some cleaning but is considering hiring a roller cleaner again. Transportation: Daughter (Shelby) DME: Shower chair, cane, grab bars, rollator (uses when walking her dog), medical alert system, CPaP (pt. states does not use as often as she should. CONSTANTINO THOMAS encouraged pt. to speak with her PcP about how often she should be using this s pt. states it is through her PcP). Pt. states she plans to purchase a raised toilet seat. Denies need for additional DME at this time. HHC/SNF: Denies previous SNF. States she had [facility] in 2022 but is unsure of company. Pt states she does not feel safe to go home alone and states she woudl need one of her children to come live with her if she were to go home. Pt. states neither of her daughters could live with her and she prefers that her son (who lives in [place]) would move in with her to help her. She is open to moving in with one of her daughters. Pt. is open to the possibility of needing to be placed for rehab. Pt. states she is not going to make this decision for herself and that her children will make the decision for her. She asks for this CONSTANTINO THOMAS to call her children to discuss this with them. Pt states no further concerns/needs. CM to follow. Advised pt to ask CM if any further question/concerns/needs arise, voices understanding. Pt Goal: TBD. Pt. prefers her son to move in with her but he would have to move back here from [place]. Pt. is open to SNF if needed. Pt. gave verbal permission to contact her children and speak with them about her care and D/C plan. Plan: TBD. Likely SNF. RN CM spoke with PT and they recommend that pt. be placed as she is unable to perform self care activities. SW updated on pt. status and states she will contact pt's daughter to discuss D/C plan.
--- NOTE | 2023-02-01 13:51 | CASEMGMT ---
Social Work Pt has a health care POA on file naming her daughters 1. Colleen Cooper and 2. Shelby Solitario. No living will on file. SW spoke with Shelby who confirms pt has completed a living will and Shelby will bring it in for the medical record. RUTHIE Duenas
--- NOTE | 2023-02-01 13:53 | CASEMGMT ---
Social Work SW spoke with therapy who is recommending SNF as pt is unable to complete ADLS. Phone call placed to pt's dgt Colleen Cleverly and VM left. No return call. Phone call to pt dgt Shelby Solitario who confirms she and Colleen have discussed discharge plan and feel pt would benefit from SNF. SHAW offered to send a list of SNF choices however Shelby states pt was at [facility] previously and family would like pt to return there and no list is needed. SHAW met with pt and informed of this and pt is agreeable. Referral to [facility], will await determination of acceptance. Adin HENDRICKS
[2023-02-01 14:06] VITALS: BP 124/54; PULSE 88; RESP 18; TEMP 36.9; O2SAT 97
--- NOTE | 2023-02-01 15:22 | CASEMGMT ---
Social Work [facility] is able to accept and precert has been started at this time. SW met with pt and updated and pt is agreeable. Dgt Shelby notified and agreeable. Plan: [facility]CU, pending precert RUTHIE Duenas
--- NOTE | 2023-02-01 17:51 | CASEMGMT ---
Met with Pt. to complete TROTTER form. TROTTER form explained to Pt. who voiced understanding and signed form. Original form placed in pt?s chart and copy provided to Pt.
[2023-02-01 21:02] VITALS: BP 122/63; PULSE 91; RESP 18; TEMP 36.9; O2SAT 98
[2023-02-01] MEDS: Vitamin B Comp W-C Capsule 1 CAP PO (21:06)
[2023-02-01] MEDS: Atorvastatin Calcium 80 MG Tablet PO (21:06)
[2023-02-02 03:44] VITALS: BP 131/56; PULSE 89; RESP 18; TEMP 36.8; O2SAT 95
[2023-02-02] MEDS: Acetaminophen 325 MG Tablet 650 MG PO ×2 (03:50→10:36)
[2023-02-02] MEDS: oxyCODONE 5 MG Tablet PO ×4 (03:51→21:29)
--- NOTE | 2023-02-02 08:03 | PCM.PN.HOSP ---
Reason for Visit Reason for Visit: Diagnoses Displaced comminuted fracture of shaft of humerus, right arm, initial encounter for closed fracture (01/31/23) Subjective Subjective Finding of pain in her arm the medication does not seem to help alleviate. Objective Data Objective Data Vital Signs: Vital Signs Temp Pulse Resp BP Pulse Ox O2 Del Method O2 Flow Rate 36.8 C 89 18 131/56 H 95 Room Air 2 02/02/23 03:44 02/02/23 03:44 02/02/23 03:44 02/02/23 03:44 02/02/23 03:44 02/02/23 03:45 01/31/23 20:30 Oxygen Flow Rate (L/min) [1] 5 Oxygen Flow Rate (L/min) [7] 5 Oxygen Flow Rate (L/min) [6] 5 Oxygen Flow Rate (L/min) [4] 5 Oxygen Flow Rate (L/min) [3] 5 Oxygen Flow Rate (L/min) 2 Oxygen Delivery Method [1] Nasal Cannula Oxygen Delivery Method [7] Nasal Cannula Oxygen Delivery Method [6] Nasal Cannula Oxygen Delivery Method [4] Nasal Cannula Oxygen Delivery Method [3] Nasal Cannula Oxygen Delivery Method Room Air Weight: 68.096 kg Body Mass Index (BMI) 28.7 Intake & Output: Intake and Output for Last 24 Hours 01/31/23 02/01/23 02/02/23 23:59 23:59 23:59 Intake Total 117 / 117 Output Total 600 / 600 Balance 117 / 117 -600 / -600 Lab / Micro Data 01/31/23 10:15 01/31/23 10:15 Physical Exam Const alert and no apparent distress Constitutional Narrative: Up in chair. Nontoxic. HEENT head/scalp atraumatic Extremity Extremity Narrative: Right arm casted in a sling. Neuro no focal motor deficits Sensorium / Orientation: awake and alert Assessment & Plan Assessment/Plan (1) Right humeral fracture: QUALIFIERS: Encounter type: initial encounter Fracture alignment: displaced Fracture morphology: comminuted Fracture type: closed Humerus Location: shaft Qualified Code(s): S42.351A - Displaced comminuted fracture of shaft of humerus, right arm, initial encounter for closed fracture PLAN: Status post mechanical fall. Casted in sling from the emergency room per orthopedic recommendations. Orthopedics will be on consult. Patient peers to be pretty comfortable at this time but patient will have pain medication available as needed. Given her fall which was more mechanical tripping, will still have physical and occupational therapy see her to determine if she may be a candidate for longterm facility. Patient seems more inclined to returning home. Patient states that she uses her walker only when she has to take her dog out otherwise does not use a walker. Seen by orthopaedics: recommending nonoperative mgmt. 6 weeks in coaptation splint/case followed by possible use of functional bracing few weeks later. Discussed with Dr. Lewis today. Continue with conservative management Vitamin D 25 level 68.6. No replacement needed. Optimize pain medications. The as needed acetaminophen and oxycodone are not sufficient. We will schedule the acetaminophen, add Toradol and continue the oxycodone for now. PLAN: Plan Chronic conditions Breast cancer, hyperlipidemia, coronary artery disease, history of stroke, hypertension, PETER: Stable. Home medications reviewed and reconciled. VTE prophylaxis: Not indicated given current observation status. CODE STATUS: Addressed with the patient. Patient is to be DNR Comfort Care arrest Disposition: Plan for SNF as pt with difficulties with her ADLs. Charges/Coding Visit Charges Inpatient E&M: 13056 Subs Hosp L2
[2023-02-02 09:00] VITALS: PULSE 81
[2023-02-02 09:45] VITALS: BP 123/63; PULSE 86; RESP 18; TEMP 36.6; O2SAT 94
[2023-02-02] MEDS: Calcium Carbonate 500 MG Tablet PO (10:36)
[2023-02-02] MEDS: carBAMazepine 200 MG TAB.SR.12H PO ×2 (10:37→21:29)
[2023-02-02] MEDS: Venlafaxine XR 75 MG Capsule PO (10:37)
[2023-02-02] MEDS: Pantoprazole Sodium 20 MG Tablet PO (10:37)
[2023-02-02] MEDS: Anastrozole 1 MG TABLET PO (10:37)
[2023-02-02 10:38] VITALS: PULSE 86
[2023-02-02] MEDS: Metoprolol(XL)Succ 25 MG Tablet PO (10:38)
[2023-02-02] MEDS: Acyclovir 800 MG Tablet PO ×2 (10:39→21:29)
[2023-02-02] MEDS: Acetaminophen 500 MG Tablet 1000 MG PO (15:31)
[2023-02-02 15:54] VITALS: BP 141/60; PULSE 60; RESP 18; TEMP 36.7; O2SAT 94
[2023-02-02 21:22] VITALS: BP 131/60; PULSE 84; RESP 18; TEMP 37.2; O2SAT 95
[2023-02-02] MEDS: Atorvastatin Calcium 80 MG Tablet PO (21:29)
[2023-02-02] MEDS: Vitamin B Comp W-C Capsule 1 CAP PO (21:29)
[2023-02-03 04:33] VITALS: BP 124/55; PULSE 90; RESP 18; TEMP 37.2; O2SAT 96
[2023-02-03] MEDS: Acetaminophen 500 MG Tablet 1000 MG PO ×3 (04:49→20:25)
[2023-02-03] MEDS: oxyCODONE 5 MG Tablet PO ×2 (04:49→12:58)
--- NOTE | 2023-02-03 08:30 | PCM.PN.HOSP ---
Reason for Visit Reason for Visit: Diagnoses Displaced comminuted fracture of shaft of humerus, right arm, initial encounter for closed fracture (01/31/23) Subjective Subjective Pain is doing better. Objective Data Objective Data Vital Signs: Vital Signs Temp Pulse Resp BP Pulse Ox O2 Del Method O2 Flow Rate 37.2 C 90 18 124/55 H 96 Room Air 2 02/03/23 04:33 02/03/23 04:33 02/03/23 04:33 02/03/23 04:33 02/03/23 04:33 02/03/23 04:33 01/31/23 20:30 Oxygen Flow Rate (L/min) [1] 5 Oxygen Flow Rate (L/min) [7] 5 Oxygen Flow Rate (L/min) [6] 5 Oxygen Flow Rate (L/min) [4] 5 Oxygen Flow Rate (L/min) [3] 5 Oxygen Flow Rate (L/min) 2 Oxygen Delivery Method [1] Nasal Cannula Oxygen Delivery Method [7] Nasal Cannula Oxygen Delivery Method [6] Nasal Cannula Oxygen Delivery Method [4] Nasal Cannula Oxygen Delivery Method [3] Nasal Cannula Oxygen Delivery Method Room Air Weight: 68.096 kg Body Mass Index (BMI) 28.7 Intake & Output: Intake and Output for Last 24 Hours 02/01/23 02/02/23 02/03/23 23:59 23:59 23:59 Intake Total 1000 / 1000 Output Total 1400 / 1400 300 / 300 Balance -400 / -400 -300 / -300 Lab / Micro Data 01/31/23 10:15 01/31/23 10:15 Physical Exam Const alert and no apparent distress Constitutional Narrative: Up in chair. Nontoxic. Sling on Arm. Assessment & Plan Assessment/Plan (1) Right humeral fracture: QUALIFIERS: Encounter type: initial encounter Fracture alignment: displaced Fracture morphology: comminuted Fracture type: closed Humerus Location: shaft Qualified Code(s): S42.351A - Displaced comminuted fracture of shaft of humerus, right arm, initial encounter for closed fracture PLAN: Status post mechanical fall. Casted in sling from the emergency room per orthopedic recommendations. Orthopedics will be on consult. Patient peers to be pretty comfortable at this time but patient will have pain medication available as needed. Given her fall which was more mechanical tripping, will still have physical and occupational therapy see her to determine if she may be a candidate for [facility]. Patient seems more inclined to returning home. Patient states that she uses her walker only when she has to take her dog out otherwise does not use a walker. Seen by orthopaedics: recommending nonoperative mgmt. 6 weeks in coaptation splint/case followed by possible use of functional bracing few weeks later. Discussed with Dr. Lewis today. Continue with conservative management and follow up with orthopaedics as outpt. Vitamin D 25 level 68.6. No replacement needed. Optimize pain medications. The as needed acetaminophen and oxycodone are not sufficient. We will schedule the acetaminophen, add Toradol and continue the oxycodone for now. PLAN: Plan Chronic conditions Breast cancer, hyperlipidemia, coronary artery disease, history of stroke, hypertension, PETER: Stable. Home medications reviewed and reconciled. VTE prophylaxis: Not indicated given current observation status. CODE STATUS: Addressed with the patient. Patient is to be DNR Comfort Care arrest Disposition: Plan for SNF as pt with difficulties with her ADLs. Discussed with the patient's granddaughter at bedside. Greater than 35 minutes of which greater than 50% of time was at bedside discussing with the patient and her granddaughter. Also discussing with the granddaughter about the plans from orthopedics given the severity of the fracture and letting it settle with splinting and informed him patient will have further follow-up with orthopedics. Charges/Coding Visit Charges Inpatient E&M: 07899 Subs Hosp L2
[2023-02-03 08:32] VITALS: PULSE 100
[2023-02-03] MEDS: Metoprolol(XL)Succ 25 MG Tablet PO (08:32)
[2023-02-03] MEDS: Calcium Carbonate 500 MG Tablet PO (08:32)
[2023-02-03] MEDS: carBAMazepine 200 MG TAB.SR.12H PO ×2 (08:33→20:26)
[2023-02-03] MEDS: Venlafaxine XR 75 MG Capsule PO (08:33)
[2023-02-03] MEDS: Acyclovir 800 MG Tablet PO ×2 (08:33→20:26)
[2023-02-03] MEDS: Pantoprazole Sodium 20 MG Tablet PO (08:33)
[2023-02-03] MEDS: Anastrozole 1 MG TABLET PO (08:34)
[2023-02-03 08:50] VITALS: BP 124/66; PULSE 100; RESP 16; TEMP 36.6; O2SAT 94
[2023-02-03 12:25] VITALS: BP 138/72; PULSE 98; RESP 16; TEMP 36.6; O2SAT 98
[2023-02-03] MEDS: Bisacodyl 5 MG Tablet 10 MG PO (13:28)
[2023-02-03 16:25] VITALS: BP 119/62; PULSE 85; RESP 16; TEMP 36.5; O2SAT 95
[2023-02-03] MEDS: Ibuprofen 600 MG Tablet PO (20:25)
[2023-02-03] MEDS: Atorvastatin Calcium 80 MG Tablet PO (20:26)
[2023-02-03] MEDS: Vitamin B Comp W-C Capsule 1 CAP PO (20:26)
--- NOTE | 2023-02-03 20:39 | NURSING ---
pt yelling and angry at staff due to states had to wait 20 minutes for pain medicine. per report of dayshift rn pt had been refusing offers of pain meds prior to shift change. charge attendant gave meds denies further needs. primary rn helping another pt and is aware.
[2023-02-03 21:21] VITALS: BP 103/55; PULSE 88; RESP 18; TEMP 36.6; O2SAT 96
[2023-02-04 03:52] VITALS: BP 115/58; PULSE 86; RESP 18; TEMP 36.6; O2SAT 98
[2023-02-04] MEDS: Acetaminophen 500 MG Tablet 1000 MG PO (04:06)
[2023-02-04] MEDS: Ibuprofen 600 MG Tablet PO ×2 (04:06→15:36)
--- NOTE | 2023-02-04 08:17 | PCM.PN.HOSP ---
Reason for Visit Reason for Visit: Diagnoses Displaced comminuted fracture of shaft of humerus, right arm, initial encounter for closed fracture (01/31/23) Objective Data Objective Data Vital Signs: Vital Signs Temp Pulse Resp BP Pulse Ox O2 Del Method O2 Flow Rate 97.8 F 86 18 115/58 L 98 Room Air 2 02/04/23 03:52 02/04/23 03:52 02/04/23 03:52 02/04/23 03:52 02/04/23 03:52 02/04/23 03:52 01/31/23 20:30 Oxygen Flow Rate (L/min) [1] 5 Oxygen Flow Rate (L/min) [7] 5 Oxygen Flow Rate (L/min) [6] 5 Oxygen Flow Rate (L/min) [4] 5 Oxygen Flow Rate (L/min) [3] 5 Oxygen Flow Rate (L/min) 2 Oxygen Delivery Method [1] Nasal Cannula Oxygen Delivery Method [7] Nasal Cannula Oxygen Delivery Method [6] Nasal Cannula Oxygen Delivery Method [4] Nasal Cannula Oxygen Delivery Method [3] Nasal Cannula Oxygen Delivery Method Room Air Weight: 150 lb 2 oz Body Mass Index (BMI) 28.7 Intake & Output: Intake and Output for Last 24 Hours 02/02/23 02/03/23 02/04/23 23:59 23:59 23:59 Intake Total 1000 / 1000 550 / 550 Output Total 1400 / 1400 300 / 300 Balance -400 / -400 250 / 250 Lab / Micro Data 01/31/23 10:15 01/31/23 10:15 Physical Exam Narrative Seen and examined. Complain of pain and debility right humerus fracture. Patient had BM on 01/31/2023. No abdominal pain. Physical exam General: Alert, Oriented x3, Cooperative HEENT: Atraumatic, PERRLA, EOMI, Normocephalic Oral: No Gingival or Mucosal Lesions/ Ulcerations Neck: Supple, No JVD, Negative Carotid Bruits Lungs: Air entry diminished in bilateral lung bases. No crepitation/rhonchi Cardiovascular: Regular rate, Regular Rhythm, Normal S1, Normal S2, No murmurs Abdomen: Bowel Sounds sluggish, Soft, Non Tender, Non-Distended : No renal angle tenderness. No suprapubic tenderness. Extremities: No edema, Capillary Refill Less than 3 Seconds Skin: No rashes, No breakdown Musculoskeletal: Right upper extremity in sling and swath. Patient can move her fingers and wrist. No Tenderness to Palpation of Joints or Extremities Neurological: Cranial nerves II-XII grossly intact, DTR 2+/4. No acute focal neurological deficit. Psych/Mental Status: Normal Affect, Appropriate. Assessment & Plan Assessment/Plan (1) Right humeral fracture: QUALIFIERS: Encounter type: initial encounter Fracture alignment: displaced Fracture morphology: comminuted Fracture type: closed Humerus Location: shaft Qualified Code(s): S42.351A - Displaced comminuted fracture of shaft of humerus, right arm, initial encounter for closed fracture PLAN: Status post mechanical fall. Casted in sling from the emergency room per orthopedic recommendations. Orthopedics will be on consult. Patient peers to be pretty comfortable at this time but patient will have pain medication available as needed. Given her fall which was more mechanical tripping, will still have physical and occupational therapy see her to determine if she may be a candidate for group home facility. Patient seems more inclined to returning home. Patient states that she uses her walker only when she has to take her dog out otherwise does not use a walker. Seen by orthopaedics: recommending nonoperative mgmt. 6 weeks in coaptation splint/case followed by possible use of functional bracing few weeks later. Discussed with Dr. Lewis today. Continue with conservative management and follow up with orthopaedics as outpt. Vitamin D 25 level 68.6. No replacement needed. Optimize pain medications. The as needed acetaminophen and oxycodone are not sufficient. Patient on a scheduled acetaminophen Toradol and continue the oxycodone for now. PLAN: Plan Chronic conditions Breast cancer, hyperlipidemia, coronary artery disease, history of stroke, hypertension, PETER: Stable. Home medications reviewed and reconciled. VTE prophylaxis: Not indicated given current observation status. CODE STATUS: Addressed with the patient. Patient is to be DNR Comfort Care arrest Disposition: Plan for SNF as pt with difficulties with her ADLs. Patient will follow-up with orthopedic office months the swelling, pain and edema subsides with the splinting. Charges/Coding Visit Charges Inpatient E&M: 21860 Subs Hosp L2
[2023-02-04 08:51] VITALS: BP 125/49; PULSE 88; RESP 18; TEMP 37.2; O2SAT 98
[2023-02-04] MEDS: Calcium Carbonate 500 MG Tablet PO (10:12)
[2023-02-04 10:13] VITALS: PULSE 88
[2023-02-04] MEDS: Anastrozole 1 MG TABLET PO (10:13)
[2023-02-04] MEDS: carBAMazepine 200 MG TAB.SR.12H PO (10:13)
[2023-02-04] MEDS: Venlafaxine XR 75 MG Capsule PO (10:13)
[2023-02-04] MEDS: Metoprolol(XL)Succ 25 MG Tablet PO (10:13)
[2023-02-04] MEDS: Pantoprazole Sodium 20 MG Tablet PO (10:13)
[2023-02-04] MEDS: Acyclovir 800 MG Tablet PO (10:24)
[2023-02-04] MEDS: oxyCODONE 5 MG Tablet PO (10:34)
[2023-02-04] MEDS: Polyethylene Glycol 3350 17 GM PACKET PO (10:34)
--- NOTE | 2023-02-04 15:17 | PCA ---
Copy of patient living will on chart, power aircraft engine technician scanned in chart.
[2023-02-04 15:37] VITALS: BP 125/46; PULSE 92; RESP 18; TEMP 37.1; O2SAT 98
--- NOTE | 2023-02-04 15:43 | TREXTCAR_ITS ---
Diet Diet Order/Speech Therapy: 01/31/23 14:53 Diet: Regular - General Food consistency:: Regular Liquid Consistency:: Regular/Thin Routine Orders/Code Status Suppository Type: Dulcolax 10mg Suppository Frequency: Daily PRN Code Status: DNRCC-A (With intubation.) Therapies Weight Bearing: Weight bearing as tolerated Extremity Affected:: Bilateral Lower and Right Upper Physical Therapy: Eval and Treat Occupational Therapy: Eval and Treat Speech Therapy: Eval and Treat Problem/Diagnosis (1) Right humeral fracture: Status: Acute Code(s): S42.301A - Unspecified fracture of shaft of humerus, right arm, initial encounter for closed fracture Plan: Status post mechanical fall. Casted in sling from the emergency room per orthopedic recommendations. Orthopedics will be on consult. Patient peers to be pretty comfortable at this time but patient will have pain medication available as needed. Given her fall which was more mechanical tripping, will still have physical and occupational therapy see her to determine if she may be a candidate for custodial facility. Patient seems more inclined to returning home. Patient states that she uses her walker only when she has to take her dog out otherwise does not use a walker. Seen by orthopaedics: recommending nonoperative mgmt. 6 weeks in coaptation splint/case followed by possible use of functional bracing few weeks later. Discussed with Dr. Lewis today. Continue with conservative management and follow up with orthopaedics as outpt. Vitamin D 25 level 68.6. No replacement needed. Optimize pain medications. The as needed acetaminophen and oxycodone are not sufficient. Patient on a scheduled acetaminophen Toradol and continue the oxycodone for now. Plan Chronic conditions * Breast cancer, hyperlipidemia, coronary artery disease, history of stroke, hypertension, PETER: Stable. Home medications reviewed and reconciled. VTE prophylaxis: Not indicated given current observation status. CODE STATUS: Addressed with the patient. Patient is to be DNR Comfort Care arrest Disposition: Plan for SNF as pt with difficulties with her ADLs. Patient will follow-up with orthopedic office months the swelling, pain and edema subsides with the splinting. Allergies/Procedures Done in Hospital Allergies Penicillins [PCN] Adverse Reaction (Verified 01/31/23 10:01) Rash Type of Care/Length of Stay Estimated LOS: Convalescent Care Less Than 30 days Type of Care Needed: Skilled Rehab Potential: Good Prognosis: Good Additional Orders/Day of Discharge Day of Discharge: 02/04/23 Discharge Plan Admission Admit Date/Time: 01/31/23 12:49 Primary Reason for Your Visit: Right shoulder fracture. Attending Provider: Alcides Johnson Primary Care Provider: Trent Cain Consulting Providers: Americo Espinoza; Donnie Camarillo Discharge Orders/Prescriptions Prescriptions: New polyethylene glycol 3350 17 gram Powder In Packet 17 g PO BID Qty: 0 0RF acetaminophen 500 mg Tablet 1,000 mg PO Q8H PRN (Reason: Pain 1-10 Or Fever >100.7) Qty: 0 0RF oxycodone 5 mg Tablet 2.5 - 5 mg PO Q4H PRN PRN (Reason: Pain Score 4-10) Qty: 0 0RF ibuprofen 400 mg tablet 400 mg PO Q8H PRN (Reason: pain) Qty: 14 0RF Rx Instructions: For moderate to severe right shoulder musculoskeletal pain. Continued venlafaxine [Effexor XR] 75 MG capsule,extended release 24hr 75 mg PO DAILY omeprazole 20 MG capsule 20 mg PO DAILY acyclovir 800 MG tablet 800 mg PO BID metoprolol succinate 25 MG tablet extended release 24 hr 25 mg PO DAILY vitamin B complex 1 EACH tablet 1 ea PO QHS atorvastatin 80 MG tablet 80 mg PO QHS Qty: 30 0RF anastrozole 1 mg tablet 1 mg PO DAILY carbamazepine 200 mg tablet extended release 12 hr 200 mg PO Q12H calcium citrate 500 mg tablet, effervescent 500 mg PO DAILY Referrals / Follow Up: Americo Espinoza MD [Med Staff - Active Staff] - Within 2 Weeks (For right shoulder fracture.) Trent Cain MD [Primary Care Provider] - Disposition Disposition (needs filled in before D/C Order can be placed): Long Term Facility (1) Right humeral fracture Qualifiers: Encounter type: initial encounter Humerus Location: shaft Fracture type: closed Fracture morphology: comminuted Fracture alignment: displaced Qualified Code(s): S42.351A - Displaced comminuted fracture of shaft of humerus, right arm, initial encounter for closed fracture
--- NOTE | 2023-02-04 15:48 | DS.PCM_ITS ---
Providers Date of Admission: 01/31/23 Date of Discharge: 02/04/23 Primary Care Physician: Dr. Trent Cain MD Consultations 01/31/23 14:53 Consult: Orthopedics Routine Consulting Provider: Americo Espinoza Reason for Consult: right humerus fracture EMERGENT Consult: No MD Notified: Yes Date Notified: 01/31/23 Time Notified: 12:53 Method of Notification: ED Physician Initiated Reason For Visit: DEBILITY, RIGHT HUMEROUS FRACTURE Diagnosis Discharge Diagnosis (1) Right humeral fracture: Status: Acute Code(s): S42.301A - Unspecified fracture of shaft of humerus, right arm, initial encount er for closed fracture Qualifiers: Encounter type: initial encounter Humerus Location: shaft Fracture type: closed Fracture morphology: comminuted Fracture alignment: displaced Qualified Code(s): S42.351A - Displaced comminuted fracture of shaft of humerus, right arm, initial encounter for closed fracture Plan: This 82-year-old female with history of breast cancer on anastrozole was admitted after a fall that led to the fracture of right shoulder. Found to have acute displaced right humeral fracture and put on splint and sling in ED. 1. Acute, closed, comminuted, right humeral shaft fracture with avulsion fracture of greater tuberosity, pathological fracture probably from osteoporosis: Radial function seems intact. For age and osteoporosis, it was decided to treat nonoperatively with 6 weeks of coaptation splint followed by use of functional bracing. Advised to follow-up in orthopedics clinic in 2 weeks. Today in the afternoon about 3:45 PM, pre-CERT was obtained therefore patient is being discharged to TCU. Vitamin D 25 level 68.6. No replacement needed. Optimize pain medications. Patient on acetaminophen, ibuprofen as an anti- inflammatory and oxycodone. Patient was also given Toradol during hospital stay. Patient has severe constipation therefore on MiraLAX 17 g p.o. twice daily, senna S2 tablet twice daily and Dulcolax suppository as needed. If did patient did not move bowels will need Dulcolax oral. Plan Chronic conditions * Breast cancer, hyperlipidemia, coronary artery disease, history of stroke, hypertension, PETER: Stable. Home medications reviewed and reconciled. VTE prophylaxis: Not indicated given current observation status. CODE STATUS: Addressed with the patient. Patient is to be DNR Comfort Care arrest Discharge medication reconciliation done. Discharge follow-up instructions completed. Discharge process discussed with the patient and all questions were answered to patient's satisfaction. Follow with PCP in 1 to 2 weeks Total time spent, exact 35 minutes on discharge meds reconciliation, examination, coordination of care with nurses and ancillary staff, review of imaging and blood test and discussion with the patient on follow-up instructions. Medications at Discharge Home Medications omeprazole 20 mg capsule,delayed release 20 mg PO DAILY gerd 09/26/16 venlafaxine 75 mg capsule,extended release 24 hr (Effexor XR) 75 mg PO DAILY antidepressant 09/26/16 acyclovir 800 mg tablet 800 mg PO BID herpes 04/12/18 metoprolol succinate 25 mg tablet,extended release 24 hr 25 mg PO DAILY blood pressure 04/12/18 vitamin B complex 1 ea PO QHS suppliment 04/12/18 atorvastatin 80 mg tablet 80 mg PO QHS cholesterol #30 TABLETS 04/13/18 anastrozole 1 mg tablet 1 mg PO DAILY breast cancer 11/16/22 calcium citrate 500 mg (2,376 mg) effervescent tablet 500 mg PO DAILY calcium 11/16/22 carbamazepine 200 mg tablet,extended release,12 hr 200 mg PO Q12H seizure 11/16/22 acetaminophen 500 mg tablet 1,000 mg (2 x 500 mg) PO Q8H PRN Pain 1-10 Or Fever >100.7 #0 tabs 02/04/23 ibuprofen 400 mg tablet 400 mg PO Q8H PRN pain #14 tabs 02/04/23 oxycodone 5 mg tablet 2.5 - 5 mg (0.5 - 1 x 5 mg) PO Q4H PRN PRN Pain Score 4-10 #0 tabs 02/04/23 polyethylene glycol 3350 17 gram oral powder packet 17 g PO BID #0 ea 02/04/23 Physical Exam Narrative Patient was seen and examined. Please see exam finding on the progress note of same date. Weight / BMI Weight Weight: 150 lb 2 oz Body Mass Index (BMI) 28.7 ABG / Lab / Microbiology Data 01/31/23 10:15 01/31/23 10:15 Meaningful Use Info Meaningful Use Diagnoses (Choose all that apply): None applicable Discharge Plan Admission Admit Date/Time: 01/31/23 12:49 Primary Reason for Your Visit: Right shoulder fracture. Attending Provider: Alcides Johnson Primary Care Provider: Trent Cain Consulting Providers: Americo Espinoza; Donnie Camarillo Discharge Orders/Prescriptions Prescriptions: New polyethylene glycol 3350 17 gram Powder In Packet 17 g PO BID Qty: 0 0RF acetaminophen 500 mg Tablet 1,000 mg PO Q8H PRN (Reason: Pain 1-10 Or Fever >100.7) Qty: 0 0RF oxycodone 5 mg Tablet 2.5 - 5 mg PO Q4H PRN PRN (Reason: Pain Score 4-10) Qty: 0 0RF ibuprofen 400 mg tablet 400 mg PO Q8H PRN (Reason: pain) Qty: 14 0RF Rx Instructions: For moderate to severe right shoulder musculoskeletal pain. Continued venlafaxine [Effexor XR] 75 MG capsule,extended release 24hr 75 mg PO DAILY omeprazole 20 MG capsule 20 mg PO DAILY acyclovir 800 MG tablet 800 mg PO BID metoprolol succinate 25 MG tablet extended release 24 hr 25 mg PO DAILY vitamin B complex 1 EACH tablet 1 ea PO QHS atorvastatin 80 MG tablet 80 mg PO QHS Qty: 30 0RF anastrozole 1 mg tablet 1 mg PO DAILY carbamazepine 200 mg tablet extended release 12 hr 200 mg PO Q12H calcium citrate 500 mg tablet, effervescent 500 mg PO DAILY Referrals / Follow Up: Americo Espinoza MD [Med Staff - Active Staff] - Within 2 Weeks (For right shoulder fracture.) Trent Cain MD [Primary Care Provider] - Disposition Disposition (needs filled in before D/C Order can be placed): Group Home Facility Charges/Coding Addendum Addendum: Please cancel the billing charge of the progress note of the same date. Visit Charges Inpatient E&M: 01543 Disch Hosp >30min
--- NOTE | 2023-02-04 16:30 | CASEMGMT ---
Social Work Precert has been obtained for pt to go to TCU. Physician updated and pt is ready for discharge today. Discharge orders faxed to TCU. SW met with pt and dgt Colleen and updated on discharge and they are agreeable. Nursing updated. Disposition: TCU, skilled level of care RUTHIE Duenas
[2023-02-04 16:46] VITALS: BP 125/46; PULSE 92; RESP 18; TEMP 37.1; O2SAT 98
--- NOTE | 2023-02-04 17:06 | CHAPLAIN ---
Type of Pastoral Visit _x__ Initial Visit ___ Follow-up Visit ___ On-call Visit ___ General Patient Visit ___ Spiritual Assessment ___ Family Conference ___ Bereavement ___ Rapid Response ___ Code Blue ___ Other (describe below) Pastoral Care Referral From _x__ Patient ___ Family ___ Nurse ___ Physician ___ Charging Machine Operator ___ Post Partum Nurse ___ Other (describe below) Sacrament/Intervention _x__ Active listening ___ Anointing ___ Pentecostal ___ Bereavement ___ Communion _x__ Martha exploration ___ _x__ Life review _x__ Prayer ___ Reconciliation ___ Sacrament of Sick _x__ Supportive presence ___ Wedding ___ Other (describe below) Pastoral Comments patient has lots to say and welcomes someone to talk to about things; pt has questions about why she is still around and what good am I doing so we explore some of her thoughts and feelings; pt has two adult daughters that are involved in her care; pt has a son as well; pt has a religious connection but not actively attending any more;
== END 2023-02-04 17:38 | disposition skilled nursing facility (03) ==
LOC: ED 10:30 → MS3 13:07
PROVIDERS: Emergency Provider Emergency Medicine; PCP Internal Medicine; Visit Provider Internal Medicine
DX: M84.421A Pathological fracture, right humerus, initial encounter for fracture (principal); R53.81 Other malaise; S09.90XA Unspecified injury of head, initial encounter; Z79.811 Long term (current) use of aromatase inhibitors; M79.7 Fibromyalgia; I10 Essential (primary) hypertension; W08.XXXA Fall from other furniture, initial encounter; Y93.K9 Activity, other involving animal care; Y92.009 Unspecified place in unspecified non-institutional (private) residence as the place of occurrence of the external cause; Z79.899 Other long term (current) drug therapy; K59.00 Constipation, unspecified
CPT/HCPCS: 29105; 36415; 70450; 71045; 72125; 73060; 73090; 80048; 82306; 85025; 85610; 85730; 96374; 96375; 96376; 97110; 97116; 97162; 97166; 97530; 97535; 99152; 99221; 99285; J7030; A4216; G0378; J2405

== ENCOUNTER 2023-02-04 17:41 | Inpatient (IN) | payer MEDICARE, SELFPAY ==
[2023-02-04 18:23] VITALS: BP 123/65; PULSE 85; RESP 16; TEMP 36.3; O2SAT 96; BMI 28.9
--- NOTE | 2023-02-04 20:13 | PCM.HP.STD ---
HPI - General General Date of Admission: 02/04/23 Date of Service: 02/04/23 Chief Complaint: Here for rehabilitation. HPI Narrative 01/31/2023 ROLANDO FIGUEREDO, is a 82 Female who presents to [facility] ED with fall. Mechanical fall at home, tripped over recliner, fell on right side. Hit head, no loss of consciousness, walks with walker. Right upper extremity pain. CT brain negative, CT cervical spine negative, Chest X-ray negative. X-ray showed right humerus fracture, morphine given. Unable to care for self at home. 01/31/2023 Admit to Hospital. Ortho recommended right upper extremity splint, sling. Pain control. PT/OT SNF. 02/01/2023 No overnight events, pain controlled. PT/OT SNF, lives alone. 02/02/2023 Right arm pain, optimize pain medications. 02/03/2023 Pain better. 02/04/2023 Admit to TCU with debility, here for rehabiliation, strengthening, prior to disposition determation. [facility] Medical History CPAP (continuous positive airway pressure) dependence Depression Fibromyalgia GERD (gastroesophageal reflux disease) Herpes Hypertension Migraines Non-smoker Sleep apnea Home Medications omeprazole 20 mg capsule,delayed release 20 mg PO DAILY gerd 09/26/16 [History Last Taken 01/30/23] venlafaxine 75 mg capsule,extended release 24 hr (Effexor XR) 75 mg PO DAILY antidepressant 09/26/16 [History Last Taken 01/30/23] acyclovir 800 mg tablet 800 mg PO BID herpes 04/12/18 [History Last Taken 02/04/23] metoprolol succinate 25 mg tablet,extended release 24 hr 25 mg PO DAILY blood pressure 04/12/18 [History Last Taken 02/04/23 10:15] vitamin B complex 1 ea PO QHS suppliment 04/12/18 [History Last Taken 02/04/23] atorvastatin 80 mg tablet 80 mg PO QHS cholesterol #30 TABLETS 04/13/18 [Rx Last Taken 01/30/23] anastrozole 1 mg tablet 1 mg PO DAILY breast cancer 11/16/22 [History Last Taken 01/30/23] calcium citrate 500 mg (2,376 mg) effervescent tablet 500 mg PO DAILY calcium 11/16/22 [History Last Taken 01/30/23] carbamazepine 200 mg tablet,extended release,12 hr 200 mg PO Q12H seizure 11/16/22 [History Last Taken 02/04/23 10:15] acetaminophen 500 mg tablet 1,000 mg (2 x 500 mg) PO Q8H PRN Pain 1-10 Or Fever >100.7 #0 tabs 02/04/23 [Rx Last Taken 02/04/23 04:10] ibuprofen 400 mg tablet 400 mg PO Q8H PRN pain #14 tabs 02/04/23 [Rx Last Taken Unknown] oxycodone 5 mg tablet 2.5 - 5 mg (0.5 - 1 x 5 mg) PO Q4H PRN PRN Pain Score 4-10 #0 tabs 02/04/23 [Rx Last Taken 02/04/23 10:30] polyethylene glycol 3350 17 gram oral powder packet 17 g PO BID Constipation #0 ea 02/04/23 [Rx Last Taken Unknown] sennosides 8.6 mg-docusate sodium 50 mg tablet (Senna-S) 2 tab-cap (2 x 8.6-50 mg) PO QHS constipation #60 tabs 02/04/23 [Rx Last Taken 02/04/23] Allergy/AdvReac Type Severity Reaction Status Date / Time Penicillins [PCN] AdvReac Rash Verified 01/31/23 10:01 Surgical History History of appendectomy Social History household members: none Smoking Status: Never smoker alcohol intake: never substance use type: does not use ROS Constitutional Constitutional: Denies chills, fever(s) or weight gain ENT HEENT: Denies headache(s), nasal congestion or nasal discharge Cardiovascular Cardiovascular: Denies chest pain or palpitations Respiratory/Chest Respiratory/Chest: Denies cough, excessive phlegm production or shortness of breath with exertion Gastrointestinal Gastrointestinal: Denies abdominal pain, nausea or vomiting Genitourinary Genitourinary: Denies dysuria Musculoskeletal Musculoskeletal: Denies joint pain or joint swelling Integumentary Integumentary: Denies rash or wounds Neurologic Neurologic: Denies focal weakness, numbness or tingling Psychiatric Psychiatric: Denies anxiety, auditory hallucinations, depression, homicidal ideation or suicidal ideation Vital Signs Vital Signs Vital Signs: 02/04/23 18:23 Temperature 97.3 F L Temperature Source Temporal Pulse Rate 85 Respiratory Rate 16 Blood Pressure 123/65 H Blood Pressure Mean 84 Blood Pressure Source Monitor Blood Pressure Position Sitting Blood Pressure Location Right Arm Pulse Ox 96 Oxygen Delivery Method Room Air Weight Weight: 69.4 kg Body Mass Index (BMI) 28.9 Physical Exam Const alert General Appearance: cooperative HEENT normocephalic Eyes PERRL and EOMs intact bilaterally Neck supple, no JVD and no carotid bruits Resp normal respiratory effort, normal air movement and clear to auscultation bilaterally Cardio regular rate and regular rhythm GI normal to inspection, nondistended, normoactive bowel sounds, non-tender and non-distended Extremity normal capillary refill Extremity Narrative: Right upper extremity immobilizer. General Extremity: Negative for edema Skin no rashes or lesions noted General Skin Exam: no breakdown Psych affect normal Appearance: appropriate Assessment & Plan Assessment/Plan (1) Debility: (2) Fall: (3) Right humeral fracture: QUALIFIERS: Encounter type: initial encounter Fracture alignment: displaced Fracture morphology: comminuted Fracture type: closed Humerus Location: shaft Qualified Code(s): S42.351A - Displaced comminuted fracture of shaft of humerus, right arm, initial encounter for closed fracture (4) Herpes: (5) Breast cancer: (6) HLD (hyperlipidemia): (7) Trigeminal neuralgia: (8) Hypertension: (9) GERD (gastroesophageal reflux disease): (10) Depression: (11) Leg cramp: (12) Sleep apnea: PLAN: Plan 82 year old female with below past medical history hospitalized for right humerus fracture, treated non-surgically, admitted to TCU with debility, here for rehabilitation, strengthening, prior to disposition determination. Debility - PT/OT. Pain - Tylenol 1000mg q8, Motrin 400mg q8 prn pain (1-3), Oxycodone 2.5mg - 5mg q4h prn pain (4-10). Bowel - Miralax 17gm daily, senna/colace 2 tablets bid, Magnesium citrate 300ml daily prn. Adult immunization - Administer pneumonia vaccine, covid vaccine, flu vaccine as appropriate. DVT prophylaxis - Lovenox 40mg sc daily, hold if hemoglobin drops. Herpes - Acyclovir 800mg bid. Breast cancer - Anastrozole 1mg daily. Hyperlipidemia - Atorvastatin 80mg qhs. GERD - Pantoprazole 20mg daily, TUMS 500mg daily. Trigeminal neuralgia - CBZ 200mg q12. Hypertension - Metoprolol succinate 25mg daily. Depression - Venlafaxine XR 75mg daily, stable chronic longterm use, GDR not recommended. Leg cramps - Vitamin B complex daily.
[2023-02-04] MEDS: Senna/Docusate Sodium 1 Tablet 2 TABLET PO (20:21)
[2023-02-04] MEDS: Acyclovir 800 MG Tablet PO (20:21)
[2023-02-04] MEDS: Polyethylene Glycol 3350 17 GM PACKET PO (20:21)
[2023-02-04] MEDS: Vitamin B Comp W-C Capsule 1 CAP PO (20:21)
[2023-02-04] MEDS: Atorvastatin Calcium 80 MG Tablet PO (20:21)
[2023-02-04] MEDS: carBAMazepine 200 MG TAB.SR.12H PO (21:05)
[2023-02-04] MEDS: Acetaminophen 500 MG Tablet 1000 MG PO (21:06)
[2023-02-05] MEDS: Acetaminophen 500 MG Tablet 1000 MG PO ×3 (05:01→21:05)
[2023-02-05 06:00] LABS: Absolute Lymphocyte Count 0.68 X10^3/uL (0.83-4.51); Absolute Neutrophil Count 2.2 X10^3/uL (2.0-7.7); Basophil# 0.02 X10^3/uL; Basophil% 0.6 % (0-1); Eosinophil# 0.16 X10^3/uL; Eosinophils% 4.9 % (0-5); Hematocrit 26.7 % (37-47); Hemoglobin 8.3 g/dL (12.0-15.0); Lymphocyte # 0.68 X10^3/ul (0.83-4.51); Lymphocyte % 20.9 % (19-41); Mean Corp Hgb Conc 31.1 g/dL (32-36); Mean Corpuscular Hgb 28.8 pg (27.0-32.0); Mean Corpuscular Volume 92.7 fL (81-99); Monocyte# 0.21 X10^3/uL; Monocyte% 6.5 % (0-10); NRBC Flagged by Analyzer 0 % (0-5); Neutrophil # 2.16 X10^3/uL (2.7-7.7); Neutrophil % 66.5 % (47-70); Platelet Count 334 K/mm3 (150-450); RBC Distribution Width CV 14.5 % (11.6-14.6); RBC Distribution Width SD 49.1 fl (35.1-43.9); Red Blood Count 2.88 M/mm3 (4.2-5.4); White Blood Count 3.3 K/mm3 (4.4-11.0)
[2023-02-05 06:38] LABS: Anion Gap 4 (5-15); BUN 21 mg/dL (7-18); BUN/Creat Ratio 29.8 RATIO (10-20); Calcium,Total 8.4 mg/dL (8.5-10.1); Chloride 103 mmol/L (98-107); EST Glomerular Filtration Rate 84 mL/min (>60); Est Glom Filt Rate - Afr Amer 102 mL/min (>60); Glucose 110 mg/dL (74-106); Sodium Level 137 mmol/L (136-145)
[2023-02-05] MEDS: Calcium Carbonate 500 MG Tablet PO (08:11)
[2023-02-05] MEDS: Anastrozole 1 MG TABLET PO (08:12)
[2023-02-05] MEDS: Polyethylene Glycol 3350 17 GM PACKET PO (08:13)
[2023-02-05] MEDS: Venlafaxine XR 75 MG Capsule PO (08:13)
[2023-02-05] MEDS: Pantoprazole Sodium 20 MG Tablet PO (08:13)
[2023-02-05] MEDS: Senna/Docusate Sodium 1 Tablet 2 TABLET PO (08:13)
[2023-02-05 08:14] VITALS: BP 122/41; PULSE 85
[2023-02-05] MEDS: Metoprolol(XL)Succ 25 MG Tablet PO (08:14)
[2023-02-05] MEDS: carBAMazepine 200 MG TAB.SR.12H PO ×2 (08:14→21:05)
[2023-02-05] MEDS: Acyclovir 800 MG Tablet PO ×2 (08:15→21:06)
[2023-02-05 08:25] VITALS: BP 122/41; PULSE 85
--- NOTE | 2023-02-05 09:51 | PCM.PN.DRR ---
Documented by User: Nella Garza 02/05/23 10:17 TCU RX Drug Regimen Review Subjective/Objective Subjective/Objective: Subjective: TCU Admission. 82 YOF presented to ER with a fall. Hospitalized for right humerus fracture, treated non-surgically. Admitted to TCU with debility for strengthening and rehabilitation. Objective: Allergies Penicillins [PCN] Adverse Reaction (Verified 01/31/23 10:01) Rash Current Medications Generic Name Dose Route Start Last Admin Trade Name Freq PRN Reason Stop Dose Admin Acetaminophen 1,000 mg 02/04/23 22:00 02/05/23 05:01 Acetaminophen 500 Mg Tablet PO 1,000 mg Q8 NICHO Administration Acyclovir 800 mg 02/04/23 22:00 02/05/23 08:15 Acyclovir 800 Mg Tablet PO 800 mg BID NICHO Administration Anastrozole 1 mg 02/05/23 10:00 02/05/23 08:12 Anastrozole 1 Mg Tablet PO 1 mg DAILY NICHO Administration Atorvastatin Calcium 80 mg 02/04/23 22:00 02/04/23 20:21 Atorvastatin Calcium 80 Mg Tablet PO 80 mg QHS NICHO Administration Calcium Carbonate 500 mg 02/05/23 08:00 02/05/23 08:11 Calcium Carbonate 500 Mg Tablet PO 500 mg DAILYCM NICHO Administration Carbamazepine 200 mg 02/04/23 22:00 02/05/23 08:14 Carbamazepine 200 Mg Tab.Sr.12h PO 200 mg Q12 NICHO Administration Ibuprofen 400 mg 02/04/23 20:30 Ibuprofen 400 Mg Tablet PO Q8H PRN PRN Pain Score 1-3 Magnesium Citrate 300 ml 02/04/23 20:29 Magnesium Citrate 300 Ml PO DAILY PRN PRN CONSTIPATION Metoprolol Succinate 25 mg 02/05/23 10:00 02/05/23 08:14 Metoprolol(Xl)Succ 25 Mg Tablet PO 25 mg DAILY NCIHO Administration Protocol Multivitamins 1 cap 02/04/23 22:00 02/04/23 20:21 Vitamin B Comp W-C Capsule PO 1 cap QHS NICHO Administration Oxycodone HCl 2.5 - 5 mg 02/04/23 18:14 Oxycodone 5 Mg Tablet PO Q4H PRN PRN Pain Score 4-10 Pantoprazole Sodium 20 mg 02/05/23 10:00 02/05/23 08:13 Pantoprazole Sodium 20 Mg Tablet PO 20 mg DAILY NICHO Administration Polyethylene Glycol 17 gm 02/05/23 10:00 02/05/23 08:13 Polyethylene Glycol 3350 17 Gm Packet PO 17 gm DAILY NICHO Administration Senna/Docusate Sodium 2 tablet 02/04/23 22:00 02/05/23 08:13 Senna/Docusate Sodium 1 Tablet PO 2 tablet BID NICHO Administration Tuberculin PPD 0.1 ml 02/12/23 10:00 Tuberculin,Purif.Prot.Deriv. 50 Tu/Ml Vial ID 02/12/23 10:01 X1 ONE Tuberculin PPD 0.1 ml 02/05/23 10:00 Tuberculin,Purif.Prot.Deriv. 50 Tu/Ml Vial ID 02/05/23 10:01 X1 ONE Venlafaxine HCl 75 mg 02/05/23 10:00 02/05/23 08:13 Venlafaxine Xr 75 Mg Capsule PO 75 mg DAILY NICHO Administration Problem List (Updated 02/04/23 @ 20:[address] Elvis Glass MD) Leg cramp (Acute) Fall (Acute) Right humeral fracture (Acute) Debility (Acute) HLD (hyperlipidemia) (Chronic) Depression (Chronic) Breast cancer (Chronic) Herpes (Chronic) GERD (gastroesophageal reflux disease) (Chronic) Hypertension (Chronic) Sleep apnea (Acute) Vital Signs Temp Pulse Resp BP Pulse Ox O2 Del Method 97.3 F L 85 16 122/41 H 96 Room Air 02/04/23 18:23 02/05/23 08:25 02/04/23 18:23 02/05/23 08:25 02/04/23 18:23 02/05/23 06:20 Oxygen Delivery Method Room Air Weight: 69.4 kg Body Mass Index (BMI) 28.9 Sodium 137 mmol/L (136-145) 02/05/23 05:19 Potassium 4.0 mmol/L (3.5-5.1) 02/05/23 05:19 Chloride 103 mmol/L (98-107) 02/05/23 05:19 Carbon Dioxide 30.0 mmol/L (21.0-32.0) 02/05/23 05:19 Anion Gap 4 (5-15) L 02/05/23 05:19 BUN 21 mg/dL (7-18) H 02/05/23 05:19 Creatinine 0.70 mg/dL (0.55-1.02) 02/05/23 05:19 Est GFR (MDRD) Af Amer 102 mL/min (>60) 02/05/23 05:19 Est GFR (MDRD) Non-Af 84 mL/min (>60) 02/05/23 05:19 BUN/Creatinine Ratio 29.8 RATIO (10-20) H 02/05/23 05:19 Glucose 110 mg/dL (74-106) H 02/05/23 05:19 Assessment/Plan: 1. Pain: acetaminophen 1000mg PO Q8, ibuprofen 400mg PO Q8H PRN pain 1-3 and oxycodone 2.5-5mg PO Q4H PRN pain 4-10. Resident has not received any PRN doses. Please continue to monitor for increased pain and PRN usage. 2. Bowel: Miralax 17gm PO daily, senna/docusate 2T PO BID and magnesium citrate 300ml PO daily PRN constipation. Resident has not received any PRN doses. Last documented bowel movement 01/31. Please continue to monitor for constipation and PRN usage. 3. DVT prophylaxis: enoxaparin stopped due to drop in hemoglobin from 11.6 g/dL to 8.3 g/dL. 4. Hyperlipidemia: atorvastatin 80mg PO QHS. Please consider ordering a lipid panel as the last panel is from 03/2018. Thanks. Please continue to monitor LFts (last 11/16/22) and muscle pain. 5. Hypertension: metoprolol succinate 25mg PO daily. Please continue to monitor BP (last 122/41) and HR (last 85). 6. Breast cancer: anastrozole 1mg PO daily. Please continue to monitor BMD, GI side effects, bleeding and insomnia. 7. GERD: pantoprazole 20mg PO daily and calcium carbonate 500mg PO daily. Please continue to monitor for S/S of GERD, diarrhea (BEERs medication due to increased risk of C. diff infections) and calcium (last 8.4mg/dL). 8. Herpes: acyclovir 800mg PO BID. Please continue to monitor for S/S of herpes and renal function. 9. Trigeminal neuralgia: carbamazepine SR 200mg PO Q12. Please continue to monitor for S/S of pain, rash (black box warning), hemoglobin (last 8.3g/dL, BBW for anemia), platelets (last 334,000) and renal function. 10. Leg cramps: vitamin B complex 1C PO QHS. Please continue to monitor for leg cramps. Assessment/Plan for indications treated with psychotropic medications: 1. Depression: venlafaxine XR 75mg PO daily. Please see physician note regarding GDR. Please continue to monitor for suicidal ideation (black box warning), falls/fractures (BEERs medication) and sodium (last 137mmol/L). Medical chart and medication regimen reviewed. The following medication irregularities or issues were identified: 1. Atorvastatin 80mg PO QHS. Please consider ordering a lipid panel as the last panel is from 03/2018. Thanks. Date Date of Note:: 02/05/23 Documented by User: Dr. Elvis Glass MD 02/05/23 10:42 TCU RX Drug Regimen Review Provider Comments Provider responsibility Provider Comments to Recommendations by Pharmacy: Agree
[2023-02-05] MEDS: Ibuprofen 400 MG Tablet PO ×2 (10:30→19:54)
[2023-02-05] MEDS: Tuberculin,Purif.prot.deriv. 50 TU/ML Vial 0.1 ML ID (10:34)
--- NOTE | 2023-02-05 10:39 | NURSING ---
Civil Design Specialist Note; Activity Asset: Paramjit Flowers is independent in her choice of daily activities. She also goes by Melanie. Melanie enjoys reading, watching tv, talking with family, friends and others. She welcomes visits from the drug safety assistant and therapy dog when available. Staff will continue to offer her in room and group activities and respect her right to say no.
[2023-02-05 12:10] VITALS: BMI 28.9
[2023-02-05 13:38] VITALS: BP 125/50; PULSE 82; RESP 16; TEMP 36.1; O2SAT 93
--- NOTE | 2023-02-05 14:23 | CASEMGMT ---
Social Work Met with patient to complete initial assessment. Pt known to this worker from previous stay. Dtr, Shelby, and OMER present in room. Pt granted permission to complete assessment with family present. Verified contacts. Discussed code status - pt wishes to be DNR-CCA, no intubation. DNR form placed in Dr folder. SW educated to [facility] insurance and continued stay is not guaranteed with each review. Pt's goals are to return to [facility] at [place]. SW will continue to follow for DC planning. Shy Perez DIRECTOR PRODUCT MANAGEMENT CAFE OPERATOR
[2023-02-05] MEDS: Atorvastatin Calcium 80 MG Tablet PO (21:06)
[2023-02-05] MEDS: Vitamin B Comp W-C Capsule 1 CAP PO (21:06)
[2023-02-06] MEDS: Acetaminophen 500 MG Tablet 1000 MG PO ×3 (05:45→21:32)
[2023-02-06] MEDS: Calcium Carbonate 500 MG Tablet PO (10:15)
[2023-02-06 10:18] VITALS: BP 125/62; PULSE 110
[2023-02-06] MEDS: Pantoprazole Sodium 20 MG Tablet PO (10:18)
[2023-02-06] MEDS: Metoprolol(XL)Succ 25 MG Tablet PO (10:18)
[2023-02-06] MEDS: Acyclovir 800 MG Tablet PO ×2 (10:18→21:32)
[2023-02-06] MEDS: Venlafaxine XR 75 MG Capsule PO (10:18)
[2023-02-06] MEDS: Anastrozole 1 MG TABLET PO (10:19)
[2023-02-06] MEDS: carBAMazepine 200 MG TAB.SR.12H PO ×2 (10:20→21:32)
[2023-02-06] MEDS: Ibuprofen 400 MG Tablet PO (10:23)
--- NOTE | 2023-02-06 11:21 | NS ---
MST score = 1
[2023-02-06 16:00] VITALS: BP 119/57; PULSE 90; RESP 18; TEMP 36; O2SAT 98
[2023-02-06] MEDS: Atorvastatin Calcium 80 MG Tablet PO (21:32)
[2023-02-06] MEDS: Senna/Docusate Sodium 1 Tablet 2 TABLET PO (21:32)
[2023-02-06] MEDS: Vitamin B Comp W-C Capsule 1 CAP PO (21:32)
[2023-02-06] MEDS: oxyCODONE 5 MG Tablet PO (23:00)
[2023-02-07] MEDS: Acetaminophen 500 MG Tablet 1000 MG PO ×3 (05:34→21:22)
[2023-02-07 07:32] LABS: Hematocrit 27.5 % (37-47); Hemoglobin 8.8 g/dL (12.0-15.0)
[2023-02-07] MEDS: Calcium Carbonate 500 MG Tablet PO (09:14)
[2023-02-07] MEDS: carBAMazepine 200 MG TAB.SR.12H PO ×2 (09:14→21:23)
[2023-02-07 09:15] VITALS: BP 116/51; PULSE 96
[2023-02-07] MEDS: Pantoprazole Sodium 20 MG Tablet PO (09:15)
[2023-02-07] MEDS: Metoprolol(XL)Succ 25 MG Tablet PO (09:15)
[2023-02-07] MEDS: Anastrozole 1 MG TABLET PO (09:16)
[2023-02-07] MEDS: Acyclovir 800 MG Tablet PO ×2 (09:16→21:22)
[2023-02-07] MEDS: Venlafaxine XR 75 MG Capsule PO (09:17)
[2023-02-07] MEDS: Ascorbic Acid 500 MG Tablet PO (10:28)
[2023-02-07] MEDS: Iron Polysaccharide Complex 150 MG CAPSULE PO (10:28)
[2023-02-07 14:24] VITALS: BP 132/59; PULSE 89; RESP 16; TEMP 36.4; O2SAT 95
[2023-02-07] MEDS: Atorvastatin Calcium 80 MG Tablet PO (21:22)
[2023-02-07] MEDS: Vitamin B Comp W-C Capsule 1 CAP PO (21:22)
[2023-02-07] MEDS: oxyCODONE 5 MG Tablet PO (21:27)
[2023-02-08] MEDS: Acetaminophen 500 MG Tablet 1000 MG PO ×3 (04:53→21:20)
[2023-02-08] MEDS: oxyCODONE 5 MG Tablet PO ×4 (04:55→22:51)
[2023-02-08 05:41] LABS: Hematocrit 29.3 % (37-47); Hemoglobin 9.2 g/dL (12.0-15.0)
[2023-02-08] MEDS: Venlafaxine XR 75 MG Capsule PO (08:08)
[2023-02-08] MEDS: Ascorbic Acid 500 MG Tablet PO (08:08)
[2023-02-08] MEDS: Iron Polysaccharide Complex 150 MG CAPSULE PO (08:08)
[2023-02-08] MEDS: Calcium Carbonate 500 MG Tablet PO (08:09)
[2023-02-08] MEDS: Pantoprazole Sodium 20 MG Tablet PO (08:10)
[2023-02-08] MEDS: carBAMazepine 200 MG TAB.SR.12H PO ×2 (08:11→21:20)
[2023-02-08] MEDS: Anastrozole 1 MG TABLET PO (08:11)
[2023-02-08] MEDS: Acyclovir 800 MG Tablet PO ×2 (08:12→21:20)
[2023-02-08 08:19] VITALS: BP 170/77; PULSE 97
[2023-02-08] MEDS: Metoprolol(XL)Succ 25 MG Tablet PO (08:19)
--- NOTE | 2023-02-08 14:10 | CASEMGMT ---
PHQ9 () and BIMS () assessments completed on this date for MDS assessment. RUTHIE Duenas
[2023-02-08 14:56] VITALS: BP 111/62; PULSE 91; RESP 18; TEMP 35.9; O2SAT 94
--- NOTE | 2023-02-08 15:49 | CHAPLAIN ---
Type of Pastoral Visit _x__ Initial Visit ___ Follow-up Visit ___ On-call Visit ___ General Patient Visit ___ Spiritual Assessment ___ Family Conference ___ Bereavement ___ Rapid Response ___ Code Blue ___ Other (describe below) Pastoral Care Referral From _x__ Patient ___ Family ___ Nurse ___ Physician ___ Freight Dispatcher ___ Joist Setter ___ Other (describe below) Sacrament/Intervention _x__ Active listening ___ Anointing ___ Islam ___ Bereavement ___ Communion ___ Martha exploration ___ _x__ Life review _x__ Prayer ___ Reconciliation ___ Sacrament of Sick ___ Supportive presence ___ Wedding ___ Other (describe below) Pastoral Comments follow up to patient seen earlier this week in [facility]; review of progress and family; pt asks questions about this 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
[2023-02-08] MEDS: Vitamin B Comp W-C Capsule 1 CAP PO (21:20)
[2023-02-08] MEDS: Senna/Docusate Sodium 1 Tablet 2 TABLET PO (21:20)
[2023-02-08] MEDS: Atorvastatin Calcium 80 MG Tablet PO (21:20)
--- NOTE | 2023-02-08 21:55 | NURSING ---
Pt observed self transferring at 2114, alarm in place and functioning but pt walked over to it and turned it off. Pt educated on importance of calling for help, waiting for staff to assist, and not turning off personal alarm. This nurse assisted pt with needs and returned back to recliner chair. At 2129, pt observed self transferring again and turning alarm off herself. Pt is currently back in recliner chair with alarm in place.
[2023-02-09] MEDS: Acetaminophen 500 MG Tablet 1000 MG PO ×3 (06:07→21:20)
[2023-02-09 07:14] LABS: Hematocrit 29.4 % (37-47); Hemoglobin 9.1 g/dL (12.0-15.0)
[2023-02-09 09:34] VITALS: BP 125/85; PULSE 95
[2023-02-09] MEDS: carBAMazepine 200 MG TAB.SR.12H PO ×2 (09:34→21:19)
[2023-02-09] MEDS: Acyclovir 800 MG Tablet PO ×2 (09:34→21:19)
[2023-02-09] MEDS: Venlafaxine XR 75 MG Capsule PO (09:34)
[2023-02-09] MEDS: Ascorbic Acid 500 MG Tablet PO (09:34)
[2023-02-09] MEDS: Iron Polysaccharide Complex 150 MG CAPSULE PO (09:34)
[2023-02-09] MEDS: Metoprolol(XL)Succ 25 MG Tablet PO (09:34)
[2023-02-09] MEDS: Anastrozole 1 MG TABLET PO (09:34)
[2023-02-09] MEDS: Calcium Carbonate 500 MG Tablet PO (09:34)
[2023-02-09] MEDS: Pantoprazole Sodium 20 MG Tablet PO (09:34)
[2023-02-09 14:42] VITALS: BP 121/59; PULSE 92; RESP 16; TEMP 36.2; O2SAT 95
[2023-02-09 19:48] VITALS: O2SAT 95
[2023-02-09] MEDS: oxyCODONE 5 MG Tablet PO (21:18)
[2023-02-09] MEDS: Vitamin B Comp W-C Capsule 1 CAP PO (21:18)
[2023-02-09] MEDS: Senna/Docusate Sodium 1 Tablet 2 TABLET PO (21:20)
[2023-02-09] MEDS: Atorvastatin Calcium 80 MG Tablet PO (21:21)
[2023-02-10] MEDS: Acetaminophen 500 MG Tablet 1000 MG PO ×3 (05:41→21:14)
[2023-02-10 06:08] LABS: Hematocrit 28.3 % (37-47); Hemoglobin 9.3 g/dL (12.0-15.0)
[2023-02-10 09:46] VITALS: PULSE 90
[2023-02-10] MEDS: Ascorbic Acid 500 MG Tablet PO (09:46)
[2023-02-10] MEDS: Pantoprazole Sodium 20 MG Tablet PO (09:46)
[2023-02-10] MEDS: Iron Polysaccharide Complex 150 MG CAPSULE PO (09:46)
[2023-02-10] MEDS: Metoprolol(XL)Succ 25 MG Tablet PO (09:46)
[2023-02-10] MEDS: Polyethylene Glycol 3350 17 GM PACKET PO (09:46)
[2023-02-10] MEDS: Anastrozole 1 MG TABLET PO (09:47)
[2023-02-10] MEDS: Acyclovir 800 MG Tablet PO ×2 (09:47→21:15)
[2023-02-10] MEDS: Venlafaxine XR 75 MG Capsule PO (09:47)
[2023-02-10] MEDS: Calcium Carbonate 500 MG Tablet PO (09:47)
[2023-02-10] MEDS: Senna/Docusate Sodium 1 Tablet 2 TABLET PO ×2 (09:47→21:13)
[2023-02-10] MEDS: carBAMazepine 200 MG TAB.SR.12H PO ×2 (09:50→21:15)
[2023-02-10 16:00] VITALS: BP 115/42; PULSE 87; RESP 16; TEMP 37.1; O2SAT 94
--- NOTE | 2023-02-10 19:59 | NURSING ---
Family updated on a positive covid patient on unit. Verbalized understanding.
[2023-02-10] MEDS: Vitamin B Comp W-C Capsule 1 CAP PO (21:14)
[2023-02-10] MEDS: Atorvastatin Calcium 80 MG Tablet PO (21:14)
[2023-02-11] MEDS: Acetaminophen 500 MG Tablet 1000 MG PO ×3 (05:38→22:04)
[2023-02-11] MEDS: Polyethylene Glycol 3350 17 GM PACKET PO (08:38)
[2023-02-11] MEDS: Anastrozole 1 MG TABLET PO (08:39)
[2023-02-11] MEDS: Venlafaxine XR 75 MG Capsule PO (08:39)
[2023-02-11] MEDS: Calcium Carbonate 500 MG Tablet PO (08:39)
[2023-02-11] MEDS: Pantoprazole Sodium 20 MG Tablet PO (08:39)
[2023-02-11] MEDS: Iron Polysaccharide Complex 150 MG CAPSULE PO (08:39)
[2023-02-11] MEDS: Senna/Docusate Sodium 1 Tablet 2 TABLET PO (08:39)
[2023-02-11 08:40] VITALS: PULSE 92
[2023-02-11] MEDS: Ascorbic Acid 500 MG Tablet PO (08:40)
[2023-02-11] MEDS: carBAMazepine 200 MG TAB.SR.12H PO ×2 (08:40→22:04)
[2023-02-11] MEDS: Metoprolol(XL)Succ 25 MG Tablet PO (08:40)
[2023-02-11] MEDS: Acyclovir 800 MG Tablet PO ×2 (08:41→22:04)
--- NOTE | 2023-02-11 09:13 | NURSING ---
Supervisor Steno Pool Note; MDS for 02/11/2023 Complete
--- NOTE | 2023-02-11 10:39 | CASEMGMT ---
Addendum entered by Shy Perez 02/14/23 08:02: ST requesting services at [place]. SHAW phoned [facility] and updated order. Addendum entered by Shy Perez 02/11/23 13:38: Received another call from dtrShelby, stating pt has f/u appt with ortho on 02/14 and would prefer pt remain until 02/14. SW spoke with pt to follow up on request. Pt is agreeable to remain. SHAW updated dtr, IDT and [facility]. Plan: DC home 02/15, [facility] PT/OT/ROACH, cane and 3-in-1 commode Addendum entered by Shy Perez 02/11/23 11:30: Received call from dtrShelby, with several questions on pt's progress and DC. Dtr expressed concern with pt's physical and cognitive abilities to DC home alone. Pt had just left this worker's office, thus, SW informed dtr of setting pt DC date for 02/13. SHAW educated, per therapy notes, pt is doing well, just needs assist with dressing/sling and for bathing. SW discussed requesting a MANAGER OF FINANCIAL for bathing at DC. Dtr agreed and will coordinate pt to get her hair done weekly as well. SW offered to follow up with ST on any cognitive concerns, but BIMS was 15/15 and no noted concerns from IDT. Dtr stated she is concerned about pt falling again, and previously pt had called her dtrs for minor assistance, like changing a light bulb, and dtr feels pt is bored/lonely at home, thinking AL would be a good fit for pt. SW provided active listening. Suggested since pt wants to DC home this stay, for dtrs to explain to pt that if being home alone is not successful, then AL could be the next step. Dtr agreed and requested assistance in navigating. SW offered to provide dtr with list of ALs and educated to pricing. Dtr appreciative. SW offered to leave AL list in room with HHC list. Dtr requested AL list at time of DC so pt does not lose it. SW agreed .Dtr also stated pt used [facility]HC prior and would prefer to use them again. SW agreed. SW noted of DME being sent to [facility] and will need picked up. Dtr requested to use another provider as she did not have a good experience with them prior. SW agreed and will contact other companies, as [facility] does not carry canes. Dtr appreciative. SW phoned referral to [facility] for PT/OT/ROACH. SW phoned [facility] and confirmed they can provide canes and BSC. SW to send referral via [employer] once Drs notes and scripts are signed. Plan: DC home 02/13, [facility] PT/OT/ROACH, [facility] for cane and 3-in-1 commode. Shy Perez, REGULATORY COORDINATOR RTUHIE Original Note: Social Work Pt presented to this worker's office requesting DC date. SW educated to [employer] insurance NRD 02/12 and anticipating [facility] with [facility] 02/15. Pt requesting to DC sooner. SW offered 02/13. Pt agreeable. Offered HHC vs OP therapy. Pt prefers HHC and has not used an agency prior. SW provided printed list in area of skilled C agencies with quality and resource data via [employer]. Pt to notify this worker of selections. Pt requesting cane and 3-[place]-1 commode at [place]. SW educated to [facility] having those items, but will need picked up at [place]. Pt agreeable. SHAW faxed referral to [facility]. Dtr to transport at [place]. Plan: DC home 02/13, [facility] PT/OT, cane, 3-in-1 commode Shy Perez REGULATORY COORDINATOR .NET ARCHITECT
--- NOTE | 2023-02-11 11:38 | NURSING ---
Updated that a patient on the unit tested covid positive. Left VM updating daughter. Offered covid vaccine, patient asked that her PCP be called as she just had some vaccines. Called PCP, last covid vaccine in 2021. Patient wants covid vaccine, order placed.
--- NOTE | 2023-02-11 13:49 | MDS.RN ---
Resident has a DC plan in place, no poc will be scheduled
[2023-02-11 14:38] VITALS: BP 131/47; PULSE 83; RESP 16; TEMP 36.3; O2SAT 97
--- NOTE | 2023-02-11 19:46 | DS.PCM_ITS ---
Providers Date of Admission: 02/04/23 Primary Care Physician: Dr. Trent Cain MD Reason For Visit: DEBILITY, RT HUMERUS FRACTURE Diagnosis Discharge Diagnosis (1) Debility: Status: Acute Code(s): R53.81 - Other malaise (2) Fall: Status: Acute Code(s): W19.XXXA - Unspecified fall, initial encounter (3) Right humeral fracture: Status: Acute Code(s): S42.301A - Unspecified fracture of shaft of humerus, right arm, initial encounter for closed fracture Qualifiers: Encounter type: initial encounter Humerus Location: shaft Fracture type: closed Fracture morphology: comminuted Fracture alignment: displaced Qualified Code(s): S42.351A - Displaced comminuted fracture of shaft of humerus, right arm, initial encounter for closed fracture (4) Herpes: Status: Chronic Code(s): B00.9 - Herpesviral infection, unspecified (5) Breast cancer: Status: Chronic Code(s): C50.919 - Malignant neoplasm of unspecified site of unspecified female breast (6) HLD (hyperlipidemia): Status: Chronic Code(s): E78.5 - Hyperlipidemia, unspecified (7) Trigeminal neuralgia: Status: Inactive Code(s): G50.0 - Trigeminal neuralgia (8) Hypertension: Status: Chronic Code(s): I10 - Essential (primary) hypertension (9) GERD (gastroesophageal reflux disease): Status: Chronic Code(s): K21.9 - Gastro-esophageal reflux disease without esophagitis (10) Depression: Status: Chronic Code(s): F32.9 - Major depressive disorder, single episode, unspecified (11) Leg cramp: Status: Acute Code(s): R25.2 - Cramp and spasm (12) Sleep apnea: Status: Acute Code(s): G47.30 - Sleep apnea, unspecified Plan 82 year old female with below past medical history hospitalized for right humerus fracture, treated non-surgically, admitted to TCU with debility, here for rehabilitation, strengthening, prior to disposition determination. * Debility - PT/OT. * Pain - Tylenol 1000mg q8, Motrin 400mg q8 prn pain (1-3), Oxycodone 2.5mg - 5mg q4h prn pain (4-10). * Bowel - Miralax 17gm daily, senna/colace 2 tablets bid, Magnesium citrate 300ml daily prn. * Adult immunization - Administer pneumonia vaccine, covid vaccine, flu vaccine as appropriate. * DVT prophylaxis - Lovenox 40mg sc daily, hold if hemoglobin drops. * Herpes - Acyclovir 800mg bid. * Breast cancer - Anastrozole 1mg daily. * Hyperlipidemia - Atorvastatin 80mg qhs. * GERD - Pantoprazole 20mg daily, TUMS 500mg daily. * Trigeminal neuralgia - CBZ 200mg q12. * Hypertension - Metoprolol succinate 25mg daily. * Depression - Venlafaxine XR 75mg daily, stable chronic senior living use, GDR not recommended. * Leg cramps - Vitamin B complex daily. Medications at Discharge Home Medications omeprazole 20 mg capsule,delayed release 20 mg PO DAILY gerd 09/26/16 venlafaxine 75 mg capsule,extended release 24 hr (Effexor XR) 75 mg PO DAILY antidepressant 09/26/16 acyclovir 800 mg tablet 800 mg PO BID herpes 04/12/18 metoprolol succinate 25 mg tablet,extended release 24 hr 25 mg PO DAILY blood p ressure 04/12/18 vitamin B complex 1 ea PO QHS suppliment 04/12/18 atorvastatin 80 mg tablet 80 mg PO QHS cholesterol #30 TABLETS 04/13/18 anastrozole 1 mg tablet 1 mg PO DAILY breast cancer 11/16/22 calcium citrate 500 mg (2,376 mg) effervescent tablet 500 mg PO DAILY calcium 11/16/22 carbamazepine 200 mg tablet,extended release,12 hr 200 mg PO Q12H seizure 11/16/22 acetaminophen 500 mg tablet 1,000 mg (2 x 500 mg) PO Q8 #0 tabs 02/11/23 ascorbic acid (vitamin C) 500 mg tablet 500 mg PO 1000 30 days #30 tabs 02/11/23 polysaccharide iron complex 150 mg iron capsule (Ferrex) 150 mg PO DAILY 30 days #30 caps 02/11/23 Hospital Course Operations None Procedures None Summary of Care Provided Minutes Spent on Discharge: 35 Hospital Course: 82 year old female with below past medical history hospitalized for right humerus fracture, treated non-surgically, admitted to TCU with debility, here for rehabilitation, strengthening, prior to disposition determination. Discharge home 02/13/2023, [facility] PT/OT/ROACH, [facility] for cane, and 3-in-1 commode. 3-in-1 commode: Patient is unable to access bathroom safely and requires a 3-in-1 commode. Physical Exam Const alert General Appearance: cooperative HEENT normocephalic Eyes PERRL and EOMs intact bilaterally Neck supple, no JVD and no carotid bruits Resp normal respiratory effort, normal air movement and clear to auscultation bilaterally Cardio regular rate and regular rhythm GI normal to inspection, nondistended, normoactive bowel sounds, non-tender and non-distended Extremity normal capillary refill Extremity Narrative: Right upper extremity immobilizer. General Extremity: Negative for edema Skin no rashes or lesions noted General Skin Exam: no breakdown Psych affect normal Appearance: appropriate Weight / BMI Weight Weight: 69.4 kg Body Mass Index (BMI) 28.9 ABG / Lab / Microbiology Data 02/10/23 05:29 02/05/23 05:19 Microbiology: Microbiology 02/11/23 05:39 Nasal Secretion SARS-CoV-2 Antigen (Rapid) - Final D/C Instructions Discharge Diet: No restrictions Discharge Activity: Return to Normal Activity and Use Walker Weight Bearing Status: No weight bearing (Right upper extremity.) Call your doctor if you observe: Fever of 101 or Higher, Inability to urinate, Inability to have a bowel movement, Shortness of breath, Dizziness, Fainting spells, Swelling in the ankles, Chest pain and Uncontrolled pain Additional Instructions: Discharge home 02/13/2023, [facility] PT/OT/ROACH, [facility] for cane, and 3-in-1 commode. Please Follow Up With: Americo Espinoza MD When: As scheduled. Meaningful Use Info Meaningful Use Diagnoses (Choose all that apply): None applicable Discharge Plan Admission Admit Date/Time: 02/04/23 17:41 Primary Reason for Your Visit: Debility. Attending Provider: Elvis Glass Chi Primary Care Provider: Trent Cain Instructions Additional Instructions / Restrictions: Discharge home 02/13/2023, [facility] PT/OT/ROACH, [facility] for cane, and 3-in-1 commode. Discharge Orders/Prescriptions Prescriptions: New polysaccharide iron complex [Ferrex 150] 150 mg iron Capsule 150 mg PO DAILY 30 Days Qty: 30 0RF acetaminophen 500 mg Tablet 1,000 mg PO Q8 Qty: 0 0RF ascorbic acid (vitamin C) 500 mg Tablet 500 mg PO 1000 30 Days Qty: 30 0RF Continued venlafaxine [Effexor XR] 75 MG capsule,extended release 24hr 75 mg PO DAILY omeprazole 20 MG capsule 20 mg PO DAILY acyclovir 800 MG tablet 800 mg PO BID metoprolol succinate 25 MG tablet extended release 24 hr 25 mg PO DAILY vitamin B complex 1 EACH tablet 1 ea PO QHS atorvastatin 80 MG tablet 80 mg PO QHS Qty: 30 0RF anastrozole 1 mg tablet 1 mg PO DAILY carbamazepine 200 mg tablet extended release 12 hr 200 mg PO Q12H calcium citrate 500 mg tablet, effervescent 500 mg PO DAILY Discontinued polyethylene glycol 3350 17 gram Powder In Packet 17 g PO BID Qty: 0 0RF acetaminophen 500 mg Tablet 1,000 mg PO Q8H PRN (Reason: Pain 1-10 Or Fever >100.7) Qty: 0 0RF oxycodone 5 mg Tablet 2.5 - 5 mg PO Q4H PRN PRN (Reason: Pain Score 4-10) Qty: 0 0RF ibuprofen 400 mg tablet 400 mg PO Q8H PRN (Reason: pain) Qty: 14 0RF Rx Instructions: For moderate to severe right shoulder musculoskeletal pain. sennosides-docusate sodium [Senna-S] 8.6-50 mg tablet 2 tab-cap PO QHS Qty: 60 0RF Referrals / Follow Up: Americo Espinoza MD [Med Staff - Active Staff] - 02/14/23 11:00 am Trent Cain MD [Primary Care Provider] - Disposition Disposition (needs filled in before D/C Order can be placed): Home Health Service
[2023-02-11] MEDS: Vitamin B Comp W-C Capsule 1 CAP PO (22:03)
[2023-02-11] MEDS: Atorvastatin Calcium 80 MG Tablet PO (22:03)
[2023-02-11] MEDS: oxyCODONE 5 MG Tablet PO (22:09)
[2023-02-12] MEDS: Acetaminophen 500 MG Tablet 1000 MG PO ×3 (05:41→20:55)
[2023-02-12 05:43] LABS: Absolute Lymphocyte Count 0.58 X10^3/uL (0.83-4.51); Absolute Neutrophil Count 2.3 X10^3/uL (2.0-7.7); Basophil# 0.01 X10^3/uL; Basophil% 0.3 % (0-1); Eosinophil# 0.12 X10^3/uL; Eosinophils% 3.7 % (0-5); Hematocrit 31.1 % (37-47); Hemoglobin 9.7 g/dL (12.0-15.0); Lymphocyte # 0.58 X10^3/ul (0.83-4.51); Lymphocyte % 17.8 % (19-41); Mean Corp Hgb Conc 31.2 g/dL (32-36); Mean Corpuscular Volume 93.1 fL (81-99); Mean Platelet Vol. 8.9 fl (6.2-12.0); Monocyte# 0.23 X10^3/uL; Monocyte% 7.1 % (0-10); NRBC Flagged by Analyzer 0 % (0-5); Neutrophil # 2.26 X10^3/uL (2.7-7.7); Neutrophil % 69.6 % (47-70); POSITIVE DIFFERENTIAL YES; Platelet Count 312 K/mm3 (150-450); RBC Distribution Width SD 50.8 fl (35.1-43.9); Red Blood Count 3.34 M/mm3 (4.2-5.4); White Blood Count 3.3 K/mm3 (4.4-11.0)
[2023-02-12 05:48] LABS: Differential Indicated SCAN CRITERIA MET
[2023-02-12 06:08] LABS: Anion Gap 7 (5-15); BUN 16 mg/dL (7-18); BUN/Creat Ratio 22.6 RATIO (10-20); Calcium,Total 8.4 mg/dL (8.5-10.1); Chloride 104 mmol/L (98-107); Creatinine, Serum 0.71 mg/dL (0.55-1.02); EST Glomerular Filtration Rate 84 mL/min (>60); Est Glom Filt Rate - Afr Amer 101 mL/min (>60); Glucose 98 mg/dL (74-106); Potassium 3.8 mmol/L (3.5-5.1); Sodium Level 138 mmol/L (136-145)
[2023-02-12 06:39] LABS: Differential Comment SCANNED; Reactive Lymphocyte 1+
[2023-02-12] MEDS: Anastrozole 1 MG TABLET PO (08:41)
[2023-02-12] MEDS: Calcium Carbonate 500 MG Tablet PO (08:41)
[2023-02-12] MEDS: Iron Polysaccharide Complex 150 MG CAPSULE PO (08:41)
[2023-02-12] MEDS: Venlafaxine XR 75 MG Capsule PO (08:41)
[2023-02-12] MEDS: Senna/Docusate Sodium 1 Tablet 2 TABLET PO ×2 (08:42→20:56)
[2023-02-12] MEDS: Pantoprazole Sodium 20 MG Tablet PO (08:42)
[2023-02-12 08:43] VITALS: BP 128/83; PULSE 98
[2023-02-12] MEDS: carBAMazepine 200 MG TAB.SR.12H PO ×2 (08:43→20:56)
[2023-02-12] MEDS: Metoprolol(XL)Succ 25 MG Tablet PO (08:43)
[2023-02-12] MEDS: Ascorbic Acid 500 MG Tablet PO (08:44)
[2023-02-12] MEDS: Acyclovir 800 MG Tablet PO ×2 (08:44→20:56)
[2023-02-12 08:47] VITALS: BP 128/83; PULSE 98
[2023-02-12 09:37] VITALS: BMI 28.5
[2023-02-12] MEDS: Tuberculin,Purif.prot.deriv. 50 TU/ML Vial 0.1 ML ID (11:14)
--- NOTE | 2023-02-12 13:15 | CASEMGMT ---
Addendum entered by Shy Perez 02/13/23 12:53: SW phoned [facility] to f/u on the order. The BSC is in stock but the cane was ordered. SW requested [facility] contact this worker when cane is in stock, then [facility] can deliver the DME to the pt. Original Note: Social Work SW received call from [facility] that they are not INN with pt's insurance and to refer to [facility], who is INN. SW fax referral and sent referral to [facility] via [employer] for DME. Shy Perez, FIONA CRM ANALYST
--- NOTE | 2023-02-12 13:51 | NURSING ---
PT REFUSED HER COVID VACCINE AND STATED SHE WANTS IT TOMORROW,[02/13/23]. PHARMANCY AWARE.
--- NOTE | 2023-02-12 14:24 | NURSING ---
PT NONCOMPLIANT WITH THE CALL LIGHT AND WONT USE HER CANE. PT EDUCATED ON BOTH AND BECAME AGITATED.
[2023-02-12 14:28] VITALS: BP 118/54; PULSE 96; RESP 18; TEMP 36.2; O2SAT 94
[2023-02-12] MEDS: Atorvastatin Calcium 80 MG Tablet PO (20:56)
[2023-02-12] MEDS: Vitamin B Comp W-C Capsule 1 CAP PO (20:56)
[2023-02-12] MEDS: oxyCODONE 5 MG Tablet PO (21:48)
[2023-02-13] MEDS: Acetaminophen 500 MG Tablet 1000 MG PO ×3 (05:55→20:49)
[2023-02-13] MEDS: Acyclovir 800 MG Tablet PO ×2 (08:39→20:49)
[2023-02-13] MEDS: Calcium Carbonate 500 MG Tablet PO (08:39)
[2023-02-13] MEDS: carBAMazepine 200 MG TAB.SR.12H PO ×2 (08:40→20:49)
[2023-02-13] MEDS: Senna/Docusate Sodium 1 Tablet 2 TABLET PO ×2 (08:41→20:48)
[2023-02-13] MEDS: Ascorbic Acid 500 MG Tablet PO (08:41)
[2023-02-13] MEDS: Venlafaxine XR 75 MG Capsule PO (08:41)
[2023-02-13 08:42] VITALS: BP 141/67; PULSE 84
[2023-02-13] MEDS: Metoprolol(XL)Succ 25 MG Tablet PO (08:42)
[2023-02-13] MEDS: Pantoprazole Sodium 20 MG Tablet PO (08:43)
[2023-02-13] MEDS: Iron Polysaccharide Complex 150 MG CAPSULE PO (08:43)
[2023-02-13] MEDS: Anastrozole 1 MG TABLET PO (08:43)
[2023-02-13 12:17] VITALS: BP 118/63; PULSE 109; RESP 18; TEMP 36.2; O2SAT 95
[2023-02-13] MEDS: COVID VAC 23-24(12UP)(ANDU)/PF 50 MCG/0.5 ML SYRINGE IM (12:19)
--- NOTE | 2023-02-13 12:23 | NURSING ---
Administered Covid Vac 23-24(12 up)(andu)/PF 50mcg/0.5mL (Spikevax) to patient's left deltoid. Patient tolerated well. VIS sheet provided.
--- NOTE | 2023-02-13 14:57 | NURSING ---
Updated patient that staff member tested positive for covid. She did not want family updated.
[2023-02-13 15:23] LABS: Pathologist Review Reviewed
--- NOTE | 2023-02-13 16:15 | RAD_ITS ---
STUDY: X-RAY - RIGHT HUMERUS REASON FOR EXAM: Female, 82 years old. humerus fracture TECHNIQUE: 2 view(s) of the humerus. COMPARISON: 01/31/2023 FINDINGS: No change in the distracted spiral fracture of the midshaft of the humerus. There is no demonstrated fracture or osseous destructive process. Plaster cast obscures soft tissue and bony detail. RAD/Humerus min 2 Views IMPRESSION: No change in the distracted spiral fracture of the midshaft right humerus Electronically Signed: Tobin Fang MD at 17:03 EST ,
--- NOTE | 2023-02-13 16:16 | NURSING ---
Call from Dr. Espinoza's office, orders for humerus xrays. Dr. Espinoza will be by tomorrow to see patient. The office is cancelling appt for 02/14/23 in office.
[2023-02-13] MEDS: Vitamin B Comp W-C Capsule 1 CAP PO (20:49)
[2023-02-13] MEDS: Atorvastatin Calcium 80 MG Tablet PO (20:49)
[2023-02-13] MEDS: oxyCODONE 5 MG Tablet PO (20:57)
[2023-02-14] MEDS: oxyCODONE 5 MG Tablet PO ×2 (02:14→22:28)
[2023-02-14] MEDS: Acetaminophen 500 MG Tablet 1000 MG PO ×3 (05:09→19:43)
[2023-02-14] MEDS: Calcium Carbonate 500 MG Tablet PO (08:55)
[2023-02-14] MEDS: Anastrozole 1 MG TABLET PO (08:56)
[2023-02-14] MEDS: Venlafaxine XR 75 MG Capsule PO (08:56)
[2023-02-14] MEDS: Iron Polysaccharide Complex 150 MG CAPSULE PO (08:57)
[2023-02-14 08:58] VITALS: BP 116/59; PULSE 104
[2023-02-14] MEDS: Metoprolol(XL)Succ 25 MG Tablet PO (08:58)
[2023-02-14] MEDS: Pantoprazole Sodium 20 MG Tablet PO (08:58)
[2023-02-14] MEDS: Senna/Docusate Sodium 1 Tablet 2 TABLET PO ×2 (08:58→19:44)
[2023-02-14] MEDS: carBAMazepine 200 MG TAB.SR.12H PO ×2 (08:58→19:43)
[2023-02-14] MEDS: Ascorbic Acid 500 MG Tablet PO (08:59)
[2023-02-14] MEDS: Acyclovir 800 MG Tablet PO ×2 (08:59→19:44)
[2023-02-14 09:03] VITALS: BP 116/59; PULSE 104
--- NOTE | 2023-02-14 11:18 | NURSING ---
PT COMPLAINED OF LEFT ARM BEING SORE AND HURTING FROM RECEIVING COVID VACCINE YESTERDAY. THIS NURSE ASSESSED ARM AND NO SIGNS OF SWELLING ,ETC. WILL CONTINUE TO MONITOR.
--- NOTE | 2023-02-14 13:26 | NURSING ---
IN TO SEE PT. NO NEW ORDERS AT THIS TIME. PT STATED TOLD HER ANOTHER 6-12 WEEKS FOR SOFT CAST.
--- NOTE | 2023-02-14 13:32 | MDS.RN ---
Information for the mds was obtained from review of the clinical record, interview of resident, staff, and direct observation of resident's care.
[2023-02-14 15:01] VITALS: BP 125/47; PULSE 97; RESP 18; TEMP 36.2; O2SAT 91
[2023-02-14] MEDS: Atorvastatin Calcium 80 MG Tablet PO (19:44)
[2023-02-14] MEDS: Vitamin B Comp W-C Capsule 1 CAP PO (19:45)
[2023-02-14 19:51] VITALS: O2SAT 96
[2023-02-15] MEDS: Acetaminophen 500 MG Tablet 1000 MG PO (05:19)
[2023-02-15 06:08] VITALS: O2SAT 96
[2023-02-15] MEDS: Venlafaxine XR 75 MG Capsule PO (08:12)
[2023-02-15] MEDS: Iron Polysaccharide Complex 150 MG CAPSULE PO (08:12)
[2023-02-15] MEDS: Anastrozole 1 MG TABLET PO (08:12)
[2023-02-15] MEDS: Calcium Carbonate 500 MG Tablet PO (08:12)
[2023-02-15] MEDS: Senna/Docusate Sodium 1 Tablet 2 TABLET PO (08:13)
[2023-02-15] MEDS: Pantoprazole Sodium 20 MG Tablet PO (08:13)
[2023-02-15 08:14] VITALS: BP 117/61; PULSE 94
[2023-02-15] MEDS: carBAMazepine 200 MG TAB.SR.12H PO (08:14)
[2023-02-15] MEDS: Metoprolol(XL)Succ 25 MG Tablet PO (08:14)
[2023-02-15] MEDS: Acyclovir 800 MG Tablet PO (08:15)
[2023-02-15] MEDS: Ascorbic Acid 500 MG Tablet PO (08:15)
[2023-02-15 08:19] VITALS: BP 117/61; PULSE 94
[2023-02-15 10:02] VITALS: BP 133/47; PULSE 88; RESP 16; TEMP 36.1; O2SAT 93
--- NOTE | 2023-02-15 11:50 | NURSING ---
GAVE PT HER HOME MEDICATION TEGRETOL XR BACK FOR D/C TODAY. PT HAD THIS NURSE PUT IT IN HER GREEN TAKE HOME BAG. RN AWARE
== END 2023-02-15 13:22 | disposition home health service (06) | DRG 561 ==
PROVIDERS: Admitting Provider Family Medicine Geriatric Medicine; PCP Internal Medicine; Visit Provider Family Medicine Geriatric Medicine
DX: S42.351D Displaced comminuted fracture of shaft of humerus, right arm, subsequent encounter for fracture with routine healing (principal); B00.9 Herpesviral infection, unspecified; C50.919 Malignant neoplasm of unspecified site of unspecified female breast; I10 Essential (primary) hypertension; F32.9 Major depressive disorder, single episode, unspecified; E78.5 Hyperlipidemia, unspecified; G47.30 Sleep apnea, unspecified; M79.7 Fibromyalgia; G50.0 Trigeminal neuralgia; K21.9 Gastro-esophageal reflux disease without esophagitis; W19.XXXD Unspecified fall, subsequent encounter; Z79.811 Long term (current) use of aromatase inhibitors; Z79.899 Other long term (current) drug therapy; Z23 Encounter for immunization
CPT/HCPCS: 36415; 73060; 80048; 85014; 85018; 85025; 87811; 90480; 92507; 92523; 97110; 97129; 97130; 97162; 97166; 97530; 97535; 91322

== ENCOUNTER 2023-05-22 10:30 | Outpatient (RCR) | payer MEDICARE, SELFPAY ==
--- NOTE | 2023-05-10 13:11 | HP.PTEVAL_ITS ---
Patient's Visit Information Visit Information Visit Information: ROLANDO FIGUEREDO is a 82 year old F referred to Physical Therapy by Dr. Trent Cain MD with a diagnosis of vertigo. Date of Evaluation: 05/10/23 Physical Therapist: Donnie Ledesma, DPT, OCS, CSCS Visit Plan Frequency: 1-2x /Week Duration: 4-6 Weeks Plan: 1-2x/week for 4-6 as needed for... 1. positional checks and treatments as needed 2. oculomotor check and vestibular ex if appropriate 3. balance progression to I home program Subjective Subjective: Broke R arm 3 months ago. She fell on stomach with R arm behind her. Casted for a while. Arm is achy but feels good otherwise. Not sure why she fell. Was trying to turn light off and reaching behind chair. 5 falls in last year, not sure why. Does have dizzy spells and maybe started more recently. Dizzy spells are room spinning when sitting up and needs to sit a few moments. Gets floaty feeling at times. Dizzy with lying and rolling in bed maybe. Uses wh walker for a week at doctor orders. No neuropathy. Sleep is OK. Not employed.Lives alone and oldest dtr does finances. Basic ADLs are getting done. Hobbies:L art and craft and can do them. Has dog and cat she plays with. No regular exercises Objective Objective: Walks with rollator into PT mod I, trasnfers I without UE. Steps reciprocal with one rail. cervical and UE aROM WFL. R UE somewhat painful to elevate but funcitonal. - R Hallpike madeleine + L hallpike madeleine for dizzyness not present on R and eye discomfort, hard to see a nystagmus. Treated with L modified brenda adn then - HD. Educated on BPPV and its effects and precautions. Balance/Special Test Scores Functional Gait Assessment Score: 26 % Disability: 13.3400 Dizziness Score: 50 Goals Goal 1:: abolish dizzy feeling upon lying and standing Goal Time Frame: 4-6 Weeks Goal 2:: Pt feel balance is 75% betteroverall and floaty feeling gone. Goal Time Frame: 4-6 Weeks Goal 3:: Ambulate safely in and out of PT without AD Goal Time Frame: 4-6 Weeks Goal 4:: DHI score 16 or less Goal Time Frame: 4-6 Weeks Rehabilitation Potential Physical Therapy Diagnosis: dizzyness feeling and feelings of imbalance limiting comfortable function Rehabilitation Potential: Fair Anticipated Interventions Patient/Client Instruction: Educate patient on: Condition For the Purpose of:: To improve nutrient delivery to tissue, To increase tolerance to activity/condition/position, To improve gait and locomotor functions and To improve safety Therapeutic Exercise to Include: Balance training Comment: positional, vestibular ex For the Purpose of:: To increase tolerance to activity/condition/position and To improve gait and locomotor functions Text: Thank you for the opportunity to evaluate your patient. For Medicare and Medicare HMO plans, please review the plan of care and approve it. It will need to be FAXED BACK to us at [phone] for Medicare purposes. For Medicare only, by signing this I certify the plan of care. Please let me know if there are questions or concerns regarding this plan of care. Physician Signature: Date:
--- NOTE | 2023-05-22 10:47 | HP.PTDCSUM ---
Discharge Summary D/C summary: It has been my pleasure to treat ROLANDO FIGUEREDO referred by Dr. Trent Cain MD, with the diagnosis of vertigo for a total of 2 visit(s). Discharge Date: 05/22/23 Please see the following information for a summary of their discharge status. Subjective Subjective: I had only one bout of vertigo since treatment. That was about a week ago and it was in the mroning and stayed that way for a bit. had to be careful and use walker that day. No dizzyness since then. Balance is good on non dizzyness. Activities: normal at home but does not get up on ladder. Avoids step stool. Overall Improvement % Improvement: 80 Objective Objective/Function: - B hallpike madeleine, - roll test, no nystagmus and no dizzyness. Walking well adn I today without LOB Oculomotor is normal no nystagmus with gaze or head shake - ocular tilt - skew eye deviation normal pursuit and saccades. VOR is tough to keep eyes on target with R rotation but no symptoms. Goals Goal 1:: abolish dizzy feeling upon lying and standing Goal Progress: Goal Met Goal 2:: Pt feel balance is 75% betteroverall and floaty feeling gone. Goal Progress: Goal Met Goal 3:: Ambulate safely in and out of PT without AD Goal Progress: Goal Met Goal 4:: DHI score 16 or less Goal Progress: Goal Met Plan Plan: d/c D/C Information Discharge Comments: Much better without dizzyness since positional treatment on day one. d/c sentence: If there are questions or concerns regarding this patient's physical therapy, please feel free to call me at [phone]. Thank you for the referral of this patient. Sincerely, Donnie Ledesma, DPT, OCS, CSCS Balance/Gait/Functional tests Balance/Special Test Scores Functional Gait Assessment Score: 26 % Disability: 13.3400 Dizziness Score: 0 Improvement % Improvement: 80
== END 2023-05-22 10:56 | disposition home or self-care (01) ==
LOC: PT 10:30
PROVIDERS: PCP Internal Medicine; Referring Provider Internal Medicine; Visit Provider Internal Medicine
DX: R29.6 Repeated falls (principal); R42 Dizziness and giddiness
CPT/HCPCS: 97161; 97530

== ENCOUNTER 2023-11-11 04:17 | Emergency (ER) | payer MEDICARE, SELFPAY ==
[2023-11-11 04:18] VITALS: BP 141/64; PULSE 87; RESP 16; TEMP 36.2; O2SAT 98; BMI 30.3
--- NOTE | 2023-11-11 05:38 | CT_ITS ---
EXAM: CT ORBITS WITH INTRAVENOUS CONTRAST CLINICAL INDICATION: ? Orbital cellulitis TECHNIQUE: Helically acquired images were obtained of the orbits. Multiplanar reformations were reviewed. Study was performed with intravenous contrast. This CT exam was performed using one or more of the following dose reduction techniques: automated exposure control, adjustment of the mA and/or kV according to patient size, and/or use of iterative reconstruction technique. CONTRAST: IV 50mL Isovue-370 COMPARISON: No relevant prior studies available. FINDINGS: ORBITS: Normal. Both globes are unremarkable. Extraocular muscles are normal. Retrobulbar fat appears unremarkable. SINUSES: Unremarkable as visualized. No acute sinusitis. BONES/JOINTS: No suspicious lytic or blastic abnormality. SOFT TISSUES: Normal. No focal subcutaneous swelling. No discrete fluid collections. CT/Orb Sella Post Fossa Ear W/CON IMPRESSION: Normal CT of the orbits. Electronically Signed: Kaveh Coleman MD at 8:13 EDT ,
[2023-11-11 05:51] VITALS: PULSE 82; RESP 18; O2SAT 96
[2023-11-11] MEDS: Ondansetron 4 MG/2 ML Vial IV (05:59)
[2023-11-11] MEDS: DiphenhydrAMINE 50 MG/ML Syringe 12.5 MG IV (06:00)
[2023-11-11] MEDS: Morphine 2 MG/ML Syringe IV ×2 (06:00→07:45)
[2023-11-11 06:20] LABS: Erythrocyte Sedimentation Rate 15 mm/hr (0-30)
[2023-11-11 06:25] LABS: Absolute Lymphocyte Count 0.56 X10^3/uL (0.83-4.51); Absolute Neutrophil Count 4.1 X10^3/uL (2.0-7.7); Basophil# 0.01 X10^3/uL; Basophil% 0.2 % (0-1); Eosinophil# 0.07 X10^3/uL; Eosinophils% 1.4 % (0-5); Hematocrit 35.2 % (37-47); Hemoglobin 11.8 g/dL (12.0-15.0); Lymphocyte # 0.56 X10^3/ul (0.83-4.51); Lymphocyte % 11.2 % (19-41); Mean Corp Hgb Conc 33.5 g/dL (32-36); Mean Corpuscular Hgb 29.8 pg (27.0-32.0); Mean Corpuscular Volume 88.9 fL (81-99); Mean Platelet Vol. 8.8 fl (6.2-12.0); Monocyte# 0.25 X10^3/uL; NRBC Flagged by Analyzer 0 % (0-5); Neutrophil # 4.07 X10^3/uL (2.7-7.7); Neutrophil % 81.8 % (47-70); POSITIVE DIFFERENTIAL YES; Platelet Count 325 K/mm3 (150-450); RBC Distribution Width CV 14.3 % (11.6-14.6); RBC Distribution Width SD 46.4 fl (35.1-43.9); Red Blood Count 3.96 M/mm3 (4.2-5.4)
[2023-11-11 06:31] LABS: Differential Indicated SCAN CRITERIA MET
[2023-11-11 06:33] LABS: Anion Gap 9 (5-15); BUN 12 mg/dL (7-18); BUN/Creat Ratio 15.1 RATIO (10-20); CRP < 2.90 mg/L (0.0-3.0); Calcium,Total 9.3 mg/dL (8.5-10.1); Chloride 98 mmol/L (98-107); Creatinine, Serum 0.79 mg/dL (0.55-1.02); EST Glomerular Filtration Rate 73 mL/min (>60); Est Glom Filt Rate - Afr Amer 89 mL/min (>60); Glucose 117 mg/dL (74-106); Potassium 4.2 mmol/L (3.5-5.1); Sodium Level 132 mmol/L (136-145)
[2023-11-11 06:45] LABS: Lactic Acid 3.2 mmol/L (0.4-1.9)
[2023-11-11 07:46] VITALS: BP 128/70; PULSE 83; RESP 16; O2SAT 95
--- NOTE | 2023-11-11 08:24 | EX.ED.VIS.EY ---
HPI History of Present Illness Chief Complaint: Eye Problem Informant: patient Narrative Narrative: Patient is 82-year-old female who lives at home alone. She states that my daughter does my medications for me and I do not know what I take or what illnesses have. She states she went to bed and then awoke with sharp pain along the left cheek/eye. She states that there was no trauma. She denies any change in vision or light sensitivity or discharge. She denies any contact lens use. She states that she could not rest secondary to the pain and therefore comes in for evaluation [facility] Medical History Fall Right humeral fracture Non-smoker Herpes Fibromyalgia Depression GERD (gastroesophageal reflux disease) CPAP (continuous positive airway pressure) dependence Sleep apnea Hypertension Migraines Home Medications ?Medication ?Instructions ?Recorded ?Last Taken ?Type omeprazole 20 mg capsule,delayed 20 mg PO DAILY gerd 09/26/16 01/30/23 History release venlafaxine 75 mg capsule,extended 75 mg PO DAILY antidepressant 09/26/16 01/30/23 History release 24 hr (Effexor XR) acyclovir 800 mg tablet 800 mg PO BID herpes 04/12/18 02/04/23 History metoprolol succinate 25 mg 25 mg PO DAILY blood pressure 04/12/18 02/04/23 10:15 History tablet,extended release 24 hr vitamin B complex 1 ea PO QHS suppliment 04/12/18 02/04/23 History atorvastatin 80 mg tablet 80 mg PO QHS cholesterol #30 04/13/18 01/30/23 Rx TABLETS anastrozole 1 mg tablet 1 mg PO DAILY breast cancer 11/16/22 01/30/23 History calcium citrate 500 mg (2,376 mg) 500 mg PO DAILY calcium 11/16/22 01/30/23 History effervescent tablet carbamazepine 200 mg 200 mg PO Q12H seizure 11/16/22 02/04/23 10:15 History tablet,extended release,12 hr ascorbic acid (vitamin C) 500 mg 500 mg PO 1000 30 days #30 tabs 02/11/23 Unknown Rx tablet polysaccharide iron complex 150 mg 150 mg PO DAILY 30 days #30 caps 02/11/23 Unknown Rx iron capsule (Ferrex) acetaminophen 500 mg tablet 1,000 mg PO Q6H 03/06/23 Unknown History Allergy/AdvReac Type Severity Reaction Status Date / Time Penicillins (PCN) AdvReac Rash Verified 11/11/23 04:19 Surgical History History of appendectomy Social History household members: none Smoking Status: Never smoker alcohol intake: never substance use type: does not use ROS ROS ED Constitutional Constitutional ED: Denies chills or fever(s) Eyes Eyes: Reports other Details: Positive left eye pain ; Denies blurry vision or change in vision ENT ENT ED: Denies ear pain, rhinorrhea or sore throat Cardiovascular Cardiovascular: Denies chest pain Respiratory/Chest Respiratory/Chest: Denies cough or dyspnea Gastrointestinal Gastrointestinal: Denies abdominal pain, diarrhea, nausea or vomiting Genitourinary Genitourinary ED: Denies dysuria Musculoskeletal Musculoskeletal: Denies myalgias or neck pain Integumentary Denies Abrasions or rash Neurologic Neurologic: Denies headache(s) Hematologic/Lymphatic Hematologic/Lymphatic: Denies easy bleeding or easy bruising EXAM Physical Exam Const Vital Signs: 11/11/23 04:18 11/11/23 05:51 11/11/23 07:46 Temperature 97.2 F L Temperature Source Temporal Pulse Rate 87 82 83 Respiratory Rate 16 18 16 Blood Pressure 141/64 H 128/70 H Blood Pressure Mean 89 89 Pulse Ox 98 96 95 Oxygen Delivery Method Room Air Room Air Positive well nourished and well developed General Appearance ED: well developed HEENT HEENT Narrative: Normocephalic atraumatic No surrounding erythema to the left orbit to suggest periorbital cellulitis No vesicular or pustule rash to suggest herpes zoster. No abrasions or ecchymosis to suggest trauma No erythema or warmth to suggest cellulitis or abscess formation There is reproducible tenderness with palpation over top the left zygomatic arch Eyes PERRL and EOMs intact bilaterally Eyes Narrative: No scleral injection. No conjunctival fullness. No increased tearing or purulent discharge. No retained foreign body. Neck supple Resp normal respiratory effort and clear to auscultation bilaterally Cardio regular rate and regular rhythm Extremity normal to inspection Neuro oriented x3, CN's II-XII intact bilaterally, moves all extremities and no sensory deficits noted Sensorium / Orientation: alert Motor Exam: strength 5/5 throughout Psych Psych Narrative: Patient has a nervous and anxious affect Skin no rashes or lesions noted and no wounds Lesions: no lesions Rashes: no rashes Trauma: Negative for abrasion MDM MDM MDM Narrative Medical decision making narrative: Patient arrived to the ER slightly hypertensive but otherwise with stable vitals. She reported left-sided eye/facial pain with no trauma. Differential diagnosis is for cellulitis versus abscess versus herpes zoster versus dental infection versus corneal abrasion versus trigeminal neuralgia versus orbital cellulitis versus temporal arteritis. The patient states that she does not know her medications or her medical illnesses and as she reported pain with motion of her left eye I do have concern for orbital cellulitis and therefore I will check basic inflammatory markers and perform a CT scan with IV contrast. Lab work revealed no clinically significant findings with her ESR and CRP coming back normal going against an inflammatory process and with white count being normal there is low concern for infectious process. Also CT scan revealed no pathology such as orbital cellulitis. The patient's daughter arrived in the ER and confirms that she has been diagnosed with trigeminal neuralgia and is supposed to be taking carbamazepine. However she states that the patient has not been taking her medications as directed and this would account for her breakthrough pain. Therefore at this time as workup is negative and patient has a history of trigeminal neuralgia which correlates with her exam and the fact that she has not been taking her medications correlates with her pain exacerbation I do not feel there is need for further workup and she is otherwise safe for discharge History & Record Review Discussion w/independent historian: Patient and Family Lab Data Attestation: I reviewed the patient's lab results. Labs: Laboratory Results - last 24 hr 11/11/23 05:59 WBC 5.0 RBC 3.96 L Hgb 11.8 L Hct 35.2 L MCV 88.9 MCH 29.8 MCHC 33.5 RDW Std Deviation 46.4 H RDW Coeff of Kyree 14.3 Plt Count 325 MPV 8.8 Immature Gran % (Auto) 0.400 Neut % (Auto) 81.8 H Lymph % (Auto) 11.2 L [place] % (Auto) 5.0 Eos % (Auto) 1.4 Baso % (Auto) 0.2 Absolute Neuts (auto) 4.1 Absolute Lymphs (auto) 0.56 L Nucleated RBC % 0 ESR 15 Sodium 132 L Potassium 4.2 Chloride 98 Carbon Dioxide 25.0 Anion Gap 9 BUN 12 Creatinine 0.79 Estim Creat Clear Calc 47.80 Est GFR (MDRD) Af Amer 89 Est GFR (MDRD) Non-Af 73 BUN/Creatinine Ratio 15.1 Glucose 117 H Lactic Acid 3.2 H* Calcium 9.3 C-React Prot Ext Range < 2.90 Radiography Diagnostic Testing: Clinical Impression(s) from Imaging Studies CT Orbit Sella Inner 11/11/23 05:38 IMPRESSION: Normal CT of the orbits. Electronically Signed: Kaveh Coleman MD at 8:13 EDT , Discharge Plan Triage Chief Complaint: Eye Problem ED Provider: Jens Alcaraz Dx/Rx/DC Orders Clinical Impression: Left-sided trigeminal neuralgia, Hypertension, Fibromyalgia Instructions: ED Trigeminal Neuralgia Prescriptions: No Action acetaminophen 500 mg tablet 1,000 mg PO Q6H venlafaxine [Effexor XR] 75 MG capsule,extended release 24hr 75 mg PO DAILY omeprazole 20 MG capsule 20 mg PO DAILY acyclovir 800 MG tablet 800 mg PO BID metoprolol succinate 25 MG tablet extended release 24 hr 25 mg PO DAILY vitamin B complex 1 EACH tablet 1 ea PO QHS atorvastatin 80 MG tablet 80 mg PO QHS Qty: 30 0RF anastrozole 1 mg tablet 1 mg PO DAILY carbamazepine 200 mg tablet extended release 12 hr 200 mg PO Q12H calcium citrate 500 mg tablet, effervescent 500 mg PO DAILY polysaccharide iron complex [Ferrex 150] 150 mg iron Capsule 150 mg PO DAILY 30 Days Qty: 30 0RF ascorbic acid (vitamin C) 500 mg Tablet 500 mg PO 1000 30 Days Qty: 30 0RF Primary Care Provider: Trent Cain Referrals: Trent Cain MD [Primary Care Provider] - Print Language: Czech Disposition Disposition: Home, Self Care Discharge Date/Time: 11/11/23 08:54
[2023-11-11 08:49] VITALS: BP 109/75; PULSE 82; RESP 16; TEMP 36.2; O2SAT 93
[2023-11-11 10:04] LABS: Reflex Lactate? Y
== END 2023-11-11 08:54 | disposition home or self-care (01) ==
PROVIDERS: Emergency Provider Emergency Medicine; PCP Internal Medicine; Visit Provider Emergency Medicine
DX: G50.0 Trigeminal neuralgia (principal); H57.10 Ocular pain, unspecified eye; M79.7 Fibromyalgia; I10 Essential (primary) hypertension; F32.A Depression, unspecified; K21.9 Gastro-esophageal reflux disease without esophagitis; G47.30 Sleep apnea, unspecified; Z99.89 Dependence on other enabling machines and devices
CPT/HCPCS: 70481; 80048; 83605; 85025; 85652; 86140; 96374; 96375; 96376; 99283; Q9967; A4216; J2405

== ENCOUNTER 2024-03-26 14:28 | Emergency (ER) | payer MEDICARE, SELFPAY ==
[2024-03-26 14:28] VITALS: BP 134/115; PULSE 106; RESP 16; TEMP 36.8; O2SAT 96
--- NOTE | 2024-03-26 15:17 | RAD_ITS ---
STUDY: X-RAY - RIGHT ANKLE REASON FOR EXAM: Female, 83 years old. Injury/Pain TECHNIQUE: 3 view(s) of the ankle. COMPARISON: None. FINDINGS: Nondisplaced oblique fracture of the distal fibula. Normal medial and lateral malleoli. Normal tibiotalar articulation and ankle mortise. Plantar spur. The visualized subtalar, talonavicular, calcaneocuboid and tarsal articulations are normal. Soft tissue swelling. RAD/Ankle min 3 Views IMPRESSION: Nondisplaced fracture of the distal fibula. Soft tissue swelling. Electronically Signed: Sam Licona MD at 15:33 EST ,
--- NOTE | 2024-03-26 15:25 | EDS_ITS ---
HPI History of Present Illness Chief Complaint: Fall Detail of Chief Complaint: Patient slipped on the ice. She reports right ankle pain. Informant: patient Onset/Context/Timing Onset: Today and Hours Mechanism/Context: Blunt Injury and Fall Location of pain/injuries: Right arm and Right ankle Quality of Pain: Dull, Aching and Throbbing Location: Mid right arm and right ankle Current Severity: Mild Maximum Severity: Severe Worsened by: Weightbearing and palpation Relieved by: Nothing Associated Symptoms Associated Symptoms: Positive for Inability to ambulate (Difficulty ambulating); Negative for Parasthesias, Weakness, Loss of function, Loss of consciousness or Amnesia Narrative Narrative: Patient is an 83-year-old woman. She slipped on the ice. She fell hitting the front and back of her head. She denies headache. She denies nausea or vomiting. She denies loss of conscious. She denies being dazed. She is not on antithrombotic or anticoagulant. She denies neck pain. She denies paresthesia, anesthesia or motor weakness upper lower extremity. She denies back pain. Prior similar symptoms: No Recent Illness/Hospitalization: No [facility] Medical History Fall Right humeral fracture Non-smoker Herpes Fibromyalgia Depression GERD (gastroesophageal reflux disease) CPAP (continuous positive airway pressure) dependence Sleep apnea Hypertension Migraines Home Medications ?Medication ?Instructions ?Recorded ?Last Taken ?Type omeprazole 20 mg capsule,delayed 20 mg PO DAILY gerd 09/26/16 01/30/23 History release venlafaxine 75 mg capsule,extended 75 mg PO DAILY antidepressant 09/26/16 01/30/23 History release 24 hr (Effexor XR) acyclovir 800 mg tablet 800 mg PO BID herpes 04/12/18 02/04/23 History metoprolol succinate 25 mg 25 mg PO DAILY blood pressure 04/12/18 02/04/23 10:15 History tablet,extended release 24 hr vitamin B complex 1 ea PO QHS suppliment 04/12/18 02/04/23 History atorvastatin 80 mg tablet 80 mg PO QHS cholesterol #30 04/13/18 01/30/23 Rx TABLETS anastrozole 1 mg tablet 1 mg PO DAILY breast cancer 11/16/22 01/30/23 History calcium citrate 500 mg (2,376 mg) 500 mg PO DAILY calcium 11/16/22 01/30/23 History effervescent tablet carbamazepine 200 mg 200 mg PO Q12H seizure 11/16/22 02/04/23 10:15 History tablet,extended release,12 hr ascorbic acid (vitamin C) 500 mg 500 mg PO 1000 30 days #30 tabs 02/11/23 Unknown Rx tablet polysaccharide iron complex 150 mg 150 mg PO DAILY 30 days #30 caps 02/11/23 Unknown Rx iron capsule (Ferrex) acetaminophen 500 mg tablet 1,000 mg PO Q6H 03/06/23 Unknown History hydrocodone-acetaminophen 5-325mg 1 tab PO Q6H PRN PRN Pain 3 days 03/26/24 Unknown Rx 5mg-325mg #10 TABLETS Allergy/AdvReac Type Severity Reaction Status Date / Time promethazine (From Phenergan) Allergy UNKNOWN Verified 03/26/24 14:30 Penicillins (PCN) AdvReac Rash Verified 03/26/24 14:30 Surgical History History of appendectomy Social History household members: none Smoking Status: Never smoker alcohol intake: never substance use type: does not use ROS ROS ED Constitutional Constitutional ED: Denies chills or fever(s) Eyes Eyes: Denies blurry vision or change in vision ENT ENT ED: Denies ear pain, rhinorrhea or sore throat Cardiovascular Cardiovascular: Denies chest pain, palpitations or paroxysmal nocturnal dyspnea Respiratory/Chest Respiratory/Chest: Denies cough, dyspnea, dyspnea on exertion or paroxysmal nocturnal dyspnea Gastrointestinal Gastrointestinal: Denies abdominal pain, nausea or vomiting Musculoskeletal Musculoskeletal: Reports other Details: Right mid arm pain and right ankle pain ; Denies arthralgias, back pain, myalgias or neck pain Integumentary Denies rash Neurologic Neurologic: Denies headache(s), paresthesias or weakness Hematologic/Lymphatic Hematologic/Lymphatic: Denies easy bleeding or easy bruising EXAM Physical Exam Const Vital Signs: 03/26/24 14:28 03/26/24 14:28 Temperature 98.2 F Temperature Source Oral Pulse Rate 106 H Respiratory Rate 16 Respiratory Effort Normal Non-Labored Respiratory Depth Normal Respiratory Pattern Normal Blood Pressure 134/115 H Blood Pressure Mean 121 Pulse Ox 96 Oxygen Delivery Method Room Air Room Air Positive well nourished and well developed General Appearance ED: well developed and NAD HEENT Denies TM's clear HEENT Narrative: No clinical findings of basilar skull fracture. atraumatic; Negative for tenderness Nose: Negative for septum abnormal Tympanic Membrane ED: Negative for TM's clear Eyes PERRL and EOMs intact bilaterally Neck full ROM Neck Narrative: Patient C-spine cleared per Nexus criteria. General: Negative for tenderness Chest Wall inspection of chest normal and palpation of chest normal Resp normal respiratory effort and clear to auscultation bilaterally Cardio regular rhythm, S1 normal heart sound and S2 normal heart sound Rate: regular rate GI normal to inspection, nondistended, normoactive bowel sounds, non-tender, non- distended and no masses Back/Spine normal to inspection and no thoracic nor lumbar tenderness Extremity full ROM; Negative for normal to inspection Extremity Narrative: Axillary, median, radial and ulnar function intact. There is no pain the patient with the clavicle AC joint. There is no pain the patient with a proximal humerus. Is no pain the patient with a lateral medial epicondyle, olecranon process or radial head. There is no pain ovation of the distal radius or ulna. There is no evidence of trauma to the arm. She has full active range of motion at the shoulder and elbow. Patient has a swollen right ankle. There is pain the patient distal 3 to 4 cm of the lateral malleolus and specifically posteriorly. DP pulses palpable. There is no laxity with drawer testing. This does cause her discomfort. General Extremety ED: Yes edema and tenderness General Extremity: edema Neuro oriented x3, CN's II-XII intact bilaterally and moves all extremities [place] Coma Scale: document GCS findings Spontaneous Obeys Commands Oriented 15 Plantar Reflex: Downgoing: bilateral (There is no clonus.) Psych mental status grossly normal and thought process normal Skin no rashes or lesions noted, no wounds, skin turgor normal and no jaundice MDM MDM MDM Narrative Medical decision making narrative: Per the [place] CT head rule patient was not imaged. C-spine was cleared per Nexus criteria. Clinically patient does not have a fractured humerus or proximal humeral fracture. X-ray was not obtained. There is concern and per the [place] ankle rule imaging of the ankle is required. There is a spiral type C Salazar fracture of the distal fibula. Radiography Chest X-Ray - ED: Read by ED Physician (Three-view x-ray of the ankle reveals a 1 mm displacement of a Salazar type C fracture of the distal fibula. There is no widening the mortise. There is no fracture involving the medial malleolus. There is independent reviewed interpreted by me [id number].) Management Discussion w/another healthcare provider: National Insurance Officer (Spoke with Dr. Lira on for podiatry. Walking boot and brought patient to call for follow-up.) Discharge Plan Triage Chief Complaint: Fall ED Provider: Lion Arthur Dx/Rx/DC Orders Clinical Impression: Closed fracture of distal end of right fibula, CVA (cerebral vascular accident), Hypertension, CAD (coronary artery disease), HLD (hyperlipidemia), Pain in right arm, Blunt head trauma, Injury due to fall Instructions: ED Ankle Fracture, Distal Fibula Prescriptions: New hydrocodone-acetaminophen 5-325 mg tablet 1 tab PO Q6H PRN PRN (Reason: Pain) 3 Days Qty: 10 0RF No Action acetaminophen 500 mg tablet 1,000 mg PO Q6H venlafaxine [Effexor XR] 75 MG capsule,extended release 24hr 75 mg PO DAILY omeprazole 20 MG capsule 20 mg PO DAILY acyclovir 800 MG tablet 800 mg PO BID metoprolol succinate 25 MG tablet extended release 24 hr 25 mg PO DAILY vitamin B complex 1 EACH tablet 1 ea PO QHS atorvastatin 80 MG tablet 80 mg PO QHS Qty: 30 0RF anastrozole 1 mg tablet 1 mg PO DAILY carbamazepine 200 mg tablet extended release 12 hr 200 mg PO Q12H calcium citrate 500 mg tablet, effervescent 500 mg PO DAILY polysaccharide iron complex [Ferrex 150] 150 mg iron Capsule 150 mg PO DAILY 30 Days Qty: 30 0RF ascorbic acid (vitamin C) 500 mg Tablet 500 mg PO 1000 30 Days Qty: 30 0RF Primary Care Provider: Trent Cain Referrals: Suly New DPM [Med Staff - Active Staff] - 3-5 Days Trent Cain MD [Primary Care Provider] - Activity Restrictions/Additional Instructions: 1. Elevate your foot is much as possible. Elevation is your ankle above your nose. 2. Apply ice 6-8 times a day 3. May remove walking boot to sleep. Print Language: Spanish Disposition Disposition: Home, Self Care
[2024-03-26 15:54] VITALS: BP 132/99; PULSE 98; RESP 16; TEMP 37.1; O2SAT 99
== END 2024-03-26 15:58 | disposition home or self-care (01) ==
PROVIDERS: Emergency Provider Emergency Medicine; PCP Internal Medicine; Visit Provider Emergency Medicine
DX: S82.831A Other fracture of upper and lower end of right fibula, initial encounter for closed fracture (principal); I63.9 Cerebral infarction, unspecified; M79.601 Pain in right arm; I25.10 Atherosclerotic heart disease of native coronary artery without angina pectoris; S09.90XA Unspecified injury of head, initial encounter; R26.2 Difficulty in walking, not elsewhere classified; I10 Essential (primary) hypertension; E78.5 Hyperlipidemia, unspecified; K21.9 Gastro-esophageal reflux disease without esophagitis; W00.0XXA Fall on same level due to ice and snow, initial encounter
CPT/HCPCS: 73610; 99283

== ENCOUNTER 2024-10-14 16:22 | Emergency (ER) | payer MEDICARE, SELFPAY ==
[2024-10-14 16:23] VITALS: BP 132/76; PULSE 108; RESP 18; TEMP 36.9; O2SAT 93; BMI 29.0
--- NOTE | 2024-10-14 16:30 | ED.VIS.FALL ---
HPI HPI - Fall History of Present Illness Chief Complaint: Fall PFSH PFS Medical History Fall Right humeral fracture Non-smoker Herpes Fibromyalgia Depression GERD (gastroesophageal reflux disease) CPAP (continuous positive airway pressure) dependence Sleep apnea Hypertension Migraines Home Medications ?Medication ?Instructions ?Recorded ?Last Taken ?Type omeprazole 20 mg capsule,delayed 20 mg PO DAILY gerd 09/26/16 01/30/23 History release venlafaxine 75 mg capsule,extended 75 mg PO DAILY antidepressant 09/26/16 01/30/23 History release 24 hr (Effexor XR) acyclovir 800 mg tablet 800 mg PO BID herpes 04/12/18 02/04/23 History metoprolol succinate 25 mg 25 mg PO DAILY blood pressure 04/12/18 02/04/23 10:15 History tablet,extended release 24 hr vitamin B complex 1 ea PO QHS suppliment 04/12/18 02/04/23 History atorvastatin 80 mg tablet 80 mg PO QHS cholesterol #30 04/13/18 01/30/23 Rx TABLETS anastrozole 1 mg tablet 1 mg PO DAILY breast cancer 11/16/22 01/30/23 History calcium citrate 500 mg (2,376 mg) 500 mg PO DAILY calcium 11/16/22 01/30/23 History effervescent tablet carbamazepine 200 mg 200 mg PO Q12H seizure 11/16/22 02/04/23 10:15 History tablet,extended release,12 hr ascorbic acid (vitamin C) 500 mg 500 mg PO 1000 30 days #30 tabs 02/11/23 Unknown Rx tablet polysaccharide iron complex 150 mg 150 mg PO DAILY 30 days #30 caps 02/11/23 Unknown Rx iron capsule (Ferrex) acetaminophen 500 mg tablet 1,000 mg PO Q6H 03/06/23 Unknown History hydrocodone-acetaminophen 5-325mg 1 tab PO Q6H PRN PRN Pain 3 days 03/26/24 Unknown Rx 5mg-325mg #10 TABLETS oxycodone 5 mg capsule 5 mg PO Q6H PRN pain 3 days #12 10/14/24 Unknown Rx caps Allergy/AdvReac Type Severity Reaction Status Date / Time promethazine (From Phenergan) Allergy UNKNOWN Verified 10/14/24 16:25 Penicillins (PCN) AdvReac Rash Verified 10/14/24 16:25 Surgical History History of appendectomy Social History household members: none Smoking Status: Never smoker alcohol intake: never substance use type: does not use EXAM Physical Exam Const Vital Signs: 10/14/24 16:23 10/14/24 18:22 10/14/24 21:04 Temperature 98.4 F Temperature Source Oral Pulse Rate 108 H 76 Respiratory Rate 18 Respiratory Effort Normal Respiratory Depth Normal Respiratory Pattern Normal Blood Pressure 132/76 H 123/52 H Blood Pressure Mean 94 75 Pulse Ox 93 97 Oxygen Delivery Method Room Air Room Air MDM MDM MDM Narrative Medical decision making narrative: HISTORY OF PRESENT ILLNESS: Chief complaint: Fall 83-year-old female history of breast cancer, fibromyalgia, hyperlipidemia, debility, CAD, CVA, hypertension presents with concern for right wrist, head and left rib pain. No she had a fall on Saturday. Notes mechanical fall. No syncope. REVIEW OF SYSTEMS: Pertinent positives: Fall, right wrist, left rib and head pain Pertinent negatives: Syncope, chest pain PHYSICAL EXAM: Nursing triage notes reviewed, Vital signs reviewed Primary Survey Airway: Intact Breathing: Bilateral breath sounds Circulation: Palpable bilateral femorals, Palpable bilateral radial, Palpable bilateral DP and Palpable bilateral PT Disability / Spine precautions GCS Score: Eye Openin Verbal Response: 5 Motor Response: 6 Secondary Survey Constitutional: Please see MDM Head: Atraumatic, Midface stable, NO jaw malocclusion, No Cephalohematoma, and No Lacerations noted Eye: Pupils equal round and reactive to light, Extraocular muscles intact and No periorbital ecchymosis or stepoff, no evidence of entrapment ENT: Oropharynx clear, no lacerations, no hemotympanum, no raccoon eyes or olmedo sign Cervical spine / Neck: No cervical spine bony tenderness, crepitance, or stepoff deformity Trachea midline Lungs: Clear to auscultation, No asymmetric rise and No crepitus, no flail chest Cardiac: Regular rate and rhythm and No murmurs Abdomen: Soft, Nontender and No rebound Pelvis: Pelvis stable to compression : No evidence of genital injury Back: No midline bony tenderness to thoracic/lumbar/sacral spines Neuro: At baseline, intact strength and sensation in bilateral upper and lower extremities. 2+ patellar reflexes bilaterally. Extremities: NO gross Deformities Psych: Normal affect Nursing triage notes reviewed, Vital signs reviewed MEDICAL DECISION MAKING: Chief Complaint: please see HPI External records reviewed: Reviewed prior imaging studies Factors affecting care: As per HPI Social determinants of health: none History obtained from others: none Consults: none [facility] Narrative: The patient was initially hemodynamically stable, afebrile and nontoxic-appearing. Primary secondary trauma surveys concerning for intracranial, chest, cervical spine and hand abnormalities. I obtained imaging studies to further determine if the patient was suffering from a life-threatening etiology. Treat the patient's pain with oral oxycodone ALL IMAGES (IF OBTAINED) HAVE BEEN PERSONALLY REVIEWED AND INTERPRETED BY MYSELF. CT chest positive for T5 rib fracture CT head, cervical spine negative X-ray of the hand was read reviewed person myself showed no evidence of obvious bony abnormality Tertiary exam unremarkable. Gave incentive spirometer. PNA precautions discussed. Strict return precautions discussed. The patient and/or family, caregivers express understanding. The patient and/or family, caregivers agrees with the plan. Shared decision making: I will have a discussion with the patient and or visitors regarding risk/benefits of further testing or admission. They will be made aware of of the risk/benefits inherent in this decision they will be given the opportunity to voice understanding. Total critical care time today provided was at least 0 minutes. This excludes separately billable procedures. Critical care time (if documented) is secondary to the patient having high probability of clinically significant/life threatening deterioration in the patient's condition which required my urgent intervention. Impression: 1. Rib fracture 2. Hand contusion Dispo: Discharge home This note was generated with [employer] dictation software. It may contain incorrect words, spelling, and punctuation that were not noted in review of the chart prior to signing. Radiography Diagnostic Testing: Clinical Impression(s) from Imaging Studies Brain CT 10/14/24 17:08 IMPRESSION: No acute intracranial or cervical spine traumatic findings. Chronic/degenerative changes as above. Reading Location: [facility] Cervical Spine CT 10/14/24 17:08 IMPRESSION: No acute intracranial or cervical spine traumatic findings. Chronic/degenerative changes as above. Reading Location: [facility] Chest CT 10/14/24 17:08 IMPRESSION: No focal consolidations. Left lingular atelectasis. Trace left base effusion. Minimal pulmonary edema. Moderate hiatal hernia. Left anterior T5 acute rib fracture with minimal displacement. Nonspecific left anterior chest soft tissue calcifications. Reading Location: [facility] Hand X-Ray 10/14/24 17:15 IMPRESSION: No acute fracture or dislocation. Reading Location: [facility] Discharge Plan Triage Chief Complaint: Fall ED Provider: Kwesi Craig Dx/Rx/DC Orders Clinical Impression: Rib fracture Instructions: ED Rib Fracture Prescriptions: New oxycodone 5 mg capsule 5 mg PO Q6H PRN (Reason: pain) 3 Days Qty: 12 0RF No Action acetaminophen 500 mg tablet 1,000 mg PO Q6H venlafaxine [Effexor XR] 75 MG capsule,extended release 24hr 75 mg PO DAILY omeprazole 20 MG capsule 20 mg PO DAILY acyclovir 800 MG tablet 800 mg PO BID metoprolol succinate 25 MG tablet extended release 24 hr 25 mg PO DAILY vitamin B complex 1 EACH tablet 1 ea PO QHS atorvastatin 80 MG tablet 80 mg PO QHS Qty: 30 0RF anastrozole 1 mg tablet 1 mg PO DAILY carbamazepine 200 mg tablet extended release 12 hr 200 mg PO Q12H calcium citrate 500 mg tablet, effervescent 500 mg PO DAILY polysaccharide iron complex [Ferrex 150] 150 mg iron Capsule 150 mg PO DAILY 30 Days Qty: 30 0RF ascorbic acid (vitamin C) 500 mg Tablet 500 mg PO 1000 30 Days Qty: 30 0RF hydrocodone-acetaminophen 5-325 mg tablet 1 tab PO Q6H PRN PRN (Reason: Pain) 3 Days Qty: 10 0RF Primary Care Provider: Trent Cain Referrals: Trent Cain MD [Primary Care Provider] - Activity Restrictions/Additional Instructions: Thank you for trusting us with your care today! Your imaging studies were consistent with a rib fracture. This is likely the cause of your pain. Rib fractures can increase risk for pneumonia. Please use your provided symptoms from it is much as possible. Please take Tylenol (2 pills, 650 mg), ibuprofen (2 pills, 400 mg) every 6 hours as needed for pain and fever control. Please return to the emergency department if your symptoms change or worsen. Please follow with your primary care physician for further outpatient evaluation and management. Print Language: Swedish Disposition Disposition: Home, Self Care Discharge Date/Time: 10/14/24 21:07
--- NOTE | 2024-10-14 17:08 | CT_ITS ---
EXAM: BRAIN/HEAD WITHOUT CONTRAST; SPINE CERVICAL WITHOUT CONTRAS CLINICAL HISTORY: CLOSED HEAD INJURY; NECK PAIN COMPARISON: 01/31/2023 TECHNIQUE: Noncontrast CT images of the head and cervical spine with multiplanar reconstructions. Dose reduction techniques were used including intermediate exposure control (AEC),iterative reconstruction technique, and/or mA and/or KV dose adjustments based on patient's size. FINDINGS: HEAD: No acute intracranial hemorrhage, extra-axial collection, mass effect or evidence of acute infarct. Mild-moderate age-appropriate generalized brain parenchymal volume loss and chronic microangiopathic changes. Absent lime ocular lenses. Calcification along the carotid siphons. Intact skull base and calvarium. Well-aerated paranasal sinuses and mastoid air cells. CERVICAL SPINE: No acute fracture or subluxation. Straightening and slight reversal of the cervical lordosis, likely positional and/or degenerative in nature. Multilevel spondylotic changes with varying degrees of disc space narrowing, endplate sclerosis, anterior osteophytosis, uncovertebral spurring and hypertrophic facet arthropathy. No prevertebral soft tissue swelling. Mild atherosclerotic vascular calcifications. CT/Spine Cervical without Contras IMPRESSION: No acute intracranial or cervical spine traumatic findings. Chronic/degenerativ e changes as above. Reading Location: [id number]
--- NOTE | 2024-10-14 17:08 | CT_ITS ---
EXAM: BRAIN/HEAD WITHOUT CONTRAST; SPINE CERVICAL WITHOUT CONTRAS CLINICAL HISTORY: CLOSED HEAD INJURY; NECK PAIN COMPARISON: 01/31/2023 TECHNIQUE: Noncontrast CT images of the head and cervical spine with multiplanar reconstructions. Dose reduction techniques were used including intermediate exposure control (AEC),iterative reconstruction technique, and/or mA and/or KV dose adjustments based on patient's size. FINDINGS: HEAD: No acute intracranial hemorrhage, extra-axial collection, mass effect or evidence of acute infarct. Mild-moderate age-appropriate generalized brain parenchymal volume loss and chronic microangiopathic changes. Absent ramona ocular lenses. Calcification along the carotid siphons. Intact skull base and calvarium. Well-aerated paranasal sinuses and mastoid air cells. CERVICAL SPINE: No acute fracture or subluxation. Straightening and slight reversal of the cervical lordosis, likely positional and/or degenerative in nature. Multilevel spondylotic changes with varying degrees of disc space narrowing, endplate sclerosis, anterior osteophytosis, uncovertebral spurring and hypertrophic facet arthropathy. No prevertebral soft tissue swelling. Mild atherosclerotic vascular calcifications. CT/Brain/Head without Contrast IMPRESSION: No acute intracranial or cervical spine traumatic findings. Chronic/degenerativ e changes as above. Reading Location: [id number]
--- NOTE | 2024-10-14 17:08 | CT_ITS ---
PROCEDURE: CHEST WITHOUT CONTRAST 10/14/2024 REASON FOR EXAM: LEFT RIB PAIN TECHNIQUE: Chest CT without contrast. Coronal and Sagittal reconstruction series were provided. One or more dose reduction techniques were used (e.g., Automated exposure control, adjustment of the mA and/or kV according to patient size, use of iterative reconstruction technique RADIATION DOSE SUMMARY: DLP: 898 mGycm COMPARISON: none FINDINGS: LUNGS AND PLEURA: No focal consolidations. Bibasilar subsegmental atelectasis. Left base atelectasis. Trace left base effusion. Minimal pulmonary edema. No pneumothorax. No pleural thickening. No nodules or masses. MEDIASTINUM: No lymphadenopathy or mass. The heart shows no acute findings. Extensive coronary atherosclerosis. The aorta shows no acute findings. Extensive thoracic aortic atherosclerosis. the pulmonary trunk and branches of the vessels in the mediastinum are within normal limits. SUPRACLAVICULAR AND AXILLARY: No abnormalities seen in these regions. No mass or significant lymphadenopathy. UPPER ABDOMEN: Moderate hiatal hernia. BONES AND SOFT TISSUES: Left anterior T5 acute rib fracture with minimal displacement. Nonspecific left anterior chest soft tissue calcifications. CT/Chest without Contrast IMPRESSION: No focal consolidations. Left lingular atelectasis. Trace left base effusion. Minimal pulmonary edema. Moderate hiatal hernia. Left anterior T5 acute rib fracture with minimal displacement. Nonspecific left anterior chest soft tissue calcifications. Reading Location: [facility]
--- NOTE | 2024-10-14 17:15 | RAD_ITS ---
PROCEDURE: RIGHT HAND MIN 3 VIEWS 10/14/2024 REASON FOR EXAM: PAIN AFTER FALL TECHNIQUE: RIGHT HAND MIN 3 VIEWS COMPARISON: None. FINDINGS: No acute fracture or dislocation. Alignment is anatomic. Mild diffuse interphalangeal joint space narrowing. Qualitative osteopenia. No appreciable soft tissue swelling or radiopaque foreign body. RAD/Hand Min 3 Views IMPRESSION: No acute fracture or dislocation. Reading Location: [id number]
[2024-10-14 18:22] VITALS: BP 123/52; PULSE 76
--- NOTE | 2024-10-14 21:02 | ED.RN ---
PT WAS VERY READY TO GO, KEPT CALLING OUT FOR DISCHARGE INFO. THIS NURSE ADVISED PT AND FAMILY MEMBER THAT TESTING HAS RESULTED AND THAT I WAS WAITING FOR THE DR TO EVALUATE RESULTS AND GIVE D/C INSTRUCTIONS. PT WANTED TO LEAVE SO THIS NURSE GOT THE INCENTIVE SPIROMETER AND WENT OVER INSTRUCTIONS. DR MILLER TRIED TO GET D/C PAPERWORK PRINTED DURING A VERY BUSY ED. PT REFUSED D/C VITALS.
[2024-10-14 21:04] VITALS: O2SAT 97
--- NOTE | 2024-10-14 21:06 | ED.RN ---
THIS NURSE TOOK OVER THIS TEAM AT 1915, PRIOR NURSE DID NOT CHART TRAUMA ASSESSMENT. THIS NURSE WAS ABLE TO COMPLETE INFO AT THE BEST OF MY ABILITY BASED ON INFO/ASSESSMENT I PERFORMED IN LATER CARE.
== END 2024-10-14 21:07 | disposition home or self-care (01) ==
PROVIDERS: Emergency Provider Emergency Medicine; PCP Internal Medicine; Visit Provider Emergency Medicine
DX: S22.32XA Fracture of one rib, left side, initial encounter for closed fracture (principal); I25.10 Atherosclerotic heart disease of native coronary artery without angina pectoris; Z86.73 Personal history of transient ischemic attack (TIA), and cerebral infarction without residual deficits; G47.30 Sleep apnea, unspecified; Z99.89 Dependence on other enabling machines and devices; F32.A Depression, unspecified; K21.9 Gastro-esophageal reflux disease without esophagitis; Z79.899 Other long term (current) drug therapy; Z90.49 Acquired absence of other specified parts of digestive tract; Z85.3 Personal history of malignant neoplasm of breast; W19.XXXA Unspecified fall, initial encounter; E78.5 Hyperlipidemia, unspecified; S60.221A Contusion of right hand, initial encounter
CPT/HCPCS: 70450; 71250; 72125; 73130; 99282